=== PATIENT | female | born 1985 | race African-American/Black ===

== ENCOUNTER → 2022-02-03 09:45 | Outpatient (REF) | payer OTHER, SELFPAY ==
--- NOTE | 2022-02-03 09:50 | ECG_ITS ---
Hook-up date: 2022-02-03 09:01:00 Duration: 24:45:00 Test Indications: PALPITATIONS Medications: 704757 QRS complexes 1 Ventricular ectopics which represent <1 % of total QRS comp. * Supraventricular ectopics which represent % of total QRS comp. * Paced QRS complexs which represent % of total QRS comp. VENTRICULAR ECTOPY 1 Isolated 0 Bigeminal Cycles 0 Couplets 0 Runs 0 Beats in Runs * Beats LONGEST at * BPM at :: -- * Beats FASTEST at * BPM at :: -- SUPRAVENTRICULAR ECTOPY * Isolated * Couplets * Runs * Beats in Runs * Beats LONGEST at * BPM at :: -- * Beats FASTEST at * BPM at :: -- HEART RATES 50 MIN at 12:12:00 2022-02-03 77 AVG 138 MAX at 14:17:05 2022-02-03 LONGEST RR 1.2640 secs at 12:11:56 2022-02-03 S-T LEVELS Channel 1 - 128 mm at 09:01:00 2022-02-03 - 128 mm at 09:01:00 2022-02-03 Channel 2 - 128 mm at 09:01:00 2022-02-03 - 128 mm at 09:01:00 2022-02-03 Channel 3 - 128 mm at 02:82:01 -- - 128 mm at 02:82:01 Basic rhythm Normal sinus rhythm No long pause or profound bradycardia No dangerous dysrhythm periods No diary submitted Referred By: Damaris Ramos Overread By: NELLY DOWLING MD
== END ==
LOC: HO.CARD 09:45
PROVIDERS: Visit Provider Family Medicine
DX: R00.2 Palpitations (principal)
CPT/HCPCS: 93225; 93226

== ENCOUNTER 2022-07-29 15:59 | Outpatient (REF) | payer OTHER, SELFPAY ==
--- NOTE | ~2022-07-29 | MR_ITS ---
MR BRAIN WITHOUT AND WITH CONTRAST CLINICAL INFORMATION: Hemiparesis. COMPARISON: None available. TECHNIQUE: Multiplanar, multisequence MRI of the brain was obtained before and after the intravenous administration of 10 mL of Gadavist. FINDINGS: There is no pathologic intracranial enhancement. No parenchymal signal abnormality. There is no hydrocephalus, extra-axial surface collection, or herniation. The major flow voids at the skull base are preserved. There is no acute infarct on diffusion-weighted imaging. There is no intracranial hemorrhage on the gradient recalled echo acquisition. The midline structures are normal. The cerebellar tonsils are normally positioned. The cerebellum and brainstem are normal. The craniocervical junction is normal. Osseous marrow signal intensity is homogenous. The visualized soft tissues are unremarkable. Moderate mucosal thickening within the right sphenoid sinus and throughout the ethmoid air cells bilaterally. Mild mucosal thickening within the maxillary sinuses bilaterally. MR/MR head/brain wo/w con IMPRESSION: Unremarkable MRI of the brain.
== END 2022-07-29 16:00 | disposition home or self-care (01) ==
LOC: HO.MRI 15:59
PROVIDERS: Visit Provider Psychiatry & Neurology Neurology
DX: G81.90 Hemiplegia, unspecified affecting unspecified side (principal)
CPT/HCPCS: 70553; A9585

== ENCOUNTER 2022-11-03 08:49 | Outpatient (REF) | payer OTHER, SELFPAY ==
--- NOTE | ~2022-11-03 | MM_ITS ---
EXAMINATION: MM DIAGNOSTIC DIGITAL MAMMOGRAPHY, BILATERAL US DIAGNOSTIC ULTRASOUND BREAST, LEFT CLINICAL INFORMATION: 37-year-old with recent left lateral breast pain. No palpable mass or discharge. Prior history reduction mammoplasty. No family history breast cancer. The lifetime risk of breast cancer based on the Tyrer-Cuzick Model is 7%. COMPARISON: Mammography: 06/27/2017 ([facility] TECHNIQUE: Digital breast tomosynthesis is performed in both the craniocaudal and mediolateral oblique views along with computer-aided detection (CAD). Synthesized 2D images are generated from the tomosynthesis. Ultrasound left breast is targeted to the outer quadrants and axilla. Grayscale imaging and color Doppler are performed without and with harmonics. Patient is able to point to area of concern at time of imaging. FINDINGS: There are scattered areas of fibroglandular density (ACR BI-RADS breast composition Category b). There is interval minor scarring and scattered benign round, rim, and dermal calcifications consistent with the reduction mammoplasty. There is no significant mass or architectural abnormality or abnormal calcifications. No skin thickening or coarsening of the stromal markings. Ultrasound demonstrates no cystic or solid mass or architectural abnormality. No skin thickening or edema tracking in soft tissue planes. No hyperemia. The left axilla shows 2 nodes with normal jarret architecture. No lymphadenopathy. Results are discussed with the patient at time of visit. MM/MM tomosynthesis diagnostic BI IMPRESSION: -No mammographic evidence of malignancy or inflammatory changes. -Unremarkable targeted left breast ultrasound. ASSESSMENT: BI-RADS 2: Benign RECOMMENDATION: 1. Patient should be managed based on the clinical impression. 2. Otherwise, routine annual screening mammography beginning age 40, or earlier as clinical risk factors warrant. This patient's information was entered into a reminder system with a target due date for their next mammogram.
== END 2022-11-03 08:50 | disposition home or self-care (01) ==
LOC: HO.MAMMO 08:49
PROVIDERS: PCP Family Medicine; Visit Provider Family Medicine
DX: N64.4 Mastodynia (principal)
CPT/HCPCS: 76642; 77062; 77066

== ENCOUNTER → 2023-01-07 10:26 | Outpatient (BNVA) | payer OTHER, SELFPAY | PROVIDERS: PCP Family Medicine; Referring Provider Family Medicine; Visit Provider Physician Assistant Surgical ==

== ENCOUNTER → 2023-01-19 10:15 | Outpatient (BNVA) | payer OTHER, SELFPAY | PROVIDERS: PCP Family Medicine; Visit Provider Surgery | DX: E66.01 Morbid (severe) obesity due to excess calories (principal); K21.9 Gastro-esophageal reflux disease without esophagitis; F90.9 Attention-deficit hyperactivity disorder, unspecified type; G47.30 Sleep apnea, unspecified; J45.909 Unspecified asthma, uncomplicated; Z68.41 Body mass index [BMI] 40.0-44.9, adult | CPT/HCPCS: Q3014 ==

== ENCOUNTER 2023-01-22 09:17 | Outpatient (REF) | payer OTHER, SELFPAY ==
--- NOTE | ~2023-01-22 | XR_ITS ---
EXAMINATION: XR CHEST CLINICAL INFORMATION: Morbid obesity. COMPARISON: June 22, 2019. TECHNIQUE: 2 views of the chest were obtained. FINDINGS: No significant abnormality is noted involving the heart, lungs, mediastinum, bony thorax or soft tissues. Status post cholecystectomy. XR/XR chest 2V IMPRESSION: Unremarkable examination.
--- NOTE | 2023-01-22 09:34 | ECG_ITS ---
Test Reason : E66.01 Blood Pressure : / mmHG Vent. Rate : 064 BPM Atrial Rate : 064 BPM P-R Int : 138 ms QRS Dur : 080 ms QT Int : 408 ms P-R-T Axes : 003 023 024 degrees QTc Int : 420 ms Normal sinus rhythm Septal infarct , age undetermined Abnormal ECG When compared with ECG of 04-MAR-2011 12:48, No significant change was found Referred By: Jonathan Becerra Electronically Signed By:NELLY DOWLING MD
[2023-01-22 09:39] LABS: MANUAL DIFF FLAG NO
[2023-01-22 10:09] LABS: Basophils Absolute Auto 0.1 X10*3/uL (0.0-0.2); Basophils Percent Auto 0.8 % (0-2); Eosinophils Absolute Auto 0.1 X10*3/uL (0.0-0.4); Eosinophils Percent Auto 0.9 % (0-4); Hematocrit 42.5 % (37.0-47.0); Hemoglobin 14.7 g/dl (12.0-16.0); Imm Gran Abs Auto 0.04 X10*3/uL (0.00-0.03); Imm Gran Pct Auto 0.5 % (0.0-0.4); Lymphocytes Absolute Auto 2.1 X10*3/uL (1.2-4.9); Lymphocytes Percent Auto 26.8 % (20-40); Mean Corpuscular HGB Conc 34.6 g/dl (31.0-35.0); Mean Corpuscular Hemoglobin 31.5 pg (27.0-33.0); Mean Platelet Volume 9.7 fL (9.4-12.3); Monocytes Absolute Auto 0.7 X10*3/uL (0.1-1.2); Monocytes Percent Auto 8.7 % (2-11); Neutrophils Absolute Auto 4.9 x10*3/uL (2.0-8.3); Neutrophils Percent Auto 62.3 % (45-73); Platelet Count 386 X10*3/uL (160-400); Red Blood Count 4.67 X10*6/uL (4.20-5.50); White Blood Count 7.9 X10*3/uL (4.8-10.8)
[2023-01-22 10:48] LABS: Alanine Aminotransferase 27 U/L (0-31); Albumin Level 4.6 g/dL (3.5-5.0); Alkaline Phosphatase 81 U/L (39-117); Anion Gap 14 (12-20); Aspartate Amino Transferase 17 U/L (5-31); Bilirubin Total 0.8 mg/dL (0.0-1.0); Blood Urea Nitrogen 11 mg/dL (9-16); C Reactive Protein 2.05 mg/dL (< or = 0.50); Calcium 9.5 mg/dL (8.4-10.2); Carbon Dioxide 27 mmol/L (22-29); Chloride 103 mmol/L (96-108); Cholesterol 186 mg/dL; Estimated Glomerular Filt Rate > 60; Glucose Random 105 mg/dL (60-115); HDL Cholesterol 31 mg/dL; Iron 116 mcg/dL (30-160); LDL Cholesterol Calculated 123 mg/dl; Percent Iron Saturation 36 % (15-50); Potassium 3.9 mmol/L (3.3-5.1); Sodium 140 mmol/L (135-145); Total Iron Binding Capacity 323 mcg/dL (228-428); Total Protein 8.1 g/dL (6.5-8.0); Triglycerides 162 mg/dL; Unsaturated Iron Binding 207 ug/dL
[2023-01-22 11:21] LABS: Folate > 20.0 ng/mL (> or = 4.0); Vitamin B12 520 pg/mL (200-900)
[2023-01-22 11:33] LABS: Ferritin 156 ng/mL (10-122); Insulin 20 uU/mL (2-29); TSH reflex Free T4 0.51 uIU/mL (0.32-4.0); Vitamin D 25-OH Total 25.5 ng/mL (>30)
[2023-01-22 11:35] LABS: Estimated Average Glucose 123 mg/dL; Hemoglobin A1c % 5.9 %
[2023-01-26 15:34] LABS: PTHI 52 pg/mL (16-77)
[2023-01-27 15:38] LABS: Zinc 88 mcg/dL (60-130)
[2023-01-28 16:02] LABS: Vitamin A 41 mcg/dL (38-98)
[2023-01-30 13:54] LABS: Vitamin B1 9 nmol/L (8-30)
== END 2023-01-22 09:18 | disposition home or self-care (01) ==
LOC: HO.LAB 09:17
PROVIDERS: Visit Provider Surgery
DX: E66.01 Morbid (severe) obesity due to excess calories (principal); F90.9 Attention-deficit hyperactivity disorder, unspecified type; G47.30 Sleep apnea, unspecified; J45.909 Unspecified asthma, uncomplicated; K21.9 Gastro-esophageal reflux disease without esophagitis
CPT/HCPCS: 36415; 71046; 80053; 80061; 82306; 82607; 82728; 82746; 83036; 83525; 83540; 83970; 84425; 84443; 84590; 84630; 85025; 86140; 93005

== ENCOUNTER 2023-02-04 10:32 | Outpatient (REF) | payer OTHER, SELFPAY ==
--- NOTE | ~2023-02-04 | US_ITS ---
EXAMINATION: US COMPLETE ABDOMEN WITH LIVER ELASTOGRAPHY CLINICAL INFORMATION: Morbid obesity. COMPARISON: None available. TECHNIQUE: Real-time imaging of the abdominal viscera. Noninvasive ultrasound liver fibrosis assessment is performed using Ayleen ElastPQ point quantification shear wave elastography (2D-SWE) with a C5-2 MHz transducer. Multiple elastography samples are obtained. FINDINGS: PANCREAS: Limited. The visualized pancreatic head and body are normal in appearance. The remainder of the pancreas is obscured from visualization by the overlying bowel gas. ABDOMINAL AORTA: The proximal, middle, and distal aortic segments are normal in caliber. INFERIOR VENA CAVA: Visualized portions are normal. LIVER: The liver demonstrates normal size, contour and increased echogenicity. No focal lesion or intrahepatic biliary duct dilatation. The right lobe measures 16.7 cm in length. The left lobe measures 10.8 cm in length. Portal flow is towards the liver (hepatopetal). Shear wave liver elastography median stiffness is 1.24 m/s (reference: normal median stiffness is 1.3 m/s or less). IQR/median stiffness to assess sampling precision is 0.07 (reference: good quality data set is IQR/median stiffness of 0.15 or less). GALLBLADDER: Surgically absent. COMMON BILE DUCT: Normal in caliber measuring 0.4 cm in diameter. RIGHT KIDNEY: Normal. No hydronephrosis. No renal calculi or focal parenchymal lesions. The kidney measures 11.8 cm in maximum dimension. LEFT KIDNEY: Normal. No hydronephrosis. No renal calculi or focal parenchymal lesions. The kidney measures 12.2 cm in maximum dimension. SPLEEN: Normal. The spleen measures 8.5 cm in maximum dimension. FREE FLUID: None. US/US abdomen comp w elastography IMPRESSION: 1. There is generalized increase in hepatic echotexture, consistent with fatty infiltration or hepatocellular disease. Please correlate clinically. No focal hepatic mass or intrahepatic biliary dilatation is seen. 2. Liver elastography: Measurements are consistent with a high probability of normal liver stiffness. 3. The gallbladder is surgically absent. 4. Technically limited ultrasound examination of the pancreatic tail. REFERENCE: Society of Radiologists in Ultrasound Liver Stiffness Thresholds (2020): LIVER STIFFNESS THRESHOLDS: *Liver Stiffness equal or less than 1.3 m/s: High probability of being normal. *Liver Stiffness less than 1.7 m/s: In the absence of other known clinical signs, rules out compensated advanced chronic liver disease. *Liver Stiffness 1.7-2.1 m/s: Suggestive of compensated advanced chronic liver disease but need further test for confirmation. *Liver Stiffness over 2.1 m/s: Rules in compensated advanced chronic liver disease. *Liver Stiffness over 2.4 m/s: Suggestive of clinically significant portal hypertension. QUALITY OF DATA SET: *IQR/Median value equal or less than 0.15 implies a quality data set. *IQR/Median value over 0.15 implies a poor quality data set. SIGNIFICANT CHANGE FROM PRIOR EXAM: Significant change if liver stiffness measurement is 10% or greater from prior exam. OTHER CONSIDERATIONS: The stage of liver fibrosis may be overestimated in the setting of acute hepatitis, liver inflammation, elevated liver function tests, hepatic vascular congestion, obstructive cholestasis, non-fasting state, and infiltrative diseases such as amyloidosis and lymphoma. In some patients with NAFLD, the liver stiffness thresholds for compensated advanced chronic liver disease may be lower. In causes other than viral hepatitis and NAFLD, liver stiffness thresholds are not well established.
== END 2023-02-04 10:33 | disposition home or self-care (01) ==
LOC: HO.US 10:32
PROVIDERS: PCP Family Medicine; Visit Provider Surgery
DX: E66.01 Morbid (severe) obesity due to excess calories (principal); K21.9 Gastro-esophageal reflux disease without esophagitis
CPT/HCPCS: 76705; 76981

== ENCOUNTER 2023-02-05 09:24 | Outpatient (REF) | payer OTHER, SELFPAY ==
--- NOTE | ~2023-02-05 | FL_ITS ---
EXAMINATION: XR FLUOROSCOPY UPPER GI WITH AIR CLINICAL INFORMATION: Morbid/severe obesity due to excess calories COMPARISON: None available. TECHNIQUE: Routine upper GI air-contrast study was performed in upright and lying position. FINDINGS: Following oral administration of thick barium and effervescent granules there is normal propagation bolus from the oral cavity through the pharynx, esophagus into stomach without any evidence of obstruction, narrowing or stricture. The course, caliber and peristalsis of the stomach, duodenal bulb and the sweep is normal. FLUOROSCOPY TIME: 2.3 minutes DOSE AREA PRODUCT: 41.247 uGy-m2 (microgray-meter squared) FL/FL upper GI w air IMPRESSION: Unremarkable upper GI air-contrast examination.
== END 2023-02-05 09:25 | disposition home or self-care (01) ==
LOC: HO.XRAY 09:24
PROVIDERS: PCP Family Medicine; Visit Provider Surgery
DX: E66.01 Morbid (severe) obesity due to excess calories (principal); G47.30 Sleep apnea, unspecified; F90.9 Attention-deficit hyperactivity disorder, unspecified type; J45.909 Unspecified asthma, uncomplicated; K21.9 Gastro-esophageal reflux disease without esophagitis
CPT/HCPCS: 74246

== ENCOUNTER 2023-02-09 09:49 | Outpatient (REF) | payer OTHER, SELFPAY | END 2023-02-09 09:50 | disposition home or self-care (01) | LOC: HO.LNP 09:49 | PROVIDERS: PCP Family Medicine; Visit Provider Physician Assistant Surgical | DX: E66.01 Morbid (severe) obesity due to excess calories (principal); K21.9 Gastro-esophageal reflux disease without esophagitis; J45.909 Unspecified asthma, uncomplicated | CPT/HCPCS: 83013; 99211 ==

== ENCOUNTER → 2023-02-17 09:46 | Outpatient (REF) | payer OTHER, SELFPAY ==
--- NOTE | 2023-02-17 09:48 | CA_ITS ---
Acquisition Time: 2023-02-17 10:17:30 Total Exercise Time: 00:08:23 Test Indications: Abnormal ECG Medications: ALBUTEROL ADDERALL HYDROXYZINE LORATADINE SINGULAIR Protocol: TAMIE Max HR: 164 BPM 89% of Pred: 184 BPM Max BP: 184/064 mmHG Max Work Load: 10.1 METS Exercise stress teszxt exercise 8 min 23 sec of Tamie protocol (manual mode due to button pressed) acheving 89% MPHR with mild SOB, without discomfort, without arrhythmias, with normotensive response to exercise, without EKG changes. Test reviewed with Dr. Buchanan. Referred By: Jonathan Becerra Overread By: Kayla Gatica
== END ==
LOC: HO.CARD 09:46
PROVIDERS: PCP Family Medicine; Visit Provider Surgery
DX: R94.31 Abnormal electrocardiogram [ECG] [EKG] (principal)
CPT/HCPCS: 93017

== ENCOUNTER → 2023-02-17 09:48 | Outpatient (BNV) | payer OTHER, SELFPAY | PROVIDERS: PCP Family Medicine; Visit Provider Nurse Practitioner | DX: R06.02 Shortness of breath (principal); R94.31 Abnormal electrocardiogram [ECG] [EKG] | CPT/HCPCS: 93016; 93018 ==

== ENCOUNTER 2023-02-25 11:57 | Outpatient (AMB) | payer OTHER, SELFPAY ==
--- NOTE | 2023-02-25 11:18 | MHC.OFFVISWM ---
Intake VS Expanded 02/25/23 11:30 Height 4 ft 11 in Weight 201 lb 6.4 oz BMI 40.7 Intake Visit Reasons: VIDEO F/U SWL Allergies amoxicillin [Amoxicillin] Allergy (Mild, Verified 01/19/23 10:30) ITCHING diphenhydramine [From Benadryl] Allergy (Mild, Verified 01/19/23 10:30) ITCHING folic acid [From Vitamin] Allergy (Mild, Verified 01/19/23 10:30) RASH iron [From Vitamin] Allergy (Mild, Verified 01/19/23 10:30) RASH acetaminophen [From Percocet] Allergy (Unknown, Verified 01/19/23 10:30) ITCHING penicillin V Allergy (Unknown, Verified 01/19/23 10:30) Hives Penicillins Allergy (Unknown, Verified 01/19/23 10:30) ITCHING Amoxicillin Allergy (Unknown, Uncoded 01/19/23 10:30) hives From Percocet Allergy (Unknown, Uncoded 01/19/23 10:30) ITCHING Penicillin Allergy (Unknown, Uncoded 01/19/23 10:30) hives HPI HPI Comments History of Present Illness Details 37 yo female returns for pre-op planning in [facility]. Initial weight on 01/19/23 was 212.4 pounds with a BMI of 42.9 Weight today 201.4 pounds with a BMI of 40.7 weight loss 11 pounds or 5.1 % TBWL She feels as though the program is difficult and she is not following the meal plan exactly. She also states she is not sure she wants surgery. She additionally states she wanted to be referred to [facility] and does not understand why she was referred here. She does not like the nutritional plan provided her and has changed it on her own without communicating with Dr Ruiz. She is doing 1 shake in the morning, Orgain makes her own protein bar (oatmeal/protein powder (1 scoop orgain), honey, almond butter) skips lunch dinner around 530 pm, chicken, 1/2 sweet potato, carrots, corn (not measuring by forkful measuring by eye recommended meal plan: 2 plant-based organic Pure Protein shakes (HALF scoop EACH in 8oz low fat unsweetened almond milk each) at 7am-9am and 10am-12pm, 2 protein bars (Zone Perfect protein bars) at 1pm-3pm and 4pm-6pm, dinner at 7pm (8 forks of protein and 8 forks of salad/vegetables) and one more protein bar after dinner at 9pm-11pm. exercise plan: gym daily, treadmill 40 min, 220 calories, stairmaster, 5,min, weight training. [facility] Medical History (Updated 02/03/23 @ 12:07 by Dianne Calderon) ADHD Asthma Bipolar 1 disorder Depression DJD (degenerative joint disease) GERD (gastroesophageal reflux disease) Headaches due to old head injury Insomnia Morbid obesity Sleep apnea treated with continuous positive airway pressure (CPAP) Surgical History (Updated 01/07/23 @ 10:42 by TALAT Lugo) Hx of breast reduction, elective Hx of section Hx of cholecystectomy Family History (Updated 01/07/23 @ 10:44 by TALAT Lugo) Mother Hypertension Diabetes Heart attack Father Hypertension Brother No problems noted. Sister No problems noted. Son ADHD Daughter No problems noted. Social History (Updated 01/07/23 @ 10:41 by TALAT Lugo) Alcohol intake: never Patient Tobacco Use Status: Never used Tobacco Substance Use Type: Marijuana Assessment & Plan Assessment & Plan (1) Morbid obesity: Code(s): E66.01 - Morbid (severe) obesity due to excess calories Plan: Pt states she wants to go to the [facility] and does not want to continue at [facility]. She feels as though the meal plan is too strict for her and she stated that she initially was expecting to be referred to [facility] from her PCP and she was not sure why she was sent here. She will f/u at [facility] and future appts will be cancelled at [facility]. Telehealth Telehealth Location of provider rendering services: practice address Location of patient: address on file Patient Identification confirmed using: Name, : Yes Telehealth method: video Patient verbally consented to treatment: Yes Patient verbally consented to billing insurance company: Yes Patient informed of any privacy concerns related to visit: Yes Minutes spent on Phone/Video with Pt.: 15 Coding Level of Care Code Tele Est Pt Level 3 (55522) Diagnoses Morbid obesity E66.01 Time Spent (min) 20
[2023-02-25 11:30] VITALS: BMI 40.7
== END 2023-02-25 12:00 | disposition home or self-care (01) ==
LOC: HO.HBS 11:57
PROVIDERS: PCP Family Medicine; Visit Provider Physician Assistant Surgical
DX: E66.01 Morbid (severe) obesity due to excess calories (principal); Z68.41 Body mass index [BMI] 40.0-44.9, adult
CPT/HCPCS: 99213

== ENCOUNTER → 2023-02-25 11:57 | Outpatient (BNVA) | payer OTHER, SELFPAY | PROVIDERS: PCP Family Medicine; Visit Provider Physician Assistant Surgical | DX: E66.01 Morbid (severe) obesity due to excess calories (principal); Z68.41 Body mass index [BMI] 40.0-44.9, adult | CPT/HCPCS: Q3014 ==

== ENCOUNTER 2023-02-27 10:40 | Outpatient (REF) | payer OTHER, SELFPAY ==
--- NOTE | ~2023-02-27 | US_ITS ---
EXAMINATION: US PELVIS CLINICAL INFORMATION: Dyspareunia, unknown last menstrual period. COMPARISON: 08/25/2013. TECHNIQUE: Ultrasound of the pelvis is performed using both transabdominal and transvaginal transducers along with Doppler. Transvaginal imaging is performed due to inadequate visualization transabdominally. FINDINGS: The uterus is anteverted and measures 8.5 x 3.3 x 4.7 cm. No discrete fibroid identified. Nabothian cysts are present. Small amount of fluid in the cervix. Endometrium is difficult to visualize due to IUD. IUD present within the endometrial cavity. There is no significant free fluid. Left ovary measures 1.7 x 1.7 x 1.3 cm, volume 2.0 mL and is unremarkable. Right ovary measures 3.6 x 2.1 x 1.9 cm, volume 7.5 mL. Right ovarian 2.0 x 1.9 x 1.6 cm simple cyst is likely physiologic. There is no indication for followup imaging at this time. US/US pelvic and transvaginal IMPRESSION: No discrete fibroids. Endometrium is difficult to visualize due to IUD. IUD is present within the endometrial cavity. Right ovarian 2.5 x 1.9 x 1.8 cm simple cyst is likely physiologic. Unremarkable left ovary. Nabothian cysts present. Small amount of fluid in the cervix.
== END 2023-02-27 10:41 | disposition home or self-care (01) ==
LOC: HO.US 10:40
PROVIDERS: PCP Family Medicine; Visit Provider Family Medicine
DX: N94.10 Unspecified dyspareunia (principal)
CPT/HCPCS: 76830; 76856

== ENCOUNTER 2023-05-14 12:14 | Outpatient (REF) | payer OTHER, SELFPAY | END 2023-05-14 12:15 | disposition home or self-care (01) | LOC: HO.LNP 12:14 | PROVIDERS: PCP Family Medicine; Visit Provider Obstetrics & Gynecology | DX: R87.610 Atypical squamous cells of undetermined significance on cytologic smear of cervix (ASC-US) (principal); R87.810 Cervical high risk human papillomavirus (HPV) DNA test positive; Z32.02 Encounter for pregnancy test, result negative | CPT/HCPCS: 57454; 81025; 88305 ==

== ENCOUNTER 2023-05-14 12:14 | Outpatient (AMB) | payer OTHER, SELFPAY ==
--- NOTE | 2023-05-14 12:21 | MHC.OFFVIS ---
Intake Vital Signs 05/14/23 12:23 Height 4 ft 11 in Weight 192 lb BMI 38.8 BP 100/70 Intake Visit Reasons: colpo consult/PCP Referral/DO NO RS Correspondence School Teacher Required: No Information Interpreted: non-clinical & clinical Consulting It Architect: Consulting It Architect Present (Aidyn) Allergies amoxicillin [Amoxicillin] Allergy (Mild, Verified 05/14/23 12:29) ITCHING diphenhydramine [From Benadryl] Allergy (Mild, Verified 05/14/23 12:29) ITCHING folic acid [From Vitamin] Allergy (Mild, Verified 05/14/23 12:29) RASH iron [From Vitamin] Allergy (Mild, Verified 05/14/23 12:29) RASH acetaminophen [From Percocet] Allergy (Unknown, Verified 05/14/23 12:29) ITCHING penicillin V Allergy (Unknown, Verified 05/14/23 12:29) Hives Penicillins Allergy (Unknown, Verified 05/14/23 12:29) ITCHING Amoxicillin Allergy (Unknown, Uncoded 05/14/23 12:29) hives From Percocet Allergy (Unknown, Uncoded 05/14/23 12:29) ITCHING Penicillin Allergy (Unknown, Uncoded 05/14/23 12:29) hives Is last menstrual period known: No Post menopausal: No HPI HPI Comments History of Present Illness Details Presenting referred from [facility] for ascus/HPV positive. 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 Sister No problems noted. Son ADHD Daughter No problems noted. Social History Alcohol intake: never Patient Tobacco Use Status: Never used Tobacco Substance Use Type: Marijuana Female Reproductive History Menstrual Age of Menarche: 14 Duration of menses: 6-7 days control method: progestin IUCD Total pregnancies: 2 Full term: 2 Number of Living Children: 2 Date of last pap smear: 02/02/23 (ASCUS +HPV) History of abnormal pap smear: Yes Review of Systems Const All systems reviewed & are unremarkable except as noted in HPI and below Physical Exam Vital Signs: Last Vital Signs BP 100/70 05/14/23 12:23 BMI result Body Mass Index 38.8 General: Yes no CVA tenderness External Female Exam: normal external appearance and normal appearance of the urethra Speculum Exam - Vagina: normal appearance of the vagina, normal palpation, no lesions and no masses Speculum Exam - Cervix: normal appearance of the cervix, normal palpation, no lesions, no masses and nontender Bimanual exam- vagina & uterus: normal bimanual exam, normal palpation, uterine size normal, normal palpation, uterine shape normal, No Cervical tenderness present and non-tender Bimanual Exam- Adnexa, other: normal adnexae Back/Spine/Pelvis Back: no CVA tenderness Office Procedures Colposcopy Before the procedure was started discussed with the patient the procedure, alternatives & all the risks associated with the procedure (bleeding, infection, injury to vagina, bladder, vessels, possible need for transfusion with all its risks) then patient signed the consent UPT done in the office & negative Pap smear = ascus/HPV pause Speculum inserted, acetic acid used Colposcopy done Transformation zone seen, acetowhite lesions identified at 6+11+12 o?clock, cervical biopsies taken from 6+11+12 o?clock, ECC done afterwards. Vaginoscopy of the upper vagina showed no evidence of any aceto-white lesions Monsel solution used for hemostasis. The patient tolerated well . At the end the patient was instructed to call if temp>100.4, abdominal pain, n/v, bleeding; The patient was given the following instructions: nothing per vagina, no intercourse or bath tub use. All questions answered the patient verbalized understanding. Instructed the patient to make an appointment in 2 weeks for follow-up This note was generated with a voice recognition program. Some errors may have been overlooked during the review of this note. Sometimes these errors may affect the content or meaning of a given sentence. 08018-Nslvicmhz of cervix including upper vagina with biopsy and ECC Procedure code (CPT) selection complete Results AMB Test Urine AMB Test Urine Negative Last Edit by TALAT Montalvo on 05/14/23 12:34 Assessment & Plan Assessment & Plan (1) ASCUS with positive high risk HPV cervical: Code(s): R87.610 - Atypical squamous cells of undetermined significance on cytologic smear of cervix (ASC-US); R87.810 - Cervical high risk human papillomavirus (HPV) DNA test positive Plan: Discussed with the patient the result of her abnormal pap/HPV positive, its significance, risk of progression, persistence, and regression if untreated. the false positive/negative rate being a screening test, the need for diagnostic test -colposcopy, biopsy, endocervical curettage. The patient verbalized understanding and agreed with the plan, all questions answered. Colpo/biopsy/ECC done, see procedure note Orders: Orders AMB HCG Urine Test Today Z32.02 - Encounter for test, result negative AMB Colposcopy Today R87.610 - Atypical squamous cells of undetermined significance on cytologic smear of cervix (ASC-US), R87.810 - Cervical high risk human papillomavirus (HPV) DNA test positive Coding Level of Care Code New Pt Level 3 (89265) Procedure Only Diagnoses ASCUS with positive high risk HPV cervical R87.610; R87.810 CPT Codes Colposcopy - CPT: 35040-Ehlhruzos of cervix including upper vagina with biopsy and ECC ([id number])
[2023-05-14 12:23] VITALS: BP 100/70; BMI 38.8
== END 2023-05-14 12:48 | disposition home or self-care (01) ==
PROVIDERS: PCP Family Medicine; Visit Provider Obstetrics & Gynecology
DX: R87.610 Atypical squamous cells of undetermined significance on cytologic smear of cervix (ASC-US) (principal); R87.810 Cervical high risk human papillomavirus (HPV) DNA test positive; Z32.02 Encounter for pregnancy test, result negative
CPT/HCPCS: 57454; 99203

== ENCOUNTER 2023-05-20 18:49 | Outpatient (REF) | payer OTHER, SELFPAY ==
[2023-05-21 05:39] LABS: CT PCR NOT DETECTED (Not Detect.); NG PCR NOT DETECTED (Not Detect.)
[2023-05-21 09:54] LABS: BV Int Neg Control Negative (Negative); BV Int Pos Control Positive (Positive)
== END 2023-05-20 18:50 | disposition home or self-care (01) ==
LOC: HO.HHCLNP 18:49
PROVIDERS: Visit Provider Internal Medicine
DX: N89.8 Other specified noninflammatory disorders of vagina (principal)
CPT/HCPCS: 0353U; 87480; 87510; 87660

== ENCOUNTER 2023-05-21 11:03 | Outpatient (REF) | payer OTHER, SELFPAY ==
[2023-05-21 13:12] LABS: MANUAL DIFF FLAG NO
[2023-05-21 13:45] LABS: Basophils Absolute Auto 0.1 X10*3/uL (0.0-0.2); Basophils Percent Auto 0.7 % (0-2); Eosinophils Absolute Auto 0.1 X10*3/uL (0.0-0.4); Hematocrit 46.5 % (37.0-47.0); Hemoglobin 15.2 g/dl (12.0-16.0); Imm Gran Abs Auto 0.05 X10*3/uL (0.00-0.03); Imm Gran Pct Auto 0.6 % (0.0-0.4); Lymphocytes Absolute Auto 1.8 X10*3/uL (1.2-4.9); Lymphocytes Percent Auto 19.9 % (20-40); Mean Corpuscular HGB Conc 32.7 g/dl (31.0-35.0); Mean Corpuscular Hemoglobin 29.8 pg (27.0-33.0); Mean Corpuscular Volume 91.2 fL (80.0-98.0); Mean Platelet Volume 10.1 fL (9.4-12.3); Monocytes Absolute Auto 0.6 X10*3/uL (0.1-1.2); Monocytes Percent Auto 6.3 % (2-11); Neutrophils Absolute Auto 6.3 x10*3/uL (2.0-8.3); Neutrophils Percent Auto 71.5 % (45-73); Platelet Count 414 X10*3/uL (160-400); Red Cell Distribution Width 13.5 % (11.0-16.0); White Blood Count 8.8 X10*3/uL (4.8-10.8)
[2023-05-21 14:10] LABS: Estimated Average Glucose 111 mg/dL; Hemoglobin A1c % 5.5 % (<6.0)
[2023-05-21 14:18] LABS: Cholesterol 191 mg/dL (<200); HDL Cholesterol 40 mg/dL (>40); LDL Cholesterol Calculated 130 mg/dL (<100); Triglycerides 106 mg/dL (<150)
[2023-05-21 14:26] LABS: Alanine Aminotransferase 20 U/L (0-31); Albumin Level 4.6 g/dL (3.5-5.0); Alkaline Phosphatase 76 U/L (39-117); Anion Gap 14 (12-20); Aspartate Amino Transferase 13 U/L (5-31); Bilirubin Total 0.4 mg/dL (0.0-1.0); Blood Urea Nitrogen 10 mg/dL (9-16); Calcium 9.7 mg/dL (8.4-10.2); Carbon Dioxide 23 mmol/L (22-29); Chloride 105 mmol/L (96-108); Estimated Glomerular Filt Rate > 60; Glucose Random 122 mg/dL (60-115); Sodium 138 mmol/L (135-145); TSH reflex Free T4 0.42 uIU/mL (0.32-4.0)
[2023-05-21 14:42] LABS: Folate 12.1 ng/mL (> or = 4.0); Vitamin B12 770 pg/mL (200-900)
[2023-05-21 19:09] LABS: Reflex LDLD? No
[2023-05-22 03:54] LABS: Syphilis Screen Nonreactive (Nonreactive)
[2023-05-22 04:00] LABS: HBS Num1 185.58 mIU/mL (0-7.99); HBc Num1 0.11 S/CO (0.00-0.79); HBsAGNum1 0.32 S/CO (0.00-0.99); HIV AB/AG Nonreactive (Nonreactive); HIV Num 1 0.08 S/CO (0.00-0.99); Hepatitis A Antibody IgM 0.27 Index (0-0.79); Hepatitis B Core Antibody Nonreactive (Nonreactive); Hepatitis B Surface Antigen Negative (Negative); ~HepC Num1 0.08 S/CO (0.00-0.79); ~Hepatitis A Antibody IgM Nonreactive (Nonreactive); ~Hepatitis B Surface Antibody REACTIVE (Nonreactive); ~Hepatitis C Antibody Nonreactive (Nonreactive)
[2023-05-26 01:39] LABS: VITAMIN D (1,25 OH) D3 67 pg/mL; Vit D (1,25-Dihydroxy) Total 67 pg/mL (18-72); Vitamin D (1,25 OH) D2 <8 pg/mL
== END 2023-05-21 11:04 | disposition home or self-care (01) ==
LOC: HO.HHCL 11:03
PROVIDERS: PCP Family Medicine; Visit Provider Internal Medicine
DX: Z72.51 High risk heterosexual behavior (principal); R63.4 Abnormal weight loss; E66.01 Morbid (severe) obesity due to excess calories; Z68.38 Body mass index [BMI] 38.0-38.9, adult; R73.03 Prediabetes; Z13.21 Encounter for screening for nutritional disorder
CPT/HCPCS: 36415; 80053; 80061; 82607; 82652; 82746; 83036; 84443; 85025; 86704; 86706; 86709; 86780; 86803; 87340; 87389

== ENCOUNTER 2023-06-16 13:00 | Outpatient (AMB) | payer OTHER, SELFPAY ==
--- NOTE | 2023-06-16 13:00 | MHC.OFFVIS ---
Intake Vital Signs 06/16/23 13:03 Height 4 ft 11 in Weight 191 lb 12.835 oz BMI 38.7 BP 120/78 Intake Visit Reasons: Follow up Colpo Phlebotomy Coordinator Required: No Information Interpreted: non-clinical & clinical Accompanied by: Self / Same As Patient Allergies amoxicillin [Amoxicillin] Allergy (Mild, Verified 06/16/23 13:04) ITCHING diphenhydramine [From Benadryl] Allergy (Mild, Verified 06/16/23 13:04) ITCHING folic acid [From Vitamin] Allergy (Mild, Verified 06/16/23 13:04) RASH iron [From Vitamin] Allergy (Mild, Verified 06/16/23 13:04) RASH acetaminophen [From Percocet] Allergy (Unknown, Verified 06/16/23 13:04) ITCHING penicillin V Allergy (Unknown, Verified 06/16/23 13:04) Hives Penicillins Allergy (Unknown, Verified 06/16/23 13:04) ITCHING Amoxicillin Allergy (Unknown, Uncoded 06/16/23 13:04) hives From Percocet Allergy (Unknown, Uncoded 06/16/23 13:04) ITCHING Penicillin Allergy (Unknown, Uncoded 06/16/23 13:04) hives Is last menstrual period known: No (mirena) HPI HPI Comments History of Present Illness Details Presenting post colpo for follow-up. The patient is doing well with no complaints. The pathology showed the following: A. Cervix, 6 o'clock, biopsy: Inflamed squamous mucosa with reactive changes; no endocervical epithelium identified. B. Cervix, 11 o'clock, biopsy: Squamous mucosa within normal limits; no endocervical epithelium identified. C. Cervix, 12 o'clock, biopsy: - Squamous mucosa within normal limits. - Strips of endocervical epithelium within normal limits. D. Endocervix, curettage: Scant superficial strips of endocervical and squamous epithelium within normal limits; mucoinflammatory material. COMMENT: By report, the patient has a history of an ASCUS Pap with positive HPV ([facility]) [facility] Medical History Cervical high risk HPV (human papillomavirus) test positive Asthma Headaches due to old head injury Insomnia Depression Bipolar 1 disorder GERD (gastroesophageal reflux disease) DJD (degenerative joint disease) ADHD Sleep apnea treated with continuous positive airway pressure (CPAP) Morbid obesity Surgical History Hx of breast reduction, elective Hx of section Hx of cholecystectomy Family History Mother Hypertension Diabetes Heart attack Father Hypertension Brother No problems noted. Sister No problems noted. Son ADHD Daughter No problems noted. Social History Alcohol intake: never Patient Tobacco Use Status: Never used Tobacco Substance Use Type: Marijuana Female Reproductive History Menstrual Age of Menarche: 14 Review of Systems Const All systems reviewed & are unremarkable except as noted in HPI and below Reports as per HPI and Reports no additional complaints GI Reports no additional complaints Reports no additional complaints Physical Exam Vital Signs: Last Vital Signs BP 120/78 06/16/23 13:03 BMI result Body Mass Index 38.7 Assessment & Plan Assessment & Plan (1) ASCUS with positive high risk HPV cervical: Code(s): R87.610 - Atypical squamous cells of undetermined significance on cytologic smear of cervix (ASC-US); R87.810 - Cervical high risk human papillomavirus (HPV) DNA test positive Plan: Discussed with the patient the pathology results of the colposcopy biopsies & endocervical curettage ( negative). Discussed with the patient the sensitivity specificity, positive and negative predictive value in detecting cervical cancer in addition discussed the regression, persistence and progression rates. Recommended co-testing in 12 months, if cytology and or HPV are abnormal will proceed was colposcopy biopsy and endocervical curettage. Instructions given to the patient to schedule a co test appointment in 1 year. All questions answered the patient verbalized understanding. Coding Level of Care Code Est Pt Level 3 (40489) Diagnoses ASCUS with positive high risk HPV cervical R87.610; R87.810
[2023-06-16 13:03] VITALS: BP 120/78; BMI 38.7
== END 2023-06-16 13:16 | disposition home or self-care (01) ==
PROVIDERS: PCP Family Medicine; Visit Provider Obstetrics & Gynecology
DX: R87.610 Atypical squamous cells of undetermined significance on cytologic smear of cervix (ASC-US) (principal); R87.810 Cervical high risk human papillomavirus (HPV) DNA test positive
CPT/HCPCS: 99213

== ENCOUNTER → 2023-06-16 13:00 | Outpatient (BNVA) | payer OTHER, SELFPAY | PROVIDERS: PCP Family Medicine; Visit Provider Obstetrics & Gynecology | DX: R87.610 Atypical squamous cells of undetermined significance on cytologic smear of cervix (ASC-US) (principal); R87.810 Cervical high risk human papillomavirus (HPV) DNA test positive | CPT/HCPCS: 99212 ==

== ENCOUNTER 2023-07-24 13:58 | Outpatient (REF) | payer OTHER, SELFPAY ==
[2023-07-25 10:22] LABS: CT PCR NOT DETECTED (Not Detect.); NG PCR NOT DETECTED (Not Detect.)
[2023-07-26 11:45] LABS: BV Int Neg Control Negative (Negative); BV Int Pos Control Positive (Positive)
== END 2023-07-24 13:59 | disposition home or self-care (01) ==
LOC: HO.HHCLNP 13:58
PROVIDERS: Visit Provider Internal Medicine
DX: R39.9 Unspecified symptoms and signs involving the genitourinary system (principal); N89.8 Other specified noninflammatory disorders of vagina
CPT/HCPCS: 0353U; 87086; 87480; 87510; 87660

== ENCOUNTER 2023-10-02 11:24 | Outpatient (REF) | payer OTHER, SELFPAY ==
[2023-10-02 13:22] LABS: CDiff Gene PCR NEGATIVE (Negative)
== END 2023-10-02 11:25 | disposition home or self-care (01) ==
LOC: HO.HHCLNP 11:24
PROVIDERS: Visit Provider Emergency Medicine
DX: R19.7 Diarrhea, unspecified (principal)
CPT/HCPCS: 87177; 87209; 87338; 87493

== ENCOUNTER 2023-11-13 10:36 | Outpatient (REF) | payer OTHER, SELFPAY ==
--- NOTE | ~2023-11-13 | MR_ITS ---
EXAMINATION: MR KNEE WITHOUT CONTRAST, LEFT CLINICAL INFORMATION: Left knee pain and swelling. Medial meniscal tear. COMPARISON: Most recent left knee radiographs dated 06/22/2019. TECHNIQUE: MRI of the knee without contrast was performed using routine sequences on a high-field scanner. FINDINGS: MENISCI: Medial Meniscus: Diffuse attenuation of the meniscal body and posterior horn/root which likely indicates prior meniscectomy. Meniscal flap superior to the anterior horn/body junction measuring up to 0.6 cm in greatest dimension, consistent with a recurrent meniscal tear. Lateral Meniscus: Focal tibial articular surface fraying/tearing of the posterior horn. LIGAMENTS: Cruciate: Significant attenuation with near complete absence of the anterior cruciate ligament consistent with a chronic, near-complete tear. Intact posterior cruciate ligament. Collateral: Intact EXTENSOR MECHANISM: Intact ARTICULAR CARTILAGE/BONE: Patellofemoral Compartment: Lateral patellar facet articular cartilage thinning with delamination measuring up to 1.0 cm in ML dimension. Mild underlying subchondral cystic change. Tiny marginal osteophytes. Medial Compartment: Diffuse articular cartilage thinning and signal heterogeneity with tiny marginal osteophytes. Lateral Compartment: Posterior non-weightbearing articular cartilage signal heterogeneity and surface irregularity. Weightbearing lateral femoral condyle articular cartilage thinning. Tiny marginal osteophytes. JOINT FLUID AND BURSAE: Arnkt-qb-oovebspl joint effusion and small Hernandez's cyst with mild synovitis. MR/MR knee LT wo con IMPRESSION: 1. Diffuse attenuation of the medial meniscal body and posterior horn/root, consistent with prior meniscectomy. Meniscal flap superior to the anterior horn/body junction measuring 0.6 cm, consistent with a recurrent meniscal tear. 2. Focal tibial articular surface fraying/tearing of the lateral meniscus posterior horn. 3. 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 4. Mild tricompartmental osteoarthritis. Lfklc-pn-[id number] joint effusion and small Hernandez's cyst with mild synovitis.
== END 2023-11-13 10:37 | disposition home or self-care (01) ==
LOC: HO.MRI 10:36
PROVIDERS: PCP Family Medicine; Visit Provider Family Medicine
DX: R73.03 Prediabetes (principal)
CPT/HCPCS: 73721

== ENCOUNTER 2023-12-04 09:38 | Outpatient (REF) | payer OTHER, SELFPAY ==
--- NOTE | ~2023-12-04 | XR_ITS ---
EXAMINATION: XR AP UPRIGHT BOTH KNEES WITH 2 ADDITIONAL VIEWS OF THE LEFT KNEE CLINICAL INFORMATION: Pain in the left knee. COMPARISON: X-rays of the right and left knee June 2019. TECHNIQUE: AP upright views of both knees and lateral and patellofemoral view of the left knee. FINDINGS: Left knee: Medial compartment: Joint space narrowing with marginal osteophytes indicative of xdxh-tq-ukuzspmb osteoarthritis. Lateral compartment: Small marginal osteophytes without joint space narrowing indicative of mild osteoarthritis. Patellofemoral compartment: Marginal osteophytes without joint space narrowing indicative of mild osteoarthritis. No effusion. Right knee limited: Medial lateral compartments normal. Patella femoral compartment not assessed on the AP projection. Possible bipartite patella along the lateral aspect of the patella. Remaining bone and soft tissues unremarkable. XR/XR knee LT 3V IMPRESSION: Left knee: Osteoarthritis with degenerative changes most prominent in the medial compartment being mild to moderate. Right knee limited: No acute abnormality. Possible bipartite patella.
== END 2023-12-04 09:39 | disposition home or self-care (01) ==
LOC: HO.HOSX 09:38
PROVIDERS: Visit Provider Physician Assistant
DX: M17.12 Unilateral primary osteoarthritis, left knee (principal)
CPT/HCPCS: 20610; 73562; 99202; J1010

== ENCOUNTER 2023-12-04 10:15 | Outpatient (AMB) | payer OTHER, SELFPAY ==
--- NOTE | 2023-12-04 10:36 | MHC.OFFVIS ---
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 Patient reports a meniscus tear years ago and she continues to have pain. She has constant pain and swelling. States that it feels like an elastic band around her knee. Finds relief with icing and a natural remedy of alcohol and avocado seed. Allergies amoxicillin [Amoxicillin] Allergy (Mild, Verified 12/04/23 10:37) ITCHING diphenhydramine [From Benadryl] Allergy (Mild, Verified 12/04/23 10:37) ITCHING folic acid [From Vitamin] Allergy (Mild, Verified 12/04/23 10:37) RASH iron [From Vitamin] Allergy (Mild, Verified 12/04/23 10:37) RASH acetaminophen [From Percocet] Allergy (Unknown, Verified 12/04/23 10:37) ITCHING penicillin V Allergy (Unknown, Verified 12/04/23 10:37) Hives Penicillins Allergy (Unknown, Verified 12/04/23 10:37) ITCHING Amoxicillin Allergy (Unknown, Uncoded 12/04/23 10:37) hives From Percocet Allergy (Unknown, Uncoded 12/04/23 10:37) ITCHING Penicillin Allergy (Unknown, Uncoded 12/04/23 10:37) hives HPI HPI 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 She has a history of meniscus tear years ago however she did not have any surgery. She currently states she has pain and swelling in her knee which occasionally aggravates with stair use. She is unsure if her pain is caused from a machine at the gym. She has been working on knee exercises at home with benefits and her pain worsens if she does not exercise. She finds relief with natural remedy alcohol and alcohol. [facility] Medical History Cervical high risk HPV (human papillomavirus) test positive Asthma Headaches due to old head injury Insomnia Depression Bipolar 1 disorder GERD (gastroesophageal reflux disease) DJD (degenerative joint disease) ADHD Sleep apnea treated with continuous positive airway pressure (CPAP) Morbid obesity Surgical History Hx of breast reduction, elective Hx of section Hx of cholecystectomy Family History Mother Hypertension Diabetes Heart attack Father Hypertension Brother No problems noted. Sister No problems noted. Son ADHD Daughter No problems noted. 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 Female Reproductive History Menstrual Age of Menarche: 14 Review of Systems Const All systems reviewed & are unremarkable except as noted in HPI and below Physical Exam Const General: cooperative, healthy appearing, comfortable, no acute distress, well developed and alert Orientation/consciousness: patient oriented x3 HEENT Head: Yes normal to inspection, Yes normocephalic and Yes atraumatic Eyes General: appearance normal, both eyes and all related structures Resp Effort & Inspection: normal respiratory effort and able to speak in complete sentences Cardio Rate: regular rate Peripheral pulses: Peripheral pulses 2+ throughout GI Palpation (GI): Soft to palpation Skin Lesions: no lesions Rashes: no rashes Neuro General: patient oriented x3 Extrem Other: Left knee: Skin intact, no erythema or joint effusion. Lateral retropatellar tenderness present. Full ROM with crepitus. Negative Al?s. No ligamentous laxity. NVI. Office Procedures Joint Injection/Drain Joint Injection/Drain Primary Site: left knee Prep: site was prepped using aseptic technique, ethochloride spray was applied and injection warnings given Injected: 80 mg of, DepoMedrol, with 8 mL of, 1% plain lidocaine and in the joint Approach Used: anterolateral Procedure: The patient tolerated the procedure well and there was some relief with the local anesthesia Coding 42935 - Glenohumeral/Tronchanteric Bursa/Intraarticular Procedure code (CPT) selection complete Results Reviewed Results Reviewed: MRI left knee 11/13/23 IMPRESSION: 1. Diffuse attenuation of the medial meniscal body and posterior horn/root, consistent with prior meniscectomy. Meniscal flap superior to the anterior horn/body junction measuring 0.6 cm, consistent with a recurrent meniscal tear. 2. Focal tibial articular surface fraying/tearing of the lateral meniscus posterior horn. 3. 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 4. Mild tricompartmental osteoarthritis. Hceyb-iz-hwhtdtav joint effusion and small Hernandez's cyst with mild synovitis. Xrays were obtained in the office today and personally reviewed by me of the left knee show mild pF oa Assessment & Plan Assessment & Plan (1) Patellofemoral arthritis of left knee: Code(s): M17.12 - Unilateral primary osteoarthritis, left knee Category: Medical Plan We discussed options today, which include steroid injection. The patient did consent to move forward with the injection of the left knee, which was tolerated well.? She was also fit for a reaction knee brace and sent for PT of the left knee. I recommended rest, ice and elevation and OTC antiinflammatories prn for discomfort. If symptoms persist over the next 6-8 weeks, they will contact our office, otherwise, prn Orders: Orders XR knee LT 3V Today M25.562 - Pain in left knee PT Evaluation and Treatment Today M17.12 - Unilateral primary osteoarthritis, left knee Patient Instructions: Scribed for Eric Saucedo PA-C, by Alonzo Chaney medical technologist prn, on 12/04/2023 at 10:15 AM EST. I, Eric Saucedo PA-C, have personally reviewed and agree with the information entered by the scribe. Coding Level of Care Code New Pt Level 3 (09505) Diagnoses Patellofemoral arthritis of left knee M17.12 CPT Codes Coding - Joint 7: 74299 - Glenohumeral/Tronchanteric Bursa/Intraarticular ([id number])
== END 2023-12-04 11:28 | disposition home or self-care (01) ==
PROVIDERS: PCP Family Medicine; Visit Provider Physician Assistant
DX: M17.12 Unilateral primary osteoarthritis, left knee (principal)
CPT/HCPCS: 20610; 99203

== ENCOUNTER 2023-12-14 10:22 | Outpatient (REF) | payer OTHER, SELFPAY ==
--- NOTE | ~2023-12-14 | XR_ITS ---
EXAMINATION: XR CERVICAL SPINE CLINICAL INFORMATION: Left arm pain and neck pain. Patient states for 8 months. COMPARISON: None available. TECHNIQUE: 5 views of the cervical spine. FINDINGS: Mild spondylosis with loss of disc space height at C5-C6 and C6-C7. Straightening of the normal cervical lordosis. XR/XR cervical spine 3V IMPRESSION: Mild degenerative disc disease at C5-C6 and C6-C7.
--- NOTE | ~2023-12-14 | XR_ITS ---
EXAMINATION: XR SHOULDER, LEFT CLINICAL INFORMATION: Left arm pain. Left shoulder pain COMPARISON: None available. TECHNIQUE: AP external rotation, Grashey, scapular Y, and axillary views of the left shoulder. FINDINGS: There is a small linear focus of calcific density adjacent to the greater tuberosity. Glenohumeral joint otherwise normal. Acromioclavicular joint normal. Surrounding bone and soft tissues unremarkable.. XR/XR shoulder LT min 2V IMPRESSION: Small focus of calcific density adjacent to the greater tuberosity. This could reflect calcific tendinitis/tendinosis.
== END 2023-12-14 10:23 | disposition home or self-care (01) ==
LOC: HO.HHCX 10:22
PROVIDERS: Visit Provider Family Medicine
DX: M79.602 Pain in left arm (principal); M25.512 Pain in left shoulder; G89.29 Other chronic pain; M54.2 Cervicalgia
CPT/HCPCS: 72040; 73030

== ENCOUNTER 2024-02-25 10:12 | Outpatient (REF) | payer OTHER, SELFPAY ==
[2024-02-25 11:20] LABS: MANUAL DIFF FLAG NO
[2024-02-25 11:28] LABS: Basophils Absolute Auto 0.1 X10*3/uL (0.0-0.2); Basophils Percent Auto 0.6 % (0-2); Eosinophils Absolute Auto 0.1 X10*3/uL (0.0-0.4); Eosinophils Percent Auto 0.8 % (0-4); Hematocrit 40.2 % (37.0-47.0); Hemoglobin 14.5 g/dl (12.0-16.0); Imm Gran Abs Auto 0.07 X10*3/uL (0.00-0.03); Imm Gran Pct Auto 0.9 % (0.0-0.4); Lymphocytes Absolute Auto 1.8 X10*3/uL (1.2-4.9); Lymphocytes Percent Auto 21.9 % (20-40); Mean Corpuscular HGB Conc 36.1 g/dl (31.0-35.0); Mean Corpuscular Hemoglobin 33.8 pg (27.0-33.0); Mean Corpuscular Volume 93.7 fL (80.0-98.0); Mean Platelet Volume 9.8 fL (9.4-12.3); Monocytes Absolute Auto 0.7 X10*3/uL (0.1-1.2); Monocytes Percent Auto 8.3 % (2-11); Neutrophils Absolute Auto 5.4 x10*3/uL (2.0-8.3); Neutrophils Percent Auto 67.5 % (45-73); Platelet Count 382 X10*3/uL (160-400); Red Blood Count 4.29 X10*6/uL (4.20-5.50); Red Cell Distribution Width 12.6 % (11.0-16.0)
[2024-02-25 11:37] LABS: Estimated Average Glucose 114 mg/dL; Hemoglobin A1c % 5.6 % (<6.0)
[2024-02-25 11:59] LABS: Alanine Aminotransferase 26 U/L (0-31); Albumin Level 4.4 g/dL (3.5-5.0); Alkaline Phosphatase 70 U/L (39-117); Anion Gap 13 (12-20); Aspartate Amino Transferase 16 U/L (5-31); Bilirubin Total 0.5 mg/dL (0.0-1.0); Blood Urea Nitrogen 11 mg/dL (9-16); Calcium 9.2 mg/dL (8.4-10.2); Carbon Dioxide 24 mmol/L (22-29); Chloride 105 mmol/L (96-108); Cholesterol 161 mg/dL (<200); Estimated Glomerular Filt Rate > 60; Glucose Random 102 mg/dL (60-115); HDL Cholesterol 32 mg/dL (>40); LDL Cholesterol Calculated 105 mg/dL (<100); Potassium 3.9 mmol/L (3.3-5.1); Sodium 138 mmol/L (135-145); Total Protein 7.5 g/dL (6.5-8.0); Triglycerides 122 mg/dL (<150)
[2024-02-25 12:08] LABS: Reflex LDLD? No
[2024-02-25 12:17] LABS: HBS Num1 166.28 mIU/mL (0-7.99); HBc Num1 0.11 S/CO (0.00-0.79); HBsAGNum1 0.25 S/CO (0.00-0.99); HIV AB/AG Nonreactive (Nonreactive); HIV Num 1 0.05 S/CO (0.00-0.99); Hepatitis B Core Antibody Nonreactive (Nonreactive); Hepatitis B Surface Antigen Negative (Negative); ~HepC Num1 0.11 S/CO (0.00-0.79); ~Hepatitis B Surface Antibody REACTIVE (Nonreactive); ~Hepatitis C Antibody Nonreactive (Nonreactive)
[2024-02-25 12:20] LABS: Hepatitis A Antibody IgG Nonreactive (Nonreactive); ~Hepatitis A Antibody IgG 0.38 S/CO (0.00-0.99)
[2024-02-25 12:21] LABS: Syphilis Screen Nonreactive (Nonreactive)
[2024-02-25 12:26] LABS: Folate 7.2 ng/mL (> or = 4.0); Vitamin B12 640 pg/mL (200-900)
[2024-02-25 15:42] LABS: CT PCR NOT DETECTED (Not Detect.); NG PCR NOT DETECTED (Not Detect.)
== END 2024-02-25 10:13 | disposition home or self-care (01) ==
LOC: HO.HHCL 10:12
PROVIDERS: Visit Provider Family Medicine
DX: Z11.3 Encounter for screening for infections with a predominantly sexual mode of transmission (principal); R53.81 Other malaise; R53.83 Other fatigue; E66.01 Morbid (severe) obesity due to excess calories; Z68.38 Body mass index [BMI] 38.0-38.9, adult; Z13.1 Encounter for screening for diabetes mellitus
CPT/HCPCS: 36415; 80053; 80061; 82607; 82746; 83036; 85025; 86704; 86706; 86708; 86780; 86803; 87340; 87389; 87491; 87591

== ENCOUNTER 2024-07-20 13:12 | Outpatient (AMB) | payer OTHER, SELFPAY ==
--- NOTE | 2024-07-20 13:24 | MHC.OFFVIS ---
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 (Leon) Accompanied by: Self / Same As Patient Allergies amoxicillin [Amoxicillin] Allergy (Mild, Verified 07/20/24 13:25) ITCHING diphenhydramine [From Benadryl] Allergy (Mild, Verified 07/20/24 13:25) ITCHING folic acid [From Vitamin] Allergy (Mild, Verified 07/20/24 13:25) RASH iron [From Vitamin] Allergy (Mild, Verified 07/20/24 13:25) RASH acetaminophen [From Percocet] Allergy (Unknown, Verified 07/20/24 13:25) ITCHING penicillin V Allergy (Unknown, Verified 07/20/24 13:25) Hives Penicillins Allergy (Unknown, Verified 07/20/24 13:25) ITCHING Amoxicillin Allergy (Unknown, Uncoded 12/04/23 10:37) hives From Percocet Allergy (Unknown, Uncoded 12/04/23 10:37) ITCHING Penicillin Allergy (Unknown, Uncoded 12/04/23 10:37) hives HPI Comments Details: Presenting for annual exam. No complaints. Last Pap/HPV was ascus HPV positive year ago, colpo biopsy ECC done 06/01 was negative [facility] Medical History (Updated 07/20/24 @ 13:36 by Giacomo Ugarte MD) Cervical high risk HPV (human papillomavirus) test positive Asthma Headaches due to old head injury Insomnia Depression Bipolar 1 disorder GERD (gastroesophageal reflux disease) DJD (degenerative joint disease) ADHD Sleep apnea treated with continuous positive airway pressure (CPAP) Morbid obesity Surgical History Hx of breast reduction, elective Hx of section Hx of cholecystectomy Family History Mother Hypertension Diabetes Heart attack Father Hypertension Brother No problems noted. Sister No problems noted. Son ADHD Daughter No problems noted. 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 Female Reproductive History Menstrual Age of Menarche: 14 control method: progestin IUCD (Mirena) Total pregnancies: 2 Full term: 2 Date of last pap smear: 02/02/23 (ASCUS +HPV) History of abnormal pap smear: Yes Review of Systems Const All systems reviewed & are unremarkable except as noted in HPI and below Card Reports as per HPI Resp Reports as per HPI GI Reports as per HPI and Reports no additional complaints Reports as per HPI Physical Exam Vital Signs: Last Vital Signs BP 110/68 07/20/24 13:30 BMI result Body Mass Index 38.6 Const General: cooperative, healthy appearing and comfortable Chest Chest palpation & inspection: normal inspection of the chest and normal palpation of entire chest wall Breast/axilla inspection: normal inspection of the breasts and normal inspection of the axillae Breast/axilla palpation: normal palpation of the breasts, normal palpation of the axillae and no axillary lymphadenopathy Resp Effort & Inspection: normal respiratory effort Auscultation: clear to auscultation bilaterally Percussion: percussion normal Cardio Palpation: normal PMI Rate: regular rate Rhythm: regular rhythm Heart sounds: no murmurs and no rubs Peripheral pulses: Peripheral pulses 2+ throughout GI Inspection: Yes normal to inspection Palpation (GI): Soft to palpation, nontender, no guarding, not rigid and No hepatosplenomegaly present Percussion: Yes normal to percussion Auscultation: normal bowel sounds Rectal Exam - Female: deferred General: Yes bladder normal to palpation External Female Exam: No lesion Speculum Exam - Vagina: normal appearance of the vagina, normal palpation, normal vaginal discharge and not erythematous Speculum Exam - Cervix: normal appearance of the cervix and normal palpation Bimanual exam- vagina & uterus: normal bimanual exam, normal palpation, uterine size normal, bladder normal to palpation, consistency normal and normal palpation Bimanual Exam- Adnexa, other: normal adnexae, no masses and no tenderness Assessment & Plan Assessment & Plan (1) Well woman exam: Code(s): Z01.419 - Encounter for gynecological examination (general) (routine) without abnormal findings Category: Medical Plan: Cotesting done. Counseled the patient about the recommended dietary allowance of 1000 mg of Calcium & 600 IU of vitamin D. The patient was instructed to perform monthly self-breast exams and to schedule an annual exam in a year; All questions answered and the patient verbalized understanding. Instructed the patient to schedule annual exam in a year Coding Level of Care Code Est Pt Prev Care 18-39y(27376) Diagnoses Well woman exam Z01.419
[2024-07-20 13:30] VITALS: BP 110/68; BMI 38.6
--- OUTSIDE RECORDS SUMMARY | 2024-07-21 02:22 | XMS_ITS | Continuity of Care Document ---
Author Organization [facility] Address [address] [place] [id number]- Care Team Providers Care Side Splitter Name Role Phone Richard BERTRAND, Damaris Primary Care Physician [phone] Encounter [facility] [place] Date(s): 07/15/24 - 07/15/[address] [address] Discharge Disposition: A-D/C Home Attending Physician: Sami Beasley MD Admitting Physician: Sami Beasley MD Referring Physician: Sami Beasley MD Encounter Type: Disch Daystay Allergies, Adverse Reactions, Alerts Substance Criticality Severity Reaction Reaction Severity Status amoxicillin rash itching Activ e penicillin C/O: itching Rash Active Benadryl hallucination Active Percocet 7.5/325 severe hives Active Medications Adderall 10 mg oral tablet 1 tablet = 10 mg, By Mouth, Daily in AM, 0 Refills, Maintenance, 05/28/21 2:26:00 PM EDT, Tablet, Partial fill upon patient request if the prescription is for a schedule II opioid drug. Start Date: 05/28/21 Status: Ordered Repeat number: 1 albuterol CFC free 90 mcg/inh inhalation aerosol 1, puffs, Inhalation, 4 times a day, PRN, # 18 Gm, Refills 0, Maintenance, 05/28/21 2:31:00 PM EDT,Aerosol Start Date: 05/28/21 Status: Ordered Quantity: 18.0 Unit: g Repeat number: 1 Benefiber oral powder for reconstitution 5 mL, By Mouth, Daily, PRN as needed for constipation, # 245 Gm, 0 Refills, Maintenance, 11/27/23 9:29:00 AM EDT, REC Powder, [id number], Partial fill upon patient request if the prescription is for a schedule II opioid drug., 5 mL By Mouth Daily,PRN:as needed for constipation, 150,cm, 11/27/23 8:58:00 EDT, Height, 94.5, kg, 06/23/22 9:14:00 EST, Dry Weight Start Date: 11/27/23 Status: Ordered Quantity: 245.0 Unit: g Repeat number: 1 Indication: Diarrhea, unspecified Claritin 10 mg oral tablet 10 mg, 1, tablet, By Mouth, Daily, # 30 tablet, Refills 0, Maintenance, 08/25/17 4:26:38 PM EST Start Date: 08/25/17 Status: Ordered Quantity: 30.0 Unit: tablet Repeat number: 1 Golytely - oral powder for reconstitution See Instructions, Per instructions from GI., # 4,000 mL, 0 Refills, Maintenance, 11/27/23 9:31:00 AMEDT, [facility] #[id number], Partial fill upon patient request if the prescription is for a schedule II opioid drug., Per instructions from GI., 150, cm, 11/27/23 8:58:00 EDT, Height, 94.5, kg, 06/23/22 9:14:00 EST, Dry Weight Start Date: 11/27/23 Status: Ordered Quantity: 4000.0 Unit: mL Repeat number: 1 Indication: Change in bowel habit OXcarbazepine 150 mg oral tablet 150 mg, 1, tablet, By Mouth, 2 times a day, # 60 tablet, Refills 0, Maintenance, 05/28/21 2:27:00 PM EDT, Partial fill upon patient request if the prescription is for a schedule II opioid drug. Start Date: 05/28/21 Status: Ordered Quantity: 60.0 Unit: tablet Repeat number: 1 pantoprazole 40 mg oral delayed release tablet 1 tablet, By Mouth, 2 times a day, # 180 tablet, 0 Refills, Maintenance, 11/27/23 9:43:00 AM EDT, 150, cm, 11/27/23 8:58:00 EDT, Height, 94.5, kg, 06/23/22 9:14:00 EST, Dry Weight Start Date: 11/27/23 Stop Date: 01/22/24 Status: Ordered Quantity: 180.0 Unit: tablet Repeat number: 1 simethicone 125 mg oral capsule 1 capsule = 125 mg, By Mouth, 4 times a day, PRN bloating, # 30 capsule, 1 Refills, Maintenance, 11/27/23 9:33:00 AM EDT, Capsule, [id number], Partial fill upon patient request if theprescription is for a schedule II opioid drug., 150, cm, 11/27/23 8:58:00 EDT, Height, 94.5, kg, 06/23/22 9:14:00 EST, Dry Weight Start Date: 11/27/23 Status: Ordered Quantity: 30.0 Unit: capsule Repeat number: 2 Indication: Unspecified abdominal pain Singulair 10 mg oral tablet 10 mg, 1, tablet, By Mouth, Daily in PM, # 30 tablet, Refills 0, Maintenance, 05/28/21 2:26:00 PM EDT, Partial fill upon patient request if the prescription is for a schedule II opioid drug. Start Date: 05/28/21 Status: Ordered Quantity: 30.0 Unit: tablet Repeat number: 1 Zepbound 5 mg/0.5 mL subcutaneous solution 0 Refills, Maintenance, 07/15/24 12:16:00 PM EST, Partial fill upon patient request if the prescription is for a schedule II opioid drug. Start Date: 07/15/24 Status: Ordered Repeat number: 1 Zolpidem = 10 mg, By Mouth, Daily at bedtime, PRN as needed for sleep, 0 Refills, Maintenance, 05/28/21 2:30:00 PM EDT, Partial fill upon patient request if the prescription is for a schedule II opioid drug. Start Date: 05/28/21 Status: Ordered Repeat number: 1 Problem List Condition Confirmation Course Effective Dates Status Health St atus Informant Obese class II Confirmed Active Vital Signs Most recent to oldest [Reference Range]: 1 2 3 Height 150 cm (07/15/24 12:33 PM) Oxygen Saturation [94-100 %] 97 % (07/15/24 2:00 PM) 97 % (07/15/24 1:45 PM) 95 % (07/15/24 1:30 PM) Pulse Rate [55-90 bpm] 69 bpm (07/15/24 12:33 PM) Blood Pressure [90-138/55-84 mm Hg] 128/93mm Hg (07/15/24 2:00 PM) 133/95mm Hg (07/15/24 1:45 PM) 123/93mm Hg (07/15/24 1:30 PM) Respiratory Rate [16-30 br/min] 16 br/min (07/15/24 2:00 PM) 17 br/min (07/15/24 1:45 PM) 19 br/min (07/15/24 1:30 PM) Temperature [96.8-100.4 DegF] 98.5 DegF (07/15/24 1:30 PM) 97.4 DegF (07/15/24 12:33 PM) Mode of Delivery (Oxygen) Room air (07/15/24 1:30 PM) Room air (07/15/24 12:33 PM) Blood pressure sites Arm, left (07/15/24 2:00 PM) Arm, left (07/15/24 1:30 PM) Arm, left (07/15/24 12:33 PM) Temperature Route Temporal (07/15/24 1:30 PM) Temporal (07/15/24 12:33 PM) Dry Weight 86.5 kg (07/15/24 12:33 PM) Dry Weight Obtained Via Patient/family s tated (07/15/24 12:33 PM) Social History Social History Type Response Smoking Status Never (less than 100 in lifetime) entered on: 12/07/18 Sex Sex Representation Female (finding) Note * Georgina Ricci RN: PERFORM Event Display: Discharge/Transfer Note Hospital Authored Date: [id number] Nursing Discharge Note Entered On: 07/15/2024 14:07 EST Performed On: 07/15/2024 14:07 EST by Georgina Ricci RN Nursing Discharge Note 2 Discharge Time : 07/15/2024 14:29 EST Viktoriya Gabriel RN - 07/15/2024 14:30 EST Discharge Level of Care at Discharge : Home/Care Home/Foster Care Patient Left Unit Via : Wheelchair Patient Accompanied Off Unit with : Responsible adult DC Instructions Provided & Signed by Pt : Yes Patient Understands D/C Instructions : Yes Verbalized Understanding of D/C Plan By : Family, Patient Patient Instructions Discharge Signed : Yes Did Pt have Specialty Bed or Wound Vac : No Georgina Ricci RN - 07/15/2024 14:07 EST * Georgina Ricci RN: PERFORM Event Display: Patient Education/Instruction Authored Date: Surgery Adult Discharge Instructions [address] [address] Name: MARIELY TRIANA : 1985?? Visit: 07/15/2024 10:56?? Current Date: 07/15/2024 13:49 ?? Account: [id number]?? Surgery Discharge Instructions We would like to thank you for allowing us to assist you with your healthcare needs. The following includes patient education materials and information regarding your injury/illness. Our entire staffstrives to provide an excellent experience for our patients and their families. PLEASE ENSURE YOU FOLLOW-UP PER THE INSTRUCTIONS BELOW! ?? YOUR OPINION IS IMPORTANT TO US! Please complete the survey you may receive by mail or email. Your feedback will be used to make improvements to the healthcare experiences of our patients and their families. Surveys are administered by [employer] ?? If further treatment with your primary care physician or another doctor is recommended, it is important for you to keep the appointment. Call your primary care physician or return to the Emergency Department immediately if your condition worsens, fails to improve, or new symptoms develop. If you need to find a doctor, you can call [facility] for a referral at [phone] or toll free at [phone] or log in to [email or web address].. ?? [facility], in keeping with [facility] guidance, no longer requires face masks for staff, patientsor visitors in most situations. Similiar to time spent indoors at other locations, there is the chance that you were exposed to repiratory viruses during your time with us (such as flu or COVID-19). If you develop symptoms concerning for a viral respiratory infection, please seek testing (and treatment if indicated) from your medical provider or home test kit. ?? You can view and manage your care through the patient portal or by using a health care lucina of your choosing. [employer] is a website that allows you to securely view your medical information including your hospital discharge summary, office visit summaries, medications and follow-up visits. You can also request appointments, renew medications, and request access to your medical information using a health care lucina of your choosing, or just ask a question. You are entitled to know the individuals who participated in your treatment. This information is available within your medical record and will be provided upon your request. You can enroll at [email or web address] or register d uring your next office visit. You have been discharged from [facility], Patient Care Unit: ENDO??. If you have any questions regarding these instructions after you leave, please call us and we will be happy to assist you. [facility] Your Care Team Attending Physician Sami Beasley MD?? Discharging Providers Sami Beasley MD Reason for Admission EPIGASTRIC PAIN HEARTBURN DIARRHEA CHANGE IN GARRICK Primary Care Provider Damaris Ramos MD? Advance Directive Health Care Proxy on File No Patient refuses to discuss What to do next Instructions From Your Doctor ?? Orders?? Daystay Protocol, ??07/15/24 13:42:00 EST?? You Need to Schedule the Following Appointments Follow Up with??Damaris Ramos MD When:??In 0 days Where: [address] [place] [id number] Business (1) Discharge Medications MARIELY TRIANA :1985 Visit Date:07/15/2024 Medications: Please continue your medications until treatment is completed or stopped by your provider. You may resume your daily prescription medications. Discuss any questions related to medications with your provider. What How Much When Why Instructions Next Dose Unchanged Albuterol (albuterol CFC free 90 mcg/ inh inhalation aerosol) 1 puff(s) Inhalation 4 times a day as needed for as needed for wheezing Unchanged Amphetamine-Dextroamphetamine (Adderall 10 mg oral tablet) 1 tab(s) Oral Daily in the morning Unchanged Loratadine (Claritin 10 mg oral tablet) 1 tab(s) Oral Daily Unchanged Montelukast (Singulair 10 mg oral tablet) 1 tab(s) Oral Daily in PM Unchanged Oxcarbazepine (OXcarbazepine 150 mg oral tablet) 1 tab(s) Oral Twice a day Unchanged Pantoprazole (pantoprazole 40 mg oral delayed release tablet) 1 tab(s) Oral Twice a day Duration: 8 week(s) Unchanged PEG Electrolyte Solution (Golytely - oral powder for reconstitution) See instructions Change in bowel habit Per instructions from GI. ?? Unchanged Simethicone (simethicone 125 mg oral capsule) 1 capsule Oral 4 times a day as needed for bloating Abdominal pain Unchanged tirzepatide (Zepbound 5 mg/ 0.5 mL subcutaneous solution) Unchanged wheat dextrin (Benefiber oral powder for reconstitution) 5 Milliliter Oral Daily as needed for as needed for constipation Diarrhea Unchanged Zolpidem 10 Milligram Oral Daily at Bedtime as needed for as needed for sleep Allergies (NKA means No Known Allergies) Benadryl??(hallucination) Percocet 7.5/325??(severe hives) amoxicillin??(rash itching) penicillin??(C/O: itching, Rash) Education Materials Below is the list of Educational Leaflet Providered with your Discharge Instructions. Web[employer] Ignite Patient Education - Hemorrhoids Discharge Instructions?? [employer] Ignite Patient Education - EGD (Upper Endoscopy): Post-op?? [employer] Ignite Patient Education - Surgery Medical Daystay Surgical Overnight Discharge Instructions?? Valuables and Belongings I fully understand and agree that [facility] accepts no responsibility for all my personal property including clothing, toilet articles, radios, jewelry, dentures, hearing aids, rings, money, or any other property that is in my possession or is brought to me after admission. I understand certain valuables may be placed in a hospital safe for a short period of time. I understand that the hospital is not liable for loss or damage due to accident, fire, or other natural occurrence while said property is in the safe. I accept full responsibility for any personal property that I keep with me, and will not hold the hospital responsible in case of loss or disappearance. I acknowledge that i have been encouraged to send valuables and belongings home. ?? Date for Pt to Sign Valuables/Belongings: 07/15/24 12:33:00 ?? Valuables & Belongings ?? Clothes Electronic devices Jewelry Monetary Items Personal devices Miscellaneous Medications (Valuables) Valuables at Bedside Jacket, Pants, Shirt, Shoes, Undergarments ? Valuables Sent Home ? Valuables Sent to Security ? Valuables Sent to Locker ? Other Discharge Information ? Pulmonary Rehab Status?? Pulmonary Rehab Discharge Status?? Respiratory Rate: 19 br/min ? Common Emergency Awareness Tips IS IT A STROKE? Act FAST and Check for these signs: FACE Does the face look uneven? ARM Does one arm drift down? SPEECH Does their speech sound strange? TIME Call at any sign of stroke ?? Heart Attack Signs Chest discomfort: Most heart attacks involve discomfort in the center of the chest and lasts more than a few minutes, or goes away and comes back. It can feel like uncomfortable pressure, squeezing, fullness or pain. Discomfort in upper body: Symptoms can include pain or discomfort in one or both arms, back, neck, jaw or stomach. Shortness of breath: With or without discomfort. Other signs: Breaking out in a cold sweat, nausea, or lightheaded. Remember, MINUTES DO MATTER. If you experience any of these heart attack warning signs, call to get immediate medical attention! ?? Smoking can increase your chances of developing chronic health problems and can cause harmful effects to other family members in your house. If you smoke, you are strongly encouraged to quit. Please call [employer] [facility] at [phone] or [phone] ([phone]) or log in to [email or web address] for referrals to smoking cessation programs. ?? The National Suicide Prevention Hotline is available 02/03 if you or someone you know needs to find a reason to keep living. By calling 9-505-270-Carrier IQ (5750) you'll be connected to a skilled, trained counselor at a crisis center in your area. SURGERY DISCHARGE INSTRUCTIONS SIGNATURE PAGE MARIELY TRIANA Location:[facility] Registration Date and Time:07/15/2024 10:56 EST Primary Care Physician: Richard BERTRAND , Damaris, Attending Physician: Sami Beasley MD, I MARIELY TRIANA, have received the above patient education materials/instructions and have verbalized understanding. If ambulance or transport services are being used I further acknowledge being given a choice of service. ?? If you need to contact me, please call me at this number: . 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 672 ??Hemorrhoids Discharge Instructions ??You must carefully read the Consumer Information Use and Disclaimer below in order to understand and correctly use this information?? About this topic Hemorrhoids are swollen veins in the rectum. Your rectum is where stool leaves your body. You may be able to see or feel your hemorrhoids outside of your body, but some hemorrhoids are inside of yourrectum and cannot be seen. Hemorrhoids can cause itching, pain, and bleeding. Being constipated or having hard stools can make your hemorrhoids worse.?? What care is needed at home? Ask your doctor what you need to do when you go home. Make sure??you ask questions if you do not understand what the doctor says. This??way you will know what you need to do. ??? Soak your bottomin a few inches of warm water for 10 to 15 minutes??at a time. You can do this 2 to 3 times each day. Do not add soap,??bubble bath, or anything to the water. ??? Use oeld-vpj-hqvryvn medicines to treat your hemorrhoids. These??include ointments and creams to help with pain and swelling. You can??also use a product like witch carey to help dry out the skin in the area. ??? To help with constipation: ??? Use stool softeners when needed. ??? Eat high-fiber foods. These include whole grains, fruits, and??vegetables. ??? Drink plenty of water and other fluids each day. This helps to??keep your stools soft. ??? Set a regular schedule to try and have a bowel movement. Do??not ignore the urge to go to the bathroom. Don???t hold it in. ??? Give yourself plenty of time to have a bowel movement, but do not linger on the toilet either, by sitting and reading for a long time. ??? Do mild exercise each day like taking a walk. ??? Avoid heavy lifting or straining while the hemorrhoid is healing. ?? What follow-up care is needed? If your problem does not get better, other care may be needed. Your doctor may ask you to make visits to the office to check on your progress. Be sure to keep these visits.?? What drugs may be needed? The doctor may order drugs to: ??? Help with pain and swelling ??? Ease itching ??? Soften stools ?? Will physical activity be limited? Working out can help with digestion. It might help keep you from having hard stools. Ask your doctor about the best kind of exercise for you. ?? What problems could happen? You may have very bad bleeding. ??? Sometimes, treatments do not work. Some hemorrhoids are very??large. You might need surgery for either of these. ?? When do I need to call the doctor? You have a lot of bleeding from your rectum. ??? Your bowel movement looks like tar. ??? You are not able to pass stool because of pain from your??hemorrhoids. ??? Your pain gets worse and is nothelped by hsxc-qfa-kgpllrz??medicines, warm water, or your home care. ??? You have a fever of 100.4??F (38??C) or higher. ?? Teach Back: Helping You Understand The Teach Back Method helps you understand the information we are giving you. After you talk with the staff, tell them in your own words what you learned. This helps to make sure the staff has described each thing clearly. It also helps to explain things that may have been confusing. Before going home, make sure you can do these: ??? I can tell you about my condition. ??? I can tell you what may help ease my pain. ??? I can tell you what I will do if I have blood in my rectum. Where can I learn more?[place] [employer]https://familydoctor.or g/condition/hemorrhoids/National Digestive Disease Information Clearinghousehttps://www.niddk.nih.go v/health-information/digestive-diseases/hemorrhoids/definition-factsLast Reviewed Dpqa4728-21-95Wdpwlhgk Information Use and Disclaimer:This generalized information is a limited summary of diagnosis,treatment, and/or medication information. It is not meant to be comprehensive and should be used asa tool to help the user understand and/or assess potential diagnostic and treatment options. It does NOT include all information about conditions, treatments, medications, side effects, or risks thatmay apply to a specific patient. It is not intended to be medical advice or a substitute for the medical advice, diagnosis, or treatment of a health care provider based on the health care provider's examination and assessment of a patient???s specific and unique circumstances. Patients must speak with a health care provider for complete information about their health, medical questions, and treatment options, including any risks or benefits regarding use of medications. This information does not endorse any treatments or medications as safe, effective, or approved for treating a specific patient. [employer] and its affiliates disclaim any warranty or liability relating to this information or the use thereof. The use of this information is governed by the Terms of Use, available at??htt ps://www.[employer]/en/know/vyzxnreo-xkfaznsqstifn-jmxltOdlo Updated 10/02/21? * Georgina Ricci RN: PERFORM Event Display: Patient Education Leaflets Authored Date: [id number] EGD (Upper Endoscopy): Post-op ?? [id number] Upper GI Endoscopy: What to Expect at Home Your Recovery You had an upper GI endoscopy. Your doctor used a thin, lighted tube that bends to look at the inside of your esophagus, your stomach, and the first part of the small intestine, called the duodenum. After you have an endoscopy, you will stay at the hospital or clinic for 1 to 2 hours. This will allow the medicine to wear off. You will be able to go home after your doctor or nurse checks to make sure that you're not having any problems. You may have to stay overnight if you had treatment during the test. You may have a sore throat fora day or two after the test. This care sheet gives you a general idea about what to expect after the test. How can you care for yourself at home? Activity ??? Rest as much as you need to after you go home. ??? You should be able to go back to your usual activities the day after the test. Diet ??? Follow your doctor's directions for eating after the test. ??? Drink plenty of fluids (unless your doctor has told you not to). Medications ??? If you have a sore throat the day after the test, use an wiph-xtk-cdbpscj spray to numb your throat. Follow-up care is a argueta part of your treatment and safety. Be sure to make and go to all appointments, and call your doctor if you are having problems. It's also a good idea to know your test resultsand keep a list of the medicines you take. When should you call for help? Missing Image - Cannot convert non embedded image Call 911 anytime you think you may need emergency care. For example, call if: ? You passed out (lost consciousness). ? You have trouble breathing. ? You pass maroon or bloody stools. Call your doctor now or seek immediate medical care if: ? You have pain that does not get better after your take pain medicine. ? You have new or worse belly pain. ? You have blood in your stools. ? You are sick to your stomach and cannot keep fluids down. ? You have a fever. ? You cannot pass stools or gas. Watch closely for changes in your health, and be sure to contact your doctor if: ? Your throat still hurts after a day or two. ? You do not get better as expected. Current as of: May 28, 2023 Content Version: 14.0 Care instructions adapted under license by your healthcare professional. If you have questions about a medical condition or this instruction, always ask your healthcare professional. [employer] disclaims any warranty or liability for your use of this information. ? [id number] [employer]. ?? * Georgina Ricci RN: PERFORM Event Display: Patient Education Leaflets Authored Date: [id number] Surgery Medical Daystay Surgical Overnight Discharge Instructions ?? 295 Medical Daystay/Surgical Overnight Discharge Instructions ? Since your coordination and judgment may be altered by medication and/or anesthesia, a responsible adult must drive you home from the hospital. ? If you have received medication for pain or sedation while under our care, you should not drive, operate machinery, drink alcohol, or sign any legal documents for 24 hours.?? You should have someone with you at home tonight. ? Remain at home the day of discharge.?? You may be up and about unless otherwise instructed by your physician. ? You may resume your daily prescription medication schedule.?? Any depressant medication should be avoided for 24 hours unless otherwise instructed by your surgeon or anesthesiologist. ? Call your physician for a follow-up appointment.? If you experience unusual or severe pain not relied by your pain medication, excessive bleedingor drainage, persistent nausea and vomiting, excessive swelling or redness, foul odor from incisionsite or fever over 100.6F, you need to call your physician. ? A follow-up phone call by a nurse will be made the day after your procedure.?? If you have stayed with us over night, you will not be receiving a follow-up phone call. ? Nausea and vomiting are a common side effect of prescription pain medication.?? We recommend that pills are not taken on an empty stomach.?? While taking any prescription pain medication you should not drive or drink alcohol. ? Patient Care team information Care Team Personnel Name: Damaris Ramos MD Position: [facility] Outreach Member Role: PCP Address: [address] [place] [id number] Telecom: Care Team Related Persons Name: DEANDRA MCCULLOUGH Name: CED LINK Name: NO EMERGECY CONTACT, PERPT Insurance Providers Guarantor name[facility] Plan Information #: 1 Payer: [facility]/ONE CARE Member Number: [id number] Policy Number: NA Group Number: Pending sale to [facility] Plan Information #: 2 [facility] Member Number: [id number] Policy Number: NA Group Number: [id number]
--- OUTSIDE RECORDS SUMMARY | 2024-07-21 02:22 | XMS_ITS | Data Portability ---
Author Organization [facility] [employer] Address [address] [place] [address] Care Team Providers Care Treasury Management Sales Consultant Name Role Phone [facility] Referring Provider [facility] Referring Provider Assessment Encounter Date Assessment Date Assessment LastModified by Organization Details LastModified Time 06/05/2023 06/05/2023 Ms. Taylor Martinez is a 38yoF w/ a PmHx of asthma who is seen today for a cough and wheezing. Ms. Martinez reports that she has had three days of a cough productive of green sputum and has had to use her albuterol inhaler more frequently. She states that she's using the inhaler every 2-3 hours for wheezing and today called for an [facility] evaluation. She denies fevers, nausea/vomiting , or any other concerns. VSS. Sleeve Bottom Feller on site reports no distress, clear breath sounds. POC covid/flu negative. Recommended nebulizer, but truck out of oxygen and unabe to give neb. Even with clear lung sounds, wheezing with a viral syndrome in a patient with asthma is concerning for mild exacerbation and she is given a dose of prednisone and short course of prednisone called in to the pharmacy. Red flags reviewed by machine technician. Primary team, Ms. Martinez reports that her nebulizer machine is no longer functional. She would benefit from follow up to ensure she's improving and to re-order a nebulizer machine for her use. [email or web address] Not available 06/05/2023 15:59:47 07/22/2023 07/22/2023 I have reviewed and agree with the Assessment and Plan as documented by the Sleeve Bottom Feller. I provided real-time medical direction via phone for this encounter, and was available for additional phone based assistance as needed. 38-year-old female is seen for report of urinary pressure and increased frequency of the last five days. A history of recent urinary tract infection treated with Macrobid with improvement. No CVA tenderness but reported some back pain bilaterally. Urinalysis not suggestive of urinary tract infection. Though did have trace blood and has had a prior history of kidney stones so may have had the past stones she is no longer currently having symptoms. No anterior abdominal pain. No fevers or chills. Very low suspicion for urinary tract infection/pyelo nephritis and/or infected stone. Reviewed plan for home management with IV fluids and NSAIDs with close monitoring of symptoms and red flags for ED presentation versus call back should she develop new concerning symptoms. Patient in agreement with this plan and voices understanding. [email or web address] Not available 08/03/2023 12:32:27 Plan of Treatment Reminders Order Date Submit Date Provider Last Modified By Organization Details Last Modified Time Details Appointments None recorded. Lab unlisted lab - covid-19 (novel coronavirus ) PCR 2022 023 [email or web address] [facility], [address] [place], [address], 10:22:44 Referral None recorded. Procedures None recorded. Surgeries None recorded. Imaging None recorded. Medication Orders prednisone 20 mg tablet 2022 023 [id number], [address] [place], [place], [id number], 15:55:35 Patient TargetsNo targets recorded. Patient InstructionsNo instructions recorded. Reason for Referral None Reported. Medical Equipment None Reported. Allergies Allergen ID Allergen Name Allergen Category Reaction Reaction Severity Criticality Documentation Date Start Date Code Code System Note Provider Name and Address Organization Details Recorded Time 7121 Medicinal product containin g penicilli n and acting as antibacte rial agent (product) medicatio n Not available Not available Not available 06/07/2024 12743 05 SNOMED Not Available [facility] 03:35:07 7122 diphenhyd ramine medicatio n Not available Not available Not available 06/07/2024 3498 RxNorm Not Available [facility] - production 4 03:35:07 Medications Name Sig Start Date Stop Date Status Note LastModified by Organization Details LastModified Time trazodone 50 mg tablet TAKE 1 TABLET BY MOUTH AT BEDTIME active Not Available Not Available No t Available ibuprofen 800 mg tablet active Not Available Not Available No t Available prednisone 20 mg tablet TAKE 2 TABLETS BY MOUTH EVERY DAY FOR 4 DAYS active Not Available Not Available No t Available topiramate 25 mg tablet TAKE 1 TABLET BY MOUTH EVERY DAY active Not Available Not Available No t Available metronidazole 500 mg tablet active Not Available Not Availabl e Not Available hydroxyzine HCl 50 mg tablet TAKE 1 TABLET BY MOUTH THREE TIMES DAILY active Not Available Not Available No t Available melatonin 3 mg tablet TAKE 1-2 TABLETS BY MOUTH 3 HOURS BEFORE YOUR DESIRED BEDTIME NEEDED active Not Available Not Available No t Available dextroamphetam ine-amphetamin e ER 20 mg 24hr capsule,extend release TAKE 1 CAPSULE BY MOUTH EVERY MORNING active Not Available Not Available No t Available omeprazole 20 mg capsule,delaye d release TAKE 1 CAPSULE BY MOUTH EVERY DAY BEFORE A MEAL active Not Available Not Available No t Available oxcarbazepine 600 mg tablet TAKE 1 TABLET BY MOUTH TWICE DAILY active Not Available Not Available No t Available montelukast 10 mg tablet active Not Available Not Available No t Available zolpidem 10 mg tablet TAKE 1 TABLET BY MOUTH AT BEDTIME NEEDED active Not Available Not Available No t Available cholecalcifero l (vitamin D3) 125 mcg (5,000 unit) capsule TAKE ONE CAPSULE BY MOUTH DAILY active Not Available Not Available No t Available loratadine 10 mg tablet TAKE 1 TABLET BY MOUTH IN THE MORNING. active Not Available Not Available No t Available Ventolin HFA 90 mcg/actuation aerosol inhaler INHALE 2 PUFFS BY MOUTH EVERY 6 HOURS NEEDED FOR WHEEZING active Not Available Not Available No t Available dextroamphetam ine-amphetamin e ER 15 mg 24hr capsule,extend release TAKE 1 CAPSULE BY MOUTH EVERY MORNING active Not Available Not Available No t Available melatonin 5 mg tablet active Not Available Not Available Not Available [facility] COVID-19 Ag Self Test kit TEST DIRECTED TODAY active Not Available Not Available No t Available Vitals Date Recorded Oxygen saturation Oxygen saturation in Arterial blood by Pulse oximetry Respiratory rate Heart rate Body weight Systolic blood pressure Diastolic blood pressure Provider Name and Address Organization Details Last Updated DateTime 3 98 % 98 % 16 /min 72 /min 10889.8 g 136 mm[Hg] 98 mm[Hg] Not Available [facility] 15:40:36 Date Recorded Respiratory rate Body temperature Oxygen saturation Oxygen saturation in Arterial blood by Pulse oximetry Heart rate Systolic blood pressure Diastolic blood pressure Provider Name and Address Organization Details Last Updated DateTime 3 16 /min 98 [degF] 98 % 98 % 80 /min 120 mm[Hg] 60 mm[Hg] Not Available [facility] 3 12:49:42 Social History None recorded. Functional Status None recorded. Mental Status None recorded. Family History Nothing Reported. Medical History No medical history recorded. Gynecological HistoryNo gynecological history recorded. Obstetrics History GPAL:G 0 P 0 0 0 0 Past Encounters Encounter ID Performer Location Encounter Start Date Encounter Closed Date Diagnosis/Indication Diagnosis SNOMED-CT Code Diagnosis ICD10 Code [id number] Esperanza Toa MD [facility] [address] [place] [address] [id number] 06/05/2023 15:40:33 06/08/2023 12:42:59 Upper respiratory infection 32353899 J06.9 [id number] Michael Hirsch MD [facility] [address] [place] [address] [id number] 07/22/2023 12:36:33 08/04/2023 10:29:40 Urinary symptoms 985365282 R39.9 Health Concerns Section Related Observation LastModified by Organization Detai ls LastModified Time None Recorded Concern Status LastModified by Organization Details LastModified Time None Recorded Advance Directives Directive None Recorded Payers Encounter Date Sequence Insurance Name Policy Number Policy Marks Covered Member ID Amrks Member ID Guarantor Name 06/05/2023 1 [facility] ALLI[facility] - DOS ON OR AFTER 2022 - DUAL ELIGIBLE - ASSISTED OPTIONS AND ONE CARE (MEDICARE REPLACEMENT/AD VANTAGE - HMO) Taylor Martinez [id number] Taylor Martinez 07/22/2023 1 [facility] [employer] - DOS ON OR AFTER 2022 - DUAL ELIGIBLE - ASSISTED OPTIONS AND ONE CARE (MEDICARE REPLACEMENT/AD VANTAGE - HMO) Taylor Martinez [id number] Taylor Martinez Notes Date Note Type Note Provider Name and Address Organization Details Recorded Time 06/05/2023 text/html HPI: Call to Taylor Martinez, reports having wheezing x 2-3 days. Per pt having to use albuterol inhaler Q2H. Mild chest pressure productive cough with green sputum, Left ear pain. No BO, CP or ST. Pt states had negative home kit for COVID-19 yesterday. Pt unable to come into [facility] today. Agrees to [facility] referral for exam. Pt advised to call back on Thursday if sx not better after eval with [facility] and their POC. Pt agrees. ..................... ..................... ..................... ..................... ..................... ..................... ............... CRC Nursing Assessment: Comments: CRC RN did not require any additional information to process this visit. ..................... ..................... ..................... ..................... ..................... ..................... ............... Sleeve [employer] Feller Note From Brian Zepeda: Pt CO persistent, productive cough for 2-3 days . Pt stated that she received the flu vaccine last week then started to feel bad. Pt has been taking OTC medications with positive relief. Pt is able to maintain PO intake. Pt has been using her albuterol inhaler Q2hrs with good results. Pt states that she has been coughing up greenish phlegm. Pt denies NVD, SOB, chest Po, fevers. Lungs CTA bi-lat. Neg Flu and COVID. COVID PC obtained for [facility] lab. Neg TTP to sinuses. Pt given 40mg PO prednisone: Discussed with Pt about red flags of when to go to ED or call 911. Educated Pt on supportive care. Sleeve [employer] Feller Allergies: Penicillin, Diphenhydramine ..................... ..................... ..................... ..................... ..................... ..................... ............... Disposition: Fulfilled Esperanza Tao MD [address] [place] [address],[address], [place], [address], [facility] 06/05/2023 16:08:00 07/22/2023 text/html HPI: Patient with history of Bipolar disease kidney stone and GERD. Recently treated with Macrobid x 5 days end of June. Now with frequency and bladder pressure. No fever ..................... ..................... ..................... ..................... ..................... ..................... ............... CRC Nursing Assessment: Comments: Reviewed - UTI s/s - Jase SOTO ..................... ..................... ..................... ..................... ..................... ..................... ............... Sleeve [employer] Feller Note From Shana Peter: Community Slee[employer] Feller Leona Peter CCA1 dispatched to a [facility] for a 38 yof C/O UTI S/S. Upon arrival, the pt was ambulatory, AL X4, in no apparent distress. She stated that for the past 5 days, she had a pressure and reported increased urinary frequency. She stated that she was recently treated w/ macrobid and that her S/S resolved; hx of kidney stones as well. She denied fever, dizziness, OB, cough, sore throat, CP, SOB, abd pain, bladder spasms, urinary urgency, or pain on urination. No CVA tenderness, but pt reported back pain in the area of her kidneys for the past 3-4 days. Urine dip acquired-results in [facility]. [facility] consulted; #20 IV placed in her right AC, and she was given 1000 mL NS and 15 mg IV ketorolac. Pt was instructed to drink plenty of fluids and monitor her S/S. She was told that if she was unable to urinate, if she had fevers, or if she had acute pain, to call 911. Red flags discussed at length. ..................... ..................... ..................... ..................... ..................... ..................... ............... Disposition: Fulfilled Michael Hirsch MD [address] [facility],[address], [place], [address], [employer] 08/03/2023 12:32:49 OBGyn Episode No OBEpisode recorded.
== END 2024-07-20 13:45 | disposition home or self-care (01) ==
PROVIDERS: PCP Family Medicine; Visit Provider Obstetrics & Gynecology
DX: Z01.419 Encounter for gynecological examination (general) (routine) without abnormal findings (principal)
CPT/HCPCS: 99395

== ENCOUNTER 2024-07-20 13:12 | Outpatient (REF) | payer OTHER, SELFPAY ==
[2024-07-21 10:39] LABS: HPV 16,18/45 See PAP report
== END 2024-07-20 13:13 | disposition home or self-care (01) ==
LOC: HO.LNP 13:12
PROVIDERS: PCP Family Medicine; Visit Provider Obstetrics & Gynecology
DX: Z01.419 Encounter for gynecological examination (general) (routine) without abnormal findings (principal); R87.610 Atypical squamous cells of undetermined significance on cytologic smear of cervix (ASC-US); R87.810 Cervical high risk human papillomavirus (HPV) DNA test positive
CPT/HCPCS: 87624; 88175

== ENCOUNTER 2024-08-15 13:45 | Outpatient (REF) | payer OTHER, SELFPAY | END 2024-08-15 13:46 | disposition home or self-care (01) | LOC: HO.LNP 13:45 | PROVIDERS: PCP Family Medicine; Visit Provider Obstetrics & Gynecology | DX: R87.612 Low grade squamous intraepithelial lesion on cytologic smear of cervix (LGSIL) (principal); R87.810 Cervical high risk human papillomavirus (HPV) DNA test positive; R87.610 Atypical squamous cells of undetermined significance on cytologic smear of cervix (ASC-US) | CPT/HCPCS: 57454; 81025; 88305; 99212 ==

== ENCOUNTER 2024-08-15 13:45 | Outpatient (AMB) | payer OTHER, SELFPAY ==
--- NOTE | 2024-08-15 13:52 | A.OFFVIS_ITS ---
Intake Visit Reasons: Colposcopy Machine Whitener: Machine Whitener Present (Damaris) Accompanied by: Self / Same As Patient Allergies amoxicillin [Amoxicillin] Allergy (Mild, Verified 08/15/24 13:52) ITCHING diphenhydramine [From Benadryl] Allergy (Mild, Verified 08/15/24 13:52) ITCHING folic acid [From Vitamin] Allergy (Mild, Verified 08/15/24 13:52) RASH iron [From Vitamin] Allergy (Mild, Verified 08/15/24 13:52) RASH acetaminophen [From Percocet] Allergy (Unknown, Verified 08/15/24 13:52) ITCHING penicillin V Allergy (Unknown, Verified 08/15/24 13:52) Hives Penicillins Allergy (Unknown, Verified 08/15/24 13:52) ITCHING Amoxicillin Allergy (Unknown, Uncoded 12/04/23 10:37) hives From Percocet Allergy (Unknown, Uncoded 12/04/23 10:37) ITCHING Penicillin Allergy (Unknown, Uncoded 12/04/23 10:37) hives HPI Comments Details: Presenting for abnormal Pap smear showing LGSIL/HPV positive, HPV 16/18 negative [facility] Medical History Cervical high risk HPV (human papillomavirus) test positive Asthma Headaches due to old head injury Insomnia Depression Bipolar 1 disorder GERD (gastroesophageal reflux disease) DJD (degenerative joint disease) ADHD Sleep apnea treated with continuous positive airway pressure (CPAP) Morbid obesity Surgical History Hx of breast reduction, elective Hx of section Hx of cholecystectomy Family History Mother Hypertension Diabetes Heart attack Father Hypertension Brother No problems noted. Sister No problems noted. Son ADHD Daughter No problems noted. 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 We thoroughly discussed the procedure itself, including its details, alternatives, and all associated risks. This included but not limited to the following complications such as bleeding, infection, and injury to the vagina, bladder, and vessels, as well as the potential need for transfusion with all its associated risks. Subsequently, the patient sign the consent. Pap smear result: LSIL. Urine test in office = Negative Procedure: During the procedure, the following steps were performed: A speculum was inserted, and acetic acid was applied. Colposcopy was conducted, allowing visualization of the transformation zone. Acetowhite lesions were identified at the 6+9+12 o'clock position. Cervical biopsies were obtained from the 6+9+12 o'clock position, followed by an endocervical curettage (ECC). Vaginoscopy of the upper vagina revealed no evidence of aceto-white lesions. Hemostasis was achieved using Monsel solution, and the patient tolerated the procedure well. Post-Procedure Instructions: The patient was advised to promptly contact the office or the after hours answering service or go to the emergency room if experiencing a temperature exceeding 100.4?F, abdominal pain, nausea/vomiting, or bleeding. Additionally, the patient was instructed to abstain from vaginal intercourse and bathtub use. The patient confirmed understanding of these instructions. Discharge Instructions: The patient was instructed to schedule a follow-up appointment in 2 weeks for further evaluation and management. Please note that this note was generated using a voice recognition program, and errors may have occurred during power builder developer. [id number] of cervix including upper vagina with biopsy and ECC Procedure code (CPT) selection complete Assessment & Plan Assessment & Plan (1) LGSIL on Pap smear of cervix: Comment: HPV high-risk positive, HPV 16/18 negative Code(s): R87.612 - Low grade squamous intraepithelial lesion on cytologic smear of cervix (LGSIL) Category: Medical Plan: Discussed with the patient the result of her abnormal pap, its significance, risk of progression, persistence, and regression. the false positive/negative rate of a Pap smear as a screening test in detecting cervical cancer and the indication for a diagnostic test -colposcopy, biopsy, endocervical curettage. The patient verbalized understanding and agreed with the plan, all questions answered. Colposcopy/biopsy/ECC done, see procedure note Orders: Orders AMB Colposcopy Today R87.612 - Low grade squamous intraepithelial lesion on cytologic smear of cervix (LGSIL) Coding Level of Care Code Est Pt Level 3 (46946) Procedure Only Diagnoses LGSIL on Pap smear of cervix R87.612 CPT Codes Colposcopy - CPT: 31761-Bwipdfgay of cervix including upper vagina with biopsy and ECC ([id number])
--- OUTSIDE RECORDS SUMMARY | 2024-08-15 16:11 | XMS_ITS | Data Portability ---
Author Organization [employer] [employer] [facility] [employer] Address [address] [place] [address] Care Team Providers Care Preschool Assistant Principal Name Role Phone [facility] Referring Provider [facility] Referring Provider Assessment Encounter Date [...] nausea/vomiting , or any other concerns. VSS. Circular Knife Cutter Machine on site reports no distress, clear breath [...] to the pharmacy. Red flags reviewed by respite worker. Primary team, Ms. Martinez reports that her nebulizer machine is no longer functional. She would benefit from follow up to ensure she's improving and to re-order a nebulizer machine for her use. [email or web address] Not available 06/05/2023 15:59:47 07/22/2023 07/22/2023 I have reviewed and agree with the Assessment and Plan as documented by the Circular Knife Cutter Machine. I provided real-time medical direction via phone [...] 2022 023 [email or web address] [facility], [address] [place], [address], 10:22:44 Referral None recorded. Procedures None recorded. Surgeries None recorded. Imaging None recorded. Medication Orders prednisone 20 mg tablet 2022 023 [id number], [address], [place], [id number], 15:55:35 Patient TargetsNo targets recorded. Patient InstructionsNo [...] Not available Not available Not available 06/07/2024 [id number] SNOMED Not Available [facility] - production [...] % 98 % 16 /min 72 /min 05919.8 g 136 mm[Hg] 98 mm[Hg] Not Available [...] Diagnosis/Indication Diagnosis SNOMED-CT Code Diagnosis ICD10 Code Diagnosis Note [id number] Esperanza Tao MD [facility] - [facility] [address] [place] [address] [phone] 06/05/2023 15:40:33 06/08/2023 12:42:59 Upper respiratory infection [id number] J06.9 [id number] Michael Hirsch MD Main - [facility] [address] [place] [address] [phone] 0 07/22/2023 12:36:33 08/04/2023 10:29:40 Urinary symptoms [id number] R39.9 Health Concerns Section Related Observation LastModified by Organization Detai ls LastModified Time None Recorded Concern Status LastModified by Organization Details LastModified Time None Recorded Advance Directives Directive None Recorded Payers Encounter Date Sequence Insurance Name Policy Number Policy Marks Covered Member ID Marks Member ID Guarantor Name 06/05/2023 1 [facility] - DOS ON OR AFTER 2022 - DUAL ELIGIBLE - PENITENTIARY OPTIONS AND ONE CARE (MEDICARE REPLACEMENT/AD VANTAGE - HMO) Taylor Martinez [id number] Taylor Martinez 07/22/2023 1 [facility] - DOS ON OR AFTER 2022 - DUAL ELIGIBLE - PENITENTIARY OPTIONS AND ONE CARE (MEDICARE REPLACEMENT/AD VANTAGE - HMO) Taylor Martinez [id number] Taylor Martinez Notes Date Note Type Note [...] COVID-19 yesterday. Pt unable to come into [facility] today. Agrees to [facility] referral for exam. Pt advised to call back on Thursday if sx not better after eval with [facility] and their POC. Pt agrees. ..................... ..................... ..................... ..................... ..................... ..................... ............... CRC Nursing Assessment: Comments: CRC RN did not require any additional information to process this visit. ..................... ..................... ..................... ..................... ..................... ..................... ............... Circular Knife Cutter Machine Note From Brian Zepeda: Pt CO persistent, [...] Flu and COVID. COVID PC obtained for [facility]. Neg TTP to sinuses. Pt given 40mg PO prednisone: Discussed with Pt about red flags of when to go to ED or call 911. Educated Pt on supportive care. Circular Knife Cutter Machine Allergies: Penicillin, Diphenhydramine ..................... ..................... ..................... ..................... ..................... ..................... ............... Disposition: Fulfilled Esperanza Tao MD [address] [place] [address],[address], [place], [address], [employer] 06/05/2023 16:08:00 07/22/2023 text/html HPI: Patient with history of Bipolar disease kidney stone and GERD. Recently treated with Macrobid x 5 days end of June. Now with frequency and bladder pressure. No fever ..................... ..................... ..................... ..................... ..................... ..................... ............... CRC Nursing Assessment: Comments: Reviewed - UTI s/s - Jase SOTO ..................... ..................... ..................... ..................... ..................... ..................... ............... Circular Knife Cutter Machine Note From Shana Peter: Community Circular Knife Cutter Machine Leona Peter CCA1 dispatched to a [facility] for a 38 yof C/O UTI S/S. Upon arrival, the pt was ambulatory, AL X4, in no apparent distress. She stated that for the past 5 days, she had a pressure and reported increased urinary frequency. She stated that she was recently treated w/ macrobid and that her S/S resolved; hx of kidney stones as well. She denied fever, dizziness, BO, cough, sore throat, CP, SOB, abd pain, bladder spasms, urinary urgency, or pain on urination. No CVA tenderness, but pt reported back pain in the area of her kidneys for the past 3-4 days. Urine dip acquired-results in [facility] consulted; #20 IV placed in her right [...] ............... Disposition: Fulfilled Michael Hirsch MD [address] [facility],[address], [place], [address], [employer] 08/03/2023 12:32:49 OBGyn Episode No OBEpisode recorded.
== END 2024-08-15 14:21 | disposition home or self-care (01) ==
PROVIDERS: PCP Family Medicine; Visit Provider Obstetrics & Gynecology
DX: R87.612 Low grade squamous intraepithelial lesion on cytologic smear of cervix (LGSIL) (principal); Z32.02 Encounter for pregnancy test, result negative
CPT/HCPCS: 57454; 99213

== ENCOUNTER 2024-09-28 09:47 | Outpatient (REF) | payer OTHER, SELFPAY ==
--- OUTSIDE RECORDS SUMMARY | 2024-09-28 10:12 | XMS_ITS | Encounter Summary ---
Author Organization [facility] Address [address] [place] [address] [address] [place] [address] Care Team Providers Care Oracle Scm Consultant Name Role Phone Damaris Ramos MD Primary Care Provider Reason for Referral * Consultation (Routine) - Closed Specialty Diagnoses / Procedures Referred By Jennifer walsh Referred To Contact Orthopaedic Surgery Diagnoses Chronic left shoulder pain Neck pain Damaris Ramos MD [address] [place] [address] Phone: tel: fax: [facility] [address] [place] [address] Drive [address] [place], [place] Phone: tel: fax: Referral ID Status Reason Start Date Expiration Date V isits Requested Visits Authorized [id number] Closed Specialty Services Required 12/24/2023 12/23/2024 1 1 Encounter Details Date Type Department Care Team (Late st Contact Info) Description 12/24/2023 Orders Only [facility] [address] [place], [place] [phone] Damaris Ramos MD [address] [place], [place] [phone] Chronic left shoulder pain (Primary Dx); Neck pain Social History Tobacco Use Types Packs/Day Years Used Date Smoking Tobacco: Former Cigarettes Passive Smoke Exposure: Past Smokeless Tobacco: Never Depression Answer Date Recorded Patient Health Questionnaire-9 Score 0 05/21/2023 Housing Stability Answer Date Recorded What is your housing situation today? I have yessenia weaver 09/15/[address] you li ve. Do you have problems with any of the following? None of the above 09/15/2023 Food Insecurity Answer Date Recorded Within the past 12 months, y ou worried that your food would run out before you got money to buy more: Never True 09/15/2023 Within the past 12 months,th e food you bought just didn't last and you didn't have enough money to get more: Never True 01/2024 Transportation Answer Date Recorded In the past 12 months, has l ack of transportation kept you from medical appts, meetings, work or from getting things needed for daily living? No 09/15/2023 Utilities Answer Date Recorded In the past 12 months, has t he electric, gas, oil or water company threatened to shut off services in your home? No 09/15/2023 Depression Answer Date Recorded Patient Health Questionnaire-2 Score 0 05/21/2023 Comments Unknown Sex and Gender Information Value Date Recorded Sex Assigned at Female 06/09/2022 10:18 AM EDT Legal Sex Female 10:18 AM EDT Gender Identity Female 06/09/2022 10:18 AM EDT Sexual Orientation Straight 06/09/2022 10 :18 AM EDT documented as of this encounter Plan of Treatment Scheduled Referrals Name Type Priority Associated Diagnoses Order Schedule Referral to Orthopaedic Surgery Outpatient Referral Routine Chronic left shoulder pain Neck pain Expected: 12/24/2023 (Approximate), Expires: 12/23/2024 documented as of this encounter Visit Diagnoses Diagnosis Chronic left shoulder pain- Primary Pain in joint, shoulder region Neck pain Cervicalgia documented in this encounter Additional Health Concerns Assessment Noted Time PHQ-9 Depression Total Score: 0 05/21/20 23 10:05 AM EDT documented as of this encounter Care Teams Oracle Scm Consultant Relationship Specialty Start Date End Date Damaris Ramos MD [address] [place] [address] PCP - General Family Medicine 08/10/18 documented as of this encounter
--- OUTSIDE RECORDS SUMMARY | 2024-09-28 10:12 | XMS_ITS | Encounter Summary ---
Author Organization [employer] [facility] Address [address] [facility] 7t [place] [address] Care Team Providers Care Medical Laboratory Technical Officer Name Role Phone Damaris Ramos MD Primary Care Provider [phone] Reason for Referral * Consultation (Urgent) - Closed Specialty Diagnoses / Procedures Referred By Jennifer walsh Referred To Contact Gastroenterology Diagnoses Diarrhea, unspecified type Abdominal pain, unspecified abdominal location Damaris Ramos MD [address] [place] [address] Phone: tel: fax: [facility] [address] [place], [place] Phone: tel: fax: Referral ID Status Reason Start Date Expiration Date V isits Requested Visits Authorized [id number] Closed Specialty Services Required 09/30/2023 09/29/2024 1 1 Scheduling Instructions Patient would like to see any provider in [place], not [facility]. Encounter Details Date Type Department Care Team (Late st Contact Info) Description 09/30/2023 Orders Only [facility] [address] [place] [address] Damaris Ramos MD [address] [place] [address] Diarrhea, unspecified type (Primary Dx); Abdominal pain, unspecified abdominal location Social History Tobacco Use Types Packs/Day Years [...] Priority Associated Diagnoses Order Schedule Referral to Gastroenterology Outpatient Referral Urgent Diarrhea, unspecified type Abdominal pain, unspecified abdominal location Expected: 09/30/2023 (Approximate), Expires: 09/30/2024 documented as of this encounter Visit Diagnoses Diagnosis Diarrhea, unspecified type- Primary Abdominal pain, unspecified abdominal location documented in this encounter Additional Health Concerns Assessment Noted Time PHQ-9 Depression Total Score: 0 05/21/20 23 10:05 AM EDT documented as of this encounter Care Teams Medical Laboratory Technical Officer Relationship Specialty Start Date End Date Damaris Ramos MD [address] [place] [address] PCP - General Family Medicine 08/10/18 documented as of this encounter
--- OUTSIDE RECORDS SUMMARY | 2024-09-28 10:12 | XMS_ITS | Encounter Summary ---
Author Organization [employer] [facility] Address [address] [place] [address] Care Team Providers Care Chief Architect Name Role Phone Jose Gordon MD Primary Care Provider [phone] Michael Mackay Unavailable Unavailable Encounter Details Date Type Department Care Team Description 06/08/2017 Transfer Records Medical Records [address] [place] [id number] Abstract, Provider Social History Tobacco Use Types Packs/Day Years Used Date Smoking Tobacco: Former Smokeless Tobacco: Never Alcohol Use Standard Drinks/Week Comments No 0 (1 standard drink = 0.6 oz pur e alcohol) Sex Assigned at Date Recorded Not on file documented as of this encounter Plan of Treatment Not on file documented as of this encounter Visit Diagnoses Not on filedocumented in this encounter Care Teams Chief Architect Relationship Specialty Start Date End Date Jose Gordon MD [address] [place] [address] PCP - General Internal Medicine 07/10/15 Michael Mackay [address] [place] [address] Internal Medicine 07/10/15 documented as of this encounter
--- OUTSIDE RECORDS SUMMARY | 2024-09-28 10:12 | XMS_ITS | Encounter Summary ---
Author Organization [employer] [facility] Address [address] [place] [address] [address] [place] [address] Care Team Providers Care Bi Analyst Name Role Phone Damaris Ramos MD Primary Care Provider [phone] Encounter Details Date Type Department Care Team (Latest Contact Info) Description 09/28/2024 9:00 AM EST Office Visit [facility] [address] [place], [place] [phone] Damaris Ramos MD [address] [place], [place] [phone] Elevated BP without diagnosis of hypertension (Primary Dx); Prediabetes; Mild intermittent asthma without complication; Abdominal swelling; Screening for lipid disorders; Subacute sinusitis, unspecified location; Vitamin D deficiency; Family history of diabetes mellitus type II; Temporal pain; Chronic nonintractable headache, unspecified headache type; Chronic bilateral back pain, unspecified back location; Neck pain Social History Tobacco Use Types Packs/Day Years Used Date Smoking Tobacco: Former Cigarettes Passive Smoke Exposure: Past Smokeless Tobacco: Never Alcohol Answer Date Recorded Frequency of Alcohol Consumption Not on file 05/25/2024 Average Number of Drinks Not on file 024 Frequency of Binge Drinking Not on file 05/10 Score 0 05/25/2024 Depression Answer Date Recorded Patient Health Questionnaire-9 Score 18 05/25/2024 Patient Health Questionnaire-9 Score 18 05/25/2024 Last PHQ-9: Questionnaire Data Not on file 1 Housing Stability Answer Date Recorded What is [...] the past 12 months, has t he [employer], [employer], oil or water [employer] threatened to shut off services in your home? No 09/15/2023 Depression Answer Date Recorded Patient Health Questionnaire-2 Score 5 05/25/2024 Comments No Sex and Gender Information Value Date Recorded Sex Assigned at Female 06/09/2022 10:18 AM EDT Legal Sex Female 10:18 AM EDT Gender Identity Female 06/09/2022 10:18 AM EDT Sexual Orientation Straight 06/09/2022 10 :18 AM EDT documented as of this encounter Last Filed Vital Signs Vital Sign Reading Time Taken Comments Blood Pressure 117/77 09/28/2024 9:11 AM EST Pulse 71 09/28/2024 9:11 AM EST Temperature 35.7 ??C (96.2 ??F) 09/28/2024 9:11 AM ES T Respiratory Rate 15 09/28/2024 9:11 AM EST Oxygen Saturation - - Inhaled Oxygen Concentration - - Weight 90.3 kg (199 lb) 09/28/2024 9:11 AM EST Height - - Body Mass Index 40.19 05/04/2024 10:56 AM EDT documented in this encounter Miscellaneous Notes * Assessment & Plan Note - Katy Hyde MA - 09/28/2024 8:35 AM ESTAssociated Problem(s): Prediabetes -05/29/21 A1C 6.0% -04/29/22 A1C 5.7% -01/22/23 A1C 5.9% -05/21/23 A1C 5.5% -family Hx DM -continue working on lifestyle modifications -q6-12mo screening due to risk factors -pt was taking liraglutide for weight loss, but self-discontinued due to intolerance -pt has a great interest in health and naturopathic medicine; encouraged to continue her curiosity and self-care. * Assessment & Plan Note - Katy Hyde MA - 09/28/2024 8:35 AM ESTAssociated Problem(s): Elevated BP without diagnosis of hypertension -Goal BP < 140/90 per JNC-8 and < 130/80 per ACC/AHA guideline (Treatment threshold >=140/90) -BP elevated today, second measurement was normal -Continue working on lifestyle modifications -Recommended self-monitoring BP. -Will prescribe CPAP -Follow up in 3 mo, sooner if any problem arises * Assessment & Plan Note - Katy Hyde MA - 09/28/2024 8:35 AM ESTAssociated Problem(s): Asthma - previously on fluticasone ICS, but has not been adherent - change fluticasone to another ICS in near future - continue montelukast for both asthma and allergy - continue albuterol HFA and neb prn; pt prefers neb when pt is at home because it seems to be moreeffective documented in this encounter Plan of Treatment Scheduled Orders Name Type Priority Associated Diagnoses Orde r Schedule CBC auto differential Lab Routine Abdominal swelling Expected: 09/28/2024 (Approximate), Expires: 09/28/2025 Comprehensive Metabolic Panel Lab Routine Abdominal swelling Expected: 09/28/2024 (Approximate), Expires: 09/28/2025 Sed Rate by Modified W[place]gren Lab Routine Temporal pain Expected: 09/28/2024 (Approximate), Expires: 09/28/2025 C-reactive Protein Lab Routine Temporal pain Expected: 09/28/2024 (Approximate), Expires: 09/28/2025 Lipid Panel with Reflex to Direct LDL Lab Routine Elevated BP without diagnosis of hypertension Expected: 09/28/2024 (Approximate), Expires: 09/28/2025 TSH with Reflex to Free T4 Lab Routine Prediabetes Expected: 09/28/2024 (Approximate), Expires: 09/28/2025 Vitamin D, 25-Hydroxy, Total, Immunoassay Lab Routine Family history of diabetes mellitus type II Expected: 09/28/2024 (Approximate), Expires: 09/28/2025 Hemoglobin A1c Lab Routine Prediabetes Expected: 09/28/2024 (Approximate), Expires: 09/28/2025 documented as of this encounter Visit Diagnoses Diagnosis Elevated BP without diagnosis of hypertension- Primary Prediabetes Other abnormal glucose Mild intermittent asthma without complication Abdominal swelling Screening for lipid disorders Subacute sinusitis, unspecified location Vitamin D deficiency Family history of diabetes mellitus type II Temporal pain Chronic nonintractable headache, unspecified headache type Chronic bilateral back pain, unspecified back location Neck pain Cervicalgia documented in this encounter Additional Health Concerns Assessment Noted Time PHQ-9 Depression Total Score: 18 024 12:02 PM EDT documented as of this encounter Care Teams Bi Analyst Relationship Specialty Start Date End Date Damaris Ramos MD [address] [place] [address] PCP - General Family Medicine 08/10/18 documented as of this encounter
--- OUTSIDE RECORDS SUMMARY | 2024-09-28 10:12 | XMS_ITS | Encounter Summary ---
Author Organization [employer] [facility] Address [address] [place] [address] [address] [place] [address] Care Team Providers Care Cuffing Machine Operator Name Role Phone Damaris Ramos MD Primary Care Provider [phone] Encounter Details Date Type Department Care Team ([facility] st Contact Info) Description 02/05/2023 Telephone [facility] [address] [place], [place] [phone] Zoie Doty RN Social History Tobacco Use Types Packs/Day Years Used Date Smoking Tobacco: Former Cigarettes Passive Smoke Exposure: Past Smokeless Tobacco: Never PHQ-2 Answer Date Recorded Patient Health Questionnaire-2 Score 4 07/31/2022 Depression Answer Date Recorded Patient Health Questionnaire-9 Score 10 07/31/2022 Comments Unknown Sex and Gender Information Value Date Recorded Sex Assigned at Female 06/09/2022 10:18 AM EDT Legal Sex Female 10:18 AM EDT Gender Identity Female 06/09/2022 10:18 AM EDT Sexual Orientation Straight 06/09/2022 10 :18 AM EDT COVID-19 Exposure Response Date Recorded In the last 10 days, have yo u been in contact with someone who was confirmed or suspected to have Coronavirus/COVID-19? No / Unsure 02/02/2023 9:56 AM EDT documented as of this encounter Plan of Treatment Not on file documented as of this encounter Visit Diagnoses Not on filedocumented in this encounter Additional Health Concerns Assessment Noted Time PHQ-9 Depression Total Score: 10 022 10:28 AM EST documented as of this encounter Care Teams Cuffing Machine Operator Relationship Specialty Start Date End Date Damaris Ramos MD [address] [place], [place] [phone] PCP - General Family Medicine 08/10/18 documented as of this encounter
--- OUTSIDE RECORDS SUMMARY | 2024-09-28 10:12 | XMS_ITS | Clinical Summary ---
Author Organization [facility] Address [address] [place] [address] Care Team Providers Care Plate Gauger Name Role Phone Jose Gordon MD Primary Care Provider [phone] Michael Mackay Unavailable Unavailable Allergies Active Allergy Reactions Severity Noted Date Comments Penicillins 07/31/2015 Medications Medication Sig Dispensed Refills Start Date End Date Status cetirizine (ZYRTEC) 10 MG tablet Take 10 mg by mouth daily. 0 Active divalproex (DEPAKOTE) 250 MG 24 hr tablet Take 250 mg by mouth daily. 0 Active Immunizations Name Administration Dates Next Due Hepatitis B-2 dose(11-15yrs) 08/17/2002 Family History Medical History Relation Name Comments Diabetes Mother hypertension; C VD Relation Name Status Comments Mother Social History Tobacco Use Types Packs/Day Years Used Date Smoking Tobacco: Former Smokeless Tobacco: Never Alcohol Use Standard Drinks/Week Comments No 0 (1 standard drink = 0.6 oz pur e alcohol) Sex Assigned at Date Recorded Not on file Last Filed Vital Signs Vital Sign Reading Time Taken Comments Blood Pressure 100/70 07/31/2015 11:03 AM EST Pulse 76 07/31/2015 11:03 AM EST Temperature - - Respiratory Rate - - Oxygen Saturation - - Inhaled Oxygen Concentration - - Weight 86.4 kg (190 lb 6.4 oz) 07/31/2015 11:03 AM EST Height 149.9 cm (4' 11 ) 07/31/2015 11:03 AM EST Body Mass Index 38.46 07/31/2015 11:03 AM EST Plan of Treatment Health Maintenance Due Date Last Done Comments Covid-19 Vaccine (#1) 1986 DEPRESSION SCREEN 1998 TOBACCO CHECK/ADVISE 2004 BASELINE HEALTH EXAM 18-39 2005 08/17/2002, DTAP/TDAP/TD (1 - Tdap) 2005 CHOLESTEROL SCREENING 2006 CERVICAL CANCER SCREENING 12/11/2018 12/12/2015 INFLUENZA (#1) 2024 BMI CHECK/ADVISE 08/10/2024 PNEUMOCOCCAL VACCINE FOR HIG H RISK PATIENTS (#1) 2051 Care Teams Plate Gauger Relationship Specialty Start Date End Date Jose Gordon MD [address] [place] [address] PCP - General Internal Medicine 07/10/15 Michael Mackay [address] [place] [address] Internal Medicine 07/10/15
--- OUTSIDE RECORDS SUMMARY | 2024-09-28 10:12 | XMS_ITS | Encounter Summary ---
Author Organization [facility] Address [address] [place] [address] [address] [place] [address] Care Team Providers Care Veterinary Poultry Inspector Name Role Phone Damaris Ramos MD Primary Care Provider [phone] Encounter Details Date Type Department Care Team (Latest Contact Info) Description 09/28/2024 Travel Social History Tobacco Use Types Packs/Day Years [...] documented as of this encounter Care Teams Veterinary Poultry Inspector Relationship Specialty Start Date End Date Damaris Ramos MD [address] [place] [address] PCP - General Family Medicine 08/10/18 documented as of this encounter
--- OUTSIDE RECORDS SUMMARY | 2024-09-28 10:12 | XMS_ITS | Continuity of Care Document ---
Author Organization [employer] [facility], [place] - [employer] Address [address] [place] [phone] Care Team Providers Care Consolidation Accountant Name Role Phone [facility] Referring Provider HIM [facility] OTHER Assessment No assessment recorded. Plan of Treatment Reminders Order Date Submit Date Provider Last Modified By Organization Details Last Modified Time Details Appointments None record ed. Lab None record ed. Referral None record ed. Procedures None record ed. Surgeries None record ed. Imaging None record ed. Medication Orders None record ed. Patient TargetsNo targets recorded. Patient InstructionsNo instructions recorded. Reason for Referral None Reported. Medical Equipment None Reported. Allergies Allergen ID Allergen Name Allergen Category Reaction Reaction Severity Criticality Documentation Date Start Date Code Code System Note Provider Name and Address Organization Details Recorded Time 04189 amoxicill in medicatio n Not available Not available Not available 08/20/2024 723 RxNorm Not Available [facility] - production 5 08:12:56 7121 Product containin g penicilli n (product) medicatio n Not available Not available Not available 06/07/2024 16500 8001 SNOMED Not Available [facility] - production 4 03:35:07 7122 diphenhyd ramine medicatio n Not available Not available Not available 06/07/2024 3498 RxNorm Not Available [facility] - production 4 03:35:07 Medications Name Sig Start Date Stop Date Status Note LastModified by Organization Details LastModified Time multivitamin tablet TAKE 1 TABLET BY MOUTH EVERY MORNING WITH FOOD active Not Available Not Available No t Available prednisone 10 mg tablet TAKE 2 TABLETS BY MOUTH DAILY WITH FOOD FOR 5 DAYS active Not Available Not Available N ot Available doxycycline hyclate 100 mg capsule TAKE 1 CAPSULE BY MOUTH TWICE DAILY FOR 10 DAYS active Not Available Not Available No t Available albuterol sulfate 2.5 mg/3 mL (0.083 %) solution for nebulization INHALE 3 ML VIA NEBULIZER EVERY 4 TO 6 HOURS NEEDED FOR DIFFICULTY BREATHING UP TO FOUR TIMES DAILY NEEDED active Not Available Not Available No t Available loperamide 2 mg capsule active Not Available Not Available N ot Available trazodone 50 mg tablet TAKE 1 TABLET BY MOUTH AT BEDTIME active Not Available Not Available No t Available azithromycin 250 mg tablet TAKE 2 TABLETS BY MOUTH FOR 1 DAY THEN TAKE 1 TABLET BY MOUTH DAILY FOR 1 DAY active Not Available Not Available No t Available ibuprofen 800 mg tablet active Not Available Not Available Not Available prednisone 20 mg tablet TAKE 2 TABLETS BY MOUTH EVERY DAY FOR 4 DAYS active Not Available Not Available No t Available topiramate 25 mg tablet TAKE 1 TABLET BY MOUTH EVERY DAY active Not Available Not Available No t Available Gas-X Extra Strength 125 mg capsule TAKE ONE CAPSULE BY MOUTH FOUR TIMES DAILY NEEDED FOR BLOATING active Not Available Not Available No t Available metronidazol e 500 mg tablet active Not Available Not Available Not Available hydroxyzine HCl 50 mg tablet TAKE 1 TABLET BY MOUTH THREE TIMES DAILY active Not Available Not Available Not Available melatonin 3 mg tablet TAKE 1-2 TABLETS BY MOUTH 3 HOURS BEFORE YOUR DESIRED BEDTIME NEEDED active Not Available Not Available No t Available peg-electrol yte solution 420 gram oral solution MIX AND DRINK DIRECTED active Not Available Not Available No t Available acetaminophe n 500 mg tablet TAKE 2 TABLETS BY MOUTH EVERY 6 HOURS NEEDED FOR MODERATE PAIN OR FEVER FOR UP TO 25 DOSES active Not Available Not Available No t Available meloxicam 7.5 mg tablet active Not Available Not Available Not Available famotidine 20 mg tablet active Not Available Not Available Not Available dextroamphet amine-amphet amine ER 20 mg 24hr capsule,exte nd release TAKE 1 CAPSULE BY MOUTH EVERY MORNING active Not Available Not Available No t Available pantoprazole 40 mg tablet,delay ed release TAKE 1 TABLET BY MOUTH TWICE DAILY FOR 8 WEEKS active Not Available Not Available No t Available calcitriol 0.5 mcg capsule active Not Available Not Available Not Available omeprazole 20 mg capsule,steffany yed release TAKE 1 CAPSULE BY MOUTH EVERY DAY BEFORE A MEAL active Not Available Not Available No t Available oxcarbazepin e 600 mg tablet TAKE 1 TABLET BY MOUTH TWICE DAILY active Not Available Not Available No t Available montelukast 10 mg tablet active Not Available Not Available Not Available hydroxyzine HCl 25 mg tablet TAKE 1 TABLET BY MOUTH TWICE DAILY NEEDED active Not Available Not Available No t Available mometasone 0.1 % topical ointment APPLY A THIN LAYER AFTER BEFORE BEDTIME active Not Available Not Available No t Available zolpidem 10 mg tablet TAKE 1 TABLET BY MOUTH AT BEDTIME NEEDED active Not Available Not Available No t Available albuterol sulfate HFA 90 mcg/actuatio n aerosol inhaler INHALE 2 PUFFS BY MOUTH EVERY 6 HOURS IF NEEDED FOR WHEEZING active Not Available Not Available No t Available cholecalcife rol (vitamin D3) 125 mcg (5,000 unit) capsule TAKE ONE CAPSULE BY MOUTH DAILY active Not Available Not Available Not Available loratadine 10 mg tablet TAKE 1 TABLET BY MOUTH EVERY MORNING active Not Available Not Available No t Available dextroamphet amine-amphet amine ER 15 mg 24hr capsule,exte nd release TAKE 1 CAPSULE BY MOUTH EVERY MORNING active Not Available Not Available No t Available cyclobenzapr ine 5 mg tablet TAKE 1 TO 2 TABLETS BY MOUTH EVERY NIGHT NEEDED FOR MUSCLE SPASM active Not Available Not Available No t Available tizanidine 4 mg capsule active Not Available Not Available N ot Available melatonin 5 mg tablet TAKE ONE TABLET BY MOUTH EVERY NIGHT AT BEDTIME active Not Available Not Available No t Available blood pressure test kit-large cuff USE TO CHECK BLOOD PRESSURE EVERY DAY DIRECTED active Not Available Not Available Not Available Flonase Sensimist 27.5 mcg/actuatio n nasal spray,suspen adeel SHAKE LIQUID AND USE 1 SPRAY IN EACH NOSTRIL EVERY DAY active Not Available Not Available No t Available BinaxNOW COVID-19 Ag Self Test kit TEST DIRECTED TODAY active Not Available Not Available No t Available Zepbound 5 mg/0.5 mL subcutaneous pen injector ADMINISTER 5 MG UNDER THE SKIN 1 TIME EVERY WEEK active Not Available Not Available No t Available Zepbound 2.5 mg/0.5 mL subcutaneous pen injector INJECT 2.5MG UNDER THE SKIN 1 TIME PER WEEK active Not Available Not Available No t Available Vitals Date Recorded Respiratory rate Body temperature Oxygen saturation Oxygen saturation in Arterial blood by Pulse oximetry Heart rate Systolic blood pressure Diastolic blood pressure Provider Name and Address Organization Details Last Updated DateTime 5 16 /min 97.5 [degF] 97 % 97 % 89 /min 135 mm[Hg] 87 mm[Hg] Not Available [facility] - production 5 13:02:29 Social History None recorded. Functional Status None recorded. Mental Status None recorded. Family History Nothing Reported. Medical History No medical history recorded. Gynecological HistoryNo gynecological history recorded. Obstetrics History GPAL:G 0 P 0 0 0 0 Past Encounters Encounter ID Performer Location Encounter Start Date Encounter Closed Date Diagnosis/Indication Diagnosis SNOMED-CT Code Diagnosis ICD10 Code Diagnosis Note [id number] KELLY PÉREZ MD [facility] [address] [place] [phone] 08/20/2024 10:39:20 08/20/2024 17:55:46 Acute bacterial sinusitis 92533704 J01.90 [id number] Katherine Zamudio MD [facility] [address] [place] [phone] 09/04/2024 13:02:25 09/04/2024 15:24:37 Cough [id number] R05.9 As noted, we were called to see this patient regarding concerns of sinus congestion . Evaluation in the field was performed by my marketing underwriter colleague, as noted above, I provided real-time direction and supervisio n for this visit. The evaluation revealed 39 yo woman with 1 month of sinus congestion , cough and frontal headache. She received antibiotic s earlier this month without relief.She has started using oxymetolaz one a few days ago. She was unable to coal picker other prescribed medication s as they were not covered by insurance. Impression :Viral vs environmen charito rhinosinus itis Plan:Revie wed plan for OTC treatments including sinus rinses, steroid nasal spray and oral antihistam miri. Would limit oxymetolaz one use to 3-4 days due to concern for rebound disease. Dispositio n: We discussed the diagnostic uncertaint y of home visits and the risk associated with this. In this case, the patient and I felt this to be an acceptable and reasonable amount of risk given the benefit of avoiding an ED visit. We discussed the need to seek care urgently/e mergently in the setting of any new or worsening serious symptoms, particular ly changes to consciousn ess, chest pain, dyspnea. Health Concerns Section Related Observation LastModified by Organization Detai ls LastModified Time None Recorded Concern Status LastModified by Organization Details LastModified Time None Recorded Payers Encounter Date Sequence Insurance Name Policy Number Policy Marks Covered Member ID Marks Member ID Guarantor Name 09/04/2024 1 [facility] - DOS ON OR AFTER 2022 - DUAL ELIGIBLE - GROUP HOME OPTIONS AND ONE CARE (MEDICARE REPLACEMENT/AD VANTAGE - HMO) Taylor Martinez [id number] Taylor Martinez Notes Date Note Type Note Provider Name and Address Organization Details Recorded Time 09/04/2024 text/html HPI: Ear hurts stuffy nose headache been going on for weeks?? ................... ................... ................... ................... ................... ................... ................... ........ [facility] Nurse Triage Notes (Jose Miramontes - RN): Patient Reports: History of asthma, increased use of inhaler; Sputum increase ; CoughDenies: Increased work of breathing/labored ? with or without fever Unable to speak in full sentences without distress Discoloration of skin -cyanosis Needs to sleep sitting up, can? t catch breath Shortness of breath in setting of confusion Cough, fever greater than 2 days COPD Shortness of breath with exertion Pain with inspiration Chief Complaints: Common cold symptomsPMH: COPD/AsthmaPMH Reviewed at 09/04/2024 - 10:17Allergies Reviewed at 09/04/2024 - 10:17Comments: Drying Machine Tender verified the Pt.'s name//address and phone number. Education provided on the response time and the Pt. was advised to monitor reported s/s and seek emergency treatment if needed.09/04/24 -@ 1007 - Outreach call to the pt to obtain additional information - Voice mail left for call back - JUAN RAMON Pt reports feeling unwell with a cough/cold and congestion - Ear pain - Headache - Denies sore throat and fever - Denies SOB - Follow up visit requested - [facility] and s/s are not improving - See note - The evaluation revealed A 39 Y/O FEMALE With a past medical history of COPD who presents with pressure in the face and pain to her upper gums for the last two weeks. The patient has had green nasal discharge. She's having difficulty putting in her partial dentures because of the pain in the gum and upper teeth area. She denies any fevers or chills. No chest pain no shortness of breath. No nausea or vomiting. The patient does have a history of sinusitis in the past period patient is requesting treatment for sinusitis. ................... ................... ................... ................... ................... ................... ................... ........ Dude Ranch Manager Note From Derek Bucio: This 39-year-old female with a history of asthma requested a visit today to address ongoing URI symptoms. Patient reports one month of sinus congestion and sinus headaches. Patient was seen by [facility] two weeks ago and was treated with doxycycline for sinusitis. Patient is using X clear nasal spray yesterday with moderate relief. Patient denies any chest pain, shortness of breath, cough, fevers, nausea, vomiting, diarrhea. Patient presents awake and alert, in no acute distress and speaking full sentences. Her vital signs are reasonably stable and she is afebrile. Nonfocal neurological exam. Normal gait. Normal oropharynx exam. Lungs are clear throughout auscultation. Abdomen is soft, nontender, nondistended. No lower extremity edema. I provided education and recommend a daily OTC antihistamine as well as daily fluticasone. I also recommend she uses a Anabelle pot/saline rinses. I recommend she follows up with her primary care physician and provided education red flags that would indicate emergency department. The patient was given the opportunity to ask questions and is agreeable to this plan. ................... ................... ................... ................... ................... ................... ................... ........ [facility] [place] Consulted: Katherine Zamudio ................... ................... ................... ................... ................... ................... ................... ........ Disposition: Fulfilled Katherine Zamudio MD [address] [place] [address],[address], [place], [phone], [employer]ocket[employer]SE MIGUEL REBOLLAR 09/04/2024 14:56:30 OBGyn Episode No OBEpisode recorded.
--- OUTSIDE RECORDS SUMMARY | 2024-09-28 10:12 | XMS_ITS | Encounter Summary ---
Author Organization [employer] [facility] Address [address] [place] [address] [address] [place] [address] Care Team Providers Care Fire Alarm Operator Name Role Phone Damaris Ramos MD Primary Care Provider [phone] Reason for Visit * Reason Onset Date Comments chart prep 09/23/2024 Encounter Details Date Type Department Care Team ([facility] Contact Info) Description 09/23/2024 Telephone [facility] [address] [place], [place] [phone] Rubia Cruz MA chart prep Social History Tobacco Use Types Packs/Day Years [...] AM EDT documented as of this encounter Miscellaneous Notes * Telephone Encounter - Rubia Cruz MA - 09/23/2024 4:01 PM EST ..chart Prep Labs: not applicable Images: not applicable Vaccines due: Covid Due and Flu Due Referrals: Completed Screenings: Not Applicable Overdue care gaps: SDOH and Oral Health documented in this encounter Plan of Treatment Not on file documented as of this encounter Visit Diagnoses Not on filedocumented in this encounter Additional Health Concerns Assessment Noted Time PHQ-9 Depression Total Score: 18 024 12:02 PM EDT documented as of this encounter Care Teams Fire Alarm Operator Relationship Specialty Start Date End Date Damaris Ramos MD [address] [place] [address] PCP - General Family Medicine 08/10/18 documented as of this encounter
--- OUTSIDE RECORDS SUMMARY | 2024-09-28 10:12 | XMS_ITS | Data Portability ---
Author Organization [facility], [place] in - M[facility] Corta Address [address] [place] [address] Care Team Providers Care Old Testament Professor Name Role Phone [facility] Referring Provider HIM CCA OTHER Assessment Encounter Date Assessment Date Assessment LastModified [...] nausea/vomiting , or any other concerns. VSS. C.O.D. Audit Clerk on site reports no distress, clear breath [...] to the pharmacy. Red flags reviewed by fnp. Primary team, Ms. Martinez reports that her nebulizer machine is no longer functional. She would benefit from follow up to ensure she's improving and to re-order a nebulizer machine for her use. [email or web address] Not available 06/05/2023 15:59:47 07/22/2023 07/22/2023 I have reviewed and agree with the Assessment and Plan as documented by the C.O.D. Audit Clerk. I provided real-time medical direction via phone [...] voices understanding. [email or web address] Not available 08/03/2023 12:32:27 08/20/2024 08/20/2024 As noted, we were called to see this patient regarding CONCERNS FOR SINUSITIS. Evaluation in the field was performed by my fnp colleague, as noted above, I provided real-time direction and supervision for this visit. The evaluation revealed A 39 Y/O FEMALE [...] period patient is requesting treatment for sinusitis. On the evaluation and physical exam done by the fnp. The patient does have tenderness to the maxillary sinus area. The patient is not exhibiting any respiratory distress. Lung sounds are clear. Patient has normal mentation. Otherwise she has no complaints of abdominal pain. Impression: acute bacterial sinusitis Pt has symptoms for 2 weeks meets criteria for abx treatment Plan: 1) doxycycline 100 mg po in the home 2) flonase daily 3) neg covid and flu tests Disposition: stay at home We discussed the diagnostic uncertainty of home visits and the risk associated with this. In this case, the patient and I felt this to be an acceptable and reasonable amount of risk given the benefit of avoiding an ED visit. We discussed the need to seek care urgently/emerge ntly in the setting of any new or worsening serious symptoms, particularly fever, headache confusion. [email or web address] Not available 08/20/2024 10:53:08 Plan of Treatment Reminders Order Date Submit Date Provider Last Modified By Organization Details Last Modified Time Details Appointments None recorded. Lab rapid SARS CoV 2 Ag, QL IA, respiratory specimen 2024 025 [email or web address] 7 [facility], [address] [place] [address], [id number], 5 10:45:52 rapid flu (A+B) 2024 025 [email or web address] 7 [facility], [address] [place] [address], [phone], 5 10:45:58 unlisted lab - covid-19 (novel coronavirus ) PCR 2022 023 [email or web address] [facility], [address] [place] [address], [id number], 3 10:22:44 Referral None recorded. Procedures None recorded. Surgeries None recorded. Imaging None recorded. Medication Orders doxycycline hyclate 100 mg capsule 2024 025 [id number], [address], [place], [phone], 5 10:42:37 Flonase Sensimist 27.5 mcg/actuati on nasal spray,suspe nsion 2024 025 [facility] #[id number], [address], [place], [phone], 5 10:44:02 doxycycline hyclate 100 mg tablet [address] [facility] #[id number], [address], [place], [id number], 5 10:44:24 prednisone 20 mg tablet 2022 023 [id number], [address], [place], [phone], 3 15:55:35 Patient TargetsNo targets recorded. Patient InstructionsNo instructions recorded. Reason for Referral None Reported. Results Created Date Observation Date Name Description Value Unit Range Abnormal Flag Note LastModifiedBy Organization Detail LastModifiedTime Result Notes None recorded. Medical Equipment None Reported. Allergies Allergen ID Allergen Name Allergen Category Reaction Reaction Severity Criticality Documentation Date Start Date Code Code System Note Provider Name and Address Organization Details Recorded Time 29768 amoxicill in medicatio n Not available Not available Not available 08/20/2024 723 RxNorm Not Available [facility] - production 5 08:12:56 7121 Product containin g penicilli n (product) medicatio n Not available Not available Not available 06/07/2024 59361 8001 SNOMED Not Available [facility] - production [...] % 98 % 16 /min 72 /min 55921.8 g 136 mm[Hg] 98 mm[Hg] Not Available [facility] 3 15:40:36 Date Recorded Respiratory rate Body temperature Oxygen saturation Oxygen saturation in Arterial blood by Pulse oximetry Heart rate Systolic blood pressure Diastolic blood pressure Provider Name and Address Organization Details Last Updated DateTime 3 16 /min 98 [degF] 98 % 98 % 80 /min 120 mm[Hg] 60 mm[Hg] Not Available [facility] [employer] 3 12:49:42 Date Recorded Heart rate Body weight Body temperature Respiratory rate Body height Oxygen saturation Oxygen saturation in Arterial blood by Pulse oximetry Systolic blood pressure Diastolic blood pressure Provider Name and Address Organization Details Last Updated DateTime 5 61 /min 83046.4 g 98.2 [degF] 16 /min 149.86 cm 100 % 100 % 140 mm[Hg] 82 mm[Hg] Not Available [facility] - production 10:39:23 Date Recorded Respiratory rate Body temperature Oxygen saturation Oxygen saturation in Arterial blood by Pulse oximetry Heart rate Systolic blood pressure Diastolic blood pressure Provider Name and Address Organization Details Last Updated DateTime 16 /min 97.5 [degF] 97 % 97 % 89 /min 135 mm[Hg] 87 mm[Hg] Not Available [facility] - production 13:02:29 Social History None recorded. Functional Status None recorded. Mental Status None recorded. Family History Nothing Reported. Medical History No medical history recorded. Gynecological HistoryNo gynecological history recorded. Obstetrics History GPAL:G 0 P 0 0 0 0 Past Encounters Encounter ID Performer Location Encounter Start Date Encounter Closed Date Diagnosis/Indication Diagnosis SNOMED-CT Code Diagnosis ICD10 Code Diagnosis Note [id number] Esperanza Tao MD [facility] [address] [place] [phone] 06/05/2023 15:40:33 06/08/2023 12:42:59 Upper respiratory infection [id number] J06.9 [id number] Michael Hirsch MD [facility] [address] [place] [id number] 07/22/2023 12:36:33 08/04/2023 10:29:40 Urinary symptoms [id number] R39.9 [id number] KELLY URIBE MD [facility] [address] [place] [id number] 08/20/2024 10:39:20 08/20/2024 17:55:46 Acute bacterial sinusitis [id number] J01.90 [id number] Katherine Zamudio MD [facility] [address] [place] [id number] 09/04/2024 13:02:25 09/04/2024 15:24:37 Cough [id number] R05.9 As noted, we were called to see this patient regarding concerns of sinus congestion . Evaluation in the field was performed by my fnp colleague, as noted above, I provided real-time direction and supervisio n for this visit. The evaluation revealed 39 yo woman with 1 month of sinus congestion , cough and frontal headache. She received antibiotic s earlier this month without relief.She has started using oxymetolaz one a few days ago. 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 s as they were [...] Marks Member ID Guarantor Name 06/05/2023 1 [facility] - DOS ON OR AFTER 2022 - DUAL ELIGIBLE - NURSING HOME OPTIONS AND ONE CARE (MEDICARE REPLACEMENT/AD VANTAGE - HMO) Taylor Martinez [id number] Taylor Daoozhallie 07/22/2023 1 [facility] - DOS ON OR AFTER 2022 - DUAL ELIGIBLE - NURSING HOME OPTIONS AND ONE CARE (MEDICARE REPLACEMENT/AD VANTAGE - HMO) Taylor Martinez [id number] Taylor Daoozhallie 08/20/2024 1 [facility] - DOS ON OR AFTER 2022 - DUAL ELIGIBLE - NURSING HOME OPTIONS AND ONE CARE (MEDICARE REPLACEMENT/AD VANTAGE - HMO) Taylor Martinez [id number] Taylor Lopeztrozhallie 09/04/2024 1 [facility] - DOS ON OR AFTER 2022 - DUAL ELIGIBLE - NURSING HOME OPTIONS AND ONE CARE (MEDICARE REPLACEMENT/AD VANTAGE - HMO) Taylor Martinez [id number] Taylor Martinez Notes Date Note Type Note [...] COVID-19 yesterday. Pt unable to come into [facility] today. Agrees to [facility] referral for exam. Pt advised to call back on Thursday if sx not better after eval with [facility] and their POC. Pt agrees. ..................... ..................... ..................... ..................... ..................... ..................... ............... CRC Nursing Assessment: Comments: CRC RN did not require any additional information to process this visit. ..................... ..................... ..................... ..................... ..................... ..................... ............... C.O.D. Audit Clerk Note From Brian Zepeda: Pt CO persistent, [...] Flu and COVID. COVID PC obtained for [facility]. Neg TTP to sinuses. Pt given 40mg PO prednisone: Discussed with Pt about red flags of when to go to ED or call 911. Educated Pt on supportive care. C.O.D. Audit Clerk Allergies: Penicillin, Diphenhydramine ..................... ..................... ..................... ..................... ..................... ..................... ............... Disposition: Fulfilled Esperanza Tao MD [address] [place] [address],[address], [place], [phone], [facility] 06/05/2023 16:08:00 07/22/2023 text/html HPI: Patient with history of Bipolar disease kidney stone and GERD. Recently treated with Macrobid x 5 days end of June. Now with frequency and bladder pressure. No fever ..................... ..................... ..................... ..................... ..................... ..................... ............... CRC Nursing Assessment: Comments: Reviewed - UTI s/s - Jase SOTO ..................... ..................... ..................... ..................... ..................... ..................... ............... C.O.D. Audit Clerk Note From Shana Peter: [facility] C.O.D. Audit Clerk Leona Peter CCA1 dispatched to a [facility] for a 38 yof C/O UTI [...] 3-4 days. Urine dip acquired-results in [facility]. [facility] consulted; #20 IV placed in her right [...] ............... Disposition: Fulfilled Michael Hirsch MD [address] [facility],[address], [place], [address], [facility] 08/03/2023 12:32:49 08/20/2024 text/html CRC Nurse Triage Notes (April Abdalla - RN): Reason For Request: Nose is congested, and has pain near her nose area. has a cold. Chief Complaints: Common cold symptoms PMH: COPD/Asthma PMH Reviewed at 08/20/2024: Allergies Reviewed at 08/20/2024:12 Comments: Patient reports pain underneath nose. Green nasal drainage. Symptoms ongoing for 1--2 weeks getting worse. Denies cough, sore throat, body aches, or fevers. Not taking any OTC medications. Education provided on the response time and the member was advised to monitor reported s/s and seek emergency treatment if needed. C.O.D. Audit Clerk Organization Information for Ivonne Cotton Debbie MARY ELLEN Business Legal Name: [employer]? ? Address: [address] [place] [address], Atmospheric Scientist: Aakash Taylor MD [place] No.: [id number] C.O.D. Audit Clerk POC Test Results from Ivonne Cotton Rapid influenza antigen (10:34:20) Flu: - Rapid COVID antigen (10:34:21) COVID: - ..................... ..................... ..................... ..................... ..................... ..................... ............... C.O.D. Audit Clerk Note From Ivonne Cotton: LARISSA makes pt contact when she opens the door to the building. She is dressed to go out and she says she was just leaving to go get some soup. She has a general well-appearance and is not in acute distress. She is walking and talking normally, however, her voice has a nasal quality indicative of congestion. Pt leads [facility] inside her clean and well-kept apartment and she sits on the sofa. Pt endorses cold symptoms for the past month. She has had no fevers/chills, n/v/d, sore throat, cp, sob, or abd pain. No bladder or bowel issues are reported. Pt does endorse facial pain and pressure as well as mouth pressure, which has prevented her from wearing her partials due to the discomfort. She consents to evaluation and treatment today. [facility] obtains pt consent and uploads. Vital signs are gathered and pt is assessed. Pt has face pain w/ tapping over maxillary area under her nose. No other pain is elicited w/ palpation. Lung sounds are clear and remaining physical assessment is unremarkable. Pt requests COVID/flu swab and both tests are negative. [facility] contacts [facility] and discuses the above. [facility] orders [facility] to administer 100mg doxycycline PO and calls prescription in to pt's pharmacy for TID course. Pt thanks [facility] for coming. [facility] is clear. Report completed by GINA Cotton [id number]. [facility] Lab Orders: rapid SARS CoV 2 Ag, QL IA, respiratory specimen: Performed rapid flu (A+B): Performed [facility] Medication Orders: doxycycline hyclate 100 mg tablet: Administered ..................... ..................... ..................... ..................... ..................... ..................... ............... [facility] Consulted: Kelly Uribe ..................... ..................... ..................... ..................... ..................... ..................... ............... Disposition: Fulfilled KELLY URIBE MD [address] [facility],[address], [place], [address], [facility] 08/20/2024 11:26:53 09/04/2024 text/html HPI: Ear hurts stuffy nose headache been going on for weeks?? ..................... ..................... ..................... ..................... ..................... ..................... ............... CRC Nurse Triage Notes (Jsoe Miramontes - RN): Patient Reports: History of [...] - 10:17Allergies Reviewed at 09/04/2024 - 10:17Comments: Floor Tech verified the Pt.'s name//address and phone number. Education provided on the response time and the Pt. was advised to monitor reported s/s and seek emergency treatment if needed.09/04/24 -@ 1000 - Outreach call to the pt to obtain additional information - Voice mail left for call back - JUAN RAMON Pt reports feeling unwell with a cough/cold and congestion - Ear pain - Headache - Denies sore throat and fever - Denies SOB - Follow up visit requested - Pt reports she was seen by Jorgito on 08/20/24 and s/s are not improving [...] period patient is requesting treatment for sinusitis. ..................... ..................... ..................... ..................... ..................... ..................... ............... C.O.D. Audit Clerk Note From Derek Bucio: This 39-year-old female with a history of asthma requested a visit today to address ongoing URI symptoms. Patient reports one month of sinus congestion and sinus headaches. Patient was seen by Jorgito two weeks ago and was treated with [...] questions and is agreeable to this plan. ..................... ..................... ..................... ..................... ..................... ..................... ............... [facility] Consulted: Katherine Zamudio ..................... ..................... ..................... ..................... ..................... ..................... ............... Disposition: Brady Zamudio MD [address] [place] [address],[address], [place], [address], [facility] 09/04/2024 14:56:30 OBGyn Episode No OBEpisode recorded.
--- OUTSIDE RECORDS SUMMARY | 2024-09-28 10:12 | XMS_ITS | Encounter Summary ---
Author Organization [facility] Address [address] [place] [address] [address] [place] [address] Care Team Providers Care Cheese Wrapper Name Role Phone Damaris Ramos MD Primary Care Provider [phone] Reason for Visit * Reason Comments Med Refill Encounter Details Date Type Department Care Team ([facility] st Contact Info) Description 06/16/2024 Refill [facility] [address], [place] [phone] Damaris Ramos MD [address] [place], [place] [phone] Class 3 severe obesity due to excess calories with serious comorbidity and body mass index (BMI) of 40.0 to 44.9 in adult (CMS/HCC) Social History Tobacco Use Types Packs/Day Years [...] as of this encounter Visit Diagnoses Diagnosis Class 3 severe obesity due to excess calories with serious comorbidity and body mass index (BMI) of 40.0 to 44.9 in adult (CMS/HCC) documented in this encounter Additional Health Concerns Assessment Noted Time PHQ-9 Depression Total Score: 18 024 12:02 PM EDT documented as of this encounter Care Teams Cheese Wrapper Relationship Specialty Start Date End Date Damaris Ramos MD [address] [place] [id number] PCP - General Family Medicine 08/10/18 documented as of this encounter
--- OUTSIDE RECORDS SUMMARY | 2024-09-28 10:12 | XMS_ITS | Clinical Summary ---
Author Organization [employer] [facility] Address [address] [place] [address] [address] [place] [address] Care Team Providers Care Corporate Meeting Planner Name Role Phone Damaris Ramos MD Primary Care Provider [phone] Allergies Active Allergy Reactions Criticality Noted Date Comments Amoxicillin Itching,Rash Medium 07/21/2022 Diphenhydramine Hallucinations 11/21/2016 Other reaction(s): Itching Oxycodone Itching 07/31/2022 Penicillins Hives Other reaction(s): unspecified Medications * This document contains information received from the source organization and may not represent a complete record from that organization. glucose blood (OneTouch Ultra) test strip Insert 1 by into machine route 2 times every day Active lactase (Lactaid) 3000 units tablet Take 1 tablet by mouth 1 (one) time each day. Active lamoTRIgine (LaMICtal) 100 MG tablet Take 1 tablet by mouth 1 (one) time each day. Active escitalopram (Lexapro) 10 MG tablet Take 1 tablet by mouth 1 (one) time each day. Active Lancets (onetouch ultrasoft) lancets 1 each by Other route. Inject 1 by into machine route 2 times every day Active OXcarbazepine (Trileptal) 600 MG tablet Take 600 mg by mouth in the morning and at bedtime. Active amphetamine-dextr oamphetamine XR (Adderall XR) 15 MG 24 hr capsule Take 15 mg by mouth in the morning. Active Blood Glucose Monitoring Suppl (ONE TOUCH ULTRA 2) w/Device kit USE DIRECTED Active montelukast (Singulair) 10 MG tablet Take 1 tablet (10 mg) by mouth in the evening. 90 tablet 3 023 Active hydrOXYzine HCl (Atarax) 50 MG tablet Take 50 mg by mouth 3 times daily. 023 Active traZODone (Desyrel) 50 MG tablet Take 50 mg by mouth at bedtime. 023 Active Melatonin 3 MG capsule Take 1 or 2 capsules 3 hours before your desired bedtime as needed 90 capsule 3 023 Active calcitriol (Rocaltrol) 0.5 MCG capsule Take 1 capsule (0.5 mcg) by mouth in the morning. 90 capsule 3 024 Active albuterol (2.5 MG/3ML) 0.083% nebulizer solution inhale 3 milliliter (2.5MG) by nebulization route every 4-6 hours as needed for difficulty breathing, up to 4 times/day as needed 75 mL 1 Active mometasone (Elocon) 0.1 % ointment Apply thin layer after before bedtime 45 g Active acetaminophen (Tylenol) 500 MG tablet Take 2 tablets (1,000 mg) by mouth every 6 (six) hours if needed for moderate pain or fever for up to 25 doses. 40 tablet Active pantoprazole (ProtoNix) 40 MG EC tablet Take 40 mg by mouth 2 times daily. Active Gas-X Extra Strength 125 MG capsule Take 125 mg by mouth if needed in the morning, at noon, in the evening, and at bedtime for flatulence. Active famotidine (Pepcid) 20 MG tablet Take 1 tablet (20 mg) by mouth at bedtime. 90 tablet 3 024 2024 Active Blood Pressure Monitor misc Check BP daily 1 each Active albuterol (Ventolin HFA) 108 (90 Base) MCG/ACT inhaler Inhale 2 puffs every 6 (six) hours if needed for wheezing. 18 g 1 024 2024 Active pantoprazole (Protonix) 40 MG EC tabletIndications :Gastroesophageal reflux disease, unspecified whether esophagitis present Take 1 tablet (40 mg) by mouth 2 times daily. Do not crush, chew, or split. 180 tablet 1 024 2024 Active tiZANidine (Zanaflex) 4 MG capsule Take 1 capsule (4 mg) by mouth 3 times daily. 90 capsule 11 024 2024 Active meloxicam (Mobic) 7.5 MG tablet Take 1 tablet (7.5 mg) by mouth 2 times daily. 60 tablet 11 024 2024 Active azithromycin (Zithromax) 250 MG tablet Take 2 tablets by mouth on Day 1, and 1 tablet daily from Day 2 to Day 5 6 tablet Active Zepbound 5 MG/0.5ML solution auto-injectorIndi cations:Class 3 severe obesity due to excess calories with serious comorbidity and body mass index (BMI) of 40.0 to 44.9 in adult ([facility]) ADMINISTER 5 MG UNDER THE SKIN 1 TIME EVERY WEEK 2 mL 1 Active ibuprofen 800 MG tabletIndications :Chronic nonintractable headache, unspecified headache type,Chronic bilateral back pain, unspecified back location,Neck pain take 1 tablet by oral route every 8 hours as needed for pain / fever. DO NOT TAKE EVERYDAY FOR > 2 WKS 50 tablet 1 Active Multiple Vitamin (Multi-Vitamin) tablet Take 1 tablet by mouth Once per day. With food 90 tablet 3 025 Active fluticasone (Flonase Allergy Relief) 50 MCG/ACT nasal spray Administer 2 sprays into each nostril Once per day. In each nostril 16 g 025 Active loratadine (Claritin) 10 MG tablet Take 1 tablet (10 mg) by mouth Once per day. 90 tablet 3 025 Active fluticasone (Flonase Allergy Relief) 50 MCG/ACT nasal spray Administer 2 sprays into affected nostril(s) 1 (one) time each day. In each nostril 2024 Discontinued(R eorder (will not trigger notification to Pharmacy)) ibuprofen 800 MG tabletIndications :Chronic nonintractable headache, unspecified headache type,Chronic bilateral back pain, unspecified back location,Neck pain take 1 tablet by oral route every 8 hours as needed for pain / fever. DO NOT TAKE EVERYDAY FOR > 2 WKS 50 tablet 1 022 2024 Discontinued(R eorder (will not trigger notification to Pharmacy)) loratadine (Claritin) 10 MG tablet Take 1 tablet (10 mg) by mouth in the morning. 90 tablet 3 024 2024 Discontinued(R eorder (will not trigger notification to Pharmacy)) Multiple Vitamin (Multi-Vitamin) tablet Take 1 tablet by mouth in the morning. With food 90 tablet 3 024 2024 Discontinued(R eorder (will not trigger notification to Pharmacy)) Active Problems Problem Noted Date Diagnosed Date Elevated BP without diagnosis of hypertension Assessment & Plan (09/28/2024 8:35 AM EST): -Goal BP < 140/90 per JNC-8 and < 130/80 per ACC/AHA guideline (Treatment threshold >=140/90) -BP elevated today, second measurement was normal -Continue working on lifestyle modifications -Recommended self-monitoring BP. -Will prescribe CPAP -Follow up in 3 mo, sooner if any problem arises Assessment & Plan (05/25/2024 12:40 PM EDT): -Goal BP < 140/90 per JNC-8 and < 130/80 per ACC/AHA guideline (Treatment threshold >=140/90) -BP elevated today, second measurement was normal -Continue working on lifestyle modifications -Recommended self-monitoring BP. -Will prescribe CPAP -Follow up in 3 mo, sooner if any problem arises Assessment & Plan (02/26/2024 5:50 AM EDT): -Goal BP < 140/90 per JNC-8 and < 130/80 per ACC/AHA guideline (Treatment threshold >=140/90) - BP elevated today -Continue working on lifestyle modifications -Recommended self-monitoring BP. -Follow up in 3 mo, sooner if any problem arises IBS (irritable bowel syndrome) 12/14/2023 Assessment & Plan (12/14/2023 12:00 PM EDT): - Evaluated by GI on 11/27/23. - Recommended low FODMAP diet. Prescribed simethicone prn. - ? Functional dyspepsia. Discussed about herb supplements. Left shoulder pain 12/14/2023 Assessment & Plan (02/25/2024 11:16 AM EDT): - XR on 12/14/23 showed calcific tendinitis - recommended to follow-up with orthopedist - Continue APAP prn. Assessment & Plan (12/14/2023 12:03 PM EDT): - Evaluate with x-ray. - Continue APAP prn. Neck pain 12/14/2023 Assessment & Plan (02/25/2024 11:14 AM EDT): - Evaluate with x-ray. - Continue acetaminophen prn. - Pt has already completed physical therapy. - Patient was referred to orthopedist. She will reschedule appointment for possible injection. Assessment & Plan (12/14/2023 11:57 AM EDT): - Evaluate with x-ray. - Continue acetaminophen prn. - Pt has already completed physical therapy. - Will consider referring her to orthopedist. History of cholecystectomy 09/30/2023 ASCUS with positive high risk HPV cervical 05/21 Assessment & Plan (09/20/2023 6:20 PM EST): - PAP on 02/02/23 ASCUS with positive HPV - Colposcopy on 05/14/23 Normal - Repeat PAP in 1 year Assessment & Plan (05/21/2023 5:01 AM EDT): - PAP on 02/02/23 ASCUS with positive HPV - Colposcopy on 05/14/23 Normal - Repeat PAP in 1 year Cervical high risk HPV (human papillomavirus) te st positive 02/03/2023 Assessment & Plan (02/03/2023 12:06 PM EDT): - 01/16/22 NILM with positive high-risk HPV -PAP done today Precordial pain 10/29/2022 Assessment & Plan (10/29/2022 11:11 AM EDT): Upcoming appointment with [facility] on 11/07/22 Chronic bilateral back pain 10/29/2022 Gastroesophageal reflux disease 10/29/2022 Assessment & Plan (03/17/2024 10:17 AM EDT): - Continue pantoprazole 40 mg bid - Follow up with GI Assessment & Plan (02/25/2024 11:20 AM EDT): - Continue pantoprazole 40 mg bid - Follow up with GI Assessment & Plan (12/14/2023 12:01 PM EDT): - Continue pantoprazole 40 mg bid - Add famotidine 20 mg at bedtime. - Follow up with GI Assessment & Plan (09/20/2023 6:15 PM EST): - restart Omeprazole 20 mg bid -Consider EGD evaluation if patient does not improve with Omeprazole 20 mg BID Assessment & Plan (10/29/2022 11:28 AM EDT): Will increase Omeprazole to 20 mg daily BID -Consider EGD evaluation if patient does not improve with Omeprazole 20 mg BID MARGARITA (obstructive sleep apnea) 07/31/2022 Assessment & Plan (05/25/2024 12:38 PM EDT): - Sleep Study on 06/21/22 MARGARITA and Periodic Limb Movement disorder - She has been trying without CPAP since she has lost weight; she states she disliked CPAP due to its discomfort - Encouraged to continue working on lifestyle modification and repeat sleep study if needed - Patient no longer has CPAP - Patient is currently symptomatic again, will prescribe CPAP, she will need new sleep study Assessment & Plan (02/25/2024 11:14 AM EDT): - Sleep Study on 06/21/22 MARGARITA and Periodic Limb Movement disorder - She has been trying without CPAP since she has lost weight; she states she disliked CPAP due to its discomfort - Encouraged to continue working on lifestyle modification and repeat sleep study if needed - Patient no longer has CPAP - We agreed to try weight loss first, if her symptoms do not improve, will repeat sleep study Assessment & Plan (09/20/2023 6:13 PM EST): - Sleep Study on 06/21/22 MARGARITA and Periodic Limb Movement disorder - She has been trying without CPAP since she has lost weight; she states she disliked CPAP due to its discomfort - Encouraged to continue working on lifestyle modification and repeat sleep study if needed Assessment & Plan (05/24/2023 10:39 AM EDT): ?? Sleep Study on 06/21/22 MARGARITA and Periodic Limb Movement disorder ?? Keep follow-up appt as scheduled ?? She has been trying without CPAP since she has lost weight; she states she disliked CPAP due to its discomfort ?? Encouraged to continue working on lifestyle modification and repeat sleep study if needed Assessment & Plan (02/03/2023 11:58 AM EDT): ?? Sleep Study on 06/21/22 MARGARITA and Periodic Limb Movement disorder ?? Keep follow-up appt as scheduled and start CPAP as prescribed ?? Adherent to CPAP Machine, has dry mouth and throat occasionally ?? Consider repeating sleep study once she has bariatric surgery to assess the need for CPAP Assessment & Plan (10/29/2022 11:26 AM EDT): ?? Sleep Study on 06/21/22 MARGARITA and Periodic Limb Movement disorder ?? Keep follow-up appt as scheduled and start CPAP as prescribed ?? Adherent to CPAP Machine, has dry mouth and throat occasionally Assessment & Plan (07/31/2022 3:01 PM EST): ?? Sleep Study on 06/21/22 MARGARITA and Periodic Limb Movement disorder ?? Keep follow-up appt as scheduled and start CPAP as prescribed Kidney stone 07/31/2022 Assessment & Plan (09/20/2023 6:15 PM EST): Recurrent S/p removal of kidney stone via ureteral stent in 2020 Most recent US in January 2023 showed no stone at this time Continue adequate hydration Assessment & Plan (05/24/2023 10:43 AM EDT): Recurrent S/p removal of kidney stone via ureteral stent in 2020 Most recent US in January 2023 showed no stone at this time Continue adequate hydration Assessment & Plan (10/29/2022 11:25 AM EDT): Recurrent S/p removal of kidney stone via ureteral stent in 2020 Check US since pt has back pain Assessment & Plan (07/31/2022 3:09 PM EST): Recurrent S/p removal of kidney stone via ureteral stent in 2020 Check US since pt has back pain Prediabetes 07/31/2022 Assessment & Plan (09/28/2024 8:35 AM EST): -05/29/21 A1C 6.0% -04/29/22 A1C 5.7% -01/22/23 A1C 5.9% -05/21/23 A1C 5.5% -family Hx DM -continue working on lifestyle modifications -q6-12mo screening due to risk factors -pt was taking liraglutide for weight loss, but self-discontinued due to intolerance -pt has a great interest in health and naturopathic medicine; encouraged to continue her curiosity and self-care. Assessment & Plan (12/14/2023 12:04 PM EDT): -05/29/21 A1C 6.0% -04/29/22 A1C 5.7% -01/22/23 A1C 5.9% -05/21/23 A1C 5.5% -family Hx DM -continue working on lifestyle modifications -q6-12mo screening due to risk factors -pt was taking liraglutide for weight loss, but self-discontinued due to intolerance -pt has a great interest in health and naturopathic medicine; encouraged to continue her curiosity and self-care. Assessment & Plan (09/20/2023 6:18 PM EST): -05/29/21 A1C 6.0% -04/29/22 A1C 5.7% -01/22/23 A1C 5.9% -05/21/23 A1C 5.5% -family Hx DM -continue working on lifestyle modifications -q6-12mo screening due to risk factors -pt was taking liraglutide for weight loss, but self-discontinued due to intolerance -pt has a great interest in health and naturopathic medicine; encouraged to continue her curiosity and self-care. Assessment & Plan (05/24/2023 10:44 AM EDT): -05/29/21 A1C 6.0% -04/29/22 A1C 5.7% -01/22/23 A1C 5.9% -family Hx DM -continue working on lifestyle modifications -q6-12mo screening due to risk factors -pt was taking liraglutide for weight loss, but self-discontinued due to intolerance -pt has a great interest in health and naturopathic medicine; encouraged to continue her curiosity and self-care. Assessment & Plan (02/03/2023 12:02 PM EDT): -05/29/21 A1C 6.0% -04/29/22 A1C 5.7% -01/22/23 A1C 5.9% -family Hx DM -continue working on lifestyle modifications -q6-12mo screening due to risk factors -pt was taking liraglutide for weight loss, but self-discontinued due to intolerance Assessment & Plan (10/29/2022 11:25 AM EDT): -05/29/21 A1C 6.0% -04/29/22 A1C 5.7% -family Hx DM -continue working on lifestyle modifications -q6-12mo screening due to risk factors -pt was taking liraglutide for weight loss, but self-discontinued due to intolerance Assessment & Plan (07/31/2022 3:12 PM EST): -05/29/21 A1C 6.0% -04/29/22 A1C 5.7% -family Hx DM -continue working on lifestyle modifications -q6-12mo screening due to risk factors -pt was taking liraglutide for weight loss, but self-discontinued due to intolerance Bipolar disorder 07/31/2022 Assessment & Plan (05/25/2024 12:41 PM EDT): -Pt is followed by [facility] provider, psychiatrist, and therapist -Current medications: Escitalopram; lamotrigine; oxcarbazepine; hydroxyzine; trazodone - questionable adherence -Previous medications: Valproic acid, zolpidem -Continue current medication and current treatment plan per [facility] provider -She was able to contact her safety today Assessment & Plan (09/20/2023 6:21 PM EST): -Pt is followed by [facility] provider, psychiatrist, and therapist -Current medications: Escitalopram; lamotrigine; oxcarbazepine; hydroxyzine; trazodone - questionable adherence -Previous medications: Valproic acid, zolpidem -Continue current medication and current treatment plan per [facility] provider -She was able to contact her safety today Assessment & Plan (02/03/2023 12:04 PM EDT): -Pt is followed by [facility] provider, psychiatrist, and therapist at [place] -Current medications: Escitalopram; lamotrigine; oxcarbazepine; hydroxyzine; trazodone -Previous medications: Valproic acid, zolpidem -Continue current medication and current treatment plan per [facility] provider -She was able to contact her safety today Assessment & Plan (10/29/2022 11:25 AM EDT): -Pt is followed by [facility] provider, psychiatrist, and therapist at [place] -Current medications: Escitalopram; lamotrigine; oxcarbazepine; hydroxyzine; and zolpidem -Previous medications: Valproic acid -Continue current medication and current treatment plan per [facility] provider -She was able to contact her safety today Assessment & Plan (07/31/2022 3:24 PM EST): -Pt is followed by [facility] provider, psychiatrist, and therapist at [place] -Current medications: Escitalopram; lamotrigine; oxcarbazepine; hydroxyzine; and zolpidem -Previous medications: Valproic acid -Continue current medication and current treatment plan per [facility] provider -She was able to contact her safety today Chronic nonintractable headache 07/31/2022 Assessment & Plan (05/25/2024 12:39 PM EDT): - MRI on 07/29/22 normal - Previously diagnosed with MARGARITA and prescribed CPAP; patient lost weight and was sleeping better without CPAP - Improve sleep hygiene - s/p PT for neck pain - stress reduction - she gained weight, will reorder CPAP Assessment & Plan (09/20/2023 6:12 PM EST): - MRI on 07/29/22 normal - Previously diagnosed with MARGARITA and prescribed CPAP; patient lost weight and was sleeping better without CPAP - Improve sleep hygiene - s/p PT for neck pain - stress reduction Assessment & Plan (05/24/2023 10:40 AM EDT): ?? MRI on 07/29/22 normal ?? Improve sleep hygiene ?? PT for neck pain ?? Recommended acupuncture ?? [employer] MARGARITA, currently working on weight loss Assessment & Plan (10/29/2022 11:26 AM EDT): ?? MRI on 07/29/22, result pending ?? Improve sleep hygiene ?? PT for neck pain ?? Recommended acupuncture ?? [employer] MARGARITA Assessment & Plan (07/31/2022 3:08 PM EST): ?? MRI on 07/29/22, result pending ?? Improve sleep hygiene ?? PT for neck pain ?? Recommended acupuncture ?? [employer] MARGARITA Chronic pain of left knee 07/31/2022 Assessment & Plan (02/25/2024 11:16 AM EDT): -MRI showed L medial meniscus tear in 2017 -Patient was seen by [facility] provider on 07/09/20, MRI was ordered, pt states it showed advanced OA and meniscus injury -Seen by [facility] provider on 01/09/22. Recommended against surgery. Rx meloxicam. Pt was unable to get the medication because it is not formulary. -Judicious use of APAP and CBD -Work on weight reduction -Pt completed PT. -Most recent MRI 11/18/23 - Seen by [facility] orthopedist on 10/05/23 received steroid injection. Follow up as scheduled. Assessment & Plan (12/14/2023 12:03 PM EDT): -MRI showed L medial meniscus tear in 2017 -Patient was seen by [facility] provider on 07/09/20, MRI was ordered, pt states it showed advanced OA and meniscus injury -Seen by [facility] provider on 01/09/22. Recommended against surgery. Rx meloxicam. Pt was unable to get the medication because it is not formulary. -Judicious use of APAP and CBD -Work on weight reduction -Pt completed PT. -Most recent MRI 11/18/23 - Seen by [facility] orthopedist on 10/05/23 received steroid injection. Follow up as scheduled. Assessment & Plan (09/20/2023 6:22 PM EST): -MRI showed L medial meniscus tear in 2017 -Patient was seen by [facility] provider on 07/09/20, MRI was ordered, pt states it showed advanced OA and meniscus injury -Seen by [facility] provider on 01/09/22. Recommended against surgery. Rx meloxicam. Pt was unable to get the medication because it is not formulary. -Judicious use of APAP and CBD -Work on weight reduction -Refer to PT -Evaluate with MRI Assessment & Plan (07/31/2022 3:14 PM EST): -MRI showed L medial meniscus tear in 2017 -Patient was seen by [facility] provider on 07/09/20, MRI was ordered, pt states it showed advanced OA and meniscus injury -Seen by [facility] provider on 01/09/22. Recommended against surgery. Rx meloxicam. Pt was unable to get the medication because it is not formulary. -Judicious use of APAP and CBD -Work on weight reduction History of torn meniscus of left knee 07/31/2022 Family history of coronary artery disease in mot her 07/31/2022 ADHD 07/31/2022 Assessment & Plan (05/25/2024 12:42 PM EDT): [facility] provider: -Current medications: Adderall XR 15 mg daily -Previous medications: Adderall XR different dose, Vyvanse but was discontinued -Continue [facility] Assessment & Plan (09/20/2023 6:20 PM EST): [facility] provider: -Current medications: Adderall XR 15 mg daily -Previous medications: Adderall XR different dose, Vyvanse but was discontinued -Continue [facility] Assessment & Plan (02/03/2023 12:03 PM EDT): [facility] provider: [place] -Current medications: Adderall XR 15 mg daily -Previous medications: Adderall XR different dose, Vyvanse but was discontinued -Continue [facility] --Pt was considering about switching Adderall to Strattera. Assessment & Plan (07/31/2022 3:25 PM EST): [facility] provider: [place] -Current medications: Adderall XR 15 mg daily -Previous medications: Adderall XR different dose, Vyvanse but was discontinued -Continue [facility] --Pt was considering about switching Adderall to Strattera. Recurrent major depressive episodes, moderate Assessment & Plan (05/10/2024 9:19 AM EDT): During [facility] Consult Jexcenia presenting with depressed mood, Tearful, hopelessness, irritable mood, loss of interests/pleasure , sense of isolation/loneliness , isolating, change in appetite or weight overeating, changes in sleep difficulty falling asleep, psychomotor retardation, worthlessness, inappropriate/excessive guilt , difficulty concentrating, indecisiveness; for a period of 18+ mo, for most or all symptoms in the context of illness or family illness and stress. Patient carries a diagnosis for Bipolar Disorder and ADHD, currently on medication to treat symptoms. She endorsed depressive symptoms associated with stress, chronic mental health condition and her weight. Pt reports she's gaining weight and is concerned about how is that going to affect her medical conditions. We discussed about using coping strategies when feeling the urge to eat unhealthy food choices. Pt was able to recognize triggers around eating due to feeling stressed out. clinician engaged patient with active/reflective listening. Reviewed and assessed for risk, current stressors and protective factors using open-ended questions. Patient is currently engaged with OP services and psychiatry services. She is taking medication to treat sxs. clinician will provide additional assistance if needed during next medical appointment. Patient provided with [facility] contact information and [facility] help line. History of sexually transmitted disease 07/21/20 Family history of diabetes mellitus type II 01/09 Vitamin D deficiency 01/24/2016 Assessment & Plan (05/24/2023 10:43 AM EDT): - continue vitamin D 3000 units daily as prescribed Assessment & Plan (02/03/2023 12:02 PM EDT): - continue vitamin D 3000 units daily as prescribed History of psychiatric disorder 12/21/2014 Allergic rhinitis 12/17/2012 Assessment & Plan (10/29/2022 11:01 AM EDT): Pt requested refill on her Cetirizine. -will Rx Cetirizine to pharmacy Asthma 12/17/2012 Assessment & Plan (09/28/2024 8:35 AM EST): - previously on fluticasone ICS, but has not been adherent - change fluticasone to another ICS in near future - continue montelukast for both asthma and allergy - continue albuterol HFA and neb prn; pt prefers neb when pt is at home because it seems to be more effective Assessment & Plan (03/17/2024 10:18 AM EDT): - LCTA bilaterally on exam - continue montelukast for both asthma and allergy - continue albuterol HFA and neb prn; pt prefers neb when pt is at home because it seems to be more effective - DME request for Neb machine: 03/17/24 Assessment & Plan (02/25/2024 11:15 AM EDT): - previously on fluticasone ICS, but has not been adherent - change fluticasone to another ICS in near future - continue montelukast for both asthma and allergy - continue albuterol HFA and neb prn; pt prefers neb when pt is at home because it seems to be more effective Assessment & Plan (12/14/2023 11:58 AM EDT): - previously on fluticasone ICS, but has not been adherent - change fluticasone to another ICS in near future - continue montelukast for both asthma and allergy - continue albuterol HFA and neb prn; pt prefers neb when pt is at home because it seems to be more effective Assessment & Plan (09/20/2023 6:14 PM EST): - previously on fluticasone ICS, but has not been adherent - change fluticasone to another ICS in near future - continue montelukast for both asthma and allergy - continue albuterol HFA and neb prn; pt prefers neb when pt is at home because it seems to be more effective Assessment & Plan (05/24/2023 10:40 AM EDT): - continue Flovent as maintenance - continue montelukast for both asthma and allergy - continue albuterol HFA and neb prn; pt prefers neb when pt is at home because it seems to be more effective Assessment & Plan (02/03/2023 11:59 AM EDT): - continue Flovent as maintenance - continue montelukast for both asthma and allergy - continue albuterol HFA and neb prn; pt prefers neb when pt is at home because it seems to be more effective Mood disorder 12/17/2012 Obesity 12/17/2012 Assessment & Plan (05/25/2024 12:42 PM EDT): - previously enrolled in [facility] - initially planned for laparoscopic sleeve gastrectomy, but patient elected non-surgical weight loss without [facility] - She has tried GLP-1 RA briefly but developed GI side effects. Will try again with different GLP1-RA - 05/21/23 total cholesterol 191; triglyceride 106; HDL 40; LDL 130 - 05/21/23 A1C 5.5% - continue working on lifestyle modifications - appreciate her curiosity and knowledge in naturopathic medicine and intention to improve her health Assessment & Plan (02/25/2024 11:18 AM EDT): - previously enrolled in [facility] - initially planned for laparoscopic sleeve gastrectomy, but patient elected non-surgical weight loss without [facility] - She has tried GLP-1 RA briefly but developed GI side effects. Will try again with different GLP1-RA - 05/21/23 total cholesterol 191; triglyceride 106; HDL 40; LDL 130 - 05/21/23 A1C 5.5% - continue working on lifestyle modifications - appreciate her curiosity and knowledge in naturopathic medicine and intention to improve her health Assessment & Plan (12/19/2023 6:17 PM EDT): - previously enrolled in [facility] - initially planned for laparoscopic sleeve gastrectomy, but patient elected non-surgical weight loss without [facility] - She has tried GLP-1 RA briefly but developed GI side effects at the lowest dose. - 05/21/23 total cholesterol 191; triglyceride 106; HDL 40; LDL 130 - 05/21/23 A1C 5.5% - continue working on lifestyle modifications - appreciate her curiosity and knowledge in naturopathic medicine and intention to improve her health Assessment & Plan (09/20/2023 6:19 PM EST): - previously enrolled in [facility] - initially planned for laparoscopic sleeve gastrectomy, but patient elected non-surgical weight loss without [facility] - 05/21/23 total cholesterol 191; triglyceride 106; HDL 40; LDL 130 - 05/21/23 A1C 5.5% - continue working on lifestyle modifications - appreciate her curiosity and knowledge in naturopathic medicine and intention to improve her health Assessment & Plan (05/24/2023 10:46 AM EDT): - enrolled in [facility] - plan for laparoscopic sleeve gastrectomy - continue working on lifestyle modifications - appreciate her curiosity and knowledge in naturopathic medicine and intention to improve her health Assessment & Plan (02/03/2023 12:01 PM EDT): - enrolled in [facility] - plan for laparoscopic sleeve gastrectomy - continue working on lifestyle modifications - recommended to focus on exercising and practicing healthier eating, rather than weight / weight loss Assessment & Plan (10/29/2022 11:30 AM EDT): Will refer to Bariatric Surgery with Dr. Dominique History of tobacco use 12/17/2012 Resolved Problems Problem Noted Date Diagnosed Date Resolved Date UTI symptoms 07/24/2023 09/20/2023 Assessment & Plan (07/24/2023 10:23 AM EST): UA and culture macrobid empirically Vaginal discharge 05/20/2023 09/20/2023 Assessment & Plan (07/24/2023 10:23 AM EST): I will treat empirically for yeast infection Patient will be contacted with results Assessment & Plan (05/24/2023 10:41 AM EDT): - seen in the walk-in clinic on 05/20/23, Rx metronidazole for bacterial vaginosis - check STI Assessment & Plan (05/20/2023 12:28 PM EDT): Result of recent cervical bx d/w patient, no evidence of preCa condition, no infectious results seen, unclear if they'er still pending. Will treat for BV given hx recent unprotected intercourse, procedure. Flagyl x 7d, avoid use of alcohol. FU STI test results. FU with [employer] sp cervical bx. Unprotected sexual intercourse 05/20/2023 09/20/2023 Assessment & Plan (05/24/2023 10:47 AM EDT): - discussed about doxycycline PEP, but pt states she does not need it at this time. She is currently taking metronidazole - STI has been ordered and result is pending Assessment & Plan (05/20/2023 2:00 PM EDT): Not consented (stealthing?). She had consented ONLY to PROTECTED intercourse. Patient voiced her concerns, discussed about previous experiences and coping mechanisms, sense of self-worth and provided ongoing support. She didn't want to talk to a counselor today but agreed to have someone fu with her in few days. She will also address it to PCP at tomorrow's appt. Patient will fu with her counselor at [facility] STI testing done/ordered. Patient didn't want to file for a protective order with the police at this time, but I told her she can if she feels threatened by his presence at all, she can also reach out to her counselor or our STI testing site rpn. Breast pain, left 10/29/2022 09/20/2023 Assessment & Plan (10/29/2022 11:26 AM EDT): Will order mammogram for evaluation Acute severe exacerbation of moderate persistent asthma 07/21/2022 07/31/2022 Encounters Date Type Department Care Team Description 09/28/2024 9:00 AM EST Office Visit [address] [address] Damaris Ramos MD Elevated BP without diagnosis of hypertension (Primary Dx); Prediabetes; Mild intermittent asthma without complication; Abdominal swelling; Screening for lipid disorders; Subacute sinusitis, unspecified location; Vitamin D deficiency; Family history of diabetes mellitus type II; Temporal pain; Chronic nonintractable headache, unspecified headache type; Chronic bilateral back pain, unspecified back location; Neck pain 09/28/2024 Travel 09/23/[address] [address] Rubia Cruz [place] chart prep 08/15/2024 Orders Only GENERIC EXTERNAL DATA DEPARTMENT Provider, Generic External Data 08/08/2024 Refill [facility] [address] [place] [address] Damaris Ramos MD Class 3 severe obesity due to excess calories with serious comorbidity and body mass index (BMI) of 40.0 to 44.9 in adult ([facility]) 07/20/2024 Orders Only GENERIC EXTERNAL DATA DEPARTMENT Provider, Generic External Data from Last 3 Months Immunizations Name Administration Dates Next Due Hep B, adult 07/02/2020, 8,07/27/2017,08/17 Influenza injectable quadriv alent IIV4 with preservative 07/27/2017 Influenza injectable quadriv alent preservative free 05/21/2023,07/02/2020,07/14/2018 Influenza, IIV3, injectable 06/26/2014, 8 Influenza, Split (incl. angela fied surface antigen) 04/29/2013 Pfizer Covid-19 Vaccine 12+ 02/27/2021 Pneumococcal Conjugate PCV 20 02/02/2023 Pneumococcal Polysaccharide PPSV23 03/01/2014 Rubella 05/03/2007 Tdap 12/05/2021,09/03/2011 Family History Medical History Relation Name Comments Suicide Attempts Brother Coronary artery disease Mother Diabetes type II Mother Relation Name Status Comments Brother Mother Social History Tobacco Use Types Packs/Day Years Used Date Smoking Tobacco: Former Cigarettes Passive Smoke Exposure: Past Smokeless Tobacco: Never Tobacco Cessation:Counseling Given: Not Answered Alcohol Answer Date Recorded Frequency of Alcohol [...] the past 12 months, has t he [employer], gas, oil or water company threatened to shut off services in your home? No 09/15/2023 Depression Answer Date Recorded Patient Health Questionnaire-2 Score 5 05/25/2024 Comments No Sex and Gender Information Value Date Recorded Sex Assigned at Female 06/09/2022 10:18 AM EDT Legal Sex Female 10:18 AM EDT Gender Identity Female 06/09/2022 10:18 AM EDT Sexual Orientation Straight 06/09/2022 10 :18 AM EDT Last Filed Vital Signs Vital Sign Reading Time Taken Comments Blood Pressure 117/77 09/28/2024 9:11 AM EST Pulse 71 09/28/2024 9:11 AM EST Temperature 35.7 ??C (96.2 ??F) 09/28/2024 9:11 AM ES T Respiratory Rate 15 09/28/2024 9:11 AM EST Oxygen Saturation 94% 05/25/2024 11:59 AM EDT Inhaled Oxygen Concentration - - Weight 90.3 kg (199 lb) 09/28/2024 9:11 AM EST Height 149.9 cm (4' 11 ) 05/04/2024 10:56 AM EDT Body Mass Index 40.19 05/04/2024 10:56 AM EDT Plan of Treatment Health Maintenance Due Date Last Done Comments Family Planning (PISQ) 2001 COVID-19 Vaccine ( season) 2024 02/27/2021 Influenza Vaccine (#1) 2024 , 07/02/2020, 07/14/2018, Additional history exists SDOH Screening 09/15/2024 09/15/2023 Depression Monitoring (PHQ-9) 11/23/2024 05/25/2024, 05/25/2024 Diabetes: Hemoglobin A1C 02/24/2025 024, 05/21/2023, 01/22/2023, Additional history exists Alcohol/Substance Use Screening 05/25/2025 05/25/2024 Depression Screening 05/25/2025 05/25/2024, 05/25/20 24 Tobacco Screening 05/25/2025 05/25/2024 Cervical Cancer Screening 08/15/2025 HPV/Cotest 08/15/2025 02/02/2023, 01/08, 11/22/2020, Additional history exists Pap Smear 08/15/2025 07/20/2024, 01/09, 01/21/2022, Additional history exists Lipid Panel 02/24/2029 02/25/2024, 05/10, 01/22/2023, Additional history exists DTaP/Tdap/Td Vaccines (3 - Td or Tdap) 12/06/2031 12/05/2021, 09/03/2011 Zoster Vaccines (1 of 2) 2036 RSV Patients and Patients Aged 60 years or older (1 - 1-dose 75+ series) 2061 Hepatitis B Vaccines Completed 07/02/2020, 07/14/2018, 07/27/2017, Additional history exists Pneumococcal Vaccine: Pediatrics (0 to 5 Years) and At-Risk Patients (6 to 49) Years) Completed 02/02/2023, 03/01/2014 HIV Screening Completed 02/25/2024, 05/10, 02/02/2023, Additional history exists Hepatitis C Screening Completed 02/25/2024 , 05/21/2023, 02/02/2023, Additional history exists Colposcopy Discontinued 08/15/2024, 05/14/2023 HIB Vaccines Aged Out No longer eligi ble based on patient's age to complete this topic HPV Vaccines Aged Out No longer eligi ble based on patient's age to complete this topic Hepatitis A Vaccines Aged Out No long er eligible based on patient's age to complete this topic IPV Vaccines Aged Out No longer eligi ble based on patient's age to complete this topic Meningococcal Vaccine Aged Out No connie anabel eligible based on patient's age to complete this topic RSV under 20 months Aged Out No longe r eligible based on patient's age to complete this topic Rotavirus Vaccines Aged Out No longer eligible based on patient's age to complete this topic Procedures Procedure Name Priority Date/Time Associated Diagnosis Comments HEMATOXYLIN AND EOSIN STAIN Routine 08/15/2024 2:17 PM EST COLPOSCOPY Routine 08/15/2024 12:00 AM EST PAP SMEAR Routine 07/20/2024 1:47 PM EST HEPATITIS C AB W/REFL TO HCV RNA, QN, PCR Routine 02/25/2024 10:16 AM EDT Routine screening for STI (sexually transmitted infection) HIV 1/2 ANTIGEN/ANTIBODY, FOURTH GENERATION W/RFL Routine 02/25/2024 10:16 AM EDT Routine screening for STI (sexually transmitted infection) HEMOGLOBIN A1C Routine 02/25/2024 10:16 AM EDT Class 2 severe obesity due to excess calories with serious comorbidity and body mass index (BMI) of 38.0 to 38.9 in adult (CMS/HCC) LIPID PANEL WITH REFLEX TO DIRECT LDL Routine 02/25/2024 10:16 AM EDT Class 2 severe obesity due to excess calories with serious comorbidity and body mass index (BMI) of 38.0 to 38.9 in adult (CMS/HCC) THINPREP IMAGING PAP AND HPV DNA REFLEX HPV 16,18 Routine 02/02/2023 10:58 AM EDT Encounter for well woman exam with routine gynecological exam from Last 3 Months or Most Recently Relevant to Health Maintenance Results * Hematoxylin and Eosin Stain (08/15/2024 2:17 PM EST) 08/15/2024 2:17 PM EST 08/16/2024 8:27 AM EST [facility] - 08/18/2024 11:09 AM EST ----- ------- Name: Taylor Martinez ? Age/Sex: 39/F ? : 1985 Unit#: [id number] ?? Attend Dr: Giacomo Ugarte MD ?Re08/15/24 ?Status: DEP REF ? Location: HO.LNP ?Disch: ? ----- ------- SPEC : [id number] ? RECD: 08/16/24 ? STATUS: ??SOUT ? REQ NUM: [id number] ? RENEE: 08/15/24-721 ? SUBM DR: Giacomo Ugarte MD ? ENTERED: ??08/16/24 ?SP TYPE: Surgical ? OTHR DR: Damaris Ramos MD ? ORDERED: ??HE Stain/11, Gross Micro L4/4 ? Diagnosis ?? A. ??Cervix, 6 o'clock, biopsy: ??Squamous mucosa within normal limits; no endocervical ?? epithelium present. ? B. ??Cervix, 9 o'clock, biopsy: ??Squamous mucosa within normal limits; no endocervical ?? epithelium present. ? C. ??Cervix, 12 o'clock, biopsy: ?- Low-grade squamous intraepithelial lesion (EMETERIO 1). ?- Background inflamed cervical transformation zone mucosa. ? D. ??Endocervix, curettage: ?- Low-grade squamous intraepithelial lesion (EMETERIO 1). ?- Background inflamed cervical transformation zone and endocervical mucosa with ?? squamous metaplasia and microglandular hyperplasia. ?Clinical History LGSIL ?Microscopic Description A-D. ??Microscopic sections reviewed. ? Material Received ?? A. Cervical biopsy 6 ?? B. Cervical biopsy 9 ?? C. Cervical biopsy 12 ?? D. ECC ? Gross Description Received in four parts. Part A: ??Received in formalin labeled ?cx bx 6? is a 0.25 cm alvarenga irregular fragment of mucosa, submitted in toto in a cassette labeled A. Part B: ??Received in formalin labeled ?cx bx 9 ?along with scant clear mucus is a 0.25 cm alvarenga irregular fragment of mucosa, submitted in toto in a cassette labeled B. Part C: ??Received in formalin labeled ?cx bx 12? is a 0.4 cm rubbery, alvarenga-white wedge-shaped fragment of mucosa, submitted in toto in a cassette labeled C. ? CONTINUED ON NEXT PAGE ----- ------- Name: Juan,Memoxcenia ? Age/Sex: 39/F ? : 1985 Unit#: [id number] ?? Attend Dr: Giacomo Ugarte MD ?Re08/15/24 ?Status: DEP REF ? Location: HO.LNP ?Disch: ? ----- ------- SPEC : [id number] ? RECD: 08/16/24 ? STATUS: ??SOUT ? REQ NUM: [id number] ? RENEE: 08/15/24-461 ? SUBM DR: Giacomo Ugarte MD ? ENTERED: ??08/16/24 ?SP TYPE: Surgical ? OTHR DR: Damaris Ramos MD ? ORDERED: ??HE Stain/11, Gross Micro L4/4 ? Gross Description ?(Continued) Part D: ??Received in formalin labeled ?ECC? is a 0.9 x 0.8 x 0.3 cm aggregate of alvarenga mucus, submitted in toto in a cassette labeled D. CEDS Copies To: ?? Damaris Ramos MD ?? [facility] ?? [address] ?? [place] [address] ?? [phone] ?? Giacomo Ugarte MD ?? [facility] ?? [address] ?? [place] [address] ?? [phone] ----- ------- Signed (signature on file) Adonay Cr MD 08/18/241108 ? ----- ------- ? END OF REPORT ? us Generic External Data Provider LAB BLOOD ORDERAB LES Final Result [facility] [address] [place] [address] [phone] * Colposcopy (08/15/2024 12:00 AM EST) us Historical Provider IN CLINIC/BEDSIDE ORDERAB LES Edited Result - Final * Pap Smear (07/20/2024 1:47 PM EST) 07/20/2024 1:47 PM EST 07/21/2024 9:00 AM EST Narrative [facility] - 07/27/2024 11:19 AM EST ----- ------- Name: Taylor Martinez ? Age/Sex: 39/F ? : 1985 Unit#: [id number] ?? Attend Dr: Giacomo Ugarte MD ?Re07/20/24 ?Status: DEP REF ? Location: HO.LNP ?Disch: ? ----- ------- SPEC : [id number] ?RECD: 07/21/24-899 ? STATUS: ??SOUT ? REQ NUM: [id number] ? RENEE: 07/20/24-1346 ? SUBM DR: Giacomo Ugarte MD ? ENTERED: ??07/21/24-947 ?SP TYPE: Pap Smr ?OTHR DR: Damaris Ramos MD ? ORDERED: ??Pap Smear, PAP path review ? Interpretation ?? ABNORMAL PAP TEST. ?? Satisfactory for evaluation, with mildly dysplastic squamous cells / HPV cytopathic ?? change (EMETERIO 1; low grade squamous intraepithelial lesion). ?? No endocervical cells seen. ? HPV High Risk: ??Positive ? HPV Genotyping 16: ??Negative ?? HPV Genotyping 18: ??Negative ?Clinical Information LMP: Anders Previous PAP test: 02/02/2023, ASCUS, HPV + Other history: Atypical squamous cells of undetermined significance on cytologic smear of cervix (ASC-US), cervical high risk human papillomavirus (HPV) DNA test positive ? Material Received ?? ThinPrep-Cervical Copies To: ?? Damaris Ramos MD ?? [facility] ?? [address] ?? [place] [address] ?? [phone] ?? Giacomo Ugarte MD ?? [facility] ?? [address] ?? [place] [address] ?? [phone] ----- ------- Signed (signature on file) Adonay Cr MD 07/27/24 1119 ? ----- ------- ? END OF REPORT ? us Generic External Data Provider LAB CYTOLOGY ORDE JORDANSAUL Final Result [facility] [address] [place] [phone] * (ABNORMAL) Lipid Panel with Reflex to Direct LDL (02/25/2024 10:16 AM EDT) Triglycerides 122 <150 mg/dL [facility] Comment:Desirable Triglyceri de: less than 150 mg/dLBorderline High Triglyceride 150-199 mg/dLHigh Triglyceride: 200-499 mg/dLVery High Triglyceride: greater than or equal to 5OO mg/dL Cholesterol 161 <200 mg/dL [facility] Comment:Desirable Cholestero l: less than 200 mg/dLBorderline High Cholesterol: 200-239 mg/dLHigh Cholesterol: greater than 239 mg/dL LDL Cholesterol Calculated 105(H) <100 mg/dL [facility] Comment:Desirable LDL: less than 100 mg/dLNear Optimal/Above Optimal LDL: 110- 129 mg/dLBorderline High LDL: 130-159 mg/dLHigh LDL: 160-189 mg/dLVery High LDL: greater than or equal to 190 mg/dL HDL Cholesterol 32(L) >40 mg/dL [facility] Comment:Desirable HDL: great er than 40 mg/dL Note: This HDL assay may give artificially low results in patients with liver disease. Blood 02/25/2024 10:1 6 AM EDT 02/25/2024 11:13 AM EDT Damaris Ramos MD LAB BLOOD ORDERABLES Final Resul t Performing Organization Address City/[facility]/ZIP Co de Phone Number [facility] [address] [place] [phone] * Hepatitis C Antibody with Reflex to HCV, RNA, Quantitative, Real-Time PCR (02/25/2024 10:16 AM EDT) Hepatitis C Antibody Nonreactive Nonreactive [facility] Comment:Antibodies to HCV no t detected; does not exclude early acuteHCV infection. Blood Venous blood specimen / Unknown 02/25/2024 10:16 AM EDT 02/25/2024 11:13 AM EDT Damaris Ramos MD LAB BLOOD ORDERABLES Final Resul t Performing Organization Address City/[facility]/ZIP Co de Phone Number [facility] [address] [place] [phone] * HIV-1/2 Antigen and Antibodies, Fourth Generation, with Reflexes (02/25/2024 10:16 AM EDT) HIV AB/AG Nonreactive Nonreactive [facility] Comment:HIV-1 p24 Ag and/or HIV-1/HIV-2 Ab not detected.A test result that is nonreactive does not exclude thepossibility of exposure to or infection with HIV-1 and/orHIV-2. Nonreactive results in this assay for individualswith prior exposure to HIV-1 and/or HIV-2 may be due toantigen and antibody levels that are below the limit ofdetection of this assay.The [employer] Mapping HIV Ag/Ab Combo assay result andsupplemental assay results should be interpreted inconjunction with the patient's clinical presentation,history and other laboratory results. If the results areinconsistent with clinical evidence, additional testing issuggested to confirm the result. Blood Venous blood specimen / Unknown 02/25/2024 10:16 AM EDT 02/25/2024 11:13 AM EDT Damaris Ramos MD LAB BLOOD ORDERABLES Final Resul t Performing Organization Address [facility] de Phone Number [facility] [address] [place] [phone] * Hemoglobin A1c (02/25/2024 10:16 AM EDT) Hemoglobin A1c 5.6 <6.0 % [facility] Comment:Hemoglobin A1C Refer ence Range Adults: 4.8 - 6.0 % Non diabetic: < 6.0 % Goal: < 7.0 %Additional Action Suggested: > 8.0 %Note: Hemoglobin A1c results are invalid for patients with abnormal amounts of HbF. Blood transfusions may impact the HbA1c concentration in the patient sample. Estimated Average Glucose 114 mg/dL [facility] Comment:eAG = Estimated ave rage glucose which is %A1C expressed asaverage glucose, using the formula of the W3H-NzfszcyUalmdfx Glucose study (ADAG), Diabetes Care, Vol.31,#8,Mar. 2007 Blood Venous blood specimen / Unknown 02/25/2024 10:16 AM EDT 02/25/2024 11:15 AM EDT Damaris Ramos MD LAB BLOOD ORDERABLES Final Resul t Performing Organization Address [facility] de Phone Number [facility] [address] [place] [phone] * (ABNORMAL) ThinPrep Imaging Pap and HPV DNA reflex HPV 16,18 (02/02/2023 10:58 AM EDT) Clinical Information: None given [facility] LMP: NONE GIVEN [facility] Prev. PAP: NONE GIVEN [facility] Prev. BX: NONE GIVEN [facility] SOURCE: None given [facility] Statement Of Adequacy: [facility] [place] [facility] Comment: Satisfactory for evaluation. Endocervical/transformation zone component present. General Categorization: Cytology Results: Epithelial Cell Abnormality(A) [facility] Interpretation/ Result: Atypical Squamous Cells of Undetermined Significance (ASC-US)(A) [facility] [place] [facility] COMMENT: This Pap test has been evaluated with computer assisted technology. [facility]: [facility] Comment: KN, CT(ASCP) CT screening location: [address] ??[phone] PATHOLOGIST: [facility] Comment: Bernarda Sales D.O. Board Certified in Anatomic, Clinical and Cytopathology (electronic signature) Consulting Pathologist [facility] [address] [place], [place] [id number] (Always Message) [facility] [place] [facility] Comment: EXPLANATORY NOTE: The Pap is a screening test for cervical cancer. It is not a diagnostic test and is subject to false negative and false positive results. It is most reliable when a satisfactory sample, regularly obtained, is submitted with relevant clinical findings and history, and when the Pap result is evaluated along with historic and current clinical information. HPV DNA, High Risk, Cervical Detected(A) NOT DETECTED [facility] Comment: Detected One or more High Risk HPV types (16,18,31,33, 35,39,45,51,52,56,58,59,66,68) was detected. Methodology: Real Time PCR ? Pap Vial 02/02/2023 10:5 8 AM EDT 02/03/2023 9:02 AM EDT us Damaris Ramos MD LAB CYTOLOGY ORDERABLES Final Re sult [facility] [address] [facility], [place] [address] [facility] [address] [place] [phone] [facility]/[place] [address] [facility] [place] [phone] from Last 3 Months or Most Recently Relevant to Health Maintenance Insurance [facility] Care Teams Corporate Meeting Planner Relationship Specialty Start Date End Date Damaris Ramos MD [address] [place] [phone] PCP - General Family Medicine 08/10/18
--- OUTSIDE RECORDS SUMMARY | 2024-09-28 10:12 | XMS_ITS | Clinical Summary ---
Author Organization [facility] ity Address [id number] [place] [id number] Care Team Providers Care Cushion Former Name Role Phone Jose Gordon MD Primary Care Provider [phone] Surgical History Surgery Date Site/Laterality Comments CHOLECYSTECTOMY 2003 PROCEDURE: HISTORICAL CHOLECYSTECTOMY SECTION 2003 PROCEDURE: HISTORICAL DELIVERY Medical History Medical History Date Comments Anxiety and depression DX:Anxiet y and depression Seasonal allergies DX:Seasonal a llergies Family History Medical History Relation Name Comments Diabetes Mother hypertension; C VD Relation Name Status Comments Mother Social History Tobacco Use Types Packs/Day Years Used Date Smoking Tobacco: Former Smokeless Tobacco: Never Alcohol Use Standard Drinks/Week Comments No 0 (1 standard drink = 0.6 oz pur e alcohol) Comments Unknown Sex and Gender Information Value Date Recorded Sex Assigned at Not on file Legal Sex Female 8:16 PM EST Gender Identity Not on file Sexual Orientation Not on file Obstetrics History Plan of Treatment Health Maintenance Due Date Last Done Comments Hepatitis B Vaccines (2 of 3 - 3-dose series) 09/14/2002 08/17/2002 DTaP,Tdap,and Td Vaccines (1 - Tdap) 2005 Cervical Cancer Screening: P ap Smear 2007 HIV Screening 07/12/2022 Hepatitis C Screening 07/12/2022 Social Influencers of Health Screening 07/12/2022 COVID-19 Vaccine (1 - 2023-2 5 season) 2024 Influenza Vaccine (#1) 2024 Depression Screening 05/21/2024 05/21/2023 HIB Vaccines Aged Out No longer eligi [...] on patient's age to complete this topic MMR Vaccines Aged Out No longer eligi ble based on patient's age to complete this topic Meningococcal ACWY Vaccine Aged Out N o longer eligible based on patient's age to complete this topic Meningococcal B Vacine Aged Out No lo nger eligible based on patient's age to complete this topic Pneumococcal Vaccine: Pediat rics (0 to 5 Years) and At-Risk Patients (6 to 64 Years) Aged Out No longer eligi ble based on patient's age to complete this topic RSV Immunization Patients Un mounika 20 months Aged Out No longer eligible b ased on patient's age to complete this topic Varicella Vaccines Aged Out No longer eligible based on patient's age to complete this topic Care Teams Cushion Former Relationship Specialty Start Date End Date Jose Gordon MD PCP - General Internal Medicine 07/10/15
--- OUTSIDE RECORDS SUMMARY | 2024-09-28 10:12 | XMS_ITS | Encounter Summary ---
Author Organization [email or web address] Address [address] [place] [address] [address] [place] [address] Care Team Providers Care Software Maintenance Engineer Name Role Phone Damaris Ramos MD Primary Care Provider [phone] Reason for Visit * Reason Comments Med Refill Encounter Details Date Type Department Care Team ([facility] st Contact Info) Description 06/09/2024 Refill [facility] MEDICINE [address] [place], [place] [phone] Damaris Ramos MD [address] [place], [place] [phone] Class 3 severe obesity due to excess [...] documented as of this encounter Care Teams Software Maintenance Engineer Relationship Specialty Start Date End Date Damaris Ramos MD [address] [place] [id number] PCP - General Family Medicine 08/10/18 documented as of this encounter
--- OUTSIDE RECORDS SUMMARY | 2024-09-28 10:13 | XMS_ITS | Encounter Summary ---
Author Organization [facility] Address [address] [place] [address] [address] [place] [address] Care Team Providers Care Milk Processing Worker Name Role Phone Damaris Ramos MD Primary Care Provider [phone] Reason for Visit * Reason Onset Date Comments Triage 12/03/2022 Encounter Details Date Type Department Care Team ([facility] st Contact Info) Description 12/03/2022 Telephone [facility] MEDICINE [address] [place], [place] [phone] Damaris Ramos MD [address] [employer], [place] [phone] Triage Social History Tobacco Use Types Packs/Day Years [...] Patient Health Questionnaire-2 Score 5 05/25/2024 Comments Unknown Sex and Gender Information Value [...] encounter Miscellaneous Notes * Telephone Encounter - Lidya Jhaveri - 12/03/2022 2:37 PM EDT Symptom: Headache Outcome: Schedule an urgent appointment (within 4 hours) or talk to a nurse or provider soon Reason: Getting worse, congestion The caller accepted this outcome Please contact at [phone] documented in this encounter Plan of Treatment Not on file documented as of this encounter Visit Diagnoses Not on filedocumented in this encounter Additional Health Concerns Assessment Noted Time PHQ-9 Depression Total Score: 10 022 10:28 AM EST documented as of this encounter Care Teams Milk Processing Worker Relationship Specialty Start Date End Date Damaris Ramos MD [address] [place] [address] PCP - General Family Medicine 08/10/18 documented as of this encounter
--- OUTSIDE RECORDS SUMMARY | 2024-09-28 10:13 | XMS_ITS | Encounter Summary ---
Author Organization [employer] [facility] Address [address] [place] [address] 7[address] [place] [address] Care Team Providers Care Marketing Clerk Name Role Phone Damaris Ramos MD Primary Care Provider [phone] Reason for Referral * Consultation (Routine) - Closed Specialty Diagnoses / Procedures Referred By Jennifer walsh Referred To Contact Orthopaedic Surgery Diagnoses Chronic pain of left knee Acute medial meniscus tear of left knee, initial encounter Damaris Ramos MD [address] [place] [phone] Phone: tel: fax: [facility] [address] [place] [address] Drive [address] [place], [place] Phone: tel: fax: Referral ID Status Reason Start Date Expiration Date V isits Requested Visits Authorized [id number] Closed Specialty Services Required 11/19/2023 11/18/2024 1 1 Scheduling Instructions MRI is done and is in Epic under imaging. Encounter Details Date Type Department Care Team (Late st Contact Info) Description 11/19/2023 Orders Only [facility] [address] [place], [place] [phone] Damaris Ramos MD [address] [place] [address] Chronic pain of left knee (Primary Dx); Acute medial meniscus tear of left knee, initial encounter; History of torn meniscus of left knee; Left arm pain; Chronic left shoulder pain; Malaise; Fatigue, unspecified type; Routine screening for STI (sexually transmitted infection) Social History Tobacco Use Types Packs/Day Years [...] of this encounter Plan of Treatment Scheduled Orders Name Type Priority Associated Diagnoses Orde r Schedule XR Cervical Spine 2-3 Views Imaging Routine Left arm pain Chronic left shoulder pain Expected: 11/19/2023, Expires: 11/18/2024 Scheduled Referrals Name Type Priority Associated Diagnoses Order Schedule Referral to Orthopaedic Surgery Outpatient Referral Routine Chronic pain of left knee Acute medial meniscus tear of left knee, initial encounter Expected: 11/19/2023 (Approximate), Expires: 11/18/2024 documented as of this encounter Procedures Procedure Name Priority Date/Time Associated Diagnosis Comments CHLAMYDIA/N. GONORRHOEAE RNA, TMA, UROGENITAL Routine 02/25/2024 10:20 AM EDT Routine screening for STI (sexually transmitted infection) SYPHILIS SCREEN Routine 02/25/2024 10:16 AM EDT Routine screening for STI (sexually transmitted infection) VITAMIN B12/FOLATE, SERUM PANEL Routine 02/25/2024 10:16 AM EDT Malaise Fatigue, unspecified type CBC WITH AUTO DIFFERENTIAL Routine 02/25/2024 10:16 AM EDT Malaise Fatigue, unspecified type HEPATITIS C AB W/REFL TO HCV RNA, QN, PCR Routine 02/25/2024 10:16 AM EDT Routine screening for STI (sexually transmitted infection) HEPATITIS A ANTIBODY, TOTAL Routine 02/25/2024 10:16 AM EDT Routine screening for STI (sexually transmitted infection) HEPATITIS B SURFACE ANTIGEN, EIA Routine 02/25/2024 10:16 AM EDT Routine screening for STI (sexually transmitted infection) HEPATITIS B CORE AB TOTAL Routine 02/25/2024 10:16 AM EDT Routine screening for STI (sexually transmitted infection) HIV 1/2 ANTIGEN/ANTIBODY, FOURTH GENERATION W/RFL Routine 02/25/2024 10:16 AM EDT Routine screening for STI (sexually transmitted infection) HEPATITIS B SURFACE ANTIBODY, QUALITATIVE Routine 02/25/2024 10:16 AM EDT Routine screening for STI (sexually transmitted infection) COMPREHENSIVE METABOLIC PANEL Routine 02/25/2024 10:16 AM EDT Malaise Fatigue, unspecified type XR CERVICAL SPINE 3V Routine 12/14/2023 11:00 AM EDT XR SHOULDER 2+ VIEWS LEFT Routine 12/14/2023 11:00 AM EDT Left arm pain documented in this encounter Results * Chlamydia/N. Gonorrhoeae RNA, TMA, Urogenitial (02/25/2024 10:20 AM EDT) CT PCR NOT DETECTED Not Detect. [facility] Comment:A not detected test result does not exclude the possibilityof infection because test results can be affected byimproper specimen collection, concurrent antibiotic therapy,or the number of organisms in the specimen which may bebelow the sensitivity of the test. As with many diagnostictests, results from the Xpert CT/NG assay should beinterpreted in conjunction with other laboratory andclinical data available to the clinician.Xpert CT/NG performance has not been evaluated in patientsless than 14 years of age. The assay should not be used forthe evaluationof suspected sexual abuse or for other medico-legalindications. Additional testing is recommended in anycircumstance when false positive or false negative resultscould lead to adverse medical, social or psychologicalconsequences. NG PCR NOT DETECTED Not Detect. [facility] Comment:A not detected test result does not exclude the possibilityof infection because test results can be affected byimproper specimen collection, concurrent antibiotic therapy,or the number of organisms in the specimen which may bebelow the sensitivity of the test. As with many diagnostictests, results from the Xpert CT/NG assay should beinterpreted in conjunction with other laboratory andclinical data available to the clinician.Xpert CT/NG performance has not been evaluated in patientsless than 14 years of age. The assay should not be used forthe evaluationof suspected sexual abuse or for other medico-legalindications. Additional testing is recommended in anycircumstance when false positive or false negative resultscould lead to adverse medical, social or psychologicalconsequences. Urine, Random 02/25/2024 10: 20 AM EDT 02/25/2024 1:02 PM EDT Narrative [facility] - 02/25/2024 3:42 PM EDT Urine us Damaris Ramos MD LAB MICROBIOLOGY - GENERAL ORDER YAMILET Final Result [facility] [address] [place] [phone] * Vitamin B12/Folate, Serum Panel (02/25/2024 10:16 AM EDT) Vitamin B12 640 200 - 900 pg/mL [facility] Comment:NORMAL 200-900 PG/ML INDETERMINATE 160-199 PG/ML DEFICIENT < 160 PG/ML Folate 7.2 > or = 4.0 ng/mL [facility] Comment:Reference Values:> o r = 4.0 ng/mL< 4.0 ng/mL suggests folate deficiency Methotrexate, aminopterin and folinic acid(leucovorin) are chemotherapeutic agents whose molecularstructures are similar to folate; therefore, the Architectfolate assay cannot be used for patients using these drugs. 02/25/2024 10:1 6 AM EDT 02/25/2024 11:15 AM EDT Damaris Ramos MD LAB BLOOD ORDERABLES Final Resul t Performing Organization Address [facility] Number [facility] [address] [place] [phone] * Hepatitis A Antibody, Total (02/25/2024 10:16 AM EDT) Pathologist [facility] Hepatitis A Antibody IgG Nonreactive Nonreactive [facility] Blood Venous blood specimen / Unknown 02/25/2024 10:16 AM EDT 02/25/2024 11:15 AM EDT Damaris Ramos MD LAB BLOOD ORDERABLES Final Resul t Performing Organization Address [facility] de Phone Number [facility] [address] [place] [phone] * Hepatitis B surface antigen, EIA (02/25/2024 10:16 AM EDT) Pathologist [facility] Hepatitis B Surface Ag Negative Negative [facility] Blood Venous blood specimen / Unknown 02/25/2024 10:16 AM EDT 02/25/2024 11:13 AM EDT Damaris Ramos MD LAB BLOOD ORDERABLES Final Resul t Performing Organization Address [facility] Co de Phone Number [facility] [address] [place] [phone] [phone] * HIV-1/2 Antigen and Antibodies, Fourth Generation, with Reflexes (02/25/2024 10:16 AM EDT) HIV AB/AG Nonreactive Nonreactive [facility] Comment:HIV-1 p24 Ag and/or HIV-1/HIV-2 Ab not detected.A test result that is nonreactive does not exclude thepossibility of exposure to or infection with HIV-1 and/orHIV-2. Nonreactive results in this assay for individualswith prior exposure to HIV-1 and/or HIV-2 may be due toantigen and antibody levels that are below the limit ofdetection of this assay.[facility] HIV Ag/Ab Combo assay result andsupplemental assay results should be interpreted inconjunction with the patient's clinical presentation,history and other laboratory results. If the results areinconsistent with clinical evidence, additional testing issuggested to confirm the result. Blood Venous blood specimen / Unknown 02/25/2024 10:16 AM EDT 02/25/2024 11:13 AM EDT us Damaris Ramos MD LAB BLOOD ORDERABLES Final Resul t Performing Organization Address [facility] Co de Phone Number [facility] [address] [place] [phone] * Hepatitis B Core Antibody, Total (02/25/2024 10:16 AM EDT) Hepatitis B Core Antibody Nonreactive Nonreactive [facility] Blood Venous blood specimen / Unknown 02/25/2024 10:16 AM EDT 02/25/2024 11:13 AM EDT Damaris Ramos MD LAB BLOOD ORDERABLES Final Resul t Performing Organization Address [facility] Co de Phone Number [facility] [address] [place] [phone] * Hepatitis B Surface Antibody, Qualitative (02/25/2024 10:16 AM EDT) ~Hepatitis B Surface Antibody REACTIVE Nonreactive [facility] Comment:REACTIVE: > 11.99 mI U/mL Blood Venous blood specimen / Unknown 02/25/2024 10:16 AM EDT 02/25/2024 11:13 AM EDT us Damaris Ramos MD LAB BLOOD ORDERABLES Final Resul t Performing Organization Address [facility]/ZIP Co de Phone Number [facility] [address] [place] [phone] * Hepatitis C Antibody with Reflex to HCV, RNA, Quantitative, Real-Time PCR (02/25/2024 10:16 AM EDT) Hepatitis C Antibody Nonreactive Nonreactive [facility] Comment:Antibodies to HCV no t detected; does not exclude early acuteHCV infection. Blood Venous blood specimen / Unknown 02/25/2024 10:16 AM EDT 02/25/2024 11:13 AM EDT us Damaris Ramos MD LAB BLOOD ORDERABLES Final Resul t Performing Organization Address [facility] Co de Phone Number [facility] [address] [place] [phone] * Syphilis Screen (02/25/2024 10:16 AM EDT) Syphilis Screen Nonreactive Nonreactive [facility] Blood 02/25/2024 10:1 6 AM EDT 02/25/2024 11:15 AM EDT Damaris Ramos MD LAB BLOOD ORDERABLES Final Resul t Performing Organization Address City/[facility]/ZIP Co de Phone Number [facility] [address] [place] [phone] * Comprehensive Metabolic Panel (02/25/2024 10:16 AM EDT) Pathologist [facility] Sodium 138 135 - 145 mmol/L [facility] Potassium 3.9 3.3 - 5.1 mmol/L [facility] Chloride 105 96 - 108 mmol/L [facility] Carbon Dioxide 24 22 - 29 mmol/L [facility] Anion Gap 13 12 - 20 [facility] Urea Nitrogen (BUN) 11 9 - 16 mg/dL [facility] Creatinine, Serum 0.75 0.5 - 1.4 mg/dL [facility] Estimated Glomerular Filt Rate >60 [facility] Comment:NOTE: For -Am erican individuals, multiply the result by 1.210.Chronic Kidney Disease: Estimated GFR < 60 mL/min/1.51q6Dydmak Kidney Disease: Estimated GFR < 15 mL/min/1.73m2 Glucose 102 60 - 115 mg/dL [facility] Calcium 9.2 8.4 - 10.2 mg/dL [facility] Bilirubin, Total 0.5 0.0 - 1.0 mg/dL [facility] Aspartate Amino Transferase 16 5 - 31 U/L [facility] Alanine Aminotransferase 26 0 - 31 U/L [facility] Total Protein 7.5 6.5 - 8.0 g/dL [facility] Albumin Level 4.4 3.5 - 5.0 g/dL [facility] Alkaline Phosphatase 70 39 - 117 U/L [facility] Blood Venous blood specimen / Unknown 02/25/2024 10:16 AM EDT 02/25/2024 11:13 AM EDT us Damaris Ramos MD LAB BLOOD ORDERABLES Final Resul t [facility] [address] [place] [phone] * (ABNORMAL) CBC auto differential (02/25/2024 10:16 AM EDT) Pathologist [facility] White Blood Count 8.0 4.8 - 10.8 X10*3/uL [facility] Red Blood Count 4.29 4.20 - 5.50 X10*6/uL [facility] Hemoglobin 14.5 12.0 - 16.0 g/dl [facility] Hematocrit 40.2 37.0 - 47.0 % [facility] Mean Corpuscular Volume 93.7 80.0 - 98.0 fL [facility] Mean Corpuscular Hemoglobin 33.8(H) 27.0 - 33.0 pg [facility] Mean Corpuscular HGB Conc 36.1(H) 31.0 - 35.0 g/dl [facility] Red Cell Distribution Width 12.6 11.0 - 16.0 % [facility] Platelet Count 382 160 - 400 X10*3/uL [facility] Mean Platelet Volume 9.8 9.4 - 12.3 fL [facility] Neutrophils Percent Auto 67.5 45 - 73 % [facility] Imm Gran Pct Auto 0.9(H) 0.0 - 0.4 % [facility] Lymphocytes Percent Auto 21.9 20 - 40 % [facility] Monocytes Percent Auto 8.3 2 - 11 % [facility] Eosinophils Percent Auto 0.8 0 - 4 % [facility] Basophils Percent Auto 0.6 0 - 2 % [facility] NRBC Pct Auto 0.0 0.0 - 0.2 /100WBC [facility] Neutrophils Absolute Auto 5.4 2.0 - 8.3 x10*3/uL [facility] Imm Gran Abs Auto 0.07(H) 0.00 - 0.03 X10*3/uL [facility] Lymphocytes Absolute Auto 1.8 1.2 - 4.9 X10*3/uL [facility] Monocytes Absolute Auto 0.7 0.1 - 1.2 X10*3/uL [facility] Eosinophils Absolute Auto 0.1 0.0 - 0.4 X10*3/uL [facility] Basophils Absolute Auto 0.1 0.0 - 0.2 X10*3/uL [facility] NRBC Abs Auto 0.000 0.0 - 0.012 X10*3/uL [facility] Blood Venous blood specimen / Unknown 02/25/2024 10:16 AM EDT 02/25/2024 11:15 AM EDT us Damaris Ramos MD LAB BLOOD ORDERABLES Final Resul t [facility] [address] [place] [phone] * XR CERVICAL SPINE 3V (12/14/2023 11:00 AM EDT) Anatomical Region Laterality Modality Abdomen Radiographic Danielle ging 12/14/2023 11:0 0 AM EDT Narrative 12/21/2023 10:43 AM EDT ?[facility] ?[address] ?[place] [address] ?XRay Report ? Signed ? Patient: Inostroza,Jexcenia ?MR#: [id number] ?? [id number] ? : 1985 ?Acct:[id number] ? Age/Sex: 38 / F ?ADM Date: 12/14/23 ? Loc: HO.HHCX ? Attending Dr: Damaris Ramos MD ? Ordering Physician: Damaris Ramos MD ?? Date of Service: 12/14/23 ?? Procedure(s): XR cervical spine 3V ?? Accession Number(s): [id number] ? cc: Damaris Ramos MD ? EXAMINATION: ?? XR CERVICAL SPINE ? CLINICAL INFORMATION: ?? Left arm pain and neck pain. Patient states for 8 months. ? COMPARISON: ?? None available. ? TECHNIQUE: ?? 5 views of the cervical spine. ? FINDINGS: ?? Mild spondylosis with loss of disc space height at C5-C6 and C6-C7. ?? Straightening of the normal cervical lordosis. ? XR/XR cervical spine 3V ?? IMPRESSION: ?? Mild degenerative disc disease at C5-C6 and C6-C7. ? Dictated By: ?Sarahi Stauffer MD ? Signed By: ?<Electronically signed by Sarahi Stauffer MD in OV> ? 12/21/23 1039 ? DD/ 1100 ? TD/TT: ? Sheet Metal Shop Foreman: ? Procedure Note Bridgette, Image - 12/21/2023 [facility] [address] [place] [address] XRay Report Signed Patient: Taylor MartinezMR#: [id number] : 1985Acct:[id number] Age/Sex: 38 / FADM Date: 12/14/23 Loc: HO.HHCX Attending Dr: Damaris Ramos MD Ordering Physician: Damaris Ramos MD Date of Service: 12/14/23 Procedure(s): XR cervical spine 3V Accession Number(s): [id number] cc: Damaris Ramos MD EXAMINATION: XR CERVICAL SPINE CLINICAL INFORMATION: Left arm pain and neck pain. Patient states for 8 months. COMPARISON: None available. TECHNIQUE: 5 views of the cervical spine. FINDINGS: Mild spondylosis with loss of disc space height at C5-C6 and C6-C7. Straightening of the normal cervical lordosis. XR/XR cervical spine 3V IMPRESSION: Mild degenerative disc disease at C5-C6 and C6-C7. Dictated By: Sarahi Stauffer MD Signed By: <Electronically signed by Sarahi Stauffer MD in OV> 12/21/23 1039 DD/ 1100 TD/TT: [employer] Metal [employer] Foreman: Damaris Ramos MD IMG XR PROCEDURES Final Result * XR Shoulder 2+ Views Left (12/14/2023 11:00 AM EDT) Anatomical Region Laterality Modality Upper Extremities, Shoulder Left Radi ographic Imaging 12/14/2023 11:0 0 AM EDT Narrative 12/19/2023 9:18 AM EDT ?[facility] ?[address] ?[place] [address] ?XRay Report ? Signed ? Patient: Inostroza,Jexcenia ?MR#: [id number] ?? [id number] ? : 1985 ?Acct:[id number] ? Age/Sex: 38 / F ?ADM Date: 05/06/24 ? Loc: HO.HHCX ? Attending Dr: Damaris Ramos MD ? Ordering Physician: Damaris Ramos MD ?? Date of Service: 12/14/23 ?? Procedure(s): XR shoulder LT min 2V ?? Accession Number(s): [id number] ? cc: Damaris Ramos MD ? EXAMINATION: ?? XR SHOULDER, LEFT ? CLINICAL INFORMATION: ?? Left arm pain. Left shoulder pain ? COMPARISON: ?? None available. ? TECHNIQUE: ?? AP external rotation, Grashey, scapular Y, and axillary views of the ?? left shoulder. ? FINDINGS: ?? There is a small linear focus of calcific density adjacent to the ?? greater tuberosity. ? Glenohumeral joint otherwise normal. ?? Acromioclavicular joint normal. ? Surrounding bone and soft tissues unremarkable.. ? XR/XR shoulder LT min 2V ?? IMPRESSION: ?? Small focus of calcific density adjacent to the greater tuberosity. ?? This could reflect calcific tendinitis/tendinosis. ? Dictated By: ?Harman oHwe MD ? Signed By: ?<Electronically signed by Harman Howe MD in OV> ?12/19/23 0913 ? DD/ 1100 ? TD/TT: ? Sheet Metal [employer] Foreman: WG ? Procedure Note Bridgette, Image - 12/19/[address] [address] XRay Report Signed Patient: Taylor MartinezMR#: [id number] : 1985Acct:[id number] Age/Sex: 38 / FADM Date: 12/14/23 Loc: HO.HHCX Attending Dr: Damaris Ramos MD Ordering Physician: Damaris Ramos MD Date of Service: 12/14/23 Procedure(s): XR shoulder LT min 2V Accession Number(s): [id number] cc: Damaris Ramos MD EXAMINATION: XR SHOULDER, LEFT CLINICAL INFORMATION: Left arm pain. Left shoulder pain COMPARISON: None available. TECHNIQUE: AP external rotation, Grashey, scapular Y, and axillary views of the left shoulder. FINDINGS: There is a small linear focus of calcific density adjacent to the greater tuberosity. Glenohumeral joint otherwise normal. Acromioclavicular joint normal. Surrounding bone and soft tissues unremarkable.. XR/XR shoulder LT min 2V IMPRESSION: Small focus of calcific density adjacent to the greater tuberosity. This could reflect calcific tendinitis/tendinosis. Dictated By: Harman Howe MD Signed By: <Electronically signed by Harman Howe MD inOV> 12/19/23 0913 DD/ 1100 TD/TT: Sheet Metal Shop Foreman: WG Damaris Ramos MD IMG XR PROCEDURES Edited Result - Final documented in this encounter Visit Diagnoses Diagnosis Chronic pain of left knee- Primary Acute medial meniscus tear of left knee, initial encounter History of torn meniscus of left knee Left arm pain Pain in soft tissues of limb Chronic left shoulder pain Pain in joint, shoulder region Malaise Other malaise and fatigue Fatigue, unspecified type Routine screening for STI (sexually transmitted infection) Screening examination for venereal disease documented in this encounter Additional Health Concerns Assessment Noted Time PHQ-9 Depression Total Score: 0 05/21/20 23 10:05 AM EDT documented as of this encounter Care Teams Marketing Clerk Relationship Specialty Start Date End Date Damaris Ramos MD [address] [place] [phone] PCP - General Family Medicine 08/10/18 documented as of this encounter
[2024-09-28 11:13] LABS: MANUAL DIFF FLAG NO
[2024-09-28 11:44] LABS: Estimated Average Glucose 105 mg/dL; Hemoglobin A1C 134.4381 umol/L; Hemoglobin A1c % 5.3 % (<6.0); Total Hemoglobin (HGBA1C) 3871.5868 umol/L
[2024-09-28 11:58] LABS: Alanine Aminotransferase 40 U/L (0-31); Albumin Level 4.3 g/dL (3.5-5.0); Alkaline Phosphatase 88 U/L (39-117); Anion Gap 10 (12-20); Aspartate Amino Transferase 23 U/L (5-31); Basophils Absolute Auto 0.1 X10*3/uL (0.0-0.2); Basophils Percent Auto 0.5 % (0-2); Bilirubin Total 0.3 mg/dL (0.0-1.0); Blood Urea Nitrogen 11 mg/dL (9-16); C Reactive Protein 0.99 mg/dL (< or = 0.50); Calcium 9.1 mg/dL (8.4-10.2); Carbon Dioxide 25 mmol/L (22-29); Chloride 107 mmol/L (96-108); Cholesterol 172 mg/dL (<200); Eosinophils Absolute Auto 0.2 X10*3/uL (0.0-0.4); Eosinophils Percent Auto 1.9 % (0-4); Estimated Glomerular Filt Rate > 60; Glucose Random 90 mg/dL (60-115); HDL Cholesterol 38 mg/dL (>40); Hematocrit 44.6 % (37.0-47.0); Hemoglobin 15.1 g/dl (12.0-16.0); Imm Gran Abs Auto 0.05 X10*3/uL (0.00-0.03); Imm Gran Pct Auto 0.5 % (0.0-0.4); LDL Cholesterol Calculated 109 mg/dL (<100); Lymphocytes Absolute Auto 2.8 X10*3/uL (1.2-4.9); Lymphocytes Percent Auto 29.5 % (20-40); Mean Corpuscular HGB Conc 33.9 g/dl (31.0-35.0); Mean Corpuscular Hemoglobin 30.4 pg (27.0-33.0); Mean Corpuscular Volume 89.9 fL (80.0-98.0); Mean Platelet Volume 9.9 fL (9.4-12.3); Monocytes Absolute Auto 0.8 X10*3/uL (0.1-1.2); Monocytes Percent Auto 8.6 % (2-11); Neutrophils Absolute Auto 5.6 x10*3/uL (2.0-8.3); Platelet Count 428 X10*3/uL (160-400); Potassium 4.2 mmol/L (3.3-5.1); Red Blood Count 4.96 X10*6/uL (4.20-5.50); Red Cell Distribution Width 12.5 % (11.0-16.0); Sodium 138 mmol/L (135-145); Total Protein 7.9 g/dL (6.5-8.0); Triglycerides 129 mg/dL (<150); White Blood Count 9.6 X10*3/uL (4.8-10.8)
[2024-09-28 12:08] LABS: TSH reflex Free T4 0.76 uIU/mL (0.32-4.0); Vitamin D 25-OH Total 33.6 ng/mL (>30)
[2024-09-28 12:09] LABS: Reflex LDLD? No
[2024-09-28 12:32] LABS: Erythrocyte Sedimentation Rate 10 MM/HR (0-20)
== END 2024-09-28 09:48 | disposition home or self-care (01) ==
LOC: HO.HHCL 09:47
PROVIDERS: Visit Provider Family Medicine
DX: R51.9 Headache, unspecified (principal); R19.00 Intra-abdominal and pelvic swelling, mass and lump, unspecified site; R73.03 Prediabetes; Z83.3 Family history of diabetes mellitus; R03.0 Elevated blood-pressure reading, without diagnosis of hypertension; Z13.6 Encounter for screening for cardiovascular disorders
CPT/HCPCS: 36415; 80053; 80061; 82306; 83036; 84443; 85025; 85652; 86140

== ENCOUNTER 2024-10-04 08:59 | Outpatient (AMB) | payer OTHER, SELFPAY ==
--- NOTE | 2024-10-04 09:00 | A.OFFVIS_ITS ---
Intake Visit Reasons: colpo results Allergies amoxicillin [Amoxicillin] Allergy (Mild, Verified 08/15/24 13:52) ITCHING diphenhydramine [From Benadryl] Allergy (Mild, Verified 08/15/24 13:52) ITCHING folic acid [From Vitamin] Allergy (Mild, Verified 08/15/24 13:52) RASH iron [From Vitamin] Allergy (Mild, Verified 08/15/24 13:52) RASH acetaminophen [From Percocet] Allergy (Unknown, Verified 08/15/24 13:52) ITCHING penicillin V Allergy (Unknown, Verified 08/15/24 13:52) Hives Penicillins Allergy (Unknown, Verified 08/15/24 13:52) ITCHING Amoxicillin Allergy (Unknown, Uncoded 12/04/23 10:37) hives From Percocet Allergy (Unknown, Uncoded 12/04/23 10:37) ITCHING Penicillin Allergy (Unknown, Uncoded 12/04/23 10:37) hives HPI Comments Details: The patient is scheduled tele health visit post colpo for follow-up. The patient is doing well with no complaints. The pathology showed the following: A. Cervix, 6 o'clock, biopsy: Squamous mucosa within normal limits; no endocervical epithelium present. B. Cervix, 9 o'clock, biopsy: Squamous mucosa within normal limits; no endocervical epithelium present. C. Cervix, 12 o'clock, biopsy: - Low-grade squamous intraepithelial lesion (EMETERIO 1). - Background inflamed cervical transformation zone mucosa. D. Endocervix, curettage: - Low-grade squamous intraepithelial lesion (EMETERIO 1). - Background inflamed cervical transformation zone and endocervical mucosa with squamous metaplasia and microglandular hyperplasia [facility] Medical History Cervical high risk HPV (human papillomavirus) test positive Asthma Headaches due to old head injury Insomnia Depression Bipolar 1 disorder GERD (gastroesophageal reflux disease) DJD (degenerative joint disease) ADHD Sleep apnea treated with continuous positive airway pressure (CPAP) Morbid obesity Surgical History Hx of breast reduction, elective Hx of section Hx of cholecystectomy Family History Mother Hypertension Diabetes Heart attack Father Hypertension Brother No problems noted. Sister No problems noted. Son ADHD Daughter No problems noted. 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 Female Reproductive History Menstrual Age of Menarche: 14 Review of Systems Const All systems reviewed & are unremarkable except as noted in HPI and below Reports as per HPI and Reports no additional complaints GI Reports no additional complaints Reports no additional complaints Telehealth Telehealth Telehealth Platform: Telephone Location of provider rendering services: practice address Location of patient: address on file Patient Identification confirmed using: Name, : Yes Telehealth method: video Patient verbally consented to treatment: Yes Patient verbally consented to billing insurance company: Yes Patient informed of any privacy concerns related to visit: Yes Minutes spent on Phone/Video with Pt.: 2 Assessment & Plan Assessment & Plan (1) Dysplasia of cervix, low grade (EMETERIO 1): Code(s): N87.0 - Mild cervical dysplasia Category: Medical Plan: Discussed with the patient the pathology results of the colposcopy biopsies & endocervical curettage ( mild dysplasia-EMETERIO 1). Discussed with the patient the sensitivity specificity, positive and negative predictive value in detecting cervical cancer in addition discussed the regression, persistence and progression rates. Recommended co-testing in 12 months, if cytology and or HPV are abnormal will proceed was colposcopy biopsy and endocervical curettage, if lesions gets worse or stays persistent for 2 years will proceed with loop electric excision procedure. Instructions given to the patient to schedule a co test appointment in 1 year. All questions answered the patient verbalized understanding. I spent a total of 20 minutes reviewing the chart, talking to the patient via video and documenting in the medical record. Coding Level of Care Code Tele Est Pt Level 3 (98165) Diagnoses Dysplasia of cervix, low grade (EMETERIO 1) N87.0
--- OUTSIDE RECORDS SUMMARY | 2024-10-04 09:43 | XMS_ITS | Encounter Summary ---
Author Organization [employer] [facility] Address [address] [place] [address] 7 [place] [address] Care Team Providers Care Robot Technician Name Role Phone Damaris Ramos MD Primary Care Provider [phone] Reason for Visit * Reason Comments Med Refill Encounter Details Date Type Department Care Team ([facility] st Contact Info) Description 09/28/2024 Refill [facility] MED[facility] [address] [place], [place] [phone] Damaris Ramos MD [address] [place], [place] [phone] Class 3 severe obesity due to excess [...] housing situation today? I have yessenia weaver 09/28/[address] you li ve. Do you have problems with any of the following? None of the above 09/28/2024 Food Insecurity Answer Date Recorded Within the past 12 months, y ou worried that your food would run out before you got money to buy more: Never True 09/28/2024 Within the past 12 months,th e food you bought just didn't last and you didn't have enough money to get more: Never True Transportation Answer Date Recorded In the past 12 months, has l ack of transportation kept you from medical appts, meetings, work or from getting things needed for daily living? No 09/28/2024 Utilities Answer Date Recorded In the past 12 months, has t he electric, gas, oil or water company threatened to shut off services in your home? No 09/28/2024 Depression Answer Date Recorded Patient Health Questionnaire-2 Score 5 05/25/2024 Internet Access Answer Date Recorded Internet Access Q1 Yes 09/28/2024 Internet Access Q2 Not on file 09/28/2024 Comments No Sex and Gender Information Value [...] documented as of this encounter Care Teams Robot Technician Relationship Specialty Start Date End Date Damaris Ramos MD [address] [place] [address] PCP - General Family Medicine 08/10/18 documented as of this encounter
--- OUTSIDE RECORDS SUMMARY | 2024-10-04 09:43 | XMS_ITS | Encounter Summary ---
Author Organization [employer] [facility] Address [address] [facility] [address] 7t [place] [address] Care Team Providers Care Trolley Collector Name Role Phone Damaris Ramos MD Primary Care Provider [phone] Reason for Referral * Consultation (Urgent) - Closed Specialty Diagnoses / Procedures Referred By Jennifer walsh Referred To Contact Gastroenterology Diagnoses Diarrhea, unspecified type Abdominal pain, unspecified abdominal location Damaris Ramos MD [address] [place] [address] Phone: tel: fax: [facility] [address] [place], [place] Phone: tel: fax: Referral ID Status Reason Start Date Expiration Date V isits Requested Visits Authorized [id number] Closed Specialty Services Required 09/30/2023 09/29/2024 1 1 Scheduling Instructions Patient would like to see any provider in [place], not [facility]. Encounter Details Date Type Department Care Team (Late st Contact Info) Description 09/30/2023 Orders Only [facility] MED[facility]INE [address] [place] [address] Damaris Ramos MD [address] [place] [address] Diarrhea, unspecified type (Primary Dx); [...] documented as of this encounter Care Teams Trolley Collector Relationship Specialty Start Date End Date Damaris Ramos MD [address] [place] [address] PCP - General Family Medicine 08/10/18 documented as of this encounter
--- OUTSIDE RECORDS SUMMARY | 2024-10-04 09:43 | XMS_ITS | Clinical Summary ---
Author Organization [facility] Address [address] [place] [phone] Care Team Providers Care Wind Energy Project Manager Name Role Phone Jose Gordon MD Primary Care Provider [phone] Surgical History Surgery Date Site/Laterality Comments CHOLECYSTECTOMY [...] age to complete this topic Care Teams Wind Energy Project Manager Relationship Specialty Start Date End Date Jose Gordon MD PCP - General Internal Medicine 07/10/15
--- OUTSIDE RECORDS SUMMARY | 2024-10-04 09:43 | XMS_ITS | Continuity of Care Document ---
Author Organization [employer] [facility] Address [address] [place] [phone] Care Team Providers Care 8Th Grade Teacher Name Role Phone [facility] Referring Provider HIM CCA OTHER Assessment No [...] Name and Address Organization Details Recorded Time 08808 amoxicill in medicatio n Not available Not available Not available 08/20/2024 723 RxNorm Not Available [facility] - production 5 08:12:56 7121 Product containin g penicilli n (product) medicatio n Not available Not available Not available 06/07/2024 70516 8001 SNOMED Not Available [facility] - production [...] SNOMED-CT Code Diagnosis ICD10 Code Diagnosis Note [id number] KELLY PÉREZ MD Main - [facility] [address] [place] [phone] 08/20/2024 10:39:20 08/20/2024 17:55:46 Acute bacterial sinusitis [id number] J01.90 [id number] Katherine Zamudio MD Main - [facility] [address] [place] [phone] 09/04/2024 13:02:25 09/04/2024 15:24:37 Cough [id number] R05.9 As noted, we were called to see this patient regarding concerns of sinus congestion . Evaluation in the field was performed by my apron trimmer colleague, as noted above, I provided real-time direction and supervisio n for this visit. The evaluation revealed 39 yo woman with 1 month of sinus congestion , cough and frontal headache. She received antibiotic s earlier this month without relief.She has started using oxymetolaz one a few days ago. She was unable to greens picker other prescribed medication s as they [...] Marks Member ID Guarantor Name 09/04/2024 1 [facility] - DOS ON OR AFTER 2022 - DUAL ELIGIBLE - NURSING HOME OPTIONS AND ONE [employer] (MEDICARE REPLACEMENT/AD VANTAGE - HMO) Taylor Martinez [id number] Taylor Martinez Notes Date Note Type Note [...] - 10:17Allergies Reviewed at 09/04/2024 - 10:17Comments: [employer] verified the Pt.'s name//address and phone number. [...] - [facility] and s/s are not improving [...] ................... ................... ................... ................... ................... ................... ........ Turbo Operator Note From Derek Bucio: This 39-year-old female [...] ................... ................... ................... ................... ................... ................... ........ [facility] Consulted: Katherine Zamudio ................... ................... ................... ................... ................... ................... ................... ........ Disposition: Fulfilled Katherine Zamudio MD [address] [place] [address],[address], [place], [address], SCHAD WevodJOSE MIGUEL REBOLLAR 09/04/2024 14:56:30 OBGyn Episode No OBEpisode recorded.
--- OUTSIDE RECORDS SUMMARY | 2024-10-04 09:44 | XMS_ITS | Encounter Summary ---
Author Organization [employer] [facility] Address [address] [place] [address] [address]t [place] [address] Care Team Providers Care Teacher Education Instructor Name Role Phone Damaris Ramos MD Primary Care Provider [phone] Encounter Details Date Type Department Care Team [...] documented as of this encounter Care Teams Teacher Education Instructor Relationship Specialty Start Date End Date Damaris Ramos MD [address] [place] [address] PCP - General Family Medicine 08/10/18 documented as of this encounter
--- OUTSIDE RECORDS SUMMARY | 2024-10-04 09:44 | XMS_ITS | Encounter Summary ---
Author Organization [employer] [facility] Address [address] [place] [address] [address] [place] [address] Care Team Providers Care Market Maker Name Role Phone Damaris Ramos MD Primary Care Provider [phone] Reason for Visit * Reason Onset Date Comments chart prep 09/23/2024 Encounter Details Date Type Department Care Team ([facility] st Contact Info) Description 09/23/2024 Telephone [facility] MED[facility]INE [address] [place], [place] [phone] Rubia Cruz MA chart prep Social History [...] documented as of this encounter Care Teams Market Maker Relationship Specialty Start Date End Date Damaris Ramos MD [address] [place] [address] PCP - General Family Medicine 08/10/18 documented as of this encounter
--- OUTSIDE RECORDS SUMMARY | 2024-10-04 09:44 | XMS_ITS | Encounter Summary ---
Author Organization [employer] [facility] Address [address] [place] [address] [address] [place] [address] Care Team Providers Care Color Tester Name Role Phone Damaris Ramos MD Primary Care Provider [phone] Reason for Referral * Consultation (Routine) - Closed Specialty Diagnoses / Procedures Referred By Jennifer walsh Referred To Contact Orthopaedic Surgery Diagnoses Chronic left shoulder pain Neck pain Damaris Ramos MD [address] [place] [address] Phone: tel: fax: [facility] [address] [place] [address] Drive [address] [place], [place] Phone: tel: fax: Referral ID Status Reason Start Date Expiration Date V isits Requested Visits Authorized [id number] Closed Specialty Services Required 12/24/2023 12/23/2024 1 1 Encounter Details Date Type Department Care Team (Late st Contact Info) Description 12/24/2023 Orders Only [facility] MEDICINE [address] [place], [place] [phone] Damaris Ramos MD [address] [place], [place] [phone] Chronic left shoulder pain (Primary Dx); Neck [...] documented as of this encounter Care Teams Color Tester Relationship Specialty Start Date End Date Damaris Ramos MD [address] [place] [address] PCP - General Family Medicine 08/10/18 documented as of this encounter
--- OUTSIDE RECORDS SUMMARY | 2024-10-04 09:44 | XMS_ITS | Encounter Summary ---
Author Organization [facility] Address [address] [place] [address] [address], [place] [address] Care Team Providers Care Software Engineer Sales Name Role Phone Damaris Ramos MD Primary Care Provider [phone] Reason for Referral * Consultation (Routine) - Closed Specialty Diagnoses / Procedures Referred By Jennifer walsh Referred To Contact Ophthalmology Diagnoses Lesion of left eyelid Damaris Ramos MD [address] [place] [address] Phone: tel: fax: [facility] [address] Phone: tel: fax: Referral ID Status Reason Start Date Expiration Date V isits Requested Visits Authorized [id number] Closed Specialty Services Required 10/02/2024 10/02/2025 1 1 * Consultation (Routine) - Authorized Specialty Diagnoses / Procedures Referred By Jennifer walsh Referred To Contact Allergy Diagnoses Seasonal allergic rhinitis, unspecified trigger Acute recurrent sinusitis, unspecified location Damaris Ramos MD [address] [place] [address] Phone: tel: fax: Hernando Medina MD [address] [place] [address] Drive [address] [place] [address] Phone: tel: fax: Referral ID Status Reason Start Date Expiration Date Visits Requested Visits Authorized [id number] Authorized Specialty Services Required 10/02/2024 10/02/2025 1 1 * Imaging (Routine) - Authorized Specialty Diagnoses / Procedures Referred By Contac t Referred To Contact Radiology Diagnoses Seasonal allergic rhinitis, unspecified trigger Acute recurrent sinusitis, unspecified location Procedures CT Sinus w/o Contrast Damaris Ramos MD [address] [place] [id number] Phone: tel: fax: [address] Phone: tel: fax: Referral ID Status Reason Start Date Expiration Date V isits Requested Visits Authorized [id number] Authorized 10/02/2024 10/02/2025 1 1 Encounter Details Date Type Department Care Team (Latest Contact Info) Description 09/28/2024 9:00 AM EST Office Visit [facility] [address] [place] [id number] Damaris Ramos MD [address] [place] [phone] Elevated BP without diagnosis of hypertension (Primary Dx); Prediabetes; Mild intermittent asthma without complication; Abdominal swelling; Screening for lipid disorders; Subacute sinusitis, unspecified location; Vitamin D deficiency; Family history of diabetes mellitus type II; Temporal pain; Chronic nonintractable headache, unspecified headache type; Chronic bilateral back pain, unspecified back location; Neck pain; Dietary counseling; Exercise counseling; Class 3 severe obesity due to excess calories with serious comorbidity and body mass index (BMI) of 40.0 to 44.9 in adult ([facility]); MARGARITA (obstructive sleep apnea); Nausea; Irritable bowel syndrome, unspecified type; Gastroesophageal reflux disease, unspecified whether esophagitis present; Mood disorder ([facility]/HCC); Recurrent major depressive episodes, moderate ([facility]); Bipolar affective disorder, currently depressed, moderate ([facility]); Seasonal allergic rhinitis, unspecified trigger; Acute recurrent sinusitis, unspecified location; Cervical dysplasia; Lesion of left eyelid Social History Tobacco Use Types Packs/Day Years [...] 10:56 AM EDT documented in this encounter Progress Notes * Damaris Ramos MD - 09/28/2024 9:00 AM EST Subjective Taylor Martinez is a 39 y.o. female who has asthma, history of kidney stone, and left knee meniscus tear, and patient presents for follow up of chronic conditions. Background: Our last encounter was 05/25/2024. Discussed about her headache, weight, and CPAP. Patient was anticipating to have EGD/colonoscopy in Jul 2024. Prescribed tirzepatide. Re-ordered CPAP. Interval history: 07/15/24 EGD/colonoscopy: Normal / internal and external hemorrhoids. 07/20/24 Cotest. Pathology result-> LSIL/high-risk HPV positive, 16/18 negative. 08/15/24 Colposcopy / Biopsy / ECC Pathology report-> EMETERIO 1. Seen by [facility] service and Dx sinusitis. Today: Pt reports she has been taking tirzepatide (Zepbound) for a few months and is starting to feel nauseous. Noting the dose prescribed to her is 5 mg once a week. She reports her stomach is cramping, she has been slightly constipated, and she has also been experiencing flatulence. Pt states her stomach feels hard & bloated often, but she believes stress could be contributing to her symptoms and wants to check her cortisol levels. She notes she doesn't have much heart burn since starting her acid reflux medication. Pt confirms she eats vegetables and fruits often. Pt would like to try nausea medication. Pt reports she had a sinus infection that almost lasted a month and afterwards she had an allergic reaction that has kept her nose congested and ears itching. She notes she has been using a nasal spray and allergy medication but her symptoms persist. Pt believes she is allergic to makeup and requested a referral to an sales enablement analyst. Pt reports she is confirmed allergic to penicillin and amoxicillin. Pt also notes she has been feeling dizzy but believes it???s due to her taking a lot of supplements. Pt stopped taking Adderall because she didn???t like its side effect, so she is taking ashwagandhainstead. She notes she is also taking B12, Vitamin D, and other multi vitamins. Pt also believes she feels dizzy because she feels dehydrated with a dry mouth. Pt is not using her sleep apnea machineand has her heat to 80 and over because she gets cold. Pt understands this could be causing her drymouth. She notes she has been drinking IV liquid twice a day, but will try to drink more water. Patient reports persistent headache. Usually on her left side, temporal area. Associated with dizziness and nausea. She feels pressure in her head. Occasional blurry vision. Pt declined Flu shot. Pt reports she has had the T IUD control for 16 years but wants to switch because she is concerned about having or getting cervical cancer. Pt confirms she is still taking the medication prescribed by her psychiatrist, but she can???t remember the name. Pt also reports she has a bump on her eye and would like to have it removed. She notes she has had it for a few months but is not sure of the exact onset. Pt understands she has to see her Senior Lead Java Developer in [facility] for this. Review of Systems Constitutional: Negative for activity change, appetite change and fever. Respiratory: Negative for shortness of breath. Cardiovascular: Negative for chest pain. Objective Vitals: 09/28/24 0911 BP: 117/77 Pulse: 71 Resp: 15 Temp: 96.2 ??F (35.7 ??C) TempSrc: Temporal Weight: 199 lb (90.3 kg) Physical Exam Constitutional: General: She is not in acute distress. Appearance: Normal appearance. She is not ill-appearing. HENT: Head: Normocephalic and atraumatic. Mouth/Throat: Mouth: Mucous membranes are moist. Eyes: Extraocular Movements: Extraocular movements intact. Pupils: Pupils are equal, round, and reactive to light. Cardiovascular: Rate and Rhythm: Normal rate and regular rhythm. Heart sounds: No murmur heard. Pulmonary: Effort: Pulmonary effort is normal. No respiratory distress. Breath sounds: Normal breath sounds. No wheezing or rhonchi. Skin: General: Skin is warm. Neurological: Mental Status: She is alert. Mental status is at baseline. Psychiatric: Mood and Affect: Mood normal. Results: Lab Results Component Value Date NA 138 09/28/2024 K 4.2 09/28/2024 CL 107 09/28/2024 CO2 25 09/28/2024 BUN 11 09/28/2024 CREATININE 0.70 09/28/2024 EGFR >60 09/28/2024 GLUCOSE 90 09/28/2024 TOTALBILIRUB 0.3 09/28/2024 AST 23 09/28/2024 ALT 40 (H) 09/28/2024 TOTPROTEIN 7.9 09/28/2024 ALB 4.3 09/28/2024 ALP 88 09/28/2024 Lab Results Component Value Date TRIG 129 09/28/2024 CHOL 172 09/28/2024 LDLCHOLCAL 109 (H) 09/28/2024 HDL 38 (L) 09/28/2024 Lab Results Component Value Date HGBA1C 5.3 09/28/2024 Lab Results Component Value Date WBC 9.6 09/28/2024 HGB 15.1 09/28/2024 HCT 44.6 09/28/2024 PLT 428 (H) 09/28/2024 MCV 89.9 09/28/2024 The ASCVD Risk score (Maribel DK, et al., 2019) failed to calculate for the following reasons: The 2019 ASCVD risk score is only valid for ages 40 to 79 Screening and Health Care Maintenance: PHQ-2/9 Score: Patient Health Questionnaire-9 Score: 18 (05/25/2024 12:02 PM) Patient Health Questionnaire-2 Score: 5 (05/25/2024 12:02 PM) Thoughts that you would be better off or hurting yourself in some way: Not at all (05/25/2024 12:02 PM) PENELOPE-7 Score: PENELOPE-7 Total Score: 16 (05/25/2024 12:03 PM) Health Maintenance Due Topic Date Due Family Planning (PISQ) Never done Influenza Vaccine (1) 04/10/2024 COVID-19 Vaccine (2 - season) 2024 Depression Monitoring (PHQ-9) 11/23/2024 Cervical Cancer Screening 08/15/2025 Assessment/Plan Problem List Items Addressed This Visit Allergic rhinitis - will evaluate with sinus CT - will refer to astronaut mission specialist for further evaluation Relevant Orders CT Sinus w/o Contrast Referral to Allergy Asthma - previously on fluticasone ICS, but has not been adherent - change fluticasone to another ICS in near future - continue montelukast for both asthma and allergy - continue albuterol HFA and neb prn; pt prefers neb when pt is at home because it seems to be moreeffective Mood disorder (CMS/HCC) -Pt is followed by [facility] provider, psychiatrist, and therapist - Current Dx: bipolar and ADHD -Current medications: in last 1 year, she has not picked up any medication except med for ADHD. Escitalopram, trazodone, and lamotrigine are still on outside facility record. -Previous medications: Valproic acid, zolpidem, Escitalopram; lamotrigine; oxcarbazepine; hydroxyzine; trazodone - Improve adherence to prescribed medications - Encourage to consult with behavioral health service provide regarding to supplements -She was able to contact her safety today Obesity - previously enrolled in [facility] W[facility] management clinic - initially planned for laparoscopic sleeve gastrectomy, but patient elected non-surgical weight loss without [facility] W[facility] management clinic - currently on GLP1RA. Will continue current dose. Recurrent major depressive episodes, moderate (CMS/HCC) Vitamin D deficiency - continue vitamin D 3000 units daily as prescribed Family history of diabetes mellitus type II Relevant Orders Vitamin D, 25-Hydroxy, Total, Immunoassay (Completed) MARGARITA (obstructive sleep apnea) - Sleep Study on 06/21/22 MARGARITA and Periodic Limb Movement disorder - She has been trying without CPAP since she has lost weight; she states she disliked CPAP due to its discomfort - Encouraged to continue working on lifestyle modification and repeat sleep study if needed - Patient no longer has CPAP - Patient is currently using GLP1-RA - Patient is having headache; consider another sleep study Prediabetes -05/29/21 A1C 6.0% -04/29/22 A1C 5.7% -01/22/23 A1C 5.9% -05/21/23 A1C 5.5% - 09/28/24 A1c 5.3% -family Hx DM -continue working on lifestyle modifications -q6-12mo screening due to risk factors -pt was taking liraglutide for weight loss, but self-discontinued due to intolerance -pt has a great interest in health and naturopathic medicine; encouraged to continue her curiosity and self-care. Relevant Orders TSH with Reflex to Free T4 (Completed) Hemoglobin A1c (Completed) Bipolar disorder ([facility]/HCC) -Pt is followed by [facility] provider, psychiatrist, and therapist -Current medications: Escitalopram; lamotrigine; oxcarbazepine; hydroxyzine; trazodone - questionable adherence -Previous medications: Valproic acid, zolpidem -Continue current medication and current treatment plan per [facility] provider -She was able to contact her safety today Chronic nonintractable headache - MRI on 07/29/22 normal - Previously diagnosed with MARGARITA and prescribed CPAP; patient lost weight and was sleeping better without CPAP - Improve sleep hygiene - s/p PT for neck pain - stress reduction - currently on GLP1RA for MARGARITA and weight loss - optimize treatment for allergic rhinitis. Will evaluate for sinusitis - consider neuro referral for evaluation for intracranial hypertension - judicious use of ibuprofen and acetaminophen prn Relevant Medications ibuprofen 800 MG tablet Chronic bilateral back pain - Prescribed ibuprofen 800 MG tablet 09/28/24 Relevant Medications ibuprofen 800 MG tablet Gastroesophageal reflux disease - Continue pantoprazole 40 mg bid - 07/15/24 EGD/colonoscopy: Normal / internal and external hemorrhoids. 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 Negative 16/18 - Colonoscopy / ECC / Bx on 08/15/24 EMETERIO-1 IBS (irritable bowel syndrome) - Following with [facility] - 07/15/24 EGD/colonoscopy: Normal / internal and external hemorrhoids. - Recommended low FODMAP diet. Prescribed simethicone prn. Neck pain - Evaluate with x-ray. - Continue acetaminophen prn. - Pt has already completed physical therapy. - Patient was referred to orthopedist. - Prescribed ibuprofen 800 MG tablet 09/28/24 Relevant Medications ibuprofen 800 MG tablet Elevated BP without diagnosis of hypertension - Primary -Goal BP < 140/90 per JNC-8 and < 130/80 per ACC/AHA guideline (Treatment threshold >=140/90) -BP elevated today, second measurement was normal -Continue working on lifestyle modifications -Recommended self-monitoring BP. -Will prescribe CPAP -Follow up in 3 mo, sooner if any problem arises Relevant Orders Lipid Panel with Reflex to Direct LDL (Completed) Other Visit Diagnoses Abdominal swelling Relevant Orders CBC auto differential (Completed) Comprehensive Metabolic Panel (Completed) Screening for lipid disorders Subacute sinusitis, unspecified location Temporal pain Relevant Orders Sed Rate by Modified Westergren (Completed) C-reactive Protein (Completed) Dietary counseling Exercise counseling Nausea Relevant Medications ondansetron ODT (Zofran-ODT) 4 MG disintegrating tablet Acute recurrent sinusitis, unspecified location Relevant Orders CT Sinus w/o Contrast Referral to Allergy Lesion of left eyelid Relevant Orders Referral to Ophthalmology Allergies Allergen Reactions Amoxicillin Itching and Rash Diphenhydramine Hallucinations Other reaction(s): Itching Oxycodone Itching Penicillins Hives Other reaction(s): unspecified Current Outpatient Medications Medication Instructions acetaminophen (TYLENOL) 1,000 mg, Oral, Every 6 hours PRN albuterol (2.5 MG/3ML) 0.083% nebulizer solution inhale 3 milliliter (2.5MG) by nebulization route every 4-6 hours as needed for difficulty breathing, up to 4 times/day as needed albuterol (Ventolin HFA) 108 (90 Base) MCG/ACT inhaler 2 puffs, Inhalation, Every 6 hours PRN amphetamine-dextroamphetamine XR (Adderall XR) 15 MG 24 hr capsule 15 mg, Oral, Every morning Blood Glucose Monitoring Suppl (ONE TOUCH ULTRA 2) w/Device kit USE DIRECTED Blood Pressure Monitor misc Check BP daily calcitriol (ROCALTROL) 0.5 mcg, Oral, Daily famotidine (PEPCID) 20 mg, Oral, Nightly fluticasone (Flonase Allergy Relief) 50 MCG/ACT nasal spray 2 sprays, Each Nostril, Daily, In each nostril Gas-X Extra Strength 125 mg, Oral, 4 times daily PRN glucose blood (Ranberryuch Ultra) test strip Insert 1 by into machine route 2 times every day hydrOXYzine HCl (ATARAX) 50 mg, Oral, 3 times daily ibuprofen 800 MG tablet take 1 tablet by oral route every 8 hours as needed for pain / fever. DO NOT TAKE EVERYDAY FOR > 2 WKS lactase (Lactaid) 3000 units tablet 1 tablet, Oral, Daily Lancets (Ecelles Carsontouch ultrasoft) lancets 1 each, Other, Inject 1 by into machine route 2 times every day loratadine (CLARITIN) 10 mg, Oral, Daily Melatonin 3 MG capsule Take 1 or 2 capsules 3 hours before your desired bedtime as needed meloxicam (MOBIC) 7.5 mg, Oral, 2 times daily mometasone (Elocon) 0.1 % ointment Apply thin layer after before bedtime montelukast (SINGULAIR) 10 mg, Oral, Every evening Multiple Vitamin (Multi-Vitamin) tablet 1 tablet, Oral, Daily, With food ondansetron ODT (ZOFRAN-ODT) 4 mg, Oral, Every 8 hours PRN OXcarbazepine (TRILEPTAL) 600 mg, Oral, 2 times daily pantoprazole (PROTONIX) 40 mg, Oral, 2 times daily, Do not crush, chew, or split. tiZANidine (ZANAFLEX) 4 mg, Oral, 3 times daily Zepbound 5 MG/0.5ML solution auto-injector ADMINISTER 5 MG UNDER THE SKIN 1 TIME EVERY WEEK Follow-up: 3 months for RV on Headache and Abdominal Discomfort or sooner if any problem arises. Scribe Attestation: IKaty, am serving as a scribe to document services personally performed by Damaris Ramos MD, based on the patient's response to questions by provider and provides statements to me. 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 Negative 16/18 - Colonoscopy / ECC / Bx on 08/15/24 EMETERIO-1 * Assessment & Plan Note - Damaris Ramos MD - 10/02/2024 4:15 PM ESTAssociated Problem(s): Allergic rhinitis - will evaluate with sinus CT - will refer to astronaut mission specialist for further evaluation * Assessment & Plan Note - Damaris Ramos MD - 10/02/2024 4:14 PM ESTAssociated Problem(s): Mood disorder (CMS/HCC) -Pt is followed by [facility] provider, psychiatrist, and therapist - Current Dx: bipolar and ADHD -Current medications: in last 1 year, she has not picked up any medication except med for ADHD. Escitalopram, trazodone, and lamotrigine are still on outside facility record. -Previous medications: Valproic acid, zolpidem, Escitalopram; lamotrigine; oxcarbazepine; hydroxyzine; trazodone - Improve adherence to prescribed medications - Encourage to consult with behavioral health service provide regarding to supplements -She was able to contact her safety today * Assessment & Plan Note - Damaris Ramos MD - 10/02/2024 4:13 PM ESTAssociated Problem(s): Bipolar disorder (CMS/HCC) -Pt is followed by [facility] provider, psychiatrist, and therapist -Current medications: Escitalopram; lamotrigine; oxcarbazepine; hydroxyzine; trazodone - questionable adherence -Previous medications: Valproic acid, zolpidem -Continue current medication and current treatment plan per [facility] provider -She was able to contact her safety today * Assessment & Plan Note - Damaris Ramos MD - 10/02/2024 4:12 PM ESTAssociated Problem(s): Obesity - previously enrolled in [facility] management clinic - initially planned for laparoscopic sleeve gastrectomy, but patient elected non-surgical weight loss without [facility] Wt management clinic - currently on GLP1RA. Will continue current dose. * Assessment & Plan Note - Damaris Ramos MD - 10/02/2024 4:11 PM ESTAssociated Problem(s): Vitamin D deficiency - continue vitamin D 3000 units daily as prescribed * Assessment & Plan Note - Damaris Ramos MD - 10/02/2024 4:11 PM ESTAssociated Problem(s): Gastroesophageal reflux disease - Continue pantoprazole 40 mg bid - 07/15/24 EGD/colonoscopy: Normal / internal and external hemorrhoids. * Assessment & Plan Note - Damaris Ramos MD - 10/02/2024 4:11 PM ESTAssociated Problem(s): IBS (irritable bowel syndrome) - Following with [facility] - 07/15/24 EGD/colonoscopy: Normal / internal and external hemorrhoids. - Recommended low FODMAP diet. Prescribed simethicone prn. * Assessment & Plan Note - Damaris Ramos MD - 10/02/2024 4:06 PM ESTAssociated Problem(s): MARGARITA (obstructive sleep apnea) - Sleep Study on 06/21/22 MARGARITA and Periodic Limb Movement disorder - She has been trying without CPAP since she has lost weight; she states she disliked CPAP due to its discomfort - Encouraged to continue working on lifestyle modification and repeat sleep study if needed - Patient no longer has CPAP - Patient is currently using GLP1-RA - Patient is having headache; consider another sleep study * Assessment & Plan Note - Katy Hyde MA - 09/28/2024 5:07 PM ESTAssociated Problem(s): Chronic nonintractable headache - MRI on 07/29/22 normal - Previously diagnosed with MARGARITA and prescribed CPAP; patient lost weight and was sleeping better without CPAP - Improve sleep hygiene - s/p PT for neck pain - stress reduction - currently on GLP1RA for MARGARITA and weight loss - optimize treatment for allergic rhinitis. Will evaluate for sinusitis - consider neuro referral for evaluation for intracranial hypertension - judicious use of ibuprofen and acetaminophen prn * Assessment & Plan Note - Katy Hyde MA - 09/28/2024 5:06 PM ESTAssociated Problem(s): Neck pain - Evaluate with x-ray. - Continue acetaminophen prn. - Pt has already completed physical therapy. - Patient was referred to orthopedist. - Prescribed ibuprofen 800 MG tablet 09/28/24 * Assessment & Plan Note - Katy Hyde MA - 09/28/2024 5:06 PM ESTAssociated Problem(s): Chronic bilateral back pain - Prescribed ibuprofen 800 MG tablet 09/28/24 * Assessment & Plan Note - Katy Hyde MA - 09/28/2024 8:35 AM ESTAssociated Problem(s): Prediabetes -05/29/21 A1C 6.0% -04/29/22 A1C 5.7% -01/22/23 A1C 5.9% -05/21/23 A1C 5.5% - 09/28/24 A1c 5.3% -family Hx DM -continue working on lifestyle [...] Type Priority Associated Diagnoses Orde r Schedule CT Sinus w/o Contrast Imaging Routine Seasonal allergic rhinitis, unspecified trigger Acute recurrent sinusitis, unspecified location Expected: 10/02/2024, Expires: 10/02/2025 Scheduled Referrals Name Type Priority Associated Diagnoses Order Schedule Referral to Allergy Outpatient Referral Routine Seasonal allergic rhinitis, unspecified trigger Acute recurrent sinusitis, unspecified location Expected: 10/02/2024 (Approximate), Expires: 10/02/2025 Referral to Ophthalmology Outpatient Referral Routine Lesion of left eyelid Expected: 10/02/2024 (Approximate), Expires: 10/02/2025 documented as of this encounter Procedures Procedure Name Priority Date/Time Associated Diagnosis Comments VITAMIN D,25-OH,TOTAL,IA Routine 09/28/2024 9:51 AM EST Family history of diabetes mellitus type II TSH W/REFLEX TO FT4 Routine 09/28/2024 9 :51 AM EST Prediabetes LIPID PANEL WITH REFLEX TO DIRECT LDL Routine 09/28/2024 9:51 AM EST Elevated BP without diagnosis of hypertension CBC WITH AUTO DIFFERENTIAL Routine 09/28/2024 9:51 AM EST Abdominal swelling SED RATE BY MODIFIED WESTERGREN Routine 09/28/2024 9:51 AM EST Temporal pain C-REACTIVE PROTEIN Routine 09/28/2024 9: 51 AM EST Temporal pain HEMOGLOBIN A1C Routine 09/28/2024 9:51 AM EST Prediabetes COMPREHENSIVE METABOLIC PANEL Routine 09/28/2024 9:51 AM EST Abdominal swelling documented in this encounter Results * Hemoglobin A1c (09/28/2024 9:51 AM EST) Hemoglobin A1c 5.3 <6.0 % [facility] Comment:Hemoglobin A1C Refer ence Range Adults: 4.8 - 6.0 % Non diabetic: < 6.0 % Goal: < 7.0 %Additional Action Suggested: > 8.0 %Note: Hemoglobin A1c results are invalid for patients with abnormal amounts of HbF. Blood transfusions may impact the HbA1c concentration in the patient sample. Estimated Average Glucose 105 mg/dL [facility] Comment:eAG = Estimated ave rage glucose which is %A1C expressed asaverage glucose, using the formula of the [id number] Glucose study (ADAG), Diabetes Care, Vol.31,#8,2007 Blood Venous blood specimen / Unknown 09/28/2024 9:51 AM EST 09/28/2024 11:10 AM EST Damaris Ramos MD LAB BLOOD ORDERABLES Final Resul t [facility] [address] [place] [phone] * Vitamin D, 25-Hydroxy, Total, Immunoassay (09/28/2024 9:51 AM EST) Vitamin D 25-OH Total 33.6 >30 ng/mL [facility] Comment:Health Based Referen ce Values*< 20 ng/mL [id number] ng/mL Insufficient> 30 ng/mL Sufficient*Jackie YUEN. N Engl J Med. 2007;357:266-280Care must be taken in interpreting Vitamin D results fromdifferent laboratories and methodologies. Published datademonstrated that results from patients undergoinghemodialysis may show a negative bias when tested withvarious automated 25-OH vitamin D assays when compared toLC-MS/MS.When testing samples from patients whose predominant form ofVitamin D is Vitamin D2, such as patients receiving VitaminD2 supplementation, results that are subtherapeutic shouldbe confirmed with another method such as LC-MS/MS. Blood Venous blood specimen / Unknown 09/28/2024 9:51 AM EST 09/28/2024 11:10 AM EST us Damaris Ramos MD LAB BLOOD ORDERABLES Final Resul t [facility] [address] [place] [address] [phone] * TSH with Reflex to Free T4 (09/28/2024 9:51 AM EST) TSH reflex Free T4 0.76 0.32 - 4.0 uIU/mL [facility] Blood 09/28/2024 9:51 AM EST 09/28/2024 11:10 AM EST us Damaris Ramos MD LAB BLOOD ORDERABLES Final Resul t Performing Organization Address [facility] Co de Phone Number [facility] [address] [place] [address] [phone] * (ABNORMAL) Lipid Panel with Reflex to Direct LDL (09/28/2024 9:51 AM EST) Triglycerides 129 <150 mg/dL [facility] Comment:Desirable Triglyceri de: less than 150 mg/dLBorderline High Triglyceride 150-199 mg/dLHigh Triglyceride: 200-499 mg/dLVery High Triglyceride: greater than or equal to 5OO mg/dL Cholesterol 172 <200 mg/dL [facility] Comment:Desirable Cholestero l: less than 200 mg/dLBorderline High Cholesterol: 200-239 mg/dLHigh Cholesterol: greater than 239 mg/dL LDL Cholesterol Calculated 109(H) <100 mg/dL [facility] Comment:Desirable LDL: less than 100 mg/dLNear Optimal/Above Optimal LDL: 110- 129 mg/dLBorderline High LDL: 130-159 mg/dLHigh LDL: 160-189 mg/dLVery High LDL: greater than or equal to 190 mg/dL HDL Cholesterol 38(L) >40 mg/dL [facility] Comment:Desirable HDL: great er than 40 mg/dL Note: This HDL assay may give artificially low results in patients with liver disease. Blood 09/28/2024 9:51 AM EST 09/28/2024 11:10 AM EST us Damaris Ramos MD LAB BLOOD ORDERABLES Final Resul t Performing Organization Address [facility] Co de Phone Number [facility] [address] [place] [address] [phone] * (ABNORMAL) C-reactive Protein (09/28/2024 9:51 AM EST) C Reactive Protein 0.99(H) < or = 0.50 mg/dL [facility] Blood Venous blood specimen / Unknown 09/28/2024 9:51 AM EST 09/28/2024 11:10 AM EST Damaris Ramos MD LAB BLOOD ORDERABLES Final Resul t Performing Organization Address [facility]/ZIP Co de Phone Number [facility] [address] [place] [phone] * Sed Rate by Modified Westergren (09/28/2024 9:51 AM EST) Erythrocyte Sedimentation Rate 10 0 - 20 MM/HR [facility] Comment:Patients with polycy themia and many hemoglobin abnormalitiesmay have depressed sed rates whereas patients with anemiamay have elevated sed rates. Blood Venous blood specimen / Unknown 09/28/2024 9:51 AM EST 09/28/2024 11:10 AM EST Damaris Ramos MD LAB BLOOD ORDERABLES Final Resul t Performing Organization Address City/[facility]/ZIP Co de Phone Number [facility] [address] [place] [phone] * (ABNORMAL) Comprehensive Metabolic Panel (09/28/2024 9:51 AM EST) Sodium 138 135 - 145 mmol/L [facility] Potassium 4.2 3.3 - 5.1 mmol/L [facility] Chloride 107 96 - 108 mmol/L [facility] Carbon Dioxide 25 22 - 29 mmol/L [facility] Anion Gap 10(L) 12 - 20 [facility] Urea Nitrogen (BUN) 11 9 - 16 mg/dL [facility] Creatinine, Serum 0.70 0.5 - 1.4 mg/dL [facility] Estimated Glomerular Filt Rate >60 [facility] Comment:Chronic Kidney Disea se: Estimated GFR < 60 mL/min/1.93t1Ofeffb Kidney Disease: Estimated GFR < 15 mL/min/1.73m2 Glucose 90 60 - 115 mg/dL [facility] Calcium 9.1 8.4 - 10.2 mg/dL [facility] Bilirubin, Total 0.3 0.0 - 1.0 mg/dL [facility] Aspartate Amino Transferase 23 5 - 31 U/L [facility] Alanine Aminotransferase 40(H) 0 - 31 U/L [facility] Total Protein 7.9 6.5 - 8.0 g/dL [facility] Albumin Level 4.3 3.5 - 5.0 g/dL [facility] Alkaline Phosphatase 88 39 - 117 U/L [facility] Blood Venous blood specimen / Unknown 09/28/2024 9:51 AM EST 09/28/2024 11:10 AM EST us Damaris Ramos MD LAB BLOOD ORDERABLES Final Resul t [facility] [address] [place] [address] [phone] * (ABNORMAL) CBC auto differential (09/28/2024 9:51 AM EST) White Blood Count 9.6 4.8 - 10.8 X10*3/uL [facility] Red Blood Count 4.96 4.20 - 5.50 X10*6/uL [facility] Hemoglobin 15.1 12.0 - 16.0 g/dl [facility] Hematocrit 44.6 37.0 - 47.0 % [facility] Mean Corpuscular Volume 89.9 80.0 - 98.0 fL [facility] Mean Corpuscular Hemoglobin 30.4 27.0 - 33.0 pg [facility] Mean Corpuscular HGB Conc 33.9 31.0 - 35.0 g/dl [facility] Red Cell Distribution Width 12.5 11.0 - 16.0 % [facility] Platelet Count 428(H) 160 - 400 X10*3/uL [facility] Mean Platelet Volume 9.9 9.4 - 12.3 fL [facility] Neutrophils Percent Auto 59.0 45 - 73 % [facility] Imm Gran Pct Auto 0.5(H) 0.0 - 0.4 % [facility] Lymphocytes Percent Auto 29.5 20 - 40 % [facility] Monocytes Percent Auto 8.6 2 - 11 % [facility] Eosinophils Percent Auto 1.9 0 - 4 % [facility] Basophils Percent Auto 0.5 0 - 2 % [facility] NRBC Pct Auto 0.0 0.0 - 0.2 /100WBC [facility] Neutrophils Absolute Auto 5.6 2.0 - 8.3 x10*3/uL [facility] Imm Gran Abs Auto 0.05(H) 0.00 - 0.03 X10*3/uL [facility] Lymphocytes Absolute Auto 2.8 1.2 - 4.9 X10*3/uL [facility] Monocytes Absolute Auto 0.8 0.1 - 1.2 X10*3/uL [facility] Eosinophils Absolute Auto 0.2 0.0 - 0.4 X10*3/uL [facility] Basophils Absolute Auto 0.1 0.0 - 0.2 X10*3/uL [facility] NRBC Abs Auto 0.000 0.0 - 0.012 X10*3/uL [facility] Blood Venous blood specimen / Unknown 09/28/2024 9:51 AM EST 09/28/2024 11:10 AM EST us Damaris Ramos MD LAB BLOOD ORDERABLES Final Resul t [facility] [address] [place], [place] [phone] documented in this encounter Visit Diagnoses Diagnosis Elevated BP without diagnosis of hypertension- Primary Prediabetes Other abnormal glucose Mild intermittent asthma without complication Abdominal swelling Screening for lipid disorders Subacute sinusitis, unspecified location Vitamin D deficiency Family history of diabetes mellitus type II Temporal pain Chronic nonintractable headache, unspecified headache type Chronic bilateral back pain, unspecified back location Neck pain Cervicalgia Dietary counseling Dietary surveillance and counseling Exercise counseling Class 3 severe obesity due to excess calories with serious comorbidity and body mass index (BMI) of 40.0 to 44.9 in adult ([facility]) MARGARITA (obstructive sleep apnea) Obstructive sleep apnea (adult) (pediatric) Nausea Nausea alone Irritable bowel syndrome, unspecified type Gastroesophageal reflux disease, unspecified whether esophagitis present Mood disorder ([facility]) Unspecified episodic mood disorder Recurrent major depressive episodes, moderate ([facility]) Major depressive disorder, recurrent episode, moderate Bipolar affective disorder, currently depressed, moderate ([facility]) Bipolar I disorder, most recent episode (or current) depressed, moderate Seasonal allergic rhinitis, unspecified trigger Acute recurrent sinusitis, unspecified location Cervical dysplasia Dysplasia of cervix, unspecified Lesion of left eyelid documented in this encounter Additional Health Concerns Assessment Noted Time PHQ-9 Depression Total Score: 18 024 12:02 PM EDT documented as of this encounter Care Teams Software Engineer Sales Relationship Specialty Start Date End Date Damaris Ramos MD [address] [place] [phone] PCP - General Family Medicine 08/10/18 documented as of this encounter
--- OUTSIDE RECORDS SUMMARY | 2024-10-04 09:44 | XMS_ITS | Encounter Summary ---
Author Organization [facility] Address [address] [place] [address] 7 [place] [address] Care Team Providers Care Golf Coach Name Role Phone Damaris Ramos MD Primary Care Provider [phone] Reason for Visit * Reason Comments Med Refill Encounter Details Date Type Department Care Team ([facility] st Contact Info) Description 06/16/[address] [facility] [address] [place], [place] [phone] Damaris Ramos MD [address] [place], [place] [phone] Class 3 severe obesity due to excess [...] documented as of this encounter Care Teams Golf Coach Relationship Specialty Start Date End Date Damaris Ramos MD [address] [place] [phone] PCP - General Family Medicine 08/10/18 documented as of this encounter
--- OUTSIDE RECORDS SUMMARY | 2024-10-04 09:44 | XMS_ITS | Encounter Summary ---
Author Organization [facility] Address [address] [place] [address] [address] [place] [address] Care Team Providers Care Fittings Tightener Name Role Phone Damaris Ramos MD Primary Care Provider [phone] Reason for Referral * Consultation (Routine) - Closed Specialty Diagnoses / Procedures Referred By Jennifer walsh Referred To Contact Orthopaedic Surgery Diagnoses Chronic pain of left knee Acute medial meniscus tear of left knee, initial encounter Damaris Ramos MD [address] [place] [phone] Phone: tel: fax: [facility] [address] [place] [address] Drive [address] [place], [place] Phone: tel: fax: Referral ID Status Reason Start Date Expiration Date V isits Requested Visits Authorized [id number] Closed Specialty Services Required 11/19/2023 11/18/2024 1 1 Scheduling Instructions MRI is done and is in Epic under imaging. Encounter Details Date Type Department Care Team (Late st Contact Info) Description 11/19/2023 Orders Only [facility] [address] [place], [place] [phone] Damaris Ramos MD [address] [place] [address] Chronic pain of left knee [...] EDT) CT PCR NOT DETECTED Not Detect. [facility] Comment:A not detected test result does [...] psychologicalconsequences. NG PCR NOT DETECTED Not Detect. [facility] Comment:A not detected test result does [...] AM EDT 02/25/2024 1:02 PM EDT Narrative [facility] - 02/25/2024 3:42 PM EDT Urine us Damaris Ramos MD LAB MICROBIOLOGY - GENERAL ORDER YAMILET Final Result [facility] [address] [place] [phone] * Vitamin B12/Folate, Serum Panel (02/25/2024 10:16 AM EDT) Vitamin B12 640 200 - 900 pg/mL [facility] Comment:NORMAL 200-900 PG/ML INDETERMINATE 160-199 PG/ML DEFICIENT < 160 PG/ML Folate 7.2 > or = 4.0 ng/mL [facility] Comment:Reference Values:> o r = 4.0 ng/mL< 4.0 ng/mL suggests folate deficiency Methotrexate, aminopterin and folinic acid(leucovorin) are chemotherapeutic agents whose molecularstructures are similar to folate; therefore, the Architectfolate assay cannot be used for patients using these drugs. 02/25/2024 10:1 6 AM EDT 02/25/2024 11:15 AM EDT Damaris Ramos MD LAB BLOOD ORDERABLES Final Resul t Performing Organization Address [facility] Number [facility] [address] [place] [address] [phone] * Hepatitis A Antibody, Total (02/25/2024 10:16 AM EDT) Pathologist [facility] Hepatitis A Antibody IgG Nonreactive Nonreactive [facility] Blood Venous blood specimen / Unknown 02/25/2024 10:16 AM EDT 02/25/2024 11:15 AM EDT Damaris Ramos MD LAB BLOOD ORDERABLES Final Resul t Performing Organization Address [facility] de Phone Number [facility] [address] [place] [phone] * Hepatitis B surface antigen, EIA (02/25/2024 10:16 AM EDT) Pathologist [facility] Hepatitis B Surface Ag Negative Negative [facility] Blood Venous blood specimen / Unknown 02/25/2024 10:16 AM EDT 02/25/2024 11:13 AM EDT Damaris Ramos MD LAB BLOOD ORDERABLES Final Resul t Performing Organization Address [facility] Co de Phone Number [facility] [address] [place] [phone] * HIV-1/2 Antigen and Antibodies, Fourth Generation, with Reflexes (02/25/2024 10:16 AM EDT) HIV AB/AG Nonreactive Nonreactive [facility] Comment:HIV-1 p24 Ag and/or HIV-1/HIV-2 Ab not detected.A test result that is nonreactive does not exclude thepossibility of exposure to or infection with HIV-1 and/orHIV-2. Nonreactive results in this assay for individualswith prior exposure to HIV-1 and/or HIV-2 may be due toantigen and antibody levels that are below the limit ofdetection of this assay.The Profilepasser HIV Ag/Ab Combo assay result andsupplemental assay results should be interpreted inconjunction with the patient's clinical presentation,history and other laboratory results. If the results areinconsistent with clinical evidence, additional testing issuggested to confirm the result. Blood Venous blood specimen / Unknown 02/25/2024 10:16 AM EDT 02/25/2024 11:13 AM EDT us Damaris Ramos MD LAB BLOOD ORDERABLES Final Resul t Performing Organization Address [facility] Co de Phone Number [facility] [address] [place] [address] [phone] * Hepatitis B Core Antibody, Total (02/25/2024 10:16 AM EDT) Hepatitis B Core Antibody Nonreactive Nonreactive [facility] Blood Venous blood specimen / Unknown 02/25/2024 10:16 AM EDT 02/25/2024 11:13 AM EDT Damaris Ramos MD LAB BLOOD ORDERABLES Final Resul t Performing Organization Address [facility] Co de Phone Number [facility] [address] [place] [phone] * Hepatitis B Surface Antibody, Qualitative (02/25/2024 10:16 AM EDT) ~Hepatitis B Surface Antibody REACTIVE Nonreactive [facility] Comment:REACTIVE: > 11.99 mI U/mL Blood Venous blood specimen / Unknown 02/25/2024 10:16 AM EDT 02/25/2024 11:13 AM EDT us Damaris Ramos MD LAB BLOOD ORDERABLES Final Resul t Performing Organization Address [facility]/ZIP Co de Phone Number [facility] [address] [place] [phone] * Hepatitis C Antibody with Reflex to HCV, RNA, Quantitative, Real-Time PCR (02/25/2024 10:16 AM EDT) Hepatitis C Antibody Nonreactive Nonreactive [facility] Comment:Antibodies to HCV no t detected; does not exclude early acuteHCV infection. Blood Venous blood specimen / Unknown 02/25/2024 10:16 AM EDT 02/25/2024 11:13 AM EDT us Damaris Ramos MD LAB BLOOD ORDERABLES Final Resul t Performing Organization Address [facility] Co de Phone Number [facility] [address] [place] [phone] * Syphilis Screen (02/25/2024 10:16 AM EDT) Syphilis Screen Nonreactive Nonreactive [facility] Blood 02/25/2024 10:1 6 AM EDT 02/25/2024 11:15 AM EDT Damaris Ramos MD LAB BLOOD ORDERABLES Final Resul t Performing Organization Address City/[facility]/ZIP Co de Phone Number [facility] [address] [place] [address] [phone] * Comprehensive Metabolic Panel (02/25/2024 10:16 AM EDT) Pathologist [facility] Sodium 138 135 - 145 mmol/L [facility] Potassium 3.9 3.3 - 5.1 mmol/L [facility] Chloride 105 96 - 108 mmol/L [facility] Carbon Dioxide 24 22 - 29 mmol/L [facility] Anion Gap 13 12 - 20 [facility] Urea Nitrogen (BUN) 11 9 - 16 mg/dL [facility] Creatinine, Serum 0.75 0.5 - 1.4 mg/dL [facility] Estimated Glomerular Filt Rate >60 [facility] Comment:NOTE: For -Am erican individuals, multiply the result by 1.210.Chronic Kidney Disease: Estimated GFR < 60 mL/min/1.08v2Rcjscn Kidney Disease: Estimated GFR < 15 mL/min/1.73m2 Glucose 102 60 - 115 mg/dL [facility] Calcium 9.2 8.4 - 10.2 mg/dL [facility] Bilirubin, Total 0.5 0.0 - 1.0 mg/dL [facility] Aspartate Amino Transferase 16 5 - 31 U/L [facility] Alanine Aminotransferase 26 0 - 31 U/L [facility] Total Protein 7.5 6.5 - 8.0 g/dL [facility] Albumin Level 4.4 3.5 - 5.0 g/dL [facility] Alkaline Phosphatase 70 39 - 117 U/L [facility] Blood Venous blood specimen / Unknown 02/25/2024 10:16 AM EDT 02/25/2024 11:13 AM EDT us Damaris Ramos MD LAB BLOOD ORDERABLES Final Resul t [facility] [address] [place] [phone] * (ABNORMAL) CBC auto differential (02/25/2024 10:16 AM EDT) Pathologist [facility] White Blood Count 8.0 4.8 - 10.8 X10*3/uL [facility] Red Blood Count 4.29 4.20 - 5.50 X10*6/uL [facility] Hemoglobin 14.5 12.0 - 16.0 g/dl [facility] Hematocrit 40.2 37.0 - 47.0 % [facility] Mean Corpuscular Volume 93.7 80.0 - 98.0 fL [facility] Mean Corpuscular Hemoglobin 33.8(H) 27.0 - 33.0 pg [facility] Mean Corpuscular HGB Conc 36.1(H) 31.0 - 35.0 g/dl [facility] Red Cell Distribution Width 12.6 11.0 - 16.0 % [facility] Platelet Count 382 160 - 400 X10*3/uL [facility] Mean Platelet Volume 9.8 9.4 - 12.3 fL [facility] Neutrophils Percent Auto 67.5 45 - 73 % [facility] Imm Gran Pct Auto 0.9(H) 0.0 - 0.4 % [facility] Lymphocytes Percent Auto 21.9 20 - 40 % [facility] Monocytes Percent Auto 8.3 2 - 11 % [facility] Eosinophils Percent Auto 0.8 0 - 4 % [facility] Basophils Percent Auto 0.6 0 - 2 % [facility] NRBC Pct Auto 0.0 0.0 - 0.2 /100WBC [facility] Neutrophils Absolute Auto 5.4 2.0 - 8.3 x10*3/uL [facility] Imm Gran Abs Auto 0.07(H) 0.00 - 0.03 X10*3/uL [facility] Lymphocytes Absolute Auto 1.8 1.2 - 4.9 X10*3/uL [facility] Monocytes Absolute Auto 0.7 0.1 - 1.2 X10*3/uL [facility] Eosinophils Absolute Auto 0.1 0.0 - 0.4 X10*3/uL [facility] Basophils Absolute Auto 0.1 0.0 - 0.2 X10*3/uL [facility] NRBC Abs Auto 0.000 0.0 - 0.012 X10*3/uL [facility] Blood Venous blood specimen / Unknown 02/25/2024 10:16 AM EDT 02/25/2024 11:15 AM EDT us Damaris Ramos MD LAB BLOOD ORDERABLES Final Resul t [facility] [address] [place] [phone] * XR CERVICAL SPINE 3V (12/14/2023 11:00 AM EDT) Anatomical Region Laterality Modality Abdomen Radiographic Danielle ging 12/14/2023 11:0 0 AM EDT Narrative 12/21/2023 10:43 AM EDT ?[facility] ?[address] ?[place] [address] ?XRay Report ? Signed ? Patient: Inostroza,Jexcenia ?MR#: [id number] ?? [id number] ? : 1985 ?Acct:[id number] ? Age/Sex: 38 / F ?ADM Date: 12/14/23 ? Loc: HO.HHCX ? Attending Dr: Damaris Ramos MD ? Ordering Physician: Damaris Ramos MD ?? Date of Service: 12/14/23 ?? Procedure(s): XR cervical spine 3V ?? Accession Number(s): [id number] ? cc: Damaris Ramos MD ? EXAMINATION: [...] 1039 ? DD/ 1100 ? TD/TT: ? Banding Machine Operator: ? Procedure Note Bridgette, Image - 12/21/2023 [facility] [address] [place] [address] XRay Report Signed Patient: Taylor MartinezMR#: [id number] : 1985Acct:[id number] Age/Sex: 38 / FADM Date: 12/14/23 Loc: HO.HHCX Attending Dr: Damaris Ramos MD Ordering Physician: Damaris Ramos MD Date of Service: 12/14/23 Procedure(s): XR cervical spine 3V Accession Number(s): [id number] cc: Damaris Ramos MD EXAMINATION: XR CERVICAL [...] in OV> 12/21/23 1039 DD/ 1100 TD/TT: Banding Machine Operator: Damaris Ramos MD IMG XR PROCEDURES Final Result * XR Shoulder 2+ Views Left (12/14/2023 11:00 AM EDT) Anatomical Region Laterality Modality Upper Extremities, Shoulder Left Radi ographic Imaging 12/14/2023 11:0 0 AM EDT Narrative 12/19/2023 9:18 AM EDT ?[facility] ?[address] ?[place] [address] ?XRay Report ? Signed ? Patient: Inostroza,Jexcenia ?MR#: [id number] ?? [id number] ? : 1985 ?Acct:[id number] ? Age/Sex: 38 / F ?ADM Date: 05/06/24 ? Loc: HO.HHCX ? Attending Dr: Damaris Ramos MD ? Ordering Physician: Damaris Ramos MD ?? Date of Service: 12/14/23 ?? Procedure(s): XR shoulder LT min 2V ?? Accession Number(s): [id number] ? cc: Damaris Ramos MD ? EXAMINATION: [...] reflect calcific tendinitis/tendinosis. ? Dictated By: ?Harman Howe MD ? Signed By: ?<Electronically signed by Harman Howe MD in OV> ?12/19/23 0913 ? DD/ 1100 ? TD/TT: ? Banding Machine Operator: WG ? Procedure Note Bridgette, Image - 12/19/[address] [address] XRay Report Signed Patient: Taylor MartinezMR#: [id number] : 1985Acct:[id number] Age/Sex: 38 / FADM Date: 12/14/23 Loc: HO.HHCX Attending Dr: Damaris Ramos MD Ordering Physician: Damaris Ramos MD Date of Service: 12/14/23 Procedure(s): XR shoulder LT min 2V Accession Number(s): [id number] cc: Damaris Ramos MD EXAMINATION: XR SHOULDER, [...] MD inOV> 12/19/23 0913 DD/ 1100 TD/TT: Banding Machine Operator: WG Damaris Ramos MD IMG XR PROCEDURES [...] documented as of this encounter Care Teams Fittings Tightener Relationship Specialty Start Date End Date Damaris Ramos MD [address] [place] [phone] PCP - General Family Medicine 08/10/18 documented as of this encounter
--- OUTSIDE RECORDS SUMMARY | 2024-10-04 09:44 | XMS_ITS | Clinical Summary ---
Author Organization [employer] [facility] Address [address] [place] [address] [address] [place] [address] Care Team Providers Care Archivist Military History Name Role Phone Damaris Ramos MD Primary Care Provider [phone] Allergies Active Allergy Reactions Criticality Noted Date [...] by mouth 1 (one) time each day. 018 Active Lancets (onetouch ultrasoft) lancets 1 each by Other route. Inject 1 by into machine route 2 times every day Active OXcarbazepine (Trileptal) 600 MG tablet Take 600 mg by mouth in the morning and at bedtime. 022 Active amphetamine-dextr oamphetamine XR (Adderall XR) 15 [...] by mouth 3 times daily. 023 Active Melatonin 3 MG capsule Take [...] 4 times/day as needed 75 mL 1 024 Active mometasone (Elocon) 0.1 % ointment Apply thin layer after before bedtime 45 g Active acetaminophen (Tylenol) 500 MG tablet Take 2 tablets (1,000 mg) by mouth every 6 (six) hours if needed for moderate pain or fever for up to 25 doses. 40 tablet 024 Active Gas-X Extra Strength 125 MG capsule Take 125 mg by mouth if needed in the morning, at noon, in the evening, and at bedtime for flatulence. 024 Active famotidine (Pepcid) 20 MG tablet Take 1 tablet (20 mg) by mouth at bedtime. 90 tablet 3 024 2024 Active Blood Pressure Monitor [facility] Check BP daily 1 each Active albuterol [...] daily. 60 tablet 11 024 2024 Active ibuprofen 800 MG tabletIndications :Chronic nonintractable headache, unspecified headache type,Chronic bilateral back pain, unspecified back location,Neck pain take 1 tablet by oral route every 8 hours as needed for pain / fever. DO NOT TAKE EVERYDAY FOR > 2 WKS 50 tablet 1 025 Active Multiple Vitamin (Multi-Vitamin) tablet Take 1 tablet by mouth Once per day. With food 90 tablet 3 Active fluticasone (Flonase Allergy Relief) 50 MCG/ACT nasal spray Administer 2 sprays into each nostril Once per day. In each nostril 16 g Active loratadine (Claritin) 10 MG tablet Take 1 tablet (10 mg) by mouth Once per day. 90 tablet Active Zepbound 5 MG/0.5ML solution auto-injectorIndi cations:Class 3 severe obesity due to excess calories with serious comorbidity and body mass index (BMI) of 40.0 to 44.9 in adult ([facility]) ADMINISTER 5 MG UNDER THE SKIN 1 TIME EVERY WEEK 2 mL 025 Active ondansetron ODT (Zofran-ODT) 4 MG disintegrating tabletIndications :Nausea Take 1 tablet (4 mg) by mouth every 8 (eight) hours if needed for nausea or vomiting. 30 tablet 1 Active fluticasone (Flonase Allergy Relief) 50 MCG/ACT nasal spray Administer 2 sprays into affected nostril(s) 1 (one) time each day. In each nostril 021 2024 Discontinued(R eorder (will not trigger notification to Pharmacy)) lamoTRIgine (LaMICtal) 100 MG tablet Take 1 tablet by mouth 1 (one) time each day. 2024 Discontinued(M ed list cleanup (will not trigger notification to Pharmacy)) escitalopram (Lexapro) 10 MG tablet Take 1 tablet by mouth 1 (one) time each day. 2024 Discontinued(M ed list cleanup (will not trigger notification to Pharmacy)) ibuprofen 800 MG tabletIndications :Chronic nonintractable headache, unspecified headache type,Chronic bilateral back pain, unspecified back location,Neck pain take 1 tablet by oral route every 8 hours as needed for pain / fever. DO NOT TAKE EVERYDAY FOR > 2 WKS 50 tablet 1 022 2024 Discontinued(R eorder (will not trigger notification to Pharmacy)) traZODone (Desyrel) 50 MG tablet Take 50 mg by mouth at bedtime. 023 2024 Discontinued(M ed list cleanup (will not trigger notification to Pharmacy)) loratadine (Claritin) 10 MG tablet Take 1 tablet (10 mg) by mouth in the morning. 90 tablet 3 024 2024 Discontinued(R eorder (will not trigger notification to Pharmacy)) Multiple Vitamin (Multi-Vitamin) tablet Take 1 tablet by mouth in the morning. With food 90 tablet 3 024 2024 Discontinued(R eorder (will not trigger notification to Pharmacy)) pantoprazole (ProtoNix) 40 MG EC tablet Take 40 mg by mouth 2 times daily. 024 2024 Discontinued(D uplicate order (will not trigger notification to Pharmacy)) azithromycin (Zithromax) 250 MG tablet Take 2 tablets by mouth on Day 1, and 1 tablet daily from Day 2 to Day 5 6 tablet 024 2024 Discontinued(T herapy completed) Zepbound 5 MG/0.5ML solution auto-injectorIndi cations:Class 3 severe obesity due to excess calories with serious comorbidity and body mass index (BMI) of 40.0 to 44.9 in adult ([facility]) ADMINISTER 5 MG UNDER THE SKIN 1 TIME EVERY WEEK 2 mL 1 024 2024 Discontinued Active Problems Problem Noted Date Diagnosed Date [...] (irritable bowel syndrome) 12/14/2023 Assessment & Plan (10/02/2024 4:11 PM EST): - Following with [facility] - 07/15/24 EGD/colonoscopy: Normal / internal and external hemorrhoids. - Recommended low FODMAP diet. Prescribed simethicone prn. Assessment & Plan (12/14/2023 12:00 PM EDT): [...] prn. Neck pain 12/14/2023 Assessment & Plan (10/02/2024 4:08 PM EST): - Evaluate with x-ray. - Continue acetaminophen prn. - Pt has already completed physical therapy. - Patient was referred to orthopedist. - Prescribed ibuprofen 800 MG tablet 09/28/24 Assessment & Plan (02/25/2024 11:14 AM EDT): [...] her to orthopedist. History of cholecystectomy 09/30/2023 Cervical dysplasia 05/21/2023 Assessment & Plan (10/02/2024 4:20 PM EST): - [facility]: [facility] - PAP on 02/02/23 ASCUS with positive HPV - Colposcopy on 05/14/23 Normal - Cotest on 07/20/24 LSIL / positive high-risk HPV. Negative 16/18 - Colonoscopy / ECC / Bx on 08/15/24 EMETERIO-1 Assessment & Plan (09/20/2023 6:20 PM EST): [...] (10/29/2022 11:11 AM EDT): Upcoming appointment with [facility] on 11/07/22 Chronic bilateral back pain 10/29/2022 Assessment & Plan (09/28/2024 5:06 PM EST): - Prescribed ibuprofen 800 MG tablet 09/28/24 Gastroesophageal reflux disease 10/29/2022 Assessment & Plan (10/02/2024 4:11 PM EST): - Continue pantoprazole 40 mg bid - 07/15/24 EGD/colonoscopy: Normal / internal and external hemorrhoids. Assessment & Plan (03/17/2024 10:17 AM EDT): [...] (obstructive sleep apnea) 07/31/2022 Assessment & Plan (10/02/2024 4:06 PM EST): - Sleep Study on 06/21/22 [...] is having headache; consider another sleep study Assessment & Plan (05/25/2024 12:38 PM EDT): [...] pain Prediabetes 07/31/2022 Assessment & Plan (09/28/2024 5:08 PM EST): -05/29/21 A1C 6.0% -04/29/22 A1C [...] intolerance Bipolar disorder 07/31/2022 Assessment & Plan (10/02/2024 4:13 PM EST): -Pt is followed by [facility] provider, psychiatrist, and therapist -Current medications: Escitalopram; lamotrigine; oxcarbazepine; hydroxyzine; trazodone - questionable adherence -Previous medications: Valproic acid, zolpidem -Continue current medication and current treatment plan per [facility] provider -She was able to contact her [facility] today Assessment & Plan (05/25/2024 12:41 PM EDT): -Pt is followed by [facility] provider, psychiatrist, and therapist -Current medications: Escitalopram; lamotrigine; oxcarbazepine; hydroxyzine; trazodone - questionable adherence -Previous medications: Valproic acid, zolpidem -Continue current medication and current treatment plan per [facility] provider -She was able to contact her safety today Assessment & Plan (09/20/2023 6:21 PM EST): -Pt is followed by [facility] provider, psychiatrist, and therapist -Current medications: Escitalopram; lamotrigine; oxcarbazepine; hydroxyzine; trazodone - questionable adherence -Previous medications: Valproic acid, zolpidem -Continue current medication and current treatment plan per [facility] provider -She was able to contact her safety today Assessment & Plan (02/03/2023 12:04 PM EDT): -Pt is followed by [facility] provider, psychiatrist, and therapist at [place] -Current medications: Escitalopram; lamotrigine; oxcarbazepine; hydroxyzine; trazodone -Previous medications: Valproic acid, zolpidem -Continue current medication and current treatment plan per [facility] provider -She was able to contact her [facility] today Assessment & Plan (10/29/2022 11:25 AM EDT): -Pt is followed by [facility] provider, psychiatrist, and therapist at [place] -Current medications: Escitalopram; lamotrigine; oxcarbazepine; hydroxyzine; and zolpidem -Previous medications: Valproic acid -Continue current medication and current treatment plan per [facility] provider -She was able to contact her [facility] Assessment & Plan (07/31/2022 3:24 PM EST): -Pt is followed by [facility] provider, psychiatrist, and therapist at [place] -Current medications: Escitalopram; lamotrigine; oxcarbazepine; hydroxyzine; and zolpidem -Previous medications: Valproic acid -Continue current medication and current treatment plan per [facility] provider -She was able to contact her [facility] Chronic nonintractable headache 07/31/2022 Assessment & Plan (10/02/2024 4:22 PM EST): - MRI on 07/29/22 normal [...] judicious use of ibuprofen and acetaminophen prn Assessment & Plan (05/25/2024 12:39 PM EDT): [...] -MRI showed L medial meniscus tear in 2016 -Patient was seen by [facility] provider on 07/09/20, MRI was ordered, pt states it showed advanced OA and meniscus injury -Seen by [facility] provider on 01/09/22. Recommended against surgery. Rx meloxicam. Pt was unable to get the medication because it is not formulary. -Judicious use of APAP and CBD -Work on weight reduction -Pt completed PT. -Most recent MRI 11/18/23 - Se[place] [facility] [place] on 10/05/23 received steroid injection. Follow [...] -Most recent MRI 11/18/23 - Seen by [facility] [place] on 10/05/23 received steroid injection. Follow [...] Assessment & Plan (05/25/2024 12:42 PM EDT): [facility] provider: -Current medications: Adderall XR 15 mg daily -Previous medications: Adderall XR different dose, Vyvanse but was discontinued -Continue [facility] Assessment & Plan (09/20/2023 6:20 PM EST): [facility] provider: -Current medications: Adderall XR 15 mg daily -Previous medications: Adderall XR different dose, Vyvanse but was discontinued -Continue [facility] Assessment & Plan (02/03/2023 12:03 PM EDT): [facility] provider: [place] -Current medications: Adderall XR 15 mg daily -Previous medications: Adderall XR different dose, Vyvanse but was discontinued -Continue [facility] --Pt was considering about switching Adderall to Strattera. Assessment & Plan (07/31/2022 3:25 PM EST): [facility] provider: [place] -Current medications: Adderall XR 15 mg daily -Previous medications: Adderall XR different dose, Vyvanse but was discontinued -Continue S --Pt was considering about switching Adderall to [...] during next medical appointment. Patient provided with [facility] contact information and [facility] help line. History of sexually transmitted disease 07/21/20 Family history of diabetes mellitus type II 01/09 Vitamin D deficiency 01/24/2016 Assessment & Plan (10/02/2024 4:11 PM EST): - continue vitamin D 3000 units daily as prescribed Assessment & Plan (05/24/2023 10:43 AM EDT): - continue vitamin D 3000 units daily as prescribed Assessment & Plan (02/03/2023 12:02 PM EDT): - continue vitamin D 3000 units daily as prescribed History of psychiatric disorder 12/21/2014 Allergic rhinitis 12/17/2012 Assessment & Plan (10/02/2024 4:15 PM EST): - will evaluate with sinus CT - will refer to disability specialist for further evaluation Assessment & Plan (10/29/2022 11:01 AM EDT): [...] to be more effective Mood disorder 12/17/2012 Assessment & Plan (10/02/2024 4:32 PM EST): -Pt is followed by [facility] provider, psychiatrist, and therapist - Current [...] able to contact her safety today Obesity 12/17/2012 Assessment & Plan (10/02/2024 4:12 PM EST): - previously enrolled in [facility] - initially planned for laparoscopic sleeve gastrectomy, but patient elected non-surgical weight loss without [facility] - currently on GLP1RA. Will continue current dose. Assessment & Plan (05/25/2024 12:42 PM EDT): - previously enrolled in [facility] - initially planned for laparoscopic sleeve gastrectomy, but patient elected non-surgical weight loss without [facility] - She has tried [...] 11:18 AM EDT): - previously enrolled in [facility] - initially planned for laparoscopic sleeve gastrectomy, but patient elected non-surgical weight loss without [facility] - She has tried [...] 6:17 PM EDT): - previously enrolled in [facility] - initially planned for laparoscopic sleeve gastrectomy, but patient elected non-surgical weight loss without [facility] - She has tried [...] 6:19 PM EST): - previously enrolled in [facility] - initially planned for laparoscopic sleeve gastrectomy, but patient elected non-surgical weight loss without [facility] - 05/21/23 total cholesterol 191; triglyceride 106; HDL 40; LDL 130 - 05/21/23 A1C 5.5% - continue working on lifestyle modifications - appreciate her curiosity and knowledge in naturopathic medicine and intention to improve her health Assessment & Plan (05/24/2023 10:46 AM EDT): - enrolled in [facility] - plan for laparoscopic sleeve gastrectomy - continue working on lifestyle modifications - appreciate her curiosity and knowledge in naturopathic medicine and intention to improve her health Assessment & Plan (02/03/2023 12:01 PM EDT): - enrolled in [facility] - plan for laparoscopic [...] alcohol. FU STI test results. FU with [employer] [facility] sp cervical bx. Unprotected sexual intercourse 05/20/2023 [...] Patient will fu with her counselor at [facility] STI testing done/ordered. Patient didn't want to file for a protective order with the police at this time, but I told her she can if she feels threatened by his presence at all, she can also reach out to her counselor or our STI testing site n. Breast pain, left 10/29/2022 09/20/2023 Assessment & Plan (10/29/2022 11:26 AM EDT): Will order mammogram for evaluation Acute severe exacerbation of moderate persistent asthma 07/21/2022 07/31/2022 Encounters Date Type Department Care Team Description 09/28/2024 9:00 AM EST Office Visit [facility] [address] [place] [address] Damaris Ramos MD Elevated BP without diagnosis [...] (BMI) of 40.0 to 44.9 in adult ([facility]); MARGARITA (obstructive sleep apnea); Nausea; Irritable bowel syndrome, unspecified type; Gastroesophageal reflux disease, unspecified whether esophagitis present; Mood disorder ([facility]); Recurrent major depressive episodes, moderate ([facility]); Bipolar affective disorder, currently depressed, moderate ([facility]); Seasonal allergic rhinitis, unspecified trigger; Acute recurrent sinusitis, unspecified location; Cervical dysplasia; Lesion of left eyelid 09/28/2024 Refill [facility] [address] [place] [address] Damaris Ramos MD Class 3 severe obesity due to excess calories with serious comorbidity and body mass index (BMI) of 40.0 to 44.9 in adult ([facility]) 09/28/2024 Travel 09/23/2024 Telephone [facility] [address], [place] [id number] Rubia Cruz MA chart prep 08/15/2024 Orders Only GENERIC EXTERNAL DATA DEPARTMENT Provider, Generic External Data 08/08/2024 Refill [facility] [address] [place] [address] Damaris Ramos MD Class 3 severe obesity due to excess calories with serious comorbidity and body mass index (BMI) of 40.0 to 44.9 in adult ([facility]) 07/20/2024 Orders Only GENERIC EXTERNAL DATA DEPARTMENT [...] 2024 , 07/02/2020, 07/14/2018, Additional history exists Depression Monitoring (PHQ-9) 11/23/2024 05/25/2024, 05/25/2024 Alcohol/Substance Use Screening 05/25/2025 05/25/2024 Depression Screening 05/25/2025 05/25/2024, 05/25/20 24 Cervical Cancer Screening 08/15/2025 HPV/Cotest 08/15/2025 02/02/2023, 01/08, 11/22/2020, Additional history exists Pap Smear 08/15/2025 07/20/2024, 01/09, 01/21/2022, Additional history exists Diabetes: Hemoglobin A1C 09/28/2025 025, 02/25/2024, 05/21/2023, Additional history exists SDOH Screening 09/28/2025 09/28/2024 Tobacco Screening 10/02/2025 10/02/2024 Lipid Panel 09/28/2029 09/28/2024, 02/07, 05/21/2023, Additional history exists DTaP/Tdap/Td Vaccines (3 - [...] Procedure Name Priority Date/Time Associated Diagnosis Comments HEMOGLOBIN A1C Routine 09/28/2024 9:51 AM EST Prediabetes VITAMIN D,25-OH,TOTAL,IA Routine 09/28/2024 9:51 AM EST Family history of diabetes mellitus type II TSH W/REFLEX TO FT4 Routine 09/28/2024 9 :51 AM EST Prediabetes LIPID PANEL WITH REFLEX TO DIRECT LDL Routine 09/28/2024 9:51 AM EST Elevated BP without diagnosis of hypertension C-REACTIVE PROTEIN Routine 09/28/2024 9: 51 AM EST Temporal pain SED RATE BY MODIFIED WESTERGREN Routine 09/28/2024 9:51 AM EST Temporal pain COMPREHENSIVE METABOLIC PANEL Routine 09/28/2024 9:51 AM EST Abdominal swelling CBC WITH AUTO DIFFERENTIAL Routine 09/28/2024 9:51 AM EST Abdominal swelling HEMATOXYLIN AND EOSIN STAIN Routine 08/15/2024 2:17 PM EST COLPOSCOPY Routine 08/15/2024 12:00 AM EST PAP SMEAR Routine 07/20/2024 1:47 PM EST HEPATITIS C AB W/REFL TO HCV RNA, QN, PCR Routine 02/25/2024 10:16 AM EDT Routine screening for STI (sexually transmitted infection) HIV 1/2 ANTIGEN/ANTIBODY, FOURTH GENERATION W/RFL Routine 02/25/2024 10:16 AM EDT Routine screening for STI (sexually transmitted infection) THINPREP IMAGING PAP AND HPV DNA REFLEX HPV 16,18 Routine 02/02/2023 10:58 AM EDT Encounter for well woman exam with routine gynecological exam from Last 3 Months or Most Recently Relevant to Health Maintenance Results * Vitamin D, 25-Hydroxy, Total, Immunoassay (09/28/2024 9:51 AM EST) Vitamin D 25-OH Total 33.6 >30 ng/mL [facility] Comment:Health Based Referen ce Values*< 20 ng/mL [id number] ng/mL Insufficient> 30 ng/mL Sufficient*Jackie YUEN. N [...] ORDERABLES Final Resul t Performing Organization Address [facility] Co de Phone Number [facility] [address] [place] [phone] * TSH with Reflex to Free T4 (09/28/2024 9:51 AM EST) TSH reflex Free T4 0.76 0.32 - 4.0 uIU/mL [facility] Blood 09/28/2024 9:51 AM EST 09/28/2024 11:10 AM EST us Damaris Ramos MD LAB BLOOD ORDERABLES Final Resul t Performing Organization Address [facility] Phone Number [facility] [address] [place] [phone] * (ABNORMAL) Lipid Panel with Reflex to Direct LDL (09/28/2024 9:51 AM EST) Triglycerides 129 <150 mg/dL [facility] Comment:Desirable Triglyceri de: less than 150 mg/dLBorderline High Triglyceride 150-199 mg/dLHigh Triglyceride: 200-499 mg/dLVery High Triglyceride: greater than or equal to 5OO mg/dL Cholesterol 172 <200 mg/dL [facility] Comment:Desirable Cholestero l: less than 200 mg/dLBorderline High Cholesterol: 200-239 mg/dLHigh Cholesterol: greater than 239 mg/dL LDL Cholesterol Calculated 109(H) <100 mg/dL [facility] Comment:Desirable LDL: less than 100 mg/dLNear Optimal/Above Optimal LDL: 110- 129 mg/dLBorderline High LDL: 130-159 mg/dLHigh LDL: 160-189 mg/dLVery High LDL: greater than or equal to 190 mg/dL HDL Cholesterol 38(L) >40 mg/dL [facility] Comment:Desirable HDL: great er than 40 mg/dL Note: This HDL assay may give artificially low results in patients with liver disease. Blood 09/28/2024 9:51 AM EST 09/28/2024 11:10 AM EST us Damaris Ramos MD LAB BLOOD ORDERABLES Final Resul t [facility] [address], [place] [phone] * (ABNORMAL) CBC auto differential (09/28/2024 9:51 AM EST) White Blood Count 9.6 4.8 - 10.8 X10*3/uL [facility] Red Blood Count 4.96 4.20 - 5.50 X10*6/uL [facility] Hemoglobin 15.1 12.0 - 16.0 g/dl [facility] Hematocrit 44.6 37.0 - 47.0 % [facility] Mean Corpuscular Volume 89.9 80.0 - 98.0 fL [facility] Mean Corpuscular Hemoglobin 30.4 27.0 - 33.0 pg [facility] Mean Corpuscular HGB Conc 33.9 31.0 - 35.0 g/dl [facility] Red Cell Distribution Width 12.5 11.0 - 16.0 % [facility] Platelet Count 428(H) 160 - 400 X10*3/uL [facility] Mean Platelet Volume 9.9 9.4 - 12.3 fL [facility] Neutrophils Percent Auto 59.0 45 - 73 % [facility] Imm Gran Pct Auto 0.5(H) 0.0 - 0.4 % [facility] Lymphocytes Percent Auto 29.5 20 - 40 % [facility] Monocytes Percent Auto 8.6 2 - 11 % [facility] Eosinophils Percent Auto 1.9 0 - 4 % [facility] Basophils Percent Auto 0.5 0 - 2 % [facility] NRBC Pct Auto 0.0 0.0 - 0.2 /100WBC [facility] Neutrophils Absolute Auto 5.6 2.0 - 8.3 x10*3/uL [facility] Imm Gran Abs Auto 0.05(H) 0.00 - 0.03 X10*3/uL [facility] Lymphocytes Absolute Auto 2.8 1.2 - 4.9 X10*3/uL [facility] Monocytes Absolute Auto 0.8 0.1 - 1.2 X10*3/uL [facility] Eosinophils Absolute Auto 0.2 0.0 - 0.4 X10*3/uL [facility] Basophils Absolute Auto 0.1 0.0 - 0.2 X10*3/uL [facility] NRBC Abs Auto 0.000 0.0 - 0.012 X10*3/uL [facility] Blood Venous blood specimen / Unknown 09/28/2024 9:51 AM EST 09/28/2024 11:10 AM EST Damaris Ramos MD LAB BLOOD ORDERABLES Final Resul t Performing Organization Address City/[facility] Co de Phone Number [facility] [address] [place] [phone] * Sed Rate by Modified Juanren (09/28/2024 9:51 AM EST) Erythrocyte Sedimentation Rate 10 0 - 20 MM/HR [facility] Comment:Patients with polycy themia and many hemoglobin abnormalitiesmay have depressed sed rates whereas patients with anemiamay have elevated sed rates. Blood Venous blood specimen / Unknown 09/28/2024 9:51 AM EST 09/28/2024 11:10 AM EST us Damaris Ramos MD LAB BLOOD ORDERABLES Final Resul t [facility] [address] [place] [phone] * (ABNORMAL) C-reactive Protein (09/28/2024 9:51 AM EST) C Reactive Protein 0.99(H) < or = 0.50 mg/dL [facility] Blood Venous blood specimen / Unknown 09/28/2024 9:51 AM EST 09/28/2024 11:10 AM EST Damaris Ramos MD LAB BLOOD ORDERABLES Final Resul t Performing Organization Address City/[facility]/ZIP Co de Phone Number [facility] [address] [place] [phone] * Hemoglobin A1c (09/28/2024 9:51 AM EST) Pathologist [facility] Hemoglobin A1c 5.3 <6.0 % [facility] Comment:Hemoglobin A1C Refer ence Range Adults: 4.8 - 6.0 % Non diabetic: < 6.0 % Goal: < 7.0 %Additional Action Suggested: > 8.0 %Note: Hemoglobin A1c results are invalid for patients with abnormal amounts of HbF. Blood transfusions may impact the HbA1c concentration in the patient sample. Estimated Average Glucose 105 mg/dL [facility] Comment:eAG = Estimated ave rage glucose which is %A1C expressed asaverage glucose, using the formula of the E4O-HgpscidCkdgopz Glucose study (ADAG), Diabetes Care, Vol.31,#8,Mar. 2007 Blood Venous blood specimen / Unknown 09/28/2024 9:51 AM EST 09/28/2024 11:10 AM EST Damaris Ramos MD LAB BLOOD ORDERABLES Final Resul t Performing Organization Address City/[facility]/ZIP Co de Phone Number [facility] [address] [place] [phone] * (ABNORMAL) Comprehensive Metabolic Panel (09/28/2024 9:51 AM EST) Pathologist [facility] Sodium 138 135 - 145 mmol/L [facility] Potassium 4.2 3.3 - 5.1 mmol/L [facility] Chloride 107 96 - 108 mmol/L [facility] Carbon Dioxide 25 22 - 29 mmol/L [facility] Anion Gap 10(L) 12 - 20 [facility] Urea Nitrogen (BUN) 11 9 - 16 mg/dL [facility] Creatinine, Serum 0.70 0.5 - 1.4 mg/dL [facility] Estimated Glomerular Filt Rate >60 [facility] Comment:Chronic Kidney Disea se: Estimated GFR < 60 mL/min/1.85g5[place]usun Kidney Disease: Estimated GFR < 15 mL/min/1.73m2 Glucose 90 60 - 115 mg/dL [facility] Calcium 9.1 8.4 - 10.2 mg/dL [facility] Bilirubin, Total 0.3 0.0 - 1.0 mg/dL [facility] Aspartate Amino Transferase 23 5 - 31 U/L [facility] Alanine Aminotransferase 40(H) 0 - 31 U/L [facility] Total Protein 7.9 6.5 - 8.0 g/dL [facility] Albumin Level 4.3 3.5 - 5.0 g/dL [facility] Alkaline Phosphatase 88 39 - 117 U/L [facility] Blood Venous blood specimen / Unknown 09/28/2024 9:51 AM EST 09/28/2024 11:10 AM EST us Damaris Ramos MD LAB BLOOD ORDERABLES Final Resul t [facility] [address], [place] [phone] * Hematoxylin and Eosin Stain (08/15/2024 2:17 PM EST) 08/15/2024 2:17 PM EST 08/16/2024 8:27 AM EST Narrative [facility] - 08/18/2024 11:09 AM EST ----- ------- Name: Inostroza,Jexcenia ? Age/Sex: 39/F ? : 1985 Unit#: [id number] ?? Attend Dr: Giacomo Ugarte MD ?Re08/15/24 ?Status: DEP REF ? Location: HO.LNP ?Disch: ? ----- ------- SPEC : [id number] ? RECD: 08/16/24 ? STATUS: ??SOUT ? REQ NUM: [id number] ? RENEE: 08/15/24-824 ? SUBM DR: Giacomo Ugarte MD ? [...] CONTINUED ON NEXT PAGE ----- ------- Name: Inostroza,Jexcenia ? Age/Sex: 39/F ? : 1985 Unit#: [id number] ?? Attend Dr: Giacomo Ugarte MD ?Re08/15/24 ?Status: DEP REF ? Location: HO.LNP ?Disch: ? ----- ------- SPEC : [id number] ? RECD: 08/16/24 ? STATUS: ??SOUT ? REQ NUM: [id number] ? RENEE: 08/15/24-209 ? SUBM DR: Giacomo Ugarte MD ? [...] Copies To: ?? Damaris Ramos MD ?? [facility] ?? [address] ?? [place] [address] ?? [phone] ?? Giacomo Ugarte MD ?? [facility] [place] [place] [facility] ?? [address] ?? [place] [address] ?? [phone] ----- ------- Signed (signature on file) Adonay Cr MD 08/18/24 9689 ? ----- ------- ? END OF REPORT ? us Generic External Data Provider LAB BLOOD ORDERAB LES Final Result [facility] [address] [place] [phone] * Colposcopy (08/15/2024 12:00 AM EST) Historical Provider MD IN CLINIC/BEDSIDE ORDERAB LES Edited Result - Final * Pap Smear (07/20/2024 1:47 PM EST) 07/20/2024 1:47 PM EST 07/21/2024 9:00 AM EST Narrative [facility] - 07/27/2024 11:19 AM EST ----- ------- Name: Inostroza,Jexcenia ? Age/Sex: 39/F ? : 1985 Unit#: [id number] ?? Attend Dr: Giacomo Ugarte MD ?Re07/20/24 ?Status: DEP REF ? Location: HO.LNP ?Disch: ? ----- ------- SPEC : [id number] ?RECD: 07/21/24 ? STATUS: ??SOUT ? REQ NUM: [id number] ? RENEE: 07/20/24 ? SUBM DR: Giacomo Ugarte MD ? ENTERED: ??07/21/24 ?SP TYPE: Pap Smr ?OTHR DR: Damaris [...] HPV Genotyping 18: ??Negative ?Clinical Information LMP: Mirena Previous PAP test: 02/02/2023, ASCUS, HPV + Other history: Atypical squamous cells of undetermined significance on cytologic smear of cervix (ASC-US), cervical high risk human papillomavirus (HPV) DNA test positive ? Material Received ?? ThinPrep-Cervical Copies To: ?? Damaris Ramos MD ?? [facility] ?? [address] ?? [place] [address] ?? [phone] ?? Giacomo Ugarte MD ?? [facility] [place] [place] [facility] ?? [address] ?? [place] [address] ?? [phone] ----- ------- Signed (signature on file) Adonay Cr MD 07/27/24 1119 ? ----- ------- ? END OF REPORT ? us Generic External Data Provider LAB CYTOLOGY MILLER ORTEGALES Final Result [facility] [address] [place] [address] [phone] * Hepatitis C Antibody with Reflex to HCV, RNA, Quantitative, Real-Time PCR (02/25/2024 10:16 AM EDT) Hepatitis C Antibody Nonreactive Nonreactive [facility] Comment:Antibodies to HCV no t detected; does not exclude early acuteHCV infection. Blood Venous blood specimen / Unknown 02/25/2024 10:16 AM EDT 02/25/2024 11:13 AM EDT Damaris Ramos MD LAB BLOOD ORDERABLES Final Resul t Performing Organization Address [facility]/ZIP Co de Phone Number [facility] [address] [place] [phone] * HIV-1/2 Antigen and Antibodies, Fourth Generation, with Reflexes (02/25/2024 10:16 AM EDT) HIV AB/AG Nonreactive Nonreactive [facility] Comment:HIV-1 p24 Ag and/or HIV-1/HIV-2 Ab not detected.A test result that is nonreactive does not exclude thepossibility of exposure to or infection with HIV-1 and/orHIV-2. Nonreactive results in this assay for individualswith prior exposure to HIV-1 and/or HIV-2 may be due toantigen and antibody levels that are below the limit ofdetection of this assay.[facility] HIV Ag/Ab Combo assay result andsupplemental assay results should be interpreted inconjunction with the patient's clinical presentation,history and other laboratory results. If the results areinconsistent with clinical evidence, additional testing issuggested to confirm the result. Blood Venous blood specimen / Unknown 02/25/2024 10:16 AM EDT 02/25/2024 11:13 AM EDT Damaris Ramos MD LAB BLOOD ORDERABLES Final Resul t Performing Organization Address [facility]/ZIP Co de Phone Number [facility] [address] [place] [phone] * (ABNORMAL) ThinPrep Imaging Pap and HPV DNA reflex HPV 16,18 (02/02/2023 10:58 AM EDT) Clinical Information: None given [facility] LMP: NONE GIVEN [facility] Prev. PAP: NONE GIVEN [facility] Prev. BX: NONE GIVEN [facility] SOURCE: None given [facility] Statement Of Adequacy: [facility] Comment: Satisfactory for evaluation. Endocervical/transformation zone component present. General Categorization: Cytology Results: Epithelial Cell Abnormality(A) [facility] Interpretation/ Result: Atypical Squamous Cells of Undetermined Significance (ASC-US)(A) [facility] [employer] [facility] [facility] COMMENT: This Pap test has been evaluated with computer assisted technology. [email or web address] Cytotechnologis t: [employer] Comment: KN, CT(ASCP) CT screening location: [address] ??[phone] PATHOLOGIST: [facility] Comment: Bernarda Sales D.O. Board Certified in Anatomic, Clinical and Cytopathology (electronic signature) Consulting Pathologist [facility] [address] [place] [address] (Always Message) [employer] [facility] Comment: EXPLANATORY NOTE: The Pap is a [...] DNA, High Risk, Cervical Detected(A) NOT DETECTED Dewayne Zayas/Lewis MENDES Comment: Detected One or more High Risk HPV types (16,18,31,33, 35,39,45,51,52,56,58,59,66,68) was detected. Methodology: Real Time PCR ? Pap Vial 02/02/2023 10:5 8 AM EDT 02/03/2023 9:02 AM EDT us Damaris Ramos MD LAB CYTOLOGY ORDERABLES Final Re sult [address], [place] [address] [facility] [address] [place] [address] Dewayne Zayas/[place] [address] [facility] CINTH[place] [phone] from Last 3 Months or Most Recently Relevant to Health Maintenance Insurance [facility] Care Teams Archivist Military History Relationship Specialty Start Date End Date Damaris Ramos MD [address] [place] [phone] PCP - General Family Medicine 08/10/18
--- OUTSIDE RECORDS SUMMARY | 2024-10-04 09:44 | XMS_ITS | Encounter Summary ---
Author Organization [employer] [facility] Address [address] [place] [address] [address] [place] [address] Care Team Providers Care Dry Cell And Battery Assembler Name Role Phone Damaris Ramos MD Primary Care Provider [phone] Reason for Visit * Reason Comments Med Refill Encounter Details Date Type Department Care Team ([facility] st Contact Info) Description 06/09/2024 Refill [facility] [address] [place], [place] [phone] Damaris Ramos MD [address] [place], [place] [phone] Class 3 severe obesity due to excess [...] documented as of this encounter Care Teams Dry Cell And Battery Assembler Relationship Specialty Start Date End Date Damaris Ramos MD [address] [place] [phone] PCP - General Family Medicine 08/10/18 documented as of this encounter
--- OUTSIDE RECORDS SUMMARY | 2024-10-04 09:44 | XMS_ITS | Encounter Summary ---
Author Organization [employer] [facility] Address [address] [place] [address] [address]t [place] [address] Care Team Providers Care Software Maintenance Engineer Name Role Phone Damaris Ramos MD Primary Care Provider [phone] Encounter Details Date Type Department Care Team ([facility] st Contact Info) Description 02/05/2023 Telephone [facility] MEDICINE [address] [place], [place] [phone] Zoie Doty RN Social History Tobacco Use [...] Date End Date Damaris Ramos MD [address] [place], [place] [phone] PCP - General Family Medicine 08/10/18 documented as of this encounter
== END 2024-10-04 09:26 | disposition home or self-care (01) ==
LOC: HO.HWS 08:59
PROVIDERS: PCP Family Medicine; Visit Provider Obstetrics & Gynecology
DX: N87.0 Mild cervical dysplasia (principal)
CPT/HCPCS: 99213

== ENCOUNTER → 2024-10-04 08:59 | Outpatient (BNVA) | payer OTHER, SELFPAY | PROVIDERS: PCP Family Medicine; Visit Provider Obstetrics & Gynecology ==

== ENCOUNTER 2024-11-24 10:23 | Outpatient (REF) | payer OTHER, SELFPAY ==
--- NOTE | ~2024-11-24 | CT_ITS ---
CLINICAL HISTORY: sinusitis, recurrent. Hx allergic rhinitis. Non-smoker. CT sinuses without contrast Comparison: None Findings: There is nonacute nonaggressive appearing mucoperiosteal thickening in the maxillary antra and ethmoid air cells. The ostiomeatal units are narrowed bilaterally. No yasmine bullosa or Daryn cells. The nasal airways are patent. No nasal polyps or masses. The orbits are normal. No acute fractures. IMPRESSION: No acute findings. This document has been electronically signed by: Hernando Hudson MD on 11/25/2024 09:11:23
--- OUTSIDE RECORDS SUMMARY | 2024-11-24 12:26 | XMS_ITS | Encounter Summary ---
Author Organization [facility] Address [address]t [place] [address] Care Team Providers Care Battery Vent Plug Inserter Name Role Phone Damaris Ramos MD Primary Care Provider [phone] Reason for Referral * Consultation (Urgent) - Closed Specialty Diagnoses / Procedures Referred By Jennifer walsh Referred To Contact Gastroenterology Diagnoses Diarrhea, unspecified type Abdominal pain, unspecified abdominal location Damaris Ramos MD [address] [place] [address] Phone: tel: fax: [facility] [address] [place], [place] Phone: tel: fax: Referral ID Status Reason Start Date Expiration Date V isits Requested Visits Authorized [id number] Closed Specialty Services Required 09/30/2023 09/29/2024 1 1 Scheduling Instructions Patient would like to see any provider in [place], not [facility]. Encounter Details Date Type Department Care Team (Late st Contact Info) Description 09/30/2023 Orders Only [facility] MED[facility] [address] [place] [address] Damaris Ramos MD [address] [place] [address] Diarrhea, unspecified type (Primary Dx); [...] on file documented as of this encounter Procedures Procedure Name Priority Date/Time Associated Diagnosis Comments AMB REFERRAL TO GASTROENTEROLOGY Urgent 07/15/2024 Diarrhea, unspecified type Abdominal pain, unspecified abdominal location documented in this encounter Results * Referral to Gastroenterology (07/15/2024) Damaris Ramos MD OUTPATIENT REFERRAL ORDERABLES F inal Result documented in this encounter Visit Diagnoses Diagnosis Diarrhea, unspecified type- Primary Abdominal pain, unspecified abdominal location documented in this encounter Additional Health Concerns Assessment Noted Time PHQ-9 Depression Total Score: 0 05/21/20 23 10:05 AM EDT documented as of this encounter Care Teams Battery Vent Plug Inserter Relationship Specialty Start Date End Date Damaris Ramos MD [address] [place] [phone] PCP - General Family Medicine 1/1/19 documented as of this encounter
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
--- OUTSIDE RECORDS SUMMARY | 2024-11-24 12:26 | XMS_ITS | Encounter Summary ---
Author Organization [facility] Address [address] [place] [address] [address] [place] [address] Care Team Providers Care Dragger Name Role Phone Damaris Ramos MD Primary Care Provider Reason for Visit * Reason Onset Date Comments Durable Medical Equipment 10/24/2024 Encounter Details Date Type Department Care Team ([facility] st Contact Info) Description 10/24/2024 Telephone [facility] [address] [place], [place] [phone] Damaris Ramos MD [address] [place], [place] [phone] Durable Medical Equipment Social History Tobacco Use Types Packs/Day Years [...] encounter Miscellaneous Notes * Telephone Encounter - Bess Chadwick - 10/25/2024 11:47 AM EDT Request for CPAP received from [facility] fleet coordinator; forwarded to provider for review on separate encounter. * Telephone Encounter - Jimenez Kwon - 10/24/2024 3:30 PM EDT Tc from pt requesting to get a Cpap Machine. Pt states that she has already had one before and wants to get it back due to how she is feeling and she feel shira she is not getting enough Air at night. Contact pt at [phone] documented in this encounter Plan of Treatment Not on file documented as of this encounter Visit Diagnoses Not on filedocumented in this encounter Additional Health Concerns Assessment Noted Time PHQ-9 Depression Total Score: 18 024 12:02 PM EDT documented as of this encounter Care Teams Dragger Relationship Specialty Start Date End Date Damaris Ramos MD [address] [place] [phone] PCP - General Family Medicine 08/10/18 documented as of this encounter
--- OUTSIDE RECORDS SUMMARY | 2024-11-24 12:27 | XMS_ITS | Encounter Summary ---
Author Organization [employer] [facility] Address [address] [place] [address] 7t [place] [address] Care Team Providers Care Entertainment Usher Name Role Phone Damaris Ramos MD Primary Care Provider [phone] Encounter Details Date Type Department Care Team ([facility] st Contact Info) Description 02/05/2023 Telephone [facility] MEDICINE [address] [place], [place] [phone] Zoie Doty RN Social History Tobacco Use [...] documented as of this encounter Care Teams Entertainment Usher Relationship Specialty Start Date End Date Damaris Ramos MD [address] [place], [place] [phone] PCP - General Family Medicine 08/10/18 documented as of this encounter
--- OUTSIDE RECORDS SUMMARY | 2024-11-24 12:27 | XMS_ITS | Encounter Summary ---
Author Organization [employer] [facility] Address [address] [place] [address] 7t [place] [address] Care Team Providers Care Incident Response Lead Name Role Phone Damaris Ramos MD Primary Care Provider [phone] Reason for Referral * Consultation (Routine) - Closed Specialty Diagnoses / Procedures Referred By Jennifer walsh Referred To Contact Orthopaedic Surgery Diagnoses Chronic pain of left knee Acute medial meniscus tear of left knee, initial encounter Damaris Ramos MD [address] [place] [phone] Phone: tel: fax: [facility] [address] [place] [address] Drive [address] [place], [place] Phone: tel: fax: Referral ID Status Reason Start Date Expiration Date V isits Requested Visits Authorized [id number] Closed Specialty Services Required 11/19/2023 11/18/2024 1 1 Scheduling Instructions MRI is done and is in Epic under imaging. Encounter Details Date Type Department Care Team (Late st Contact Info) Description 11/19/2023 Orders Only [facility] MEDICINE [address] [place], [place] [phone] Damaris Ramos MD [address] [place] [address] Chronic pain of left knee [...] EDT) CT PCR NOT DETECTED Not Detect. [facility] Comment:A not detected test result [...] psychologicalconsequences. NG PCR NOT DETECTED Not Detect. [facility] Comment:A not detected test result [...] AM EDT 02/25/2024 1:02 PM EDT Narrative [facility] - 02/25/2024 3:42 PM EDT Urine us Damaris Ramos MD LAB MICROBIOLOGY - GENERAL ORDER YAMILET Final Result [facility] [address] [place] [phone] * Vitamin B12/Folate, Serum Panel (02/25/2024 10:16 AM EDT) Vitamin B12 640 200 - 900 pg/mL [facility] Comment:NORMAL 200-900 PG/ML INDETERMINATE 160-199 PG/ML DEFICIENT < 160 PG/ML Folate 7.2 > or = 4.0 ng/mL [facility] Comment:Reference Values:> o r = 4.0 ng/mL< 4.0 ng/mL suggests folate deficiency Methotrexate, aminopterin and folinic acid(leucovorin) are chemotherapeutic agents whose molecularstructures are similar to folate; therefore, the Architectfolate assay cannot be used for patients using these drugs. 02/25/2024 10:1 6 AM EDT 02/25/2024 11:15 AM EDT Damaris Ramos MD LAB BLOOD ORDERABLES Final Resul t Performing Organization Address [facility] Number [facility] [address] [place] [phone] * Hepatitis A Antibody, Total (02/25/2024 10:16 AM EDT) Pathologist [facility] Hepatitis A Antibody IgG Nonreactive Nonreactive [facility] Blood Venous blood specimen / Unknown 02/25/2024 10:16 AM EDT 02/25/2024 11:15 AM EDT Damaris Ramos MD LAB BLOOD ORDERABLES Final Resul t Performing Organization Address [facility] de Phone Number [facility] [address] [place] [phone] * Hepatitis B surface antigen, EIA (02/25/2024 10:16 AM EDT) Pathologist [facility] Hepatitis B Surface Ag Negative Negative [facility] Blood Venous blood specimen / Unknown 02/25/2024 10:16 AM EDT 02/25/2024 11:13 AM EDT Damaris Ramos MD LAB BLOOD ORDERABLES Final Resul t Performing Organization Address [facility] Co de Phone Number [facility] [address] [place] [phone] * HIV-1/2 Antigen and Antibodies, Fourth Generation, with Reflexes (02/25/2024 10:16 AM EDT) HIV AB/AG Nonreactive Nonreactive [facility] Comment:HIV-1 p24 Ag and/or HIV-1/HIV-2 Ab not detected.A test result that is nonreactive does not exclude thepossibility of exposure to or infection with HIV-1 and/orHIV-2. Nonreactive results in this assay for individualswith prior exposure to HIV-1 and/or HIV-2 may be due toantigen and antibody levels that are below the limit ofdetection of this assay.The myfab5 HIV Ag/Ab Combo assay result andsupplemental assay results should be interpreted inconjunction with the patient's clinical presentation,history and other laboratory results. If the results areinconsistent with clinical evidence, additional testing issuggested to confirm the result. Blood Venous blood specimen / Unknown 02/25/2024 10:16 AM EDT 02/25/2024 11:13 AM EDT us Damaris Ramos MD LAB BLOOD ORDERABLES Final Resul t Performing Organization Address [facility] Co de Phone Number [facility] [address] [place] [phone] * Hepatitis B Core Antibody, Total (02/25/2024 10:16 AM EDT) Hepatitis B Core Antibody Nonreactive Nonreactive [facility] Blood Venous blood specimen / Unknown 02/25/2024 10:16 AM EDT 02/25/2024 11:13 AM EDT Damaris Ramos MD LAB BLOOD ORDERABLES Final Resul t Performing Organization Address [facility] Co de Phone Number [facility] [address] [place] [phone] * Hepatitis B Surface Antibody, Qualitative (02/25/2024 10:16 AM EDT) ~Hepatitis B Surface Antibody REACTIVE Nonreactive [facility] Comment:REACTIVE: > 11.99 mI U/mL Blood Venous blood specimen / Unknown 02/25/2024 10:16 AM EDT 02/25/2024 11:13 AM EDT us Damaris Ramos MD LAB BLOOD ORDERABLES Final Resul t Performing Organization Address [facility]/ZIP Co de Phone Number [facility] [address] [place] [phone] * Hepatitis C Antibody with Reflex to HCV, RNA, Quantitative, Real-Time PCR (02/25/2024 10:16 AM EDT) Hepatitis C Antibody Nonreactive Nonreactive [facility] Comment:Antibodies to HCV no t detected; does not exclude early acuteHCV infection. Blood Venous blood specimen / Unknown 02/25/2024 10:16 AM EDT 02/25/2024 11:13 AM EDT us Damaris Ramos MD LAB BLOOD ORDERABLES Final Resul t Performing Organization Address [facility] Co de Phone Number [facility] [address] [place] [phone] * Syphilis Screen (02/25/2024 10:16 AM EDT) Syphilis Screen Nonreactive Nonreactive [facility] Blood 02/25/2024 10:1 6 AM EDT 02/25/2024 11:15 AM EDT Damaris Ramos MD LAB BLOOD ORDERABLES Final Resul t Performing Organization Address City/[facility]/ZIP Co de Phone Number [facility] [address] [place] [phone] * Comprehensive Metabolic Panel (02/25/2024 10:16 AM EDT) Pathologist [facility] Sodium 138 135 - 145 mmol/L [facility] Potassium 3.9 3.3 - 5.1 mmol/L [facility] Chloride 105 96 - 108 mmol/L [facility] Carbon Dioxide 24 22 - 29 mmol/L [facility] Anion Gap 13 12 - 20 [facility] Urea Nitrogen (BUN) 11 9 - 16 mg/dL [facility] Creatinine, Serum 0.75 0.5 - 1.4 mg/dL [facility] Estimated Glomerular Filt Rate >60 [facility] Comment:NOTE: For -Am erican individuals, multiply the result by 1.210.Chronic Kidney Disease: Estimated GFR < 60 mL/min/1.19s6Majofe Kidney Disease: Estimated GFR < 15 mL/min/1.73m2 Glucose 102 60 - 115 mg/dL [facility] Calcium 9.2 8.4 - 10.2 mg/dL [facility] Bilirubin, Total 0.5 0.0 - 1.0 mg/dL [facility] Aspartate Amino Transferase 16 5 - 31 U/L [facility] Alanine Aminotransferase 26 0 - 31 U/L [facility] Total Protein 7.5 6.5 - 8.0 g/dL [facility] Albumin Level 4.4 3.5 - 5.0 g/dL [facility] Alkaline Phosphatase 70 39 - 117 U/L [facility] Blood Venous blood specimen / Unknown 02/25/2024 10:16 AM EDT 02/25/2024 11:13 AM EDT us Damaris Ramos MD LAB BLOOD ORDERABLES Final Resul t [facility] [address] [place] [phone] * (ABNORMAL) CBC auto differential (02/25/2024 10:16 AM EDT) Pathologist [facility] White Blood Count 8.0 4.8 - 10.8 X10*3/uL [facility] Red Blood Count 4.29 4.20 - 5.50 X10*6/uL [facility] Hemoglobin 14.5 12.0 - 16.0 g/dl [facility] Hematocrit 40.2 37.0 - 47.0 % [facility] Mean Corpuscular Volume 93.7 80.0 - 98.0 fL [facility] Mean Corpuscular Hemoglobin 33.8(H) 27.0 - 33.0 pg [facility] Mean Corpuscular HGB Conc 36.1(H) 31.0 - 35.0 g/dl [facility] Red Cell Distribution Width 12.6 11.0 - 16.0 % [facility] Platelet Count 382 160 - 400 X10*3/uL [facility] Mean Platelet Volume 9.8 9.4 - 12.3 fL [facility] Neutrophils Percent Auto 67.5 45 - 73 % [facility] Imm Gran Pct Auto 0.9(H) 0.0 - 0.4 % [facility] Lymphocytes Percent Auto 21.9 20 - 40 % [facility] Monocytes Percent Auto 8.3 2 - 11 % [facility] Eosinophils Percent Auto 0.8 0 - 4 % [facility] Basophils Percent Auto 0.6 0 - 2 % [facility] NRBC Pct Auto 0.0 0.0 - 0.2 /100WBC [facility] Neutrophils Absolute Auto 5.4 2.0 - 8.3 x10*3/uL [facility] Imm Gran Abs Auto 0.07(H) 0.00 - 0.03 X10*3/uL [facility] Lymphocytes Absolute Auto 1.8 1.2 - 4.9 X10*3/uL [facility] Monocytes Absolute Auto 0.7 0.1 - 1.2 X10*3/uL [facility] Eosinophils Absolute Auto 0.1 0.0 - 0.4 X10*3/uL [facility] Basophils Absolute Auto 0.1 0.0 - 0.2 X10*3/uL [facility] NRBC Abs Auto 0.000 0.0 - 0.012 X10*3/uL [facility] Blood Venous blood specimen / Unknown 02/25/2024 10:16 AM EDT 02/25/2024 11:15 AM EDT us Damaris Ramos MD LAB BLOOD ORDERABLES Final Resul t [facility] [address] [place] [phone] * XR CERVICAL SPINE 3V (12/14/2023 11:00 AM EDT) Anatomical Region Laterality Modality Abdomen Radiographic Danielle ging 12/14/2023 11:0 0 AM EDT Narrative 12/21/2023 10:43 AM EDT ?[facility] ?[address] ?[place] [address] ?XRay Report ? Signed ? Patient: Inostroza,Jexcenia ?MR#: [id number] ?? [id number] ? : 1985 ?Acct:[id number] ? Age/Sex: 38 / F ?ADM Date: 12/14/23 ? Loc: HO.HHCX ? Attending Dr: Damaris Ramos MD ? Ordering Physician: Damaris Ramos MD ?? Date of Service: 12/14/23 ?? Procedure(s): XR cervical spine 3V ?? Accession Number(s): [id number] ? cc: Damaris Ramos MD ? EXAMINATION: [...] 1039 ? DD/ 1100 ? TD/TT: ? Attending Psychiatrist: ? Procedure Note Bridgette, Image - 12/21/2023 [facility] [address] [place] [address] XRay Report Signed Patient: Taylor MartinezMR#: [id number] : 1985Acct:[id number] Age/Sex: 38 / FADM Date: 12/14/23 Loc: HO.HHCX Attending Dr: Damaris Ramos MD Ordering Physician: Damaris Ramos MD Date of Service: 12/14/23 Procedure(s): XR cervical spine 3V Accession Number(s): [id number] cc: Damaris Ramos MD EXAMINATION: XR CERVICAL [...] in OV> 12/21/23 1039 DD/ 1100 TD/TT: Attending Psychiatrist: Damaris Ramos MD IMG XR PROCEDURES Final Result * XR Shoulder 2+ Views Left (12/14/2023 11:00 AM EDT) Anatomical Region Laterality Modality Upper Extremities, Shoulder Left Radi ographic Imaging 12/14/2023 11:0 0 AM EDT Narrative 12/19/2023 9:18 AM EDT ?[facility] ?[address] ?[place] [address] ?XRay Report ? Signed ? Patient: Inostroza,Jexcenia ?MR#: [id number] ?? [id number] ? : 1985 ?Acct:[id number] ? Age/Sex: 38 / F ?ADM Date: 05/06/24 ? Loc: HO.HHCX ? Attending Dr: Damaris Ramos MD ? Ordering Physician: Damaris Ramos MD ?? Date of Service: 12/14/23 ?? Procedure(s): XR shoulder LT min 2V ?? Accession Number(s): [id number] ? cc: Damaris Ramos MD ? EXAMINATION: [...] 0913 ? DD/ 1100 ? TD/TT: ? Attending Psychiatrist: WG ? Procedure Note Bridgette, Image - 12/19/[address] [address] XRay Report Signed Patient: Taylor MartinezMR#: [id number] : 1985Acct:[id number] Age/Sex: 38 / FADM Date: 12/14/23 Loc: HO.HHCX Attending Dr: Damaris Ramos MD Ordering Physician: Damaris Ramos MD Date of Service: 12/14/23 Procedure(s): XR shoulder LT min 2V Accession Number(s): [id number] cc: Damaris Ramos MD EXAMINATION: XR SHOULDER, [...] MD inOV> 12/19/23 0913 DD/ 1100 TD/TT: Attending Psychiatrist: WG Damaris Ramos MD IMG XR PROCEDURES [...] documented as of this encounter Care Teams Incident Response Lead Relationship Specialty Start Date End Date Damaris Ramos MD [address] [place] [phone] PCP - General Family Medicine 08/10/18 documented as of this encounter
--- OUTSIDE RECORDS SUMMARY | 2024-11-24 12:27 | XMS_ITS | Encounter Summary ---
Author Organization [employer] [facility] Address [address] [place] [address] 7t [place] [address] Care Team Providers Care Hotel Operations Manager Name Role Phone Damaris Ramos MD Primary Care Provider [phone] Reason for Referral * Consultation (Routine) - Closed Specialty Diagnoses / Procedures Referred By Jennifer walsh Referred To Contact Orthopaedic Surgery Diagnoses Chronic left shoulder pain Neck pain Damaris aRmos MD [address] [place] [address] Phone: tel: fax: [facility] [address] [place] [address] Drive [address] [place], [place] Phone: tel: fax: Referral ID Status Reason Start Date Expiration Date V isits Requested Visits Authorized [id number] Closed Specialty Services Required 12/24/2023 12/23/2024 1 1 Encounter Details Date Type Department Care Team (Late st Contact Info) Description 12/24/2023 Orders Only [facility] MEDICINE [address] [place], [place] [phone] Damaris Ramos MD [address] [place], [place] [phone] Chronic left shoulder pain (Primary Dx); Neck [...] documented as of this encounter Care Teams Hotel Operations Manager Relationship Specialty Start Date End Date Damaris Ramos MD [address] [place] [address] PCP - General Family Medicine 08/10/18 documented as of this encounter
--- OUTSIDE RECORDS SUMMARY | 2024-11-24 12:27 | XMS_ITS | Data Portability ---
Author Organization [employer] in - [employer] ([employer] Address [address] [place] [address] Care Team Providers Care Horticulture/Floriculture Teacher Name Role Phone [facility] Referring Provider HIM CCA OTHER Assessment Encounter [...] nausea/vomiting , or any other concerns. VSS. Rack Washer on site reports no distress, clear breath [...] to the pharmacy. Red flags reviewed by mathematics technician. Primary team, Ms. Martinez reports that her nebulizer machine is no longer functional. She would benefit from follow up to ensure she's improving and to re-order a nebulizer machine for her use. [email or web address] Not available 06/05/2023 15:59:47 07/22/2023 07/22/2023 I have reviewed and agree with the Assessment and Plan as documented by the Rack Washer. I provided real-time medical direction via phone [...] in the field was performed by my mathematics technician colleague, as noted above, I provided real-time [...] evaluation and physical exam done by the mathematics technician. The patient does have tenderness to the [...] worsening serious symptoms, particularly fever, headache confusion. [email or web address] Not available 08/20/2024 10:53:08 Plan of Treatment Reminders Order Date Submit Date Provider Last Modified By Organization Details Last Modified Time Details Appointments None recorded. Lab rapid SARS CoV 2 Ag, QL IA, respiratory specimen 2024 025 [email or web address] 7 [facility], [address] [place] [address], [phone] 5 10:45:52 rapid flu (A+B) 2024 025 [email or web address] 7 [facility], [address] [place] [address], [phone] 5 10:45:58 unlisted lab - covid-19 (novel coronavirus ) PCR 2022 023 [email or web address] [facility] (Centralized Electronic Ordering - All Locations), Patient Can Go To The Location Of Their Choice, [id number] 10:22:44 Referral None recorded. Procedures None recorded. Surgeries None recorded. Imaging None recorded. Medication Orders doxycycline hyclate 100 mg capsule 2024 025 [id number], [address], [place], [id number], 5 10:42:37 Flonase Sensimist 27.5 mcg/actuati on nasal spray,suspe nsion 2024 025 [facility]77, [address] [place], [id number], 5 10:44:02 doxycycline hyclate 100 mg tablet 2024 025 [email or web address] 7 [id number], [address] [place], [place], [id number], 5 10:44:24 prednisone 20 mg tablet 2022 023 [facility] #[facility]179, [address] [place], [place], [id number], 3 15:55:35 Patient TargetsNo targets recorded. Patient [...] Name and Address Organization Details Recorded Time 13179 amoxicill in medicatio n Not available Not available Not available 08/20/2024 723 RxNorm Not Available [facility] - production 5 08:12:56 7121 Product containin g penicilli n (product) medicatio n Not available Not available Not available 06/07/2024 74051 8001 SNOMED Not Available [facility] - production 4 03:35:07 7122 diphenhyd ramine medicatio n Not available Not available Not available 06/07/2024 3498 RxNorm Not Available [facility] - production 4 03:35:07 Medications Name Sig [...] % 98 % 16 /min 72 /min 33232.8 g 136 mm[Hg] 98 mm[Hg] Not Available [facility] - production 3 15:40:36 Date Recorded Respiratory rate Body temperature Oxygen saturation Oxygen saturation in Arterial blood by Pulse oximetry Heart rate Systolic blood pressure Diastolic blood pressure Provider Name and Address Organization Details Last Updated DateTime 3 16 /min 98 [degF] 98 % 98 % 80 /min 120 mm[Hg] 60 mm[Hg] Not Available [facility] production 3 12:49:42 Date Recorded Heart rate Body weight Body temperature Respiratory rate Body height Oxygen saturation Oxygen saturation in Arterial blood by Pulse oximetry Systolic blood pressure Diastolic blood pressure Provider Name and Address Organization Details Last Updated DateTime 5 61 /min 25316.4 g 98.2 [degF] 16 /min 149.86 cm 100 % 100 % 140 mm[Hg] 82 mm[Hg] Not Available [facility] - production 10:39:23 Date Recorded Respiratory rate [...] SNOMED-CT Code Diagnosis ICD10 Code Diagnosis Note [id number] Esperanza Tao MD Main - [facility] [address] [place] [phone] 06/05/2023 15:40:33 06/08/2023 12:42:59 Upper respiratory infection 21137080 J06.9 [id number] Michael Hirsch MD Main - [facility] [address] [place] [phone] 07/22/2023 12:36:33 08/04/2023 10:29:40 Urinary symptoms [id number] R39.9 [id number] KELLY [facility]BE [facility] [address] [place] [phone] 08/20/2024 10:39:20 08/20/2024 17:55:46 Acute bacterial sinusitis [id number] J01.90 [id number] Katherine [facility] [address] [place] [phone] 09/04/2024 13:02:25 09/04/2024 15:24:37 Cough [id number] R05.9 As noted, we were called to see this patient regarding concerns of sinus congestion . Evaluation in the field was performed by my mathematics technician colleague, as noted above, I provided real-time direction and supervisio n for this visit. The evaluation revealed 39 yo woman with 1 month of sinus congestion , cough and frontal headache. She received antibiotic s earlier this month without relief.She has started using oxymetolaz one a few days ago. She was unable to shredder picker other prescribed medication s as they [...] Marks Member ID Guarantor Name 06/05/2023 1 [facility] ON OR AFTER 2022 - DUAL ELIGIBLE - CORRECTION OPTIONS AND ONE CARE (MEDICARE REPLACEMENT/AD VANTAGE - HMO) Taylor Martinez [id number] Taylor Daoozhallie 07/22/2023 1 [facility] - DOS ON OR AFTER 2022 - DUAL ELIGIBLE - CORRECTION OPTIONS AND ONE CARE (MEDICARE REPLACEMENT/AD VANTAGE - HMO) Taylor Daoozhallie [id number] Taylor Daoozhallie 08/20/2024 1 [facility] - DOS ON OR AFTER 2022 - DUAL ELIGIBLE - CORRECTION OPTIONS AND ONE CARE (MEDICARE REPLACEMENT/AD VANTAGE - HMO) Taylor Daoozhallie [id number] Taylor Daoozhallie 09/04/2024 1 [facility] - DOS ON OR AFTER 2022 - DUAL ELIGIBLE - CORRECTION OPTIONS AND ONE CARE (MEDICARE REPLACEMENT/AD VANTAGE - HMO) Taylor Martinez [id number] Taylor Martinez Notes Date Note Type Note [...] COVID-19 yesterday. Pt unable to come into [facility] today. Agrees to [facility] referral for exam. Pt advised to call back on Thursday if sx not better after eval with [facility] and their POC. Pt agrees. ..................... ..................... ..................... ..................... ..................... ..................... ............... CRC Nursing Assessment: Comments: CRC RN did not require any additional information to process this visit. ..................... ..................... ..................... ..................... ..................... ..................... ............... Rack Washer Note From Brian Zepeda: Pt CO persistent, [...] Flu and COVID. COVID PC obtained for [facility] lab. Neg TTP to sinuses. Pt given 40mg PO prednisone: Discussed with Pt about red flags of when to go to ED or call 911. Educated Pt on supportive care. Rack Washer Allergies: Penicillin, Diphenhydramine ..................... ..................... ..................... ..................... ..................... ..................... ............... Disposition: Fulfilled Esperanza Tao MD [address] [place] [address],[address], [place], [address], [facility] 06/05/2023 16:08:00 07/22/2023 text/html HPI: Patient with history of Bipolar disease kidney stone and GERD. Recently treated with Macrobid x 5 days end of June. Now with frequency and bladder pressure. No fever ..................... ..................... ..................... ..................... ..................... ..................... ............... CRC Nursing Assessment: Comments: Reviewed - UTI s/s - Jase SOTO ..................... ..................... ..................... ..................... ..................... ..................... ............... Rack Washer Note From Shana Peter: Community Rack Washer Leona Peter CCA1 dispatched to [facility] for a 38 yof C/O UTI [...] 3-4 days. Urine dip acquired-results in [facility]. [facility] consulted; #20 IV placed in her right [...] Disposition: Fulfilled Michael Hirsch MD [address] [facility],[address], [place], [address], [facility] 08/03/2023 12:32:49 08/20/2024 text/html CRC Nurse Triage [...] s/s and seek emergency treatment if needed. Rack Washer Organization Information for [employer] Legal Name: Not iT? ? Address: [address] [place] [address], Boating Safety Officer: Aakash Taylor MD CLIA No.: [id number] Rack Washer POC Test Results from [facility] Rapid influenza antigen (10:34:20) Flu: - Rapid COVID antigen (10:34:21) COVID: - ..................... ..................... ..................... ..................... ..................... ..................... ............... Rack Washer Note From Ivonne Cotton: LARISSA makes pt contact when she opens the door to the building. She is dressed to go out and she says she was just leaving to go get some soup. She has a general well-appearance and is not in acute distress. She is walking and talking normally, however, her voice has a nasal quality indicative of congestion. Pt leads [facility] inside her clean and well-kept [...] She consents to evaluation and treatment today. [facility] obtains pt consent and uploads. Vital signs are gathered and pt is assessed. Pt has face pain w/ tapping over maxillary area under her nose. No other pain is elicited w/ palpation. Lung sounds are clear and remaining physical assessment is unremarkable. Pt requests COVID/flu swab and both tests are negative. [facility] contacts [facility] and discuses the above. [facility] orders [facility] to administer 100mg doxycycline PO and calls prescription in to pt's pharmacy for TID course. Pt thanks [facility] for coming. [facility] is clear. Report completed by GINA Cotton [id number]. [facility] Lab Orders: rapid SARS CoV 2 Ag, QL IA, respiratory specimen: Performed rapid flu (A+B): Performed [facility] Medication Orders: doxycycline hyclate 100 mg tablet: Administered ..................... ..................... ..................... ..................... ..................... ..................... ............... [facility] Consulted: Kelly Uribe.................. ..................... ..................... ..................... ..................... ..................... ............... Disposition: Fulfilled KELLY URIBE MD [address] [facility],[address], [place], [address], [facility] 08/20/2024 11:26:53 09/04/2024 text/html HPI: Ear hurts stuffy nose headache been going on for weeks?? ..................... ..................... ..................... ..................... ..................... ..................... ............... CRC Nurse Triage Notes (Jose Miramontes - [...] - 10:17Allergies Reviewed at 09/04/2024 - 10:17Comments: [employer] verified the Pt.'s name//address and phone number. Education provided on the response time and the Pt. was advised to monitor reported s/s and seek emergency treatment if needed.09/04/24 -@ 1002 - Outreach call to the pt to obtain additional information - Voice mail left for call back - Pt reports feeling unwell with a cough/cold and congestion - Ear pain - Headache - Denies sore throat and fever - Denies SOB - Follow up visit requested - [facility] and s/s are not [...] ..................... ..................... ..................... ..................... ..................... ..................... ............... Rack Washer Note From Derek Bucio: This 39-year-old female with a history of asthma requested a visit today to address ongoing URI symptoms. Patient reports one month of sinus congestion and sinus headaches. [facility] and was treated with [...] ..................... ..................... ..................... ..................... ..................... ..................... ............... [facility] Consulted: Katherine Zamudio ..................... ..................... ..................... ..................... ..................... ..................... ............... Disposition: Fulfilled Katherine Zamudio MD [address] [place] [address],[address], [place], [phone], [facility] 09/04/2024 14:56:30 OBGyn Episode No OBEpisode recorded.
--- OUTSIDE RECORDS SUMMARY | 2024-11-24 12:27 | XMS_ITS | Encounter Summary ---
Author Organization [employer] [facility] Address [address] [place] [address] [address] [place] [address] Care Team Providers Care Beef Tagger Name Role Phone Damaris Ramos MD Primary Care Provider [phone] Reason for Visit * Reason Comments Med Refill Encounter Details Date Type Department Care Team ([facility] st Contact Info) Description 06/16/2024 Refill [facility] MEDICINE [address] [place], [place] [phone] Damaris Ramos MD [address] [place], [place] [phone] Class 3 severe obesity due to excess [...] (BMI) of 40.0 to 44.9 in adult documented in this encounter Additional Health Concerns Assessment Noted Time PHQ-9 Depression Total Score: 18 024 12:02 PM EDT documented as of this encounter Care Teams Beef Tagger Relationship Specialty Start Date End Date Damaris Ramos MD [address] [place] [address] PCP - General Family Medicine 08/10/18 documented as of this encounter
--- OUTSIDE RECORDS SUMMARY | 2024-11-24 12:27 | XMS_ITS | Encounter Summary ---
Author Organization [facility] Address [address] [place] [address] [address] [place] [address] Care Team Providers Care Rock Singer Name Role Phone Damaris Ramos MD Primary Care Provider [phone] Reason for Visit * Reason Comments Med Refill Encounter Details Date Type Department Care Team ([facility] st Contact Info) Description 06/09/2024 Refill [facility] MEDICINE [address] [place], [place] [phone] Damaris Ramos MD [address] [place], [place] [phone] Class 3 severe obesity due to excess [...] documented as of this encounter Care Teams Rock Singer Relationship Specialty Start Date End Date Damaris Ramos MD [address] [place] [address] PCP - General Family Medicine 08/10/18 documented as of this encounter
--- OUTSIDE RECORDS SUMMARY | 2024-11-24 12:27 | XMS_ITS | Clinical Summary ---
Author Organization [employer] [facility] Address [address] [place] [address] [address] [place] [address] Care Team Providers Care Senior Sales Representative Name Role Phone Damaris Ramos MD Primary Care Provider [phone] Allergies Active Allergy Reactions Criticality Noted Date Comments Amoxicillin Itching,Rash Medium 07/21/2022 Diphenhydramine Hallucinations 11/21/2016 Other reaction(s): Itching Oxycodone Itching 07/31/2022 Penicillins Hives Other reaction(s): unspecified Medications * This document contains information received from the source organization and may not represent a complete record from that organization. glucose blood (OneTouch Ultra) test strip Insert 1 by into machine route 2 times every day 12/28/19 22 Active lactase (Lactaid) 3000 units tablet Take 1 tablet by mouth 1 (one) time each day. 03/10/20 18 Active Lancets (onetouch ultrasoft) lancets 1 each by Other route. Inject 1 by into machine route 2 times every day Active OXcarbazepine (Trileptal) 600 MG tablet Take 600 mg by mouth in the morning and at bedtime. 05/06/20 22 Active amphetamine-dextro amphetamine XR (Adderall XR) 15 MG 24 hr capsule Take 15 mg by mouth in the morning. 06/09/20 22 Active Blood Glucose Monitoring Suppl (ONE TOUCH ULTRA 2) w/Device kit USE DIRECTED 12/28/19 22 Active montelukast (Singulair) 10 MG tablet Take 1 tablet (10 mg) by mouth in the evening. 90 tablet 3 10/30/19 23 Active hydrOXYzine HCl (Atarax) 50 MG tablet Take 50 mg by mouth 3 times daily. 01/08/20 23 Active Melatonin 3 MG capsule Take 1 or 2 capsules 3 hours before your desired bedtime as needed 90 capsule 3 05/21/20 23 Active calcitriol (Rocaltrol) 0.5 MCG capsule Take 1 capsule (0.5 mcg) by mouth in the morning. 90 capsule 3 09/15/19 24 Active albuterol (2.5 MG/3ML) 0.083% nebulizer solution inhale 3 milliliter (2.5MG) by nebulization route every 4-6 hours as needed for difficulty breathing, up to 4 times/day as needed 75 mL 1 09/20/19 24 Active mometasone (Elocon) 0.1 % ointment Apply thin layer after before bedtime 45 g 09/20/19 24 Active acetaminophen (Tylenol) 500 MG tablet Take 2 tablets (1,000 mg) by mouth every 6 (six) hours if needed for moderate pain or fever for up to 25 doses. 40 tablet 09/30/19 24 Active Gas-X Extra Strength 125 MG capsule Take 125 mg by mouth if needed in the morning, at noon, in the evening, and at bedtime for flatulence. 11/27/19 24 Active famotidine (Pepcid) 20 MG tablet Take 1 tablet (20 mg) by mouth at bedtime. 90 tablet 3 12/14/19 24 025 Active Blood Pressure Monitor [facility] Check BP daily 1 each 02/25/20 24 Active albuterol (Ventolin HFA) 108 (90 Base) MCG/ACT inhaler Inhale 2 puffs every 6 (six) hours if needed for wheezing. 18 g 1 02/25/20 24 025 Active pantoprazole (Protonix) 40 MG EC tabletIndications: Gastroesophageal reflux disease, unspecified whether esophagitis present Take 1 tablet (40 mg) by mouth 2 times daily. Do not crush, chew, or split. 180 tablet 1 03/15/20 24 025 Active tiZANidine (Zanaflex) 4 MG capsule Take 1 capsule (4 mg) by mouth 3 times daily. 90 capsule 11 05/04/20 24 025 Active meloxicam (Mobic) 7.5 MG tablet Take 1 tablet (7.5 mg) by mouth 2 times daily. 60 tablet 11 05/04/20 24 025 Active ibuprofen 800 MG tabletIndications: Chronic nonintractable headache, unspecified headache type,Chronic bilateral back pain, unspecified back location,Neck pain take 1 tablet by oral route every 8 hours as needed for pain / fever. DO NOT TAKE EVERYDAY FOR > 2 WKS 50 tablet 1 09/28/19 25 Active Multiple Vitamin (Multi-Vitamin) tablet Take 1 tablet by mouth Once per day. With food 90 tablet 3 09/28/19 25 Active fluticasone (Flonase Allergy Relief) 50 MCG/ACT nasal spray Administer 2 sprays into each nostril Once per day. In each nostril 16 g 3 09/28/19 25 Active loratadine (Claritin) 10 MG tablet Take 1 tablet (10 mg) by mouth Once per day. 90 tablet 3 09/28/19 25 Active ondansetron ODT (Zofran-ODT) 4 MG disintegrating tabletIndications: Nausea Take 1 tablet (4 mg) by mouth every 8 (eight) hours if needed for nausea or vomiting. 30 tablet 1 10/02/19 25 Active senna-docusate sodium (Senokot-S) 8.6-50 MG tablet Take 1 tablet by mouth Once per day. 30 tablet 10/15/19 25 026 Active Tirzepatide-Weight Management (Zepbound) 2.5 MG/0.5ML solution auto-injector Inject 0.5 mL (2.5 mg) under the skin 1 (one) time per week. 2 mL 1 10/15/19 25 Active Active Problems Problem Noted Date Diagnosed Date Cyclical vomiting with nausea 10/14/2024 Assessment & Plan (10/14/2024 12:49 PM EST): Most likely combination of GERD, THC and severe constipation from GLPs, now resolved. Advised regarding proper hydration, cut down on THC and will lower Zepbound dose. FU with PCP in 3 months. Elevated BP without diagnosis of hypertension Assessment [...] (10/02/2024 4:11 PM EST): - Following with [facility] - 07/15/24 EGD/colonoscopy: Normal / [...] & Plan (10/02/2024 4:20 PM EST): - [facility]: [facility] - PAP on 02/02/23 ASCUS with [...] (10/29/2022 11:11 AM EDT): Upcoming appointment with [employer] [facility] on 11/07/22 Chronic bilateral back pain 10/29/2022 [...] 4:13 PM EST): -Pt is followed by [facility] provider, psychiatrist, and therapist -Current medications: Escitalopram; lamotrigine; oxcarbazepine; hydroxyzine; trazodone - questionable adherence -Previous medications: Valproic acid, zolpidem -Continue current medication and current treatment plan per [facility] provider -She was able to contact her safety today Assessment & Plan (05/25/2024 12:41 PM EDT): -Pt is followed by [facility] provider, psychiatrist, and therapist -Current medications: Escitalopram; lamotrigine; oxcarbazepine; hydroxyzine; trazodone - questionable adherence -Previous medications: Valproic acid, zolpidem -Continue current medication and current treatment plan per [facility] provider -She was able to contact her safety today Assessment & Plan (09/20/2023 6:21 PM EST): -Pt is followed by [facility] provider, psychiatrist, and therapist -Current medications: Escitalopram; lamotrigine; oxcarbazepine; hydroxyzine; trazodone - questionable adherence -Previous medications: Valproic acid, zolpidem -Continue current medication and current treatment plan per [facility] provider -She was able to contact her [facility] today Assessment & Plan (02/03/2023 12:04 PM EDT): -Pt is followed by [facility] provider, psychiatrist, and therapist at [facility] -Current medications: Escitalopram; lamotrigine; oxcarbazepine; hydroxyzine; trazodone -Previous medications: Valproic acid, zolpidem -Continue current medication and current treatment plan per [facility] provider -She was able to contact her [facility] Assessment & Plan (10/29/2022 11:25 AM EDT): -Pt is followed by [facility] provider, psychiatrist, and therapist at [facility] -Current medications: Escitalopram; lamotrigine; oxcarbazepine; hydroxyzine; and zolpidem -Previous medications: Valproic acid -Continue current medication and current treatment plan per [facility] provider -She was able to contact her [facility] Assessment & Plan (07/31/2022 3:24 PM EST): -Pt is followed by [facility] provider, psychiatrist, and therapist at [facility] -Current medications: Escitalopram; lamotrigine; oxcarbazepine; hydroxyzine; and zolpidem -Previous medications: Valproic acid -Continue current medication and current treatment plan per [facility] provider -She was able to contact her [facility] Chronic nonintractable headache 07/31/2022 Assessment & [...] -Most recent MRI 11/18/23 - Seen by [facility] orthopedist on 10/05/23 received [...] -Most recent MRI 11/18/23 - Seen by [facility] orthopedist on 10/05/23 received [...] Assessment & Plan (05/25/2024 12:42 PM EDT): [facility] provider: -Current medications: Adderall XR 15 mg daily -Previous medications: Adderall XR different dose, Vyvanse but was discontinued -Continue [facility] Assessment & Plan (09/20/2023 6:20 PM EST): [facility] provider: -Current medications: Adderall XR 15 mg daily -Previous medications: Adderall XR different dose, Vyvanse but was discontinued -Continue S Assessment & Plan (02/03/2023 12:03 PM EDT): [facility] provider: [facility] -Current medications: Adderall XR 15 mg daily -Previous medications: Adderall XR different dose, Vyvanse but was discontinued -Continue S --Pt was considering about switching Adderall to Strattera. Assessment & Plan (07/31/2022 3:25 PM EST): [facility] provider: [facility] -Current medications: Adderall XR 15 mg daily [...] during next medical appointment. Patient provided with [facility] contact information and [facility] help line. History of sexually transmitted disease [...] with sinus CT - will refer to diversity specialist for further evaluation Assessment & Plan [...] 4:32 PM EST): -Pt is followed by [facility] provider, psychiatrist, and therapist - Current [...] safety today Obesity 12/17/2012 Assessment & Plan (10/14/2024 12:53 PM EST): Did not tolerate higher dose of Zepbound due to GI side effects. Hold Zepbound this week until she has regular BMs Will restart Zepbound 2.5 mg/week in one week. Continue 2.5 mg for 1 or 2 months and FU with PCP to adjust medication if tolerated. Recommended to decrease soda and sugary beverage consumption, increase protein intake with meals (at least 1 portion of protein with each meal) to assist with satiety, increase dietary fiber. Recommended at least 150 min/week of moderate intensity exercise. Assessment & Plan (10/02/2024 4:12 PM EST): - previously enrolled in [facility] - initially planned for laparoscopic sleeve gastrectomy, but patient elected non-surgical weight loss without [facility] - currently on GLP1RA. Will continue current dose. Assessment & Plan (05/25/2024 12:42 PM EDT): - previously enrolled in [facility] - initially planned for laparoscopic sleeve gastrectomy, but patient elected non-surgical weight loss without [facility] management clinic [...] 11:18 AM EDT): - previously enrolled in [facility] - initially planned for laparoscopic sleeve gastrectomy, but patient elected non-surgical weight loss without [facility] management clinic [...] 6:17 PM EDT): - previously enrolled in [facility] - initially planned for laparoscopic sleeve gastrectomy, but patient elected non-surgical weight loss without [facility] management clinic - She has tried GLP-1 [...] 6:19 PM EST): - previously enrolled in [facility] management [facility] - initially planned for laparoscopic sleeve gastrectomy, but patient elected non-surgical weight loss without [facility] management clinic - 05/21/23 total cholesterol 191; triglyceride 106; HDL 40; LDL 130 - 05/21/23 A1C 5.5% - continue working on lifestyle modifications - appreciate her curiosity and knowledge in naturopathic medicine and intention to improve her health Assessment & Plan (05/24/2023 10:46 AM EDT): - enrolled in [facility] management clinic - plan for laparoscopic sleeve gastrectomy - continue working on lifestyle modifications - appreciate her curiosity and knowledge in naturopathic medicine and intention to improve her health Assessment & Plan (02/03/2023 12:01 PM EDT): - enrolled in [facility] management [facility] - plan for laparoscopic sleeve gastrectomy - [...] alcohol. FU STI test results. FU with [facility] sp cervical bx. Unprotected sexual intercourse 05/20/2023 [...] Patient will fu with her counselor at [facility] STI testing done/ordered. Patient didn't want to file for a protective order with the police at this time, but I told her she can if she feels threatened by his presence at all, she can also reach out to her counselor or our STI testing site [place]. Breast pain, left 10/29/2022 09/20/2023 Assessment & Plan (10/29/2022 11:26 AM EDT): Will order mammogram for evaluation Acute severe exacerbation of moderate persistent asthma 07/21/2022 07/31/2022 Encounters Date Type Department Care Team Description 10/25/[address] [place] [address] Damaris Ramos MD Durable Medical Equipment 10/24/2024 Telephone [facility] [address] [place] [address] Damaris Ramos MD 10/24/[address] [place] [address] Damaris Ramos MD Durable Medical Equipment 10/24/[address] [address] Damaris Ramos MD Nurse Triage 10/14/2024 11:15 AM EST Office Visit [facility] [place] [facility] [place] [address] Fior Doran MD Cyclical vomiting with nausea (Primary Dx); Class 3 severe obesity due to excess calories with serious comorbidity and body mass index (BMI) of 40.0 to 44.9 in adult ([facility]) 10/14/2024 Travel 10/13/[address] [address] Damaris Ramos MD Chart prep 10/13/2024 Telephone [facility] [address] [place] [address] Damaris Ramos MD Nurse Triage 09/28/2024 9:00 AM EST Office Visit [facility] [place] [address] Damaris Ramos MD Elevated BP without diagnosis [...] (BMI) of 40.0 to 44.9 in adult ([facility]); MARGARITA (obstructive sleep apnea); Nausea; Irritable bowel syndrome, unspecified type; Gastroesophageal reflux disease, unspecified whether esophagitis present; Mood disorder ([facility]); Recurrent major depressive episodes, moderate ([facility]); Bipolar affective disorder, currently depressed, moderate ([facility]); Seasonal allergic rhinitis, unspecified trigger; Acute recurrent sinusitis, unspecified location; Cervical dysplasia; Lesion of left eyelid 09/28/2024 Refill [facility] [address] [place] [address] Damaris Ramos MD Class 3 severe obesity due to excess calories with serious comorbidity and body mass index (BMI) of 40.0 to 44.9 in adult ([facility]) 09/28/2024 Travel 09/23/2024 Telephone [facility] [address] [place] [address] Rubia Cruz MA chart prep from Last 3 Months Immunizations Name Administration [...] Sign Reading Time Taken Comments Blood Pressure 121/84 10/14/2024 11:19 AM EST Pulse 74 10/14/2024 11:19 AM EST Temperature 36.3 ??C (97.4 ??F) 10/14/2024 11:[address] Respiratory Rate 16 10/14/2024 11:19 AM EST Oxygen Saturation 99% 10/14/2024 11:19 AM EST Inhaled Oxygen Concentration - - Weight 89.4 kg (197 lb) 10/14/2024 11:19 AM EST Height 149.9 cm (4' 11 ) 10/14/2024 11:19 AM EST Body Mass Index 39.79 10/14/2024 11:19 AM EST Plan of Treatment Health Maintenance Due Date Last Done Comments Family Planning (PISQ) 2001 COVID-19 Vaccine ( season) 2024 02/27/2021 Influenza Vaccine (#1) 2024 , 07/02/2020, 07/14/2018, Additional history exists Depression Monitoring 11/23/2024 05/25/2024, 024 Alcohol/Substance Use Screening 05/25/2025 05/25/2024 Depression Screening 05/25/2025 05/25/2024, 05/25/20 24 Cervical Cancer Screening 08/15/2025 HPV/Cotest 08/15/2025 02/02/2023, 01/08, 11/22/2020, Additional history exists Pap Smear 08/15/2025 07/20/2024, 01/09, 01/21/2022, Additional history exists Diabetes: Hemoglobin A1C 09/28/2025 025, 02/25/2024, 05/21/2023, Additional history exists SDOH Screening 09/28/2025 09/28/2024 Tobacco Screening 10/14/2025 10/14/2024 Lipid Panel 09/28/2029 09/28/2024, 02/07, 05/21/2023, Additional [...] Routine 09/28/2024 9:51 AM EST Abdominal swelling COLPOSCOPY Routine 08/15/2024 12:00 AM EST PAP [...] Vitamin D 25-OH Total 33.6 >30 ng/mL [facility] Comment:Health Based Referen ce Values*< 20 ng/mL [id number] ng/mL Insufficient> 30 ng/mL Sufficient*Jackie YUEN. N [...] MD LAB BLOOD ORDERABLES Final Resul t [facility] [address] [place] [phone] * TSH with Reflex to Free T4 (09/28/2024 9:51 AM EST) TSH reflex Free T4 0.76 0.32 - 4.0 uIU/mL [facility] Blood 09/28/2024 9:51 AM EST 09/28/2024 11:10 AM EST Damaris Ramos MD LAB BLOOD ORDERABLES Final Resul t Performing Organization Address [facility] Co de Phone Number [facility] [address] [place] [phone] * (ABNORMAL) Lipid Panel with Reflex to Direct LDL (09/28/2024 9:51 AM EST) Triglycerides 129 <150 mg/dL [facility] Comment:Desirable Triglyceri de: less than 150 mg/dLBorderline High Triglyceride 150-199 mg/dLHigh Triglyceride: 200-499 mg/dLVery High Triglyceride: greater than or equal to 5OO mg/dL Cholesterol 172 <200 mg/dL [facility] Comment:Desirable Cholestero l: less than 200 mg/dLBorderline High Cholesterol: 200-239 mg/dLHigh Cholesterol: greater than 239 mg/dL LDL Cholesterol Calculated 109(H) <100 mg/dL [facility] Comment:Desirable LDL: less than 100 mg/dLNear Optimal/Above Optimal LDL: 110- 129 mg/dLBorderline High LDL: 130-159 mg/dLHigh LDL: 160-189 mg/dLVery High LDL: greater than or equal to 190 mg/dL HDL Cholesterol 38(L) >40 mg/dL [facility] Comment:Desirable HDL: great er than 40 mg/dL Note: This HDL assay may give artificially low results in patients with liver disease. Blood 09/28/2024 9:51 AM EST 09/28/2024 11:10 AM EST us Damaris Ramos MD LAB BLOOD ORDERABLES Final Resul t [facility] [address] [place] [phone] * (ABNORMAL) CBC auto differential (09/28/2024 9:51 AM EST) White Blood Count 9.6 4.8 - 10.8 X10*3/uL [facility] Red Blood Count 4.96 4.20 - 5.50 X10*6/uL [facility] Hemoglobin 15.1 12.0 - 16.0 g/dl [facility] Hematocrit 44.6 37.0 - 47.0 % [facility] Mean Corpuscular Volume 89.9 80.0 - 98.0 fL [facility] Mean Corpuscular Hemoglobin 30.4 27.0 - 33.0 pg [facility] Mean Corpuscular HGB Conc 33.9 31.0 - 35.0 g/dl [facility] Red Cell Distribution Width 12.5 11.0 - 16.0 % [facility] Platelet Count 428(H) 160 - 400 X10*3/uL [facility] Mean Platelet Volume 9.9 9.4 - 12.3 fL [facility] Neutrophils Percent Auto 59.0 45 - 73 % [facility] Imm Gran Pct Auto 0.5(H) 0.0 - 0.4 % [facility] Lymphocytes Percent Auto 29.5 20 - 40 % [facility] Monocytes Percent Auto 8.6 2 - 11 % [facility] Eosinophils Percent Auto 1.9 0 - 4 % [facility] Basophils Percent Auto 0.5 0 - 2 % [facility] NRBC Pct Auto 0.0 0.0 - 0.2 /100WBC [facility] Neutrophils Absolute Auto 5.6 2.0 - 8.3 x10*3/uL [facility] Imm Gran Abs Auto 0.05(H) 0.00 - 0.03 X10*3/uL [facility] Lymphocytes Absolute Auto 2.8 1.2 - 4.9 X10*3/uL [facility] Monocytes Absolute Auto 0.8 0.1 - 1.2 X10*3/uL [facility] Eosinophils Absolute Auto 0.2 0.0 - 0.4 X10*3/uL [facility] Basophils Absolute Auto 0.1 0.0 - 0.2 X10*3/uL [facility] NRBC Abs Auto 0.000 0.0 - 0.012 X10*3/uL [facility] Blood Venous blood specimen / Unknown 09/28/2024 9:51 AM EST 09/28/2024 11:10 AM EST us Damaris Ramos MD LAB BLOOD ORDERABLES Final Resul t Performing Organization Address City/[facility]/ZIP Co de Phone Number [facility] [address] [place] [phone] * Sed Rate by Modified [place] (09/28/2024 9:51 AM EST) Erythrocyte Sedimentation Rate 10 0 - 20 MM/HR [facility] Comment:Patients with polycy themia and many hemoglobin abnormalitiesmay have depressed sed rates whereas patients with anemiamay have elevated sed rates. Blood Venous blood specimen / Unknown 09/28/2024 9:51 AM EST 09/28/2024 11:10 AM EST us Damaris Ramos MD LAB BLOOD ORDERABLES Final Resul t Performing Organization Address City/[facility]/ZIP Co de Phone Number [facility] [address] [place] [phone] * (ABNORMAL) C-reactive Protein (09/28/2024 9:51 AM EST) C Reactive Protein 0.99(H) < or = 0.50 mg/dL [facility] Blood Venous blood specimen / Unknown 09/28/2024 9:51 AM EST 09/28/2024 11:10 AM EST Damaris Ramos MD LAB BLOOD ORDERABLES Final Resul t Performing Organization Address City/State/[facility] Co de Phone Number [facility] [address] [place] [phone] [phone] * Hemoglobin A1c (09/28/2024 9:51 AM EST) Hemoglobin A1c 5.3 <6.0 % [facility] Comment:Hemoglobin A1C Refer ence Range Adults: 4.8 - 6.0 % Non diabetic: < 6.0 % Goal: < 7.0 %Additional Action Suggested: > 8.0 %Note: Hemoglobin A1c results are invalid for patients with abnormal amounts of HbF. Blood transfusions may impact the HbA1c concentration in the patient sample. Estimated Average Glucose 105 mg/dL [facility] Comment:eAG = Estimated ave rage glucose which is %A1C expressed asaverage glucose, using the formula of the Z0J-NtzgwlzWljposg Glucose study (ADAG), Diabetes Care, Vol.31,#8,Mar. 2007 Blood Venous blood specimen / Unknown 09/28/2024 9:51 AM EST 09/28/2024 11:10 AM EST us Damaris Ramos MD LAB BLOOD ORDERABLES Final Resul t Performing Organization Address [facility] de Phone Number [facility] [address] [place] [phone] * (ABNORMAL) Comprehensive Metabolic Panel (09/28/2024 9:51 AM EST) Sodium 138 135 - 145 mmol/L [facility] Potassium 4.2 3.3 - 5.1 mmol/L [facility] Chloride 107 96 - 108 mmol/L [facility] Carbon Dioxide 25 22 - 29 mmol/L [facility] Anion Gap 10(L) 12 - 20 [facility] Urea Nitrogen (BUN) 11 9 - 16 mg/dL [facility] Creatinine, Serum 0.70 0.5 - 1.4 mg/dL [facility] Estimated Glomerular Filt Rate >60 [facility] Comment:Chronic Kidney Disea se: Estimated GFR < 60 mL/min/1.84m4Fclrdw Kidney Disease: Estimated GFR < 15 mL/min/1.73m2 Glucose 90 60 - 115 mg/dL [facility] Calcium 9.1 8.4 - 10.2 mg/dL [facility] Bilirubin, Total 0.3 0.0 - 1.0 mg/dL [facility] [facility] Aspartate Amino Transferase 23 5 - 31 U/L [facility] Alanine Aminotransferase 40(H) 0 - 31 U/L [facility] Total Protein 7.9 6.5 - 8.0 g/dL [facility] Albumin Level 4.3 3.5 - 5.0 g/dL [facility] Alkaline Phosphatase 88 39 - 117 U/L [facility] Blood Venous blood specimen / Unknown 09/28/2024 9:51 AM EST 09/28/2024 11:10 AM EST Damaris Ramos MD LAB BLOOD ORDERABLES Final Resul t [facility] [address] [place] [phone] * Colposcopy (08/15/2024 12:00 AM EST) Nuvia Provider IN CLINIC/BEDSIDE ORDERAB LES Edited Result - Final * Pap Smear (07/20/2024 1:47 PM EST) 07/20/2024 1:47 PM EST 07/21/2024 9:00 AM EST Narrative [facility] - 07/27/2024 11:19 AM EST ----- ------- Name: Inostroza,Jexcenia ? Age/Sex: 39/F ? : 1985 Unit#: [id number] ?? Attend Dr: Giacomo Ugarte MD ?Re07/20/24 ?Status: DEP REF ? Location: HO.LNP ?Disch: ? ----- ------- SPEC : [id number] ?RECD: 07/21/24 ? STATUS: ??SOUT ? REQ NUM: [id number] ? RENEE: 07/20/24 ? SUBM DR: Giacomo [...] Copies To: ?? Damaris Ramos MD ?? [facility] ?? [address] ?? [place] [address] ?? [phone] ?? Giacomo Ugarte MD ?? [facility] ?? [address] ?? [place] [address] ?? [phone] ----- ------- Signed (signature on file) Adonay Cr MD 07/27/24 [id number] ? ----- ------- ? END OF REPORT ? us Generic External Data Provider LAB CYTOLOGY ORDE RABLES Final Result Performing Organization Address [facility]/ZIP Co de Phone Number [facility] [address] [place] [phone] * Hepatitis C Antibody with Reflex to HCV, RNA, Quantitative, Real-Time PCR (02/25/2024 10:16 AM EDT) Hepatitis C Antibody Nonreactive Nonreactive [facility] Comment:Antibodies to HCV no t detected; does not exclude early acuteHCV infection. Blood Venous blood specimen / Unknown 02/25/2024 10:16 AM EDT 02/25/2024 11:13 AM EDT Damaris Ramos MD LAB BLOOD ORDERABLES Final Resul t Performing Organization Address [facility] Co de Phone Number [facility] [address] [place] [phone] * HIV-1/2 Antigen and Antibodies, Fourth [...] below the limit ofdetection of this assay.[employer] HIV Ag/Ab Combo assay result andsupplemental assay results should be interpreted inconjunction with the patient's clinical presentation,history and other laboratory results. If the results areinconsistent with clinical evidence, additional testing issuggested to confirm the result. Blood Venous blood specimen / Unknown 02/25/2024 10:16 AM EDT 02/25/2024 11:13 AM EDT Damaris Ramos MD LAB BLOOD ORDERABLES Final Resul t [facility] [address] [place] [address] [phone] * (ABNORMAL) Th[facility] Imaging Pap and HPV DNA reflex HPV 16,18 (02/02/2023 10:58 AM EDT) Clinical Information: None given [facility] LMP: NONE GIVEN [facility] Prev. PAP: NONE GIVEN [facility] Prev. BX: NONE GIVEN [facility] SOURCE: None given [facility] Statement Of Adequacy: [facility] [employer] Comment: Satisfactory for evaluation. Endocervical/transformation zone component present. General Categorization: Cytology Results: Epithelial Cell Abnormality(A) [facility] Interpretation/ Result: Atypical Squamous Cells of Undetermined Significance (ASC-US)(A) [facility] COMMENT: This Pap test has been evaluated with computer assisted technology. [employer] Cytotechnologis t: [facility] Comment: KN, CT(ASCP) CT screening location: [address] ??[address] PATHOLOGIST: [facility] Comment: Bernarda Sales D.O. Board Certified in Anatomic, Clinical and Cytopathology (electronic signature) Consulting Pathologist [facility] [address] [place] [phone] (Always Message) [employer] Comment: EXPLANATORY NOTE: The Pap is a [...] DNA, High Risk, Cervical Detected(A) NOT DETECTED AF83/Lewis [place] mir[place]ont[place] Comment: Detected One or more High Risk HPV types (16,18,31,33, 35,39,45,51,52,56,58,59,66,68) was detected. Methodology: Real Time PCR ? Pap Vial 02/02/2023 10:5 8 AM EDT 02/03/2023 9:02 AM EDT Damaris Ramos MD LAB CYTOLOGY ORDERABLES Final Re sult [facility] [address] [facility] [facility], [place] [address] AF83 [facility] [address] [place] [address] [facility] [address] [place] [address] from Last 3 Months or Most Recently Relevant to Health Maintenance Insurance [facility] Care Teams Senior Sales Representative Relationship Specialty Start Date End Date Damaris Ramos MD [address] [place] [phone] PCP - General Family Medicine 08/10/18
== END 2024-11-24 10:24 | disposition home or self-care (01) ==
LOC: HO.CT 10:23
PROVIDERS: PCP Family Medicine; Visit Provider Family Medicine
DX: J30.2 Other seasonal allergic rhinitis (principal); J01.91 Acute recurrent sinusitis, unspecified
CPT/HCPCS: 70486

== ENCOUNTER → 2024-11-24 10:25 | Outpatient (BNV) | payer OTHER, SELFPAY | PROVIDERS: PCP Family Medicine; Visit Provider Specialist | DX: J01.91 Acute recurrent sinusitis, unspecified (principal) | CPT/HCPCS: 70486 ==

== ENCOUNTER 2025-01-04 11:26 | Outpatient (REF) | payer OTHER, SELFPAY ==
--- OUTSIDE RECORDS SUMMARY | 2025-01-04 12:20 | XMS_ITS | Encounter Summary ---
Author Organization [facility] Address [address] [place] [address] [address] [place] [address] Care Team Providers Care Brand Coordinator Name Role Phone Damaris Ramos MD Primary Care Provider [phone] Encounter Details Date Type Department Care Team (Latest Contact Info) Description 01/04/2025 Travel Social History Tobacco Use Types Packs/Day [...] documented as of this encounter Care Teams Brand Coordinator Relationship Specialty Start Date End Date Damaris Ramos MD [address] [place] [address] PCP - General Family Medicine 08/10/18 documented as of this encounter
[2025-01-04 13:38] LABS: Estimated Average Glucose 111 mg/dL; Hemoglobin A1C 142.0907 umol/L; Hemoglobin A1c % 5.5 % (<6.0); Total Hemoglobin (HGBA1C) 3845.2454 umol/L
[2025-01-04 13:46] LABS: Alanine Aminotransferase 22 U/L (0-31); Albumin Level 4.5 g/dL (3.5-5.0); Alkaline Phosphatase 66 U/L (39-117); Anion Gap 10 (12-20); Aspartate Amino Transferase 18 U/L (5-31); Bilirubin Direct 0.2 mg/dL (0.0-0.5); Bilirubin Total 0.4 mg/dL (0.0-1.0); Blood Urea Nitrogen 8 mg/dL (9-16); Calcium 9.1 mg/dL (8.4-10.2); Carbon Dioxide 26 mmol/L (22-29); Chloride 105 mmol/L (96-108); Estimated Glomerular Filt Rate > 60; Glucose Random 112 mg/dL (60-115); Potassium 4.2 mmol/L (3.3-5.1); Sodium 137 mmol/L (135-145); Total Protein 7.6 g/dL (6.5-8.0)
[2025-01-04 13:58] LABS: HBS Num1 150.05 mIU/mL (0-7.99); HBsAGNum1 0.39 S/CO (0.00-0.99); Hepatitis B Core Antibody Nonreactive (Nonreactive); Hepatitis B Surface Antigen Negative (Negative); ~HepC Num1 0.16 S/CO (0.00-0.79); ~Hepatitis B Surface Antibody REACTIVE (Nonreactive); ~Hepatitis C Antibody Nonreactive (Nonreactive)
== END 2025-01-04 11:27 | disposition home or self-care (01) ==
LOC: HO.HHCL 11:26
PROVIDERS: Visit Provider Family Medicine
DX: R74.01 Elevation of levels of liver transaminase levels (principal); R73.03 Prediabetes
CPT/HCPCS: 36415; 80048; 80076; 83036; 86704; 86706; 86803; 87340

== ENCOUNTER 2025-03-13 10:45 | Outpatient (AMB) | payer OTHER, SELFPAY ==
--- NOTE | 2025-03-13 10:49 | A.OFFVIS_ITS ---
Vital Signs 03/13/25 10:57 Height 4 ft 11 in Weight 191 lb BMI 38.6 Intake Visit Reasons: OV- Left knee pain/ arthritis, h/o meniscus tear Intake Note: Taylor a 38 year old female who presents today for a follow up on left knee pain, last injection on 12/04/23. Patient reports injection did not really provide her with relief. She continues to have discomfort. Today she complains of left shoulder pain, stating this is causing her more discomfort today. Allergies amoxicillin (Amoxicillin) Allergy (Mild, Verified 03/13/25 10:57) ITCHING diphenhydramine (From Benadryl) Allergy (Mild, Verified 03/13/25 10:57) ITCHING folic acid (From Vitamin) Allergy (Mild, Verified 03/13/25 10:57) RASH iron (From Vitamin) Allergy (Mild, Verified 03/13/25 10:57) RASH acetaminophen (From Percocet) Allergy (Unknown, Verified 03/13/25 10:57) ITCHING penicillin V Allergy (Unknown, Verified 03/13/25 10:57) Hives Penicillins Allergy (Unknown, Verified 03/13/25 10:57) ITCHING Amoxicillin Allergy (Unknown, Uncoded 03/13/25 10:57) hives From Percocet Allergy (Unknown, Uncoded 03/13/25 10:57) ITCHING Penicillin Allergy (Unknown, Uncoded 03/13/25 10:57) hives Medication List - Last Reconciled 03/13/25 by Eric Saucedo PA-C albuterol sulfate 90 mcg/actuation 2 puffs inhalation Q6H PRN cholecalciferol (vitamin D3) 125 mcg PO DAILY dextroamphetamine-amphetamine 15 mg (Adderall) 15 mg PO DAILY hydroxyzine HCl 50 mg PO BEDTIME ibuprofen 800 mg PO Q8H PRN levonorgestrel (Mirena) intrauterine loratadine 10 mg PO DAILY melatonin 5 mg PO BEDTIME montelukast 10 mg PO DAILY omeprazole 20 mg PO DAILY oxcarbazepine 300 mg PO ONCE HPI HPI OV- Left knee pain/ arthritis, h/o meniscus tear: Details: 39-year-old female presents today for left shoulder pain. She states her left knee is feeling better. She is concerned with the left shoulder as she is unable to perform daily activities without pain. She also has pain when she is sleeping at night. She has been physical therapy. No other treatment to date. [facility] Medical History Cervical high risk HPV (human papillomavirus) test positive Asthma Headaches due to old head injury Insomnia Depression Bipolar 1 disorder GERD (gastroesophageal reflux disease) DJD (degenerative joint disease) ADHD Sleep apnea treated with continuous positive airway pressure (CPAP) Morbid obesity Surgical History (Reviewed 03/13/25 @ 10:57 by Caryn Carlisle [facility]) Hx of breast reduction, elective Hx of section Hx of cholecystectomy Family History Mother Hypertension Diabetes Heart attack Father Hypertension Brother No problems noted. Sister No problems noted. Son ADHD Daughter No problems noted. 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 She has full range of motion in all planes. She has a positive cross-body abduction. Positive [place]. Neurovascularly intact. Office Procedures AMB Joint Injection/Aspiration Joint Injection/Aspiration Primary Site: left shoulder Prep: site was prepped using aseptic technique, ethochloride spray was applied and injection warnings given Injected: 80 mg of, DepoMedrol, with 8 mL of, 1% plain lidocaine and in the subcromial space Approach Used: posterolateral Procedure: The patient tolerated the procedure well and there was some relief with the local anesthesia Coding 07394 - Glenohumeral/Tronchanteric Bursa/Intraarticular Procedure code (CPT) selection complete Results Reviewed Results Reviewed: XR shoulder LT min 2V IMPRESSION: Small focus of calcific density adjacent to the greater tuberosity. This could reflect calcific tendinitis/tendinosis. Assessment & Plan Assessment & Plan (1) Calcific tendonitis of left shoulder: Code(s): M75.32 - Calcific tendinitis of left shoulder Category: Medical Plan: We discussed options today which include physical therapy. I did place an order today and she will contact them when she returns from vacation. We also discussed the benefits of steroid injection which was performed today. Patient tolerated left shoulder steroid injection well. She will continue to increase activities as tolerated and if symptoms persist or worsen over the next 8-12 weeks she will contact our office otherwise follow up as needed. Coding Level of Care Code Est Pt Level 3 (20071) Complex EM visit Add On G2211 Diagnoses Calcific tendonitis of left shoulder M75.32 CPT Codes Coding - Joint 7: 31717 - Glenohumeral/Tronchanteric Bursa/Intraarticular ([id number])
[2025-03-13 10:57] VITALS: BMI 38.6
--- OUTSIDE RECORDS SUMMARY | 2025-03-13 11:40 | XMS_ITS | Encounter Summary ---
Author Organization [facility] Address [address] [place] [address] [address] [place] [address] Care Team Providers Care Odd Job Laborer Name Role Phone Damaris Ramos MD Primary Care Provider [phone] Reason for Visit * Reason Comments Med Refill Encounter Details Date Type Department Care Team ([facility] st Contact Info) Description 12/28/2024 Refill [facility] [address] [place], [place] [phone] Damaris Ramos MD [address] [place], [place] [phone] Gastroesophageal reflux disease, unspecified whether esophagitis present Social History Tobacco Use Types Packs/Day Years [...] as of this encounter Plan of Treatment Upcoming Encounters Date Type Department Care Team (Late st Contact Info) Description 04/04/2025 11:15 AM EDT Office Visit [facility] [address] [place] [address] Damaris Ramos MD [address] [place] [address] documented as of this encounter Visit Diagnoses Diagnosis Gastroesophageal reflux disease, unspecified whether esophagitis present documented in this encounter Additional Health Concerns Assessment Noted Time PHQ-9 Depression Total Score: 18 024 12:02 PM EDT documented as of this encounter Care Teams Odd Job Laborer Relationship Specialty Start Date End Date Damaris Ramos MD [address] [place] [phone] PCP - General Family Medicine 08/10/18 documented as of this encounter
--- OUTSIDE RECORDS SUMMARY | 2025-03-13 11:40 | XMS_ITS | Clinical Summary ---
Author Organization [facility] Address [address] [place] [address] Phone Care Team Providers Care English Drawer Name Role Phone Physician, Pcp Unknown Primary [...] 6 (six) hours if needed. 4 Active fluticasone propionate (FLONASE) 50 mcg/actuation nasal [...] reflux disease 10/29/2022 ADHD 07/31/2022 Bipolar disorder (CMS/HCC V24, CMS/HCC V28) 07/11 Kidney stone 07/31/2022 MARGARITA (obstructive sleep apnea) 07/31/2022 Prediabetes 07/31/2022 Recurrent major depressive e pisodes, moderate ([facility] V24, [facility] V28) 07/21/2022 Vitamin D deficiency 01/24/2016 Allergic rhinitis 12/17/2012 Asthma 12/17/2012 Mood disorder ([facility] V24) 12/17/2012 Obesity 12/17/2012 Surgical History Surgery Date Site/Laterality Comments CHOLECYSTECTOMY [...] 72 10/12/2024 8:33 AM EST Temperature 35.8 C (96.5 F) 10/12/2024 8:33 AM EST Respiratory Rate 12 10/12/2024 8:33 AM EST Oxygen Saturation 100% 10/12/2024 8:33 AM EST Inhaled Oxygen Concentration - - Weight 90.3 kg (199 lb) 10/11/2024 8:04 AM EST Height 150 cm (4' 11.06 ) 10/11/2024 8:04 AM EST Body Mass Index 40.12 10/11/2024 8:04 AM EST Plan of Treatment Health Maintenance Due Date Last Done Comments Cholesterol Screening (Lipid Panel) 07/12/2022 Medicare Annual Wellness Visit 07/12/2022 Social Influencers of Health Screening 07/12/2022 COVID-19 Vaccine ( season) 2024 02/27/2021 Depression Screening 08/10/2024 Influenza Vaccine (#1) 2025 3, 07/02/2020, 07/14/2018, Additional history exists Cervical Cancer Screening: Pap Smear 07/20/2027 07/20/2024 DTaP,Tdap,and Td Vaccines (3 - Td or Tdap) 12/06/2031 12/05/2021, 09/03/2011 Hepatitis B Vaccines Completed 07/02/2020, 07/14/2018, 07/27/2017, Additional history exists Pneumococcal Vaccine: Pediatrics (0 to 5 Years) and At-Risk Patients (6 to 49 Years) Completed 02/02/2023, 03/01/2014 HIV Screening Completed [...] on patient's age to complete this topic Insurance [facility] Member Subscriber Plan / Payer (Ef fective 2023-Present) Name:Sylwiageorgie Memokanu Relation to Subscriber:Self Name:JohneunMemo jacquesmiletalib Payer ID:[id number] Group ID:[id number] Type:Not on file Address: [facility] [address] [address] [facility] MEDICARE Member Subscriber Plan / Payer (Ef fective 2023-Present) Name:Taylor Martinez Relation to Subscriber:Self Name:Taylor Martinez Payer ID:[id number] Group ID:Not on file Type:Not on file Address: [facility] [address] [address] Advance Directives * Full Code - Default [...] currently active code status orders. Care Teams English Drawer Relationship Specialty Start Date End Date Physician, Pcp Unknown PCP - General 10/11/24
--- OUTSIDE RECORDS SUMMARY | 2025-03-13 11:40 | XMS_ITS | Clinical Summary ---
Author Organization [facility] Address [address] [phone] Phone Care Team Providers Care Linter Tender Name Role Phone Pcp, Unknown Primary Care Provider Unavailabl e Social History Tobacco Use Types Packs/Day Years Used Date Smoking Tobacco: Never Assessed Education Answer Date Recorded Are you interested in more education? Not on yue e 03/04/2023 Are you concerned about learning? Not on file 03/04/2023 No 03/04/2023 No 03/04/2023 Digital Access Answer Date Recorded No 03/04/2023 No 03/04/2023 Reliable internet access at home? Not on file 03/04/2023 Device with a working camera? Not on file Comments Unknown Sex and Gender Information Value Date Recorded Sex Assigned at Not on file Legal Sex Female 10:27 PM EDT Gender Identity Not on file Sexual Orientation Not on file Plan of Treatment Health Maintenance Due Date Last Done Comments DEPRESSION SCREENING 1998 SMOKING Hx and SMOKELESS TOBACCO SCREENING 1999 HEPATITIS C SCREENING 2004 HIV ONE-TIME SCREENING (18-6 5 YEARS) 2004 PAP SMEAR 2007 COVID-19 VACCINE (2 - 2023-2 5 season) 2024 02/27/2021 Adult Td,Tdap Booster 12/06/2031 12/05/2021 , 09/03/2011 PNEUMOCOCCAL VACCINES (0-49 years) Aged Out 02/02/2023, 03/01/2014 No longer eligible based on patient's age to complete this topic HEPATITIS A VACCINES Aged Out No long er eligible based on patient's age to complete this topic HIB VACCINES Aged Out No longer eligi ble based on patient's age to complete this topic MENINGOCOCCAL VACCINES (ACWY) Aged Out No longer eligible based on patient's age to complete this topic MENINGOCOCCAL VACCINES (B) Aged Out N o longer eligible based on patient's age to complete this topic Medical Devices Not on file Insurance [facility] MEDICARE REPLACEMENT [facility] MEDICARE REPLACEMENT [facility] MEDICARE REPLACEMENT [facility] MEDICARE REPLACEMENT [facility] MEDICARE REPLACEMENT [place] [address] [place] [address] MEDICARE REPLACEMENT Care Teams Linter Tender Relationship Specialty Start Date End Date Pcp, Unknown PCP - General 03/09/23 Additional Source Comments The information contained in this document represents components of the legal health record. It is not the complete legal health record.[facility]
== END 2025-03-13 11:55 | disposition home or self-care (01) ==
LOC: HO.HOS 10:46
PROVIDERS: PCP Family Medicine; Visit Provider Physician Assistant
DX: M75.32 Calcific tendinitis of left shoulder (principal)
CPT/HCPCS: 20610; 99213

== ENCOUNTER → 2025-03-13 10:45 | Outpatient (BNVA) | payer OTHER, SELFPAY | PROVIDERS: PCP Family Medicine; Visit Provider Physician Assistant | DX: M25.512 Pain in left shoulder (principal); M75.32 Calcific tendinitis of left shoulder | CPT/HCPCS: 20610; 99212; J1010; J2003 ==

== ENCOUNTER 2025-06-27 08:47 | Outpatient (REF) | payer OTHER, SELFPAY ==
--- NOTE | 2025-06-27 08:49 | EMG_ITS ---
Chief complaint: Numbness and tingling in left arm Reason for referral: R20.0 Anesthesia of skin , R20.2 Paresthesia of skin Referred by: April Aleman Procedure done: NCS and EMG of left upper extremity Left median and ulnar motor studies were performed. Left median and ulnar mixed sensory, median and lateral antecubital brachial sensory and radial sensory studies were performed an EMG needle examination was performed. Findings: No significant abnormality noted on this study. Impression: This is an unremarkable study with no evidence of entrapment neuropathy or a proximal lesion affecting left upper extremity [place] [address] [facility]
== END 2025-06-27 08:48 | disposition home or self-care (01) ==
LOC: HO.NEURO 08:47
PROVIDERS: PCP Family Medicine; Visit Provider Registered Nurse
DX: R20.0 Anesthesia of skin (principal); R20.2 Paresthesia of skin
CPT/HCPCS: 95886; 95910

== ENCOUNTER → 2025-06-27 08:49 | Outpatient (BNV) | payer OTHER, SELFPAY | PROVIDERS: PCP Family Medicine; Visit Provider Psychiatry & Neurology Neurology | DX: R20.0 Anesthesia of skin (principal); R20.2 Paresthesia of skin | CPT/HCPCS: 95886; 95910 ==

== ENCOUNTER 2025-07-14 08:37 | Outpatient (AMB) | payer OTHER, SELFPAY ==
--- NOTE | 2025-07-14 08:42 | MHC.OFFVIS ---
Intake Visit Reasons: OV-Left knee pain/Swelling Intake Note: Taylor is a 40 year old female who presents today for a follow up with complaints of left knee pain. She was last seen for her left knee on 12/04/23, placed in a reaction knee brace and referred to physical therapy. She was to follow up as needed. Today patient reports that her pain has been getting worse. Complaints of swelling in her knee making her knee feel tight. She also complains of now feeling pain in her right knee. States she has attended physical therapy in the past and it has not helped. Finds ibuprofen does not really help, icing helps the most. Denies injury. Allergies amoxicillin (Amoxicillin) Allergy (Mild, Verified 07/14/25 08:54) ITCHING diphenhydramine (From Benadryl) Allergy (Mild, Verified 07/14/25 08:54) ITCHING folic acid (From Vitamin) Allergy (Mild, Verified 07/14/25 08:54) RASH iron (From Vitamin) Allergy (Mild, Verified 07/14/25 08:54) RASH acetaminophen (From Percocet) Allergy (Unknown, Verified 07/14/25 08:54) ITCHING penicillin V Allergy (Unknown, Verified 07/14/25 08:54) Hives Penicillins Allergy (Unknown, Verified 07/14/25 08:54) ITCHING Amoxicillin Allergy (Unknown, Uncoded 07/14/25 08:54) hives From Percocet Allergy (Unknown, Uncoded 07/14/25 08:54) ITCHING Penicillin Allergy (Unknown, Uncoded 07/14/25 08:54) hives HPI HPI OV-Left knee pain/Swelling: Details: 40-year-old female returns to the office today for left knee pain. I had seen her in 2023 for her left knee and she was given a steroid injection which she states was minimally helpful. She states she has done physical therapy and continues to work out but has ongoing knee pain which is worse with deep bending and squatting. [facility] Medical History Cervical high risk HPV (human papillomavirus) test positive Asthma Headaches due to old head injury Insomnia Depression Bipolar 1 disorder GERD (gastroesophageal reflux disease) DJD (degenerative joint disease) ADHD Sleep apnea treated with continuous positive airway pressure (CPAP) Morbid obesity Surgical History Hx of breast reduction, elective Hx of section Hx of cholecystectomy Family History Mother Hypertension Diabetes Heart attack Father Hypertension Brother No problems noted. Sister No problems noted. Son ADHD Daughter No problems noted. 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 Female Reproductive History Menstrual Age of Menarche: 14 Review of Systems Const All systems reviewed & are unremarkable except as noted in HPI and below Physical Exam Const General: cooperative, healthy appearing, no acute distress, well developed and alert Orientation/consciousness: patient oriented x3 HEENT Head: Yes normal to inspection, Yes normocephalic and Yes atraumatic Eyes General: appearance normal, both eyes and all related structures Resp Effort & Inspection: normal respiratory effort and able to speak in complete sentences Cardio Rate: regular rate Peripheral pulses: Peripheral pulses 2+ throughout GI Palpation (GI): Soft to palpation Skin Lesions: no lesions Rashes: no rashes Neuro General: patient oriented x3 Extrem Other: Left knee: Skin intact, no erythema or joint effusion. Lateral retropatellar tenderness present. Full ROM with crepitus. Negative Al?s. No ligamentous laxity. NVI. Office Procedures AMB Joint Injection/Aspiration Joint Injection/Aspiration Primary Site: Left Knee Prep: site was prepped using aseptic technique, ethochloride spray was applied and injection warnings given Injected: 40 mg of, Decadron, with 3 mL of, 1% plain Lidocaine, 0.25% Bupivacaine and in the joint Approach Used: anterolateral Procedure: The patient tolerated the procedure well and there was some relief with the local anesthesia Coding 76056 - Glenohumeral/Tronchanteric Bursa/Intraarticular Procedure code (CPT) selection complete Assessment & Plan Assessment & Plan (1) Patellofemoral arthritis of left knee: Code(s): M17.12 - Unilateral primary osteoarthritis, left knee Category: Medical Plan: We discussed options today, which include steroid injection. The patient did consent to move forward with the injection, which was tolerated well.?We will also get her set up for gel injections. I recommended rest, ice and elevation and OTC antiinflammatories prn for discomfort. If symptoms persist over the next 6-8 weeks, they will contact our office, otherwise, prn Coding Level of Care Code Est Pt Level 3 (14509) Complex visit Add On G2211 Diagnoses Patellofemoral arthritis of left knee M17.12 CPT Codes Coding - Joint 7: 84892 - Glenohumeral/Tronchanteric Bursa/Intraarticular ([id number])
== END 2025-07-14 09:32 | disposition home or self-care (01) ==
LOC: HO.HOS 08:38
PROVIDERS: PCP Family Medicine; Visit Provider Physician Assistant
DX: M17.12 Unilateral primary osteoarthritis, left knee (principal)
CPT/HCPCS: 20610; 99213

== ENCOUNTER → 2025-07-14 08:37 | Outpatient (BNVA) | payer OTHER, SELFPAY | PROVIDERS: PCP Family Medicine; Visit Provider Physician Assistant | DX: M17.12 Unilateral primary osteoarthritis, left knee (principal); Z79.52 Long term (current) use of systemic steroids | CPT/HCPCS: 20610; 99212; J0665; J1100; J2003 ==

== ENCOUNTER 2025-07-26 08:52 | Outpatient (REF) | payer OTHER, SELFPAY ==
[2025-07-26 14:54] LABS: Anion Gap 13 (12-20); Blood Urea Nitrogen 13 mg/dL (9-16); Calcium 9.5 mg/dL (8.4-10.2); Carbon Dioxide 25 mmol/L (22-29); Chloride 103 mmol/L (96-108); Estimated Glomerular Filt Rate > 60; Potassium 3.9 mmol/L (3.3-5.1); Sodium 137 mmol/L (135-145)
[2025-07-27 01:39] LABS: Bacterial Vaginosis PCR NEGATIVE (Negative); Candida Group PCR NOT DETECTED (Not Detect); Candida glab krusei PCR NOT DETECTED (Not Detect); Trichomonas vaginalis PCR NOT DETECTED (Not Detect)
[2025-07-27 02:10] LABS: CT PCR NOT DETECTED (Not Detect.); NG PCR NOT DETECTED (Not Detect.)
[2025-07-27 04:26] LABS: HIV Num 1 0.06 S/CO (0.00-0.99); ~HepC Num1 0.12 S/CO (0.00-0.79); ~Hepatitis C Antibody Nonreactive (Nonreactive)
[2025-07-27 04:56] LABS: Syphilis Screen Nonreactive (Nonreactive)
[2025-07-27 13:33] LABS: HBsAGNum1 0.24 S/CO (0.00-0.99); Hepatitis B Surface Antigen Negative (Negative)
== END 2025-07-26 08:53 | disposition home or self-care (01) ==
LOC: HO.LNP 08:52
PROVIDERS: PCP Family Medicine; Visit Provider Advanced Practice Midwife
DX: Z01.419 Encounter for gynecological examination (general) (routine) without abnormal findings (principal); Z11.59 Encounter for screening for other viral diseases; Z11.4 Encounter for screening for human immunodeficiency virus [HIV]; Z20.2 Contact with and (suspected) exposure to infections with a predominantly sexual mode of transmission; Z12.39 Encounter for other screening for malignant neoplasm of breast; N87.0 Mild cervical dysplasia; I10 Essential (primary) hypertension; R73.03 Prediabetes; Z71.3 Dietary counseling and surveillance; Z68.41 Body mass index [BMI] 40.0-44.9, adult; Z97.5 Presence of (intrauterine) contraceptive device
CPT/HCPCS: 80048; 81515; 83036; 86780; 86803; 87340; 87389; 87491; 87591; 87626; 88175

== ENCOUNTER 2025-07-26 08:52 | Outpatient (AMB) | payer OTHER, SELFPAY ==
--- OUTSIDE RECORDS SUMMARY | 2025-07-23 03:05 | XMS_ITS | Encounter Summary ---
Author Organization [facility] Address [address] [place] [address] Care Team Providers Care Proposal Writer Name Role Phone Physician, No Pcp Primary Care Provider Unavaila ble Reason for Visit * Reason Comments Foreign Body in Vagina Encounter Details Date Type Department Care Team (Late st Contact Info) Description 07/23/2025 3:05 AM EST - 07/23/2025 3:56 AM EST Emergency [facility] [address] [place] [phone] Christin Newton MD [address] [place] [address] Foreign body of vagina, initial encounter (Primary Dx) Discharge Disposition: Home or Self Care Social History Tobacco Use Types Packs/Day Years Used Date Smoking Tobacco: Former Smokeless Tobacco: Never Alcohol Use Standard Drinks/Week Comments No 0 (1 standard drink = 0.6 oz pur e alcohol) Interpersonal Safety Answer Date Record ed Physical Abuse Unrecognized value 10/11/2024 Verbal Abuse Unrecognized value 10/11/2024 Comments No Sex and Gender Information Value Date Recorded Sex Assigned at Not on file Legal Sex Female 8:16 PM EST Gender Identity Not on file Sexual Orientation Not on file documented as of this encounter Last Filed Vital Signs Vital Sign Reading Time Taken Comments Blood Pressure 118/70 07/23/2025 1:10 AM EST Pulse 84 07/23/2025 1:10 AM EST Temperature 36.3 C (97.3 F) 07/23/2025 1:10 AM EST Respiratory Rate - - Oxygen Saturation 100% 07/23/2025 1:10 AM EST Inhaled Oxygen Concentration - - Weight 93 kg (205 lb) 07/23/2025 1:10 AM EST Height 149.9 cm (4' 11 ) 07/23/2025 1:10 AM EST Body Mass Index 41.4 07/23/2025 1:10 AM EST documented in this encounter Functional Status * Are you deaf or do you have serious difficulty hearing? Answer Date of Assessment Author No 05/08/2025 10:49 PM EDLia Awan RN * Are you blind or do you have serious difficulty seeing, even when wearing glasses? Answer Date of Assessment Author No 05/08/2025 10:49 PM EDT Lia Portillo RN * Do you have serious difficulty walking or climbing stairs? Answer Date of Assessment Author No 05/08/2025 10:49 PM EDT Lia Portillo RN * Do you have serious difficulty dressing or bathing? Answer Date of Assessment Author No 05/08/2025 10:49 PM Lia Kemp RN * Because of a physical, mental, or emotional condition, do you have serious difficulty doing errandsalone such as visiting the doctor? Answer Date of Assessment Author No 05/08/2025 10:49 PM Lia Kemp RN * Calculated C-SSRS Risk Score (Lifetime/Recent) Answer Date of Assessment Author No Risk Indicated 07/23/2025 1:10 AM Sloane Fields RN * [place] Suicide Severity Rating Scale (Screener/Recent Self-Report) Question Answer Date of Assessment Author 1. Wish to be (Past 1 Month) No 025 1:10 AM Sloane Fields RN 2. Non-Specific Active Suici jann Thoughts (Past 1 Month) No 07/23/2025 1:10 AM Marbin Fields RN 6. Suicidal Behavior (Lifetime) No 1:10 AM Sloane Fields RN documented as of this encounter Mental Status * Because of a physical, mental, or emotional condition, do you have serious difficulty concentrating, remembering, or making decisions? (5 years old or older) Answer Entry Date Author No 05/08/2025 10:49 PM Lia Kemp RN documented in this encounter Discharge Instructions * Discharge Instructions* VIKAS Fuentes - 07/23/2025 3:31 AM EST You are seen for foreign body in your vagina. Please monitor yourself if you develop fevers, discharge from the vagina, feel unwell or fatigue return to the emergency department for reevaluation otherwise be seen by your primary care provider and [employer] in the next 7 to 10 days. * Attachments The following attachments cannot be sent through Care Everywhere. * Foreign Body in the Vagina (Kazakh) documented in this encounter Medications at Time of Discharge acetaminophen (TYLENOL) 500 mg tablet Take 2 tablets (1,000 mg total) by mouth every 6 hours as needed. 09/30/2023 albuterol 2.5 mg /3 mL (0.083 %) nebulizer solution Take 3 mL (2.5 mg total) by nebulization every 6 (six) hours if needed. 09/20/2023 fluticasone propionate (FLONASE) 50 mcg/actuation nasal spray Administer 2 sprays into each nostril daily. 09/28/2024 Gas-X Extra Strength 125 mg capsule Take 1 capsule (125 mg total) by mouth 4 times daily as needed. 11/27/2023 Zepbound 2.5 mg/0.5 mL injection Inject 0.5 mL (2.5 mg total) under the skin every 7 (seven) days. thursday05/31/2024 documented as of this encounter Discharge Disposition Disposition Code Departure Means Destination Comment s Home or Self Care documented in this encounter Progress Notes * Sloane Liu RN - 07/23/2025 1:08 AM EST Pt reports she had intercourse with her partner and the condom is now stuck in her vagina. Unable to get it out herself. * VIKAS Fuentes - 07/23/2025 1:07 AM ESTAssociated Order(s): Foreign Body Removal - Orifice HPI Chief Complaint Patient presents with Foreign Body in Vagina Patient 40-year-old female past medical history of asthma presenting to the emergency department after sexual intercourse with condom stuck in vagina unable to retrieve with attempts at home by herself. Patient without abdominal pain nausea vomiting diarrhea fevers chills. No urinary symptoms. No discharge from the vagina History provided by: Patient historic interpreter used: No Casimiro Coma Scale Score: 15 Patient History Medical History[1] Surgical History[2] Family History[3] Social History Tobacco Use Smoking status: Former Smokeless tobacco: Never Substance Use Topics Alcohol use: No Drug use: Yes Types: Marijuana/Cannabis Review of Systems Review of Systems All other systems reviewed and are negative. Physical Exam ED Triage Vitals [07/23/25 0110] Temp Heart Rate Resp BP 36.3 ??C (97.3 ??F) 84 -- 118/70 SpO2 Temp Source Heart Rate Source Patient Position 100 % Oral Monitor Sitting BP Location FiO2 (%) Left arm -- Physical Exam Vitals and nursing note reviewed. Constitutional: General: She is not in acute distress. Appearance: Normal appearance. She is normal weight. She is not toxic-appearing or diaphoretic. HENT: Head: Normocephalic and atraumatic. Nose: Nose normal. Mouth/Throat: Mouth: Mucous membranes are moist. Pharynx: No oropharyngeal exudate or posterior oropharyngeal erythema. Eyes: General: No scleral icterus. Extraocular Movements: Extraocular movements intact. Conjunctiva/sclera: Conjunctivae normal. Cardiovascular: Rate and Rhythm: Normal rate and regular rhythm. Pulses: Normal pulses. Heart sounds: Normal heart sounds. Pulmonary: Effort: Pulmonary effort is normal. Breath sounds: Normal breath sounds. Abdominal: Palpations: Abdomen is soft. Tenderness: There is no abdominal tenderness. There is no right CVA tenderness, left CVA tenderness, guarding or rebound. Genitourinary: General: Normal vulva. Comments: Manhole Builder exam with RN, speculum inserted into the vagina, foreign body identified as condom, ring forceps used, removed without difficulty. Condom intact, no foreign body on inspection with speculum and during removal of speculum Musculoskeletal: General: Normal range of motion. Cervical back: Normal range of motion and neck supple. Skin: General: Skin is warm and dry. Capillary Refill: Capillary refill takes less than 2 seconds. Neurological: General: No focal deficit present. Mental Status: She is alert. Cranial Nerves: No cranial nerve deficit. Motor: No weakness. Gait: Gait normal. ED Course & MDM Clinical Impressions as of 07/23/25332 Foreign body of vagina, initial encounter Medical Decision Making Differential diagnosis foreign body sensation foreign body, low suspicion for toxic syndrome Foreign body removed intact see procedure note. Further emergent workup not clinically indicated given absence of systemic symptoms. Foreign Body Removal - Orifice Date/Time: 07/23/2025 3:33 AM Performed by: IVKAS Fuentes Authorized by: Christin Newton MD Consent: Consent obtained: Verbal Consent given by: Patient Risks, benefits, and alternatives were discussed: yes Risks discussed: Bleeding, damage to surrounding structures, infection, incomplete removal and pain Alternatives discussed: No treatment [place] protocol: Patient identity confirmed: Verbally with patient Location: Location: Vagina Pre-procedure details: Imaging: None Sedation: Sedation type: None Anesthesia: Topical anesthetic: None Procedure details: Localization method: Direct visualization Removal mechanism: Ring forceps Procedure complexity: Simple Foreign bodies recovered: 1 Description: Condom Intact foreign body removal: yes Post-procedure details: Confirmation: No additional foreign bodies on visualization Procedure completion: Tolerated well, no immediate complications [1] Past Medical History: Diagnosis Date Anxiety and depression DX:Anxiety and depression Asthma Seasonal allergies DX:Seasonal allergies [2] Past Surgical History: Procedure Laterality Date SECTION 2003 PROCEDURE: HISTORICAL DELIVERY CHOLECYSTECTOMY 2003 PROCEDURE: HISTORICAL CHOLECYSTECTOMY [3] Family History Problem Relation Name Age of Onset Diabetes Mother hypertension; CVD VIKAS Fuentes 07/23/25332 Cosigned by hCristin Newton MD at 07/23/2025 10:03 AM EST Associated attestation - Christin Newton MD - 07/23/2025 10:03 AM EST I was available for consult in real time on shift and if asked my input in care is as outlined by the documentation below by me. If not documented, then I did not participate in the care of this patient and have reviewed the chart as written. Christin Newton MD documented in this encounter Plan of Treatment Not on file documented as of this encounter Procedures Procedure Name Priority Date/Time Associated Diagnosis Comments ED FOREIGN BODY REMOVAL - ORIFICE Routine 07/23/2025 3:33 AM EST documented in this encounter Results * Foreign Body Removal - Orifice (07/23/2025 3:33 AM EST) Christin Zayas MD - 07/23/2025 3:33 AM EST Christin Newton MD 07/23/2025 10:03 AM Foreign Body Removal - Orifice Date/Time: 07/23/2025 3:33 AM Performed by: VIKAS Fuentes Authorized by: Christin Newton MD Consent: Consent obtained: Verbal Consent given by: Patient Risks, benefits, and alternatives were discussed: yes Risks discussed: Bleeding, damage to surrounding structures, infection, incomplete removal and pain Alternatives discussed: No treatment [place] protocol: Patient identity confirmed: Verbally with patient Location: Location: Vagina Pre-procedure details: Imaging: None Sedation: Sedation type: None Anesthesia: Topical anesthetic: None Procedure details: Localization method: Direct visualization Removal mechanism: Ring forceps Procedure complexity: Simple Foreign bodies recovered: 1 Description: Condom Intact foreign body removal: yes Post-procedure details: Confirmation: No additional foreign bodies on visualization Procedure completion: Tolerated well, no immediate complications us Christin Newton MD IN CLINIC/BEDSIDE ORDERABLES F inal Result documented in this encounter Visit Diagnoses Diagnosis Foreign body of vagina, initial encounter- Primary documented in this encounter Care Teams Proposal Writer Relationship Specialty Start Date End Date Physician, No Pcp PCP - General 05/08/25 documented as of this encounter
--- OUTSIDE RECORDS SUMMARY | 2025-07-25 17:20 | XMS_ITS | Encounter Summary ---
Author Organization [employer] Address [address] [address] [place] [address] Care Team Providers Care Cripple Cutter Name Role Phone Damaris Ramos MD Primary Care Provider [phone] Encounter Details Date Type Department Care Team (Late st Contact Info) Description 07/25/2025 5:20 PM EST Office Visit [facility] [address] [place] [address] ArauzCollin Irving MD [address] [place] [address] Sinus congestion Social History Tobacco Use Types Packs/Day Years Used Date Smoking Tobacco: Former Cigarettes Passive Smoke Exposure: Past Smokeless Tobacco: Never Alcohol Use Standard Drinks/Week Comments Never 0 (1 standard drink = 0.6 oz pur e alcohol) Alcohol Answer Date Recorded Frequency of Alcohol Consumption Not on file 05/25/2024 Average Number of Drinks Not on file 024 Frequency of Binge Drinking Not on file 05/10 Score 0 05/25/2024 Depression Answer Date Recorded Patient Health Questionnaire-9 Score 13 04/26/2025 Patient Health Questionnaire-9 Score 13 04/26/2025 Last PHQ-9: Questionnaire Data Not on file 0 04/26/2025 Housing Stability Answer Date Recorded What is [...] Answer Date Recorded Patient Health Questionnaire-2 Score 3 04/26/2025 Internet Access Answer Date Recorded Internet Access [...] Sign Reading Time Taken Comments Blood Pressure 149/100 07/25/2025 4:59 PM EST Pulse 74 07/25/2025 4:59 PM EST Temperature 36.2 C (97.1 F) 07/25/2025 4:59 PM EST Respiratory Rate 18 07/25/2025 4:59 PM EST Oxygen Saturation 98% 07/25/2025 4:59 PM EST Inhaled Oxygen Concentration - - Weight 94.8 kg (209 lb) 07/25/2025 4:59 PM EST Height 149.9 cm (4' 11 ) 07/25/2025 4:59 PM EST Body Mass Index 42.21 07/25/2025 4:59 PM EST documented in this encounter Progress Notes * Collin Seay MD - 07/25/2025 5:20 PM EST Subjective Patient ID: Taylor Martinez is a 40 y.o. female who presents for No chief complaint on file.. Sinusitis This is a new problem. There has been no fever. The pain is mild. Associated symptoms include congestion, headaches and sinus pressure. Pertinent negatives include no shortness of breath. Review of Systems HENT: Positive for congestion and sinus pressure. Respiratory: Negative for shortness of breath. Neurological: Positive for headaches. Objective Physical Exam Constitutional: Appearance: Normal appearance. Cardiovascular: Rate and Rhythm: Normal rate. Heart sounds: No murmur heard. Pulmonary: Effort: Pulmonary effort is normal. No respiratory distress. Breath sounds: No stridor. No wheezing or rhonchi. Neurological: General: No focal deficit present. Mental Status: She is alert and oriented to person, place, and time. Psychiatric: Mood and Affect: Mood normal. Behavior: Behavior normal. Assessment/Plan Problem List Items Addressed This Visit None Visit Diagnoses Sinus congestion Will start on doxycycline, stay well hydrated, call back if not improving Relevant Orders POCT Rapid Covid-19 BinaxNOW (Completed) POCT Rapid Influenza A ARIZMENDI ID NOW (Completed) POCT Rapid Influenza B ARIZMENDI ID NOW (Completed) documented in this encounter Plan of Treatment Not on file documented as of this encounter Procedures Procedure Name Priority Date/Time Associated Diagnosis Comments POCT INFLUENZA B (ID NOW RAPID MOLECULAR) Routine 07/25/2025 5:15 PM EST Sinus congestion POCT INFLUENZA A (ID NOW RAPID MOLECULAR) Routine 07/25/2025 5:15 PM EST Sinus congestion POCT RAPID COVID ANTIGEN Routine 07/25/2025 5:11 PM EST Sinus congestion documented in this encounter Results * POCT Rapid Influenza B ARIZMENDI ID NOW (07/25/2025 5:15 PM EST) Influenza B Negative Negative, Indeterminate [facility] QC Media Lot # [id number] [facility] Lot# Expiration Date 026 [facility] Swab 07/25/2025 5:15 PM EST us Collin Seay MD POINT OF CARE TEST ENTER/EDIT ORDERABLES Final Result [facility] [address] [place] [phone] * POCT Rapid Influenza A ARIZMENDI ID NOW (07/25/2025 5:15 PM EST) Influenza A Negative Negative, Indeterminate [facility] QC Media Lot # [id number] [facility] Lot# Expiration Date 11,026 [facility] Swab 07/25/2025 5:15 PM EST Collin Seay MD POINT OF CARE TEST ENTER/EDIT ORDERABLES Final Result [facility] [address] [place] [phone] * POCT Rapid Covid-19 BinaxNOW (07/25/2025 5:11 PM EST) Rapid COVID Ag Negative QC Media Lot # [id number] Lot# Expiration Date Swab 07/25/2025 5:11 PM EST Collin Seay MD POINT OF CARE TEST ENTER/EDIT ORDERABLES Final Result documented in this encounter Visit Diagnoses Diagnosis Sinus congestion Other diseases of nasal cavity and sinuses documented in this encounter Additional Health Concerns Assessment Noted Time PHQ-9 Depression Total Score: 13 04/26/ 025 10:42 AM EDT documented as of this encounter Care Teams Cripple Cutter Relationship Specialty Start Date End Date Damaris Ramos MD [address] [place] [phone] PCP - General Family Medicine 08/10/18 documented as of this encounter
--- NOTE | 2025-07-26 08:54 | A.OFFVIS_ITS ---
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: No Manager Wastewater: Manager Wastewater offered & declined Accompanied by: Self / Same As Patient Allergies amoxicillin (Amoxicillin) Allergy (Mild, Verified 07/26/25 09:14) ITCHING diphenhydramine (From Benadryl) Allergy (Mild, Verified 07/26/25 09:14) ITCHING folic acid (From Vitamin) Allergy (Mild, Verified 07/26/25 09:14) RASH iron (From Vitamin) Allergy (Mild, Verified 07/26/25 09:14) RASH acetaminophen (From Percocet) Allergy (Unknown, Verified 07/26/25 09:14) ITCHING penicillin V Allergy (Unknown, Verified 07/26/25 09:14) Hives Penicillins Allergy (Unknown, Verified 07/26/25 09:14) ITCHING Amoxicillin Allergy (Unknown, Uncoded 07/14/25 08:54) hives From Percocet Allergy (Unknown, Uncoded 07/14/25 08:54) ITCHING Penicillin Allergy (Unknown, Uncoded 07/14/25 08:54) hives Is last menstrual period known: No Post menopausal: No Patient : No HPI Comments Details: Pt is informed of [place] vidhi for clinical documentation and agrees to its use during the visit The patient is a 40 year old female presenting for her annual gynecological examination and sexually transmitted disease (STD) testing. She requests STD testing due to an incident 2 weeks ago where a condom became stuck inside her during intercourse. She denies any current vaginal symptoms but reports feeling paranoid about potential exposure. reports this is a known partner, but they do not have a steady relationship Her gynecological history is significant for a Mirena IUD, initially placed in 2007 and subsequently replaced, with which she experiences amenorrhea. She has a history of intermittent abnormal Pap smears due to HPV, and has undergone a cervical biopsy in the past. She has had two children, both delivered via C- section. 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 She is lactose intolerant but consumes lactose-free milk. She had a breast reduction in the past. The patient's family history is notable for her mother who at age 42 from a heart attack, and her father who has hypertension, diabetes, and HIV. Her brother is from a drug overdose. An aunt had breast cancer in her 40s and later from complications of AIDS. Socially, she lives with her dog. She denies alcohol or cigarette use but smokes marijuana for medical purposes at night to help with sleep. She is in a non- committed, on-and-off relationship and states she always uses condoms. She denies any domestic violence. [facility] Medical History (Updated 07/26/25 @ 11:07 by Nuha Peraza CNM) Cervical high risk HPV (human papillomavirus) test positive Asthma Headaches due to old head injury Insomnia Depression Bipolar 1 disorder GERD (gastroesophageal reflux disease) DJD (degenerative joint disease) ADHD Sleep apnea treated with continuous positive airway pressure (CPAP) Morbid obesity Surgical History Hx of breast reduction, elective Hx of section Hx of cholecystectomy Family History Mother Hypertension Diabetes Heart attack Father Hypertension Diabetes HIV (human immunodeficiency virus infection) Brother No problems noted. Sister No problems noted. Son Age: 21 ADHD Daughter Age: 17 No problems noted. 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 Female Reproductive History Menstrual Age of Menarche: 14 control method: progestin IUCD (Mirena ) Date of last pap smear: 07/20/24 (EMETERIO 1, +HPV ) History of abnormal pap smear: Yes Review of Systems Const Reports no additional complaints Eyes Reports no additional complaints ENT Reports no additional complaints Card Reports no additional complaints Resp Reports no additional complaints GI Reports no additional complaints Reports as per HPI Skin/Breast Reports system reviewed and no additional complaints, except as documented Physical Exam Vital Signs: Last Vital Signs BP 130/88 07/26/25 09:15 BMI result Body Mass Index 42.4 Const General: cooperative, healthy appearing and no acute distress Orientation/consciousness: patient oriented x3 HEENT Head: Yes normal to inspection and Yes normocephalic Ears: external ears normal General nose exam: No nasal discharge present Neck Neck: Yes normal visual inspection Chest Other: No skin changes, peau d orange, or nipple discharge noted; + bilat breast reduction scars noted Breast/axilla inspection: normal inspection of the breasts, normal inspection of the axillae and Other Breast/axilla palpation: normal palpation of the breasts, normal palpation of the axillae and no axillary lymphadenopathy Resp Effort & Inspection: normal respiratory effort and able to speak in complete sentences GI Inspection: No distended Palpation (GI): Soft to palpation, nontender and no masses Percussion: Yes normal to percussion Rectal Exam - Female: External hemorrhoid(s) present External Female Exam: normal external appearance and normal appearance of the urethra Speculum Exam - Vagina: normal appearance of the vagina and normal vaginal discharge Speculum Exam - Cervix: normal appearance of the cervix (IUD strings visible) and normal palpation (neg CMT) Bimanual exam- vagina & uterus: normal bimanual exam, normal palpation (neg CMT), uterine mobility normal and non-tender Bimanual Exam- Adnexa, other: no masses and No adnexal tenderness Skin General skin exam: no rashes or lesions noted Neuro General: patient oriented x3 and moves all extremities Extrem General: Yes full ROM Psych Speech and movement: Normal speech and movement present Affect: normal affect Attitude: cooperative Thought process: Normal thought process present Assessment & Plan Assessment & Plan (1) Dysplasia of cervix, low grade (EMETERIO 1): Code(s): N87.0 - Mild cervical dysplasia Category: Medical (2) Well woman exam with routine gynecological exam: Code(s): Z01.419 - Encounter for gynecological examination (general) (routine) without abnormal findings Plan: During the visit, the following areas of concern were addressed: Regular exercise Healthy lifestyle STD strategies to avoid exposure Smoking cessation Domestic violence Health Maintenance and Screening -Reviewed ASCCP guidelines for Paps and yearly (bi-yearly ) pelvic exam. -Reviewed and encouraged diet and exercise for cardiovascular and bone health -Reviewed breast self-awareness. Importance of yearly mammogram after age 40 (earlier if first-degree relative with breast cancer at a younger age ) Discuss use of 3 times per week weight-bearing exercise, vitamin D3 and servings of dietary calcium daily for bone health. -continue to follow with PCP for general medical care, immunizations. Family and personal history of cancer reviewed. Genetic screening- not indicated The patient has BMI:42 Approaches towards continued weight loss are discussed including burning more calories than one takes in by frequent, small meals, portion control, avoiding eating before bedtime, regular exercise with an emphasis on duration rather than intensity, strength training exercise. RTO one year or sooner chaparro Peraza CNM Note about provider documentation : If you or the patient named in this chart and are reviewing your medical notes, please note that medical documentation is often written with abbreviations and medical terminology, and directed for other providers who may be involved in your care as well. Documentation is critical to record what has happened, what tests were ordered, and so they are interpreted with the resulting diagnoses. These notes have been made available for patient review but not specifically written for the patient. Important health information is always given to my patients in clinical instructions. Please review your after visit summary and our contact our clinical staff if you have any questions. (3) Screening for breast cancer: Code(s): Z12.39 - Encounter for other screening for malignant neoplasm of breast Qualifiers: Breast cancer screening modality: non-mammogram Qualified Code(s): Z12.39 - Encounter for other screening for malignant neoplasm of breast (4) Screening for malignant neoplasm of cervix: Code(s): Z12.4 - Encounter for screening for malignant neoplasm of cervix (5) Encounter for screening examination for sexually transmitted disease: Code(s): Z11.3 - Encounter for screening for infections with a predominantly sexual mode of transmission (6) IUD (intrauterine device) in place: Code(s): Z97.5 - Presence of (intrauterine) contraceptive device Plan 1. Annual Gynecological Examination and Health Maintenance The patient presents for a routine annual exam. A breast and pelvic exam were performed today. The patient is due for her first screening mammogram next year at age 41, which is recommended given her family history of breast cancer. She i s encouraged to continue efforts with diet and exercise. 2. Screening for Sexually Transmitted Infections Testing was requested by the patient due to a condom mishap 2weeks prior. Plan includes blood work for HIV, Hep C and syphilis, as well as vaginal swabs for gonorrhea, chlamydia, bacterial vaginosis, and yeast. 3. History of Abnormal Papanicolaou Smear The patient has a history of fluctuating abnormal Pap smears with HPV . A Pap smear was collected today for follow-up. If it remains abnormal, she will be referred back to physician for further management. 4. Contraception Management The patient has a Mirena IUD in place, and strings were visualized on exam, confirming proper placement. The date of her last IUD placement is not in the current system; a nurse will check the old records to determine when it is due for replacement, and the patient will be notified. 5. Gastroesophageal Reflux Disease (GERD) and Irritable Bowel Syndrome (IBS) The patient reports managing GERD with daily omeprazole and IBS through dietary modifications. Continue current management. Orders: Orders Hepatitis B Surface Antigen Today Z20.2 - Contact with and (suspected) exposure to infections with a predominantly sexual mode of transmission Syphilis Screen Today Z20.2 - Contact with and (suspected) exposure to infections with a predominantly sexual mode of transmission Bacterial Vaginosis Panel Today Z20.2 - Contact with and (suspected) exposure to infections with a predominantly sexual mode of transmission Pap Smear Today N87.0 - Mild cervical dysplasia, Z01.419 - Encounter for gynecological examination (general) (routine) without abnormal findings, Z12.4 - Encounter for screening for malignant neoplasm of cervix CT NG by PCR Vag/Cerv Today Z01.419 - Encounter for gynecological examination (general) (routine) without abnormal findings, Z11.3 - Encounter for screening for infections with a predominantly sexual mode of transmission Hepatitis C Antibody Today Z20.2 - Contact with and (suspected) exposure to infections with a predominantly sexual mode of transmission HIV Ab/Ag Today Z20.2 - Contact with and (suspected) exposure to infections with a predominantly sexual mode of transmission Coding Level of Care Code Est Pt Prev Care [id number]) Diagnoses Dysplasia of cervix, low grade (EMETERIO 1) N87.0 Well woman exam with routine gynecological exam Z01.419 Encounter for breast cancer screening using non-mammogram modality Z12.39 Breast cancer screening modality: non-mammogram Screening for malignant neoplasm of cervix Z12.4 Encounter for screening examination for sexually transmitted disease Z11.3 IUD (intrauterine device) in place Z97.5
[2025-07-26 09:15] VITALS: BP 130/88; BMI 42.4
--- OUTSIDE RECORDS SUMMARY | 2025-07-26 09:24 | XMS_ITS | Encounter Summary ---
Author Organization [employer] Address [address] [place] [address] [address] [place] [address] Care Team Providers Care Connection Worker Name Role Phone Damaris Ramos MD Primary Care Provider [phone] Reason for Referral * Consultation (Routine) - Closed Specialty Diagnoses / Procedures Referred By Jennifer walsh Referred To Contact Orthopaedic Surgery Diagnoses Chronic pain of left knee Acute medial meniscus tear of left knee, initial encounter Damaris Ramos MD [address] [place] [address] Phone: tel: fax: [facility] [address] [place] [address] [address] [place] [address] Phone: tel: fax: Referral ID Status Reason Start Date Expiration Date V isits Requested Visits Authorized [id number] Closed Specialty Services Required 11/19/2023 11/18/2024 1 1 Scheduling Instructions MRI is done and is in Epic under imaging. Encounter Details Date Type Department Care Team (Late st Contact Info) Description 11/19/2023 Orders Only [facility] [address] [place], [place] [phone] Damaris Ramos MD [address] [place] [address] Chronic pain of left knee [...] EDT) CT PCR NOT DETECTED Not Detect. [facility] Comment:A not detected test result [...] psychologicalconsequences. NG PCR NOT DETECTED Not Detect. [facility] Comment:A not detected test result [...] AM EDT 02/25/2024 1:02 PM EDT Narrative [facility] - 02/25/2024 3:42 PM EDT Urine us Damaris Ramos MD LAB MICROBIOLOGY - GENERAL ORDER YAMILET Final Result [facility] [address] [place] [phone] * Vitamin B12/Folate, Serum Panel (02/25/2024 10:16 AM EDT) Vitamin B12 640 200 - 900 pg/mL [facility] Comment:NORMAL 200-900 PG/ML INDETERMINATE 160-199 PG/ML DEFICIENT < 160 PG/ML Folate 7.2 > or = 4.0 ng/mL [facility] Comment:Reference Values:> o r = 4.0 ng/mL< 4.0 ng/mL suggests folate deficiency Methotrexate, aminopterin and folinic acid(leucovorin) are chemotherapeutic agents whose molecularstructures are similar to folate; therefore, the Architectfolate assay cannot be used for patients using these drugs. 02/25/2024 10:1 6 AM EDT 02/25/2024 11:15 AM EDT Damaris Ramos MD LAB BLOOD ORDERABLES Final Resul t Performing Organization Address [facility] de Phone Number [facility] [address] [place] [phone] * Hepatitis A Antibody, Total (02/25/2024 10:16 AM EDT) Hepatitis A Antibody IgG Nonreactive Nonreactive [facility] Blood Venous blood specimen / Unknown 02/25/2024 10:16 AM EDT 02/25/2024 11:15 AM EDT Damaris Ramos MD LAB BLOOD ORDERABLES Final Resul t Performing Organization Address [facility] Co de Phone Number [facility] [address] [place] [phone] * Hepatitis B surface antigen, EIA (02/25/2024 10:16 AM EDT) Hepatitis B Surface Ag Negative Negative [facility] Blood Venous blood specimen / Unknown 02/25/2024 10:16 AM EDT 02/25/2024 11:13 AM EDT Damaris Ramos MD LAB BLOOD ORDERABLES Final Resul t Performing Organization Address [facility] Co de Phone Number [facility] [address] [place] [phone] * HIV-1/2 Antigen and Antibodies, Fourth Generation, with Reflexes (02/25/2024 10:16 AM EDT) HIV AB/AG Nonreactive Nonreactive [facility] Comment:HIV-1 p24 Ag and/or HIV-1/HIV-2 Ab not detected.A test result that is nonreactive does not exclude thepossibility of exposure to or infection with HIV-1 and/orHIV-2. Nonreactive results in this assay for individualswith prior exposure to HIV-1 and/or HIV-2 may be due toantigen and antibody levels that are below the limit ofdetection of this assay.The [employer] HIV Ag/Ab Combo assay result andsupplemental assay results should be interpreted inconjunction with the patient's clinical presentation,history and other laboratory results. If the results areinconsistent with clinical evidence, additional testing issuggested to confirm the result. Blood Venous blood specimen / Unknown 02/25/2024 10:16 AM EDT 02/25/2024 11:13 AM EDT us Damaris Ramos MD LAB BLOOD ORDERABLES Final Resul t Performing Organization Address [facility] Co de Phone Number [facility] [address] [place] [phone] * Hepatitis B Core Antibody, Total (02/25/2024 10:16 AM EDT) Hepatitis B Core Antibody Nonreactive Nonreactive [facility] Blood Venous blood specimen / Unknown 02/25/2024 10:16 AM EDT 02/25/2024 11:13 AM EDT Damaris Ramos MD LAB BLOOD ORDERABLES Final Resul t Performing Organization Address [facility] Co de Phone Number [facility] [address] [place] [phone] * Hepatitis B Surface Antibody, Qualitative (02/25/2024 10:16 AM EDT) ~Hepatitis B Surface Antibody REACTIVE Nonreactive [facility] Comment:REACTIVE: > 11.99 mI U/mL Blood Venous blood specimen / Unknown 02/25/2024 10:16 AM EDT 02/25/2024 11:13 AM EDT us Damaris Ramos MD LAB BLOOD ORDERABLES Final Resul t Performing Organization Address [facility]/ZIP Co de Phone Number [facility] [address] [place] [phone] * Hepatitis C Antibody with Reflex to HCV, RNA, Quantitative, Real-Time PCR (02/25/2024 10:16 AM EDT) [facility] Hepatitis C Antibody Nonreactive Nonreactive [facility] Comment:Antibodies to HCV no t detected; does not exclude early acuteHCV infection. Blood Venous blood specimen / Unknown 02/25/2024 10:16 AM EDT 02/25/2024 11:13 AM EDT us Damaris Ramos MD LAB BLOOD ORDERABLES Final Resul t Performing Organization Address [facility]/ZIP Co de Phone Number [facility] [address] [place] [phone] * Syphilis Screen (02/25/2024 10:16 AM EDT) [facility] Syphilis Screen Nonreactive Nonreactive [facility] Blood 02/25/2024 10:1 6 AM EDT 02/25/2024 11:15 AM EDT us Damaris Ramos MD LAB BLOOD ORDERABLES Final Resul t Performing Organization Address City/[facility]/ZIP Co de Phone Number [facility] [address] [place] [phone] * Comprehensive Metabolic Panel (02/25/2024 10:16 AM EDT) Pathologist [facility] Sodium 138 135 - 145 mmol/L [facility] Potassium 3.9 3.3 - 5.1 mmol/L [facility] Chloride 105 96 - 108 mmol/L [facility] Carbon Dioxide 24 22 - 29 mmol/L [facility] Anion Gap 13 12 - 20 [facility] Urea Nitrogen (BUN) 11 9 - 16 mg/dL [facility] Creatinine, Serum 0.75 0.5 - 1.4 mg/dL [facility] Estimated Glomerular Filt Rate >60 [facility] Comment:NOTE: For -Am erican individuals, multiply the result by 1.210.Chronic Kidney Disease: Estimated GFR < 60 mL/min/1.35g9Vjxxpk Kidney Disease: Estimated GFR < 15 mL/min/1.73m2 Glucose 102 60 - 115 mg/dL [facility] Calcium 9.2 8.4 - 10.2 mg/dL [facility] Bilirubin, Total 0.5 0.0 - 1.0 mg/dL [facility] Aspartate Amino Transferase 16 5 - 31 U/L [facility] Alanine Aminotransferase 26 0 - 31 U/L [facility] Total Protein 7.5 6.5 - 8.0 g/dL [facility] Albumin Level 4.4 3.5 - 5.0 g/dL [facility] Alkaline Phosphatase 70 39 - 117 U/L [facility] Blood Venous blood specimen / Unknown 02/25/2024 10:16 AM EDT 02/25/2024 11:13 AM EDT us Damaris Ramos MD LAB BLOOD ORDERABLES Final Resul t [facility] [address] [place] [phone] * (ABNORMAL) CBC auto differential (02/25/2024 10:16 AM EDT) White Blood Count 8.0 4.8 - 10.8 X10*3/uL [facility] Red Blood Count 4.29 4.20 - 5.50 X10*6/uL [facility] Hemoglobin 14.5 12.0 - 16.0 g/dl [facility] Hematocrit 40.2 37.0 - 47.0 % [facility] Mean Corpuscular Volume 93.7 80.0 - 98.0 fL [facility] Mean Corpuscular Hemoglobin 33.8(H) 27.0 - 33.0 pg [facility] Mean Corpuscular HGB Conc 36.1(H) 31.0 - 35.0 g/dl [facility] Red Cell Distribution Width 12.6 11.0 - 16.0 % [facility] Platelet Count 382 160 - 400 X10*3/uL [facility] Mean Platelet Volume 9.8 9.4 - 12.3 fL [facility] Neutrophils Percent Auto 67.5 45 - 73 % [facility] Imm Gran Pct Auto 0.9(H) 0.0 - 0.4 % [facility] Lymphocytes Percent Auto 21.9 20 - 40 % [facility] Monocytes Percent Auto 8.3 2 - 11 % [facility] Eosinophils Percent Auto 0.8 0 - 4 % [facility] Basophils Percent Auto 0.6 0 - 2 % [facility] NRBC Pct Auto 0.0 0.0 - 0.2 /100WBC [facility] Neutrophils Absolute Auto 5.4 2.0 - 8.3 x10*3/uL [facility] Imm Gran Abs Auto 0.07(H) 0.00 - 0.03 X10*3/uL [facility] Lymphocytes Absolute Auto 1.8 1.2 - 4.9 X10*3/uL [facility] Monocytes Absolute Auto 0.7 0.1 - 1.2 X10*3/uL [facility] Eosinophils Absolute Auto 0.1 0.0 - 0.4 X10*3/uL [facility] Basophils Absolute Auto 0.1 0.0 - 0.2 X10*3/uL [facility] NRBC Abs Auto 0.000 0.0 - 0.012 X10*3/uL [facility] Blood Venous blood specimen / Unknown 02/25/2024 10:16 AM EDT 02/25/2024 11:15 AM EDT us Damaris Rmaos MD LAB BLOOD ORDERABLES Final Resul t Performing Organization Address City/State/[facility] Co de Phone Number [facility] [address] [place] [phone] * XR CERVICAL SPINE 3V (12/14/2023 11:00 AM EDT) Anatomical Region Laterality Modality Abdomen Radiographic Danielle ging 12/14/2023 11:0 0 AM EDT Narrative 12/21/2023 10:43 AM EDT [address] [address] XRay Report Signed Patient: Taylor Martinez MR#: [id number] : 1985 Acct:[id number] Age/Sex: 38 / F ADM Date: 12/14/23 Loc: HO.HHCX Attending Dr: Damaris Ramos MD Ordering Physician: Damaris Ramos MD Date of Service: 12/14/23 Procedure(s): XR cervical spine 3V Accession Number(s): [id number] cc: Damaris Ramos MD EXAMINATION: XR CERVICAL [...] in OV> 12/21/23 1039 DD/ 1100 TD/TT: Informatics Consultant: Procedure Note Donotuseinterpreter, Image - 12/21/2023 [facility] [address] [place] [address] XRay Report Signed Patient: Taylor MartinezMR#: [id number] : 1985Acct:[id number] Age/Sex: 38 / FADM Date: 12/14/23 Loc: [facility] Attending Dr: Damaris Ramos MD Ordering Physician: Damaris Ramos MD Date of Service: 12/14/23 Procedure(s): XR cervical spine 3V Accession Number(s): [id number] cc: Damaris Ramos MD EXAMINATION: XR CERVICAL [...] in OV> 12/21/23 1039 DD/ 1100 TD/TT: Informatics Consultant: Damaris Ramos MD IMG XR PROCEDURES Final Result * XR Shoulder 2+ Views Left (12/14/2023 11:00 AM EDT) Anatomical Region Laterality Modality Upper Extremities, Shoulder Left Radi ographic Imaging 12/14/2023 11:0 0 AM EDT Narrative 12/19/2023 9:18 AM EDT [facility] [address] [place] [address] XRay Report Signed Patient: Taylor Martinez MR#: [id number] : 1985 Acct:[id number] Age/Sex: 38 / F ADM Date: 12/14/23 Loc: [facility] Attending Dr: Damaris Ramos MD Ordering Physician: Damaris Ramos MD Date of Service: 12/14/23 Procedure(s): XR shoulder LT min 2V Accession Number(s): [id number] cc: Damaris Ramos MD EXAMINATION: XR SHOULDER, [...] By: <Electronically signed by Harman Howe MD in OV> 12/19/23 0913 DD/ 1100 TD/TT: Informatics Consultant: WG Procedure Note Donotuseinterpreter, Image - 12/19/[address] [address] XRay Report Signed Patient: Taylor Martinez#: [id number] : 1985Acct:[id number] Age/Sex: 38 / FADM Date: 12/14/23 Loc: HO.HHCX Attending Dr: Damaris Ramos MD Ordering Physician: Damaris Ramos MD Date of Service: 12/14/23 Procedure(s): XR shoulder LT min 2V Accession Number(s): [id number] cc: Damaris Ramos MD EXAMINATION: XR SHOULDER, [...] MD inOV> 12/19/23 0913 DD/ 1100 TD/TT: Informatics Consultant: WG Damaris Ramos MD IMG XR PROCEDURES [...] documented as of this encounter Care Teams Connection Worker Relationship Specialty Start Date End Date Damaris Ramos MD [address] [place] [phone] PCP - General Family Medicine 08/10/18 documented as of this encounter
--- OUTSIDE RECORDS SUMMARY | 2025-07-26 09:24 | XMS_ITS | Continuity of Care Document ---
Author Name [employer] Address [address] [place] [address] Organization Unknown Address [address] [place] [address] Medications No known medications Problems No known problems
--- OUTSIDE RECORDS SUMMARY | 2025-07-26 09:24 | XMS_ITS | Continuity of Care Document ---
Author Name [employer] Address [address] [place] [id number] Organization Unknown Address [address] [place] [address] Medications No known medications Problems No known problems
--- OUTSIDE RECORDS SUMMARY | 2025-07-26 09:24 | XMS_ITS | Clinical Summary ---
Author Organization [facility] Address [address] [phone] Phone Care Team Providers Care Dye Reel Operator Helper Name Role Phone Pcp, Unknown Primary Care [...] HEPATITIS C SCREENING 2004 HIV ONE-TIME SCREENING (18-65 YEARS) 2004 PAP SMEAR 2007 INFLUENZA VACCINE (#1) 2025 , 07/14/2018, 07/27/2017, Additional history exists COVID-19 VACCINE ( season) 2025 02/27/2021 Adult Td,Tdap Booster 12/06/2031 12/05/2021, 012 PNEUMOCOCCAL VACCINES (0-49 years) Aged Out 02/02/2023, 03/01/2014 No longer eligibl e based on patient's age to complete this [...] topic Medical Devices Not on file Insurance [facility] MEDICARE REPLACEMENT [facility] MEDICARE REPLACEMENT [facility] MEDICARE [facility]PLACEMENT [facility] MEDICARE REPLACEMENT [facility] MEDICARE REPLACEMENT [facility] MEDICARE REPLACEMENT Care Teams Dye Reel Operator Helper Relationship Specialty Start Date End Date Pcp, Unknown PCP - General 03/09/23 Additional Source Comments The information contained in this document represents components of the legal health record. It is not the complete legal health record.[facility]
--- OUTSIDE RECORDS SUMMARY | 2025-07-26 09:24 | XMS_ITS | Encounter Summary ---
Author Organization [employer] Address [address] [place] [address] [address] [place] [address] Care Team Providers Care Basin Tender Name Role Phone Damaris Ramos MD Primary Care Provider [phone] Reason for Visit * Reason Onset Date Comments Durable Medical Equipment 10/24/2024 Encounter Details Date Type Department Care Team ([facility] st Contact Info) Description 10/24/2024 Telephone [facility] [address], [place] [phone] Damaris Ramos MD [address] [place], [place] [phone] Durable Medical Equipment Social History Tobacco Use [...] EDT Request for CPAP received from [facility] channel marketing coordinator; forwarded to provider for review on [...] enough Air at night. Contact pt at [phone] documented in this encounter Plan of Treatment Not on file documented as of this encounter Visit Diagnoses Not on filedocumented in this encounter Additional Health Concerns Assessment Noted Time PHQ-9 Depression Total Score: 18 024 12:02 PM EDT documented as of this encounter Care Teams Basin Tender Relationship Specialty Start Date End Date Damaris Ramos MD [address] [place] [phone] PCP - General Family Medicine 1/1/19 documented as of this encounter
--- OUTSIDE RECORDS SUMMARY | 2025-07-26 09:24 | XMS_ITS | Encounter Summary ---
Author Organization [facility] Address [address] [place] [address] Encounters * CPT with Medical [facility] at [facility] on 2025-03-09 { reasonForRequest : sinus infection , patientReports : Cough, fever greater than 2 days ; History of asthma, increased use of inhaler; Cough; Shortness of breath with exertion , denies :[ Increased work of breathing/labored with or withoutfever , Unable to speak in full sentences without distress , Discoloration of skin -cyanosis , Needs to sleep sitting up, can t catch breath , Shortness of breath in setting of confusion , Lower extremity swelling , COPD , COVID Exposure , Sputum increase , Pain with inspiration ], chiefComplaints : Common Cold , pmh : COPD/Asthma, Osteoarthritis , allergies : Penicillins, Diphenhydramine, Amoxicillin , otherAllergies :null,&quo t;painAssessment : , visitOutcome : , additionalComments": 39 y.o female complains of Common Cold\n\nSinus congestion for 2 weeks\nMinimal mucus \nHas been taking: flonase and PO certizine per PCP - nothing is helping \nFrontal headache getting worse \nDenies fever \nDyspnea on exertion\nIntermittent dry cough\nGeneralized malaise \nNo recent sick contact\n\nI provided information on the mobile health provider response time and advised the patient and/or caregiver to monitor reported signs and symptoms. I discussed the warning signs of when to seek emergency care. } [facility] visit for female pt concerned about possible sinus infection. Pt reports 2 week history of sinus pain and pressure with green to clear discharge reported. Pt presents appearing well in no obvious distress. V/S taken as listed. Lung sounds clear bilaterally. Pt swabbed for flu and covid and found to be negative. No sinus tenderness noted. [facility] who prescribed doxycycline with first dose given on scene. Confirmed med rights prior to administration. Reviewed red flags for ED. Pt advised of risks associated with medication. Pt education provided. Report completed by Marcus Izaguirre EMT-P IV_(FLUIDS_AND/OR_MEDICATION), MEDICATION_IM, POC_BLOODWORK Written by Medical [facility] on 2025-03-09
--- OUTSIDE RECORDS SUMMARY | 2025-07-26 09:24 | XMS_ITS | Clinical Summary ---
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 01/08/20 23 Active Melatonin 3 MG capsule Take 1 or 2 capsules 3 hours before your desired bedtime as needed 90 capsule 3 05/21/20 23 Active mometasone (Elocon) 0.1 % ointment Apply [...] at bedtime. 90 tablet 3 12/14/19 24 Active Blood [place] [facility] [place] daily 1 each 02/25/20 24 Active tiZANidine (Zanaflex) 4 MG capsule Take 1 capsule (4 mg) by mouth 3 times daily. 90 capsule 11 05/04/20 24 Active ibuprofen 800 MG tabletIndications: Chronic nonintractable [...] food 90 tablet 3 09/28/19 25 Active ondansetron ODT (Zofran-ODT) 4 MG disintegrating tabletIndications: Nausea Take 1 tablet (4 mg) by mouth every 8 (eight) hours if needed for nausea or vomiting. 30 tablet 1 10/02/19 25 Active senna-docusate sodium (Senokot-S) 8.6-50 MG tablet Take 1 tablet by mouth Once per day. 30 tablet 10/15/19 25 026 Active Zepbound 2.5 MG/0.5ML solution auto-injector ADMINISTER 2.5 MG UNDER THE SKIN 1 TIME EVERY WEEK 2 mL 1 12/06/19 25 Active calcitriol (Rocaltrol) 0.5 MCG capsule TAKE 1 CAPSULE(0.5 MCG) BY MOUTH IN THE MORNING 90 capsule 3 12/08/19 25 Active pantoprazole (Protonix) 40 MG EC tabletIndications: Gastroesophageal reflux disease, unspecified whether esophagitis present Take 1 tablet (40 mg) by mouth 2 times daily. Do not crush, chew, or split. 180 tablet 01/05/20 Active fluticasone (Flonase Allergy Relief) 50 MCG/ACT nasal spray Administer 2 sprays into each nostril Once per day. In each nostril 16 g 01/05/20 25 Active albuterol (2.5 MG/3ML) 0.083% nebulizer solutionIndication s:Mild intermittent asthma without complication inhale 3 milliliter (2.5MG) by nebulization route every 4-6 hours as needed for difficulty breathing, up to 4 times/day as needed 75 mL 01/05/20 Active albuterol (Ventolin HFA) 108 (90 Base) MCG/ACT inhaler Inhale 2 puffs every 6 (six) hours if needed for wheezing. 18 g 01/05/20 Active loratadine (Claritin) 10 MG tablet Take 1 tablet (10 mg) by mouth Once per day. 90 tablet 01/05/20 Active montelukast (Singulair) 10 MG tablet Take 1 tablet (10 mg) by mouth in the evening. 90 tablet 01/05/20 25 Active Jyosdxd-Bypvoml-Zf thyl Theodore 1.2-5.7-6.3 % patch Apply to affected area once or twice daily 40 patch 11 01/16/20 25 Active scopolamine (Transderm-Scop) 1 MG/3DAYS patch 72 hourIndications:Mo tion sickness, initial encounter Place 1 patch on the skin every 3rd (third) day. 4 patch 03/01/20 25 Active chlorthalidone (Hygroton) 25 MG tablet Take 0.5 tablets (12.5 mg) by mouth Once per day. 45 tablet 04/04/20 25 026 Active cholestyramine (Questran) 4 g packet Take 1 packet by mouth with meal, up to three times daily, as needed 90 packet 04/04/20 25 Active doxycycline (Vibra-Tabs) 100 MG tablet Take 1 tablet (100 mg) by mouth 2 times daily for 7 days. Take with a full glass of water and do not lie down for at least 30 minutes after. 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 Advised regarding proper hydration, cut down on THC and will lower Zepbound dose. FU with PCP in 3 months. Hypertension 02/25/2024 Assessment & Plan (04/11/2025 1:01 PM EDT): -Goal BP< 130/80 per ACC/AHA guideline (Treatment threshold >=140/90) -BP elevated consecutively -Continue working on lifestyle modifications -Recommended self-monitoring BP -Start chlorthalidone 12.5 mg daily -Previously Dx MARGARITA. Sleep study in 2021 recommended CPAP. Most recent study on 12/10/24 recommends lifestyle modification, weight loss, rather than CPAP -Follow up for BP check in 3 weeks. If SBP > 130 at home, and/or > 140 in clinic, increase chlorthalidone to 25 mg daily. Assessment & Plan (01/15/2025 6:09 AM EDT): -Goal BP < 140/90 per JNC-8 and < 130/80 per ACC/AHA guideline (Treatment threshold >=140/90) -BP elevated borderline today, second measurement was normal -Continue working on lifestyle modifications -Recommended self-monitoring BP. -Previously Dx MARGARITA. Sleep study in 2021 recommended CPAP. Most recent study on 12/10/24 recommends lifestyle modification, weight loss, rather than CPAP Assessment & Plan (09/28/2024 8:35 AM EST): [...] (irritable bowel syndrome) 12/14/2023 Assessment & Plan (01/15/2025 6:16 AM EDT): - Following with [facility] - 07/15/24 EGD/colonoscopy: Normal / internal and external hemorrhoids. - Recommended low FODMAP diet. Prescribed simethicone prn. Assessment & Plan (10/02/2024 4:11 PM EST): - Following with [facility] - 07/15/24 EGD/colonoscopy: Normal / internal and external hemorrhoids. - Recommended low FODMAP diet. Prescribed simethicone prn. Assessment & Plan (12/14/2023 12:00 PM EDT): - Evaluated by GI on 11/27/23. - Recommended low FODMAP diet. Prescribed simethicone prn. - ? Functional dyspepsia. Discussed about herb supplements. Left shoulder pain 12/14/2023 Assessment & Plan (04/04/2025 10:50 PM EDT): - XR on 12/14/23 showed calcific tendinitis - recommended to follow-up with orthopedist - Continue judicious use of APAP and NSAID prn. Assessment & Plan (01/15/2025 6:25 AM EDT): - XR on 12/14/23 showed calcific tendinitis - recommended to follow-up with orthopedist - Continue judicious use of APAP and NSAID prn. Assessment & Plan (02/25/2024 11:16 AM EDT): - XR on 12/14/23 showed calcific tendinitis - recommended to follow-up with orthopedist - Continue APAP prn. Assessment & Plan (12/14/2023 12:03 PM EDT): - Evaluate with x-ray. - Continue APAP prn. Neck pain 12/14/2023 Assessment & Plan (04/26/2025 3:39 PM EDT): - Pt has already completed physical therapy. Currently engaged with care specialist and massage. - Previously referred to Orthopedist by PCP - Continue judicious use of NSAID and APAP prn - Continue symptomatic management with topical analgesics - rec consideration of Arnica Cream as she prefers more natural options Assessment & Plan (01/15/2025 6:24 AM EDT): - Pt has already completed physical therapy. - Patient was referred to orthopedist. 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 Assessment & Plan (10/02/2024 4:11 PM EST): [...] (obstructive sleep apnea) 07/31/2022 Assessment & Plan (01/15/2025 6:28 AM EDT): - Sleep Study on 06/21/22 MARGARITA and Periodic Limb Movement disorder - Sleep study on 12/10/24 showed no significant respiratory sleep disorder - Encouraged to continue working on lifestyle modification - Patient is currently using GLP1-RA Assessment & Plan (10/02/2024 4:06 PM EST): [...] Assessment & Plan (05/24/2023 10:39 AM EDT): Sleep Study on 06/21/22 MARGARITA and Periodic Limb Movement disorder Keep follow-up appt as scheduled She has been trying without CPAP since she has lost weight; she states she disliked CPAP due to its discomfort Encouraged to continue working on lifestyle modification and repeat sleep study if needed Assessment & Plan (02/03/2023 11:58 AM EDT): Sleep Study on 06/21/22 MARGARITA and Periodic Limb Movement disorder Keep follow-up appt as scheduled and start CPAP as prescribed Adherent to CPAP Machine, has dry mouth and throat occasionally Consider repeating sleep study once she has bariatric surgery to assess the need for CPAP Assessment & Plan (10/29/2022 11:26 AM EDT): Sleep Study on 06/21/22 MARGARITA and Periodic Limb Movement disorder Keep follow-up appt as scheduled and start CPAP as prescribed Adherent to CPAP Machine, has dry mouth and throat occasionally Assessment & Plan (07/31/2022 3:01 PM EST): Sleep Study on 06/21/22 MARGARITA and Periodic Limb Movement disorder Keep follow-up appt as scheduled and start [...] back pain Prediabetes 07/31/2022 Assessment & Plan (04/11/2025 1:03 PM EDT): -05/29/21 A1C 6.0% - 09/28/24 A1c 5.3% - 01/04/25 A1c 5.5% -family Hx DM -continue working on lifestyle modifications -q6-12mo screening due to risk factors -pt was taking liraglutide for weight loss, but self-discontinued due to intolerance - patient has tried semaglutide and tirzepatide. She was having GI side effects from GLP1RA, but wanted to continue at lower dose. She decided not to continue GLP1RA -pt has a great interest in health and naturopathic medicine; encouraged to continue her curiosity and self-care. Assessment & Plan (01/15/2025 6:12 AM EDT): -05/29/21 A1C 6.0% - 09/28/24 A1c 5.3% - 01/04/25 A1c 5.5% -family Hx DM -continue working on lifestyle modifications -q6-12mo screening due to risk factors -pt was taking liraglutide for weight loss, but self-discontinued due to intolerance - patient has tried semaglutide and tirzepatide. She is having GI side effects from GLP1RA, but wishes to continue at lower dose. Continue 2.5 mg weekly with caution. -pt has a great interest in health and naturopathic medicine; encouraged to continue her curiosity and self-care. Assessment & Plan (09/28/2024 5:08 PM EST): [...] intolerance Bipolar disorder 07/31/2022 Assessment & Plan (04/26/2025 3:40 PM EDT): - No acute mental health concerns today - Encouraged continuation of gym exercise and engagement in meaningful activities for mental health support. Assessment & Plan (01/15/2025 6:23 AM EDT): -Pt is followed by [facility] provider, psychiatrist, and therapist -Previously tried medications: Escitalopram; lamotrigine; oxcarbazepine; hydroxyzine; trazodone; Valproic acid, zolpidem -Continue treatment plan per [facility] provider, questionable adherence to medications -She was able to contact her safety today Assessment & Plan (10/02/2024 4:13 PM EST): -Pt is followed by [facility] provider, psychiatrist, and therapist -Current medications: Escitalopram; lamotrigine; oxcarbazepine; hydroxyzine; trazodone - questionable adherence -Previous medications: Valproic acid, zolpidem -Continue current medication and current treatment plan per [facility] provider -She was able to contact her safety today Assessment & Plan (05/25/2024 12:41 PM EDT): -Pt is followed by [facility] provider, psychiatrist, and therapist -Current medications: Escitalopram; lamotrigine; oxcarbazepine; hydroxyzine; trazodone - questionable adherence -Previous medications: Valproic acid, zolpidem -Continue current medication and current treatment plan per [facility] provider -She was able to contact her safety today Assessment & Plan (09/20/2023 6:21 PM EST): -Pt is followed by [facility] provider, psychiatrist, and therapist -Current medications: Escitalopram; lamotrigine; oxcarbazepine; hydroxyzine; trazodone - questionable adherence -Previous medications: Valproic acid, zolpidem -Continue current medication and current treatment plan per [facility] provider -She was able to contact her safety today Assessment & Plan (02/03/2023 12:04 PM EDT): -Pt is followed by [facility] provider, psychiatrist, and therapist at [place] -Current medications: Escitalopram; lamotrigine; oxcarbazepine; hydroxyzine; trazodone -Previous medications: Valproic acid, zolpidem -Continue current medication and current treatment plan per [facility] provider -She was able to contact her [facility] today Assessment & Plan (10/29/2022 11:25 AM EDT): -Pt is followed by [facility] provider, psychiatrist, and therapist at [place] -Current medications: Escitalopram; lamotrigine; oxcarbazepine; hydroxyzine; and zolpidem -Previous medications: Valproic acid -Continue current medication and current treatment plan per [facility] provider -She was able to contact her [facility] today Assessment & Plan (07/31/2022 3:24 PM EST): -Pt is followed by [facility] provider, psychiatrist, and therapist at [place] -Current medications: Escitalopram; lamotrigine; oxcarbazepine; hydroxyzine; and zolpidem -Previous medications: Valproic acid -Continue current medication and current treatment plan per [facility] provider -She was able to contact her [facility] today Chronic nonintractable headache 07/31/2022 Assessment & Plan (01/15/2025 6:26 AM EDT): - Multi-factorial: sinus, tension, sleep disturbance - MRI on 07/29/22 normal - Previously diagnosed with MARGARITA and prescribed CPAP; patient lost weight and was sleeping better without CPAP. Most recent sleep study in December 2024 did not recommend CPAP use - Improve sleep hygiene - s/p PT for neck pain - stress reduction - currently on GLP1RA for MARGARITA and weight loss - optimize treatment for allergic rhinitis. Will evaluate for sinusitis - consider neuro referral for evaluation for intracranial hypertension - judicious use of ibuprofen and acetaminophen prn Assessment & Plan (10/02/2024 4:22 PM EST): [...] Assessment & Plan (05/24/2023 10:40 AM EDT): MRI on 07/29/22 normal Improve sleep hygiene PT for neck pain Recommended acupuncture Optimize Tx MARGARITA, currently working on weight loss Assessment & Plan (10/29/2022 11:26 AM EDT): MRI on 07/29/22, result pending Improve sleep hygiene PT for neck pain Recommended acupuncture Optimize Tx MARGARITA Assessment & Plan (07/31/2022 3:08 PM EST): MRI on 07/29/22, result pending Improve sleep hygiene PT for neck pain Recommended acupuncture Optimize Tx MARGARITA Chronic pain of left [...] -Most recent MRI 11/18/23 - Seen by [facility] [place] on 10/05/23 received steroid injection. Follow [...] -Most recent MRI 11/18/23 - Seen by [facility] orthopedist on 10/05/23 received steroid injection. Follow [...] her 07/31/2022 ADHD 07/31/2022 Assessment & Plan (04/11/2025 1:07 PM EDT): - [facility] provider: - No longer on stimulant -Previous medications: Adderall XR, Vyvanse but was discontinued - Continue [facility] Assessment & Plan (01/15/2025 6:21 AM EDT): - [facility] provider: - No longer on stimjlant -Previous medications: Adderall XR, Vyvanse but was discontinued - Continue [facility] Assessment & Plan (05/25/2024 12:42 PM EDT): [facility] provider: -Current medications: Adderall XR 15 mg daily -Previous medications: Adderall XR different dose, Vyvanse but was discontinued -Continue [facility] Assessment & Plan (09/20/2023 6:20 PM EST): [facility] provider: -Current medications: Adderall XR 15 mg daily -Previous medications: Adderall XR different dose, Vyvanse but was discontinued -Continue [facility] Assessment & Plan (02/03/2023 12:03 PM EDT): [facility] provider: [place] -Current medications: Adderall XR 15 mg daily -Previous medications: Adderall XR different dose, Vyvanse but was discontinued -Continue S --Pt was considering about switching Adderall to Strattera. Assessment & Plan (07/31/2022 3:25 PM EST): [facility] provider: [facility] -Current medications: Adderall XR 15 mg daily -Previous medications: Adderall XR different dose, Vyvanse but was discontinued -Continue S --Pt was considering about switching Adderall to Strattera. Recurrent major depressive episodes, moderate (C MS/HCC) 07/21/2022 Assessment & Plan (05/10/2024 9:19 AM EDT): [...] during next medical appointment. Patient provided with [facility] contact information and [facility] help line. History of sexually transmitted disease 07/21/20 Family history of diabetes mellitus type II 01/09 Vitamin D deficiency 01/24/2016 Assessment & Plan (01/04/2025 11:13 AM EDT): - continue vitamin D 3000 units daily as prescribed Assessment & Plan (10/02/2024 4:11 PM EST): - continue vitamin D 3000 units daily as prescribed Assessment & Plan (05/24/2023 10:43 AM EDT): - continue vitamin D 3000 units daily as prescribed Assessment & Plan (02/03/2023 12:02 PM EDT): - continue vitamin D 3000 units daily as prescribed History of psychiatric disorder 12/21/2014 Allergic rhinitis 12/17/2012 Assessment & Plan (01/15/2025 6:10 AM EDT): - sinus CT on 11/25/24 did not show significant obstruction - referred to commercial credit specialist; upcoming appointment. Assessment & Plan (10/02/2024 4:15 PM EST): - will evaluate with sinus CT - will refer to commercial credit specialist for further evaluation Assessment & Plan (10/29/2022 11:01 AM EDT): Pt requested refill on her Cetirizine. -will Rx Cetirizine to pharmacy Asthma 12/17/2012 Assessment & Plan (04/11/2025 1:09 PM EDT): - previously on fluticasone ICS, but has not been adherent - change fluticasone to another ICS for SMART in near future - continue montelukast for both asthma and allergy - continue albuterol HFA and neb prn; pt prefers neb when pt is at home because it seems to be more effective Assessment & Plan (01/05/2025 8:42 PM EDT): - previously on fluticasone ICS, but has not been adherent - change fluticasone to another ICS in near future - continue montelukast for both asthma and allergy - continue albuterol HFA and neb prn; pt prefers neb when pt is at home because it seems to be more effective Assessment & Plan (09/28/2024 8:35 AM EST): [...] effective Mood disorder 12/17/2012 Assessment & Plan (04/11/2025 1:06 PM EDT): -Pt is followed by [facility] provider, psychiatrist, and therapist - Current Dx: [...] supplements -She was able to contact her [facility] today Assessment & Plan (01/15/2025 6:18 AM EDT): -Pt is followed by [facility] provider, psychiatrist, and therapist - Current Dx: [...] supplements -She was able to contact her [facility] today Assessment & Plan (10/02/2024 4:32 PM EST): -Pt is followed by [facility] provider, psychiatrist, and therapist - Current Dx: [...] supplements -She was able to contact her [facility] today Obesity 12/17/2012 Assessment & Plan (04/11/2025 1:05 PM EDT): - previously enrolled in [facility] - initially planned for laparoscopic sleeve gastrectomy, but patient elected non-surgical weight loss without [facility] - Pt had intolerance to higher dose of tirzepatide, 5 mg weekly, and still had side effect with 2.5 mg. Patient chose to achieve healthy lifestyle, rather than weight loss. -Continue working on lifestyle modification. Patient is knowledgeable in nutrition. Patient is currently going to the gym and increasing physical activity. Assessment & Plan (01/15/2025 6:15 AM EDT): - previously enrolled in [facility] - initially planned for laparoscopic sleeve gastrectomy, but patient elected non-surgical weight loss without [facility] - currently on GLP1RA, tirzepatide (Zepbound). Patient had intolerance to higher dose of tirzepatide, 5 mg weekly. Currently taking 2.5 mg weekly. Continue with caution -Continue working on lifestyle modification. Patient is knowledgeable in nutrition. Patient is currently going to the gym and increasing physical activity. Assessment & Plan (10/14/2024 12:53 PM EST): [...] 4:12 PM EST): - previously enrolled in [facility] - initially planned for laparoscopic sleeve gastrectomy, but patient elected non-surgical weight loss without [facility] - currently on GLP1RA. Will continue current dose. Assessment & Plan (05/25/2024 12:42 PM EDT): - previously enrolled in [facility] - initially planned for laparoscopic sleeve gastrectomy, but patient elected non-surgical weight loss without [facility] - She has tried [...] 11:18 AM EDT): - previously enrolled in [facility] - initially planned for laparoscopic sleeve gastrectomy, but patient elected non-surgical weight loss without [facility] - She has tried [...] 6:17 PM EDT): - previously enrolled in [facility] - initially planned for laparoscopic sleeve gastrectomy, but patient elected non-surgical weight loss without [facility] - She has tried [...] 6:19 PM EST): - previously enrolled in [facility] - initially planned for laparoscopic sleeve gastrectomy, but patient elected non-surgical weight loss without [facility] - 05/21/23 total cholesterol 191; triglyceride 106; HDL 40; LDL 130 - 05/21/23 A1C 5.5% - continue working on lifestyle modifications - appreciate her curiosity and knowledge in naturopathic medicine and intention to improve her health Assessment & Plan (05/24/2023 10:46 AM EDT): - enrolled in [facility] - plan for laparoscopic sleeve gastrectomy - continue working on lifestyle modifications - appreciate her curiosity and knowledge in naturopathic medicine and intention to improve her health Assessment & Plan (02/03/2023 12:01 PM EDT): - enrolled in [facility] - plan for laparoscopic [...] alcohol. FU STI test results. 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 Unprotected sexual intercourse 05/20/2023 [...] Patient will fu with her counselor at [facility] STI testing done/ordered. Patient didn't want [...] Encounters Date Type Department Care Team Description 07/25/2025 5:20 PM EST Office Visit [facility] [address] [address] Collin Short MD Sinus congestion 07/25/2025 Travel 07/25/[address] [address] Damaris Ramos MD Nurse Triage 06/28/[address] [address] Patti Walters, RN Results 06/13/[address] [address] Damaris aRmos MD No Show 06/12/2025 Telephone [facility] [address] [address] Lauren Edge [place] 06/06/2025 Orders Only [address] [address] Damaris Ramos MD Chronic post-traumatic headache, not intractable (Primary Dx) 05/12/[address] [address] Damaris Ramos MD 05/10/[address] [address] Damaris Ramos MD Appointment Request 05/09/2025 Telephone [facility] [address] [place] [address] Damaris Ramos MD 05/08/2025 Travel 04/26/2025 10:15 AM EDT Office Visit [facility] [address] [place] [address] Phalen, April, GEAR FINISHER Numbness and tingling in left arm (Primary Dx); Neck pain; Bipolar affective disorder, currently depressed, moderate (CMS/HCC); Hip flexor tightness, left 04/26/2025 Travel from Last 3 Months Immunizations Immunization Administration Dates Next Due Hep B, adult [...] Never Tobacco Cessation:Counseling Given: Not Answered Alcohol Use Standard Drinks/Week Comments Never 0 [...] your housing situation today? I have yessenia sing 09/28/[address] you li [...] Mass Index 42.21 07/25/2025 4:59 PM EST Plan of Treatment Health Maintenance Due Date Last Done Comments Family Planning (PISQ) 2001 HPV Vaccines (1 - 3-dose series) 2001 COVID-19 Vaccine (2 - season) 2025 02/27/2021 Influenza Vaccine (#1) 2025 , 07/02/2020, 07/14/2018, Additional history exists Cervical Cancer Screening 08/15/2025 HPV/Cotest 08/15/2025 02/02/2023, 01/08, 11/22/2020, Additional history exists Pap Smear 08/15/2025 07/20/2024, 01/09, 01/21/2022, Additional history exists SDOH Screening 09/28/2025 09/28/2024 Depression Monitoring 10/24/2025 04/26/2025, 025 Diabetes: Hemoglobin A1C 01/04/2026 025, 09/28/2024, 02/25/2024, Additional history exists Disability Screening 01/04/2026 01/04/2025 Alcohol/Substance Use Screening 04/26/2026 04/26/2025 Tobacco Screening 07/25/2026 07/25/2025 Lipid Panel 09/28/2029 09/28/2024, 02/07, 05/21/2023, Additional history exists DTaP/Tdap/Td Vaccines (3 - Td or Tdap) 12/06/2031 12/05/2021, 09/03/2011 Zoster Vaccines (1 of 2) 2036 RSV Patients and Patients Aged 60 years or older (1 - 1-dose 75+ series) 2061 Hepatitis B Vaccines Completed 07/02/2020, 07/14/2018, 07/27/2017, Additional history exists Pneumococcal Vaccine: Pediatrics (0 to 5 Years) and At-Risk Patients (6 to 49) Years Completed 02/02/2023, 03/01/2014 HIV Screening Completed 02/25/2024, 05/10, 02/02/2023, Additional history exists Colposcopy Discontinued 08/15/2024, 05/14/2023 Hepatitis C Screening Completed 01/04/2025 , 02/25/2024, 05/21/2023, Additional history exists HIB Vaccines Aged Out No longer eligi [...] Routine 07/25/2025 5:11 PM EST Sinus congestion HEPATITIS C AB W/REFL TO HCV RNA, QN, PCR Routine 01/04/2025 11:28 AM EDT Transaminitis HEMOGLOBIN A1C Routine 01/04/2025 11:28 AM EDT Prediabetes LIPID PANEL WITH REFLEX TO DIRECT LDL Routine 09/28/2024 9:51 AM EST Elevated BP without diagnosis of hypertension COLPOSCOPY Routine 08/15/2024 12:00 AM EST PAP SMEAR Routine 07/20/2024 1:47 PM EST HIV 1/2 ANTIGEN/ANTIBODY, FOURTH GENERATION W/RFL Routine 02/25/2024 10:16 AM EDT Routine screening for STI (sexually transmitted infection) THINPREP IMAGING PAP AND HPV DNA REFLEX HPV 16,18 Routine 02/02/2023 10:58 AM EDT Encounter for well woman exam with routine gynecological exam from Last 3 Months or Most Recently Relevant to Health Maintenance Results * POCT Rapid Influenza B ARIZMENDI ID NOW (07/25/2025 5:15 PM EST) [facility] Influenza B Negative Negative, Indeterminate [facility] QC Media Lot # [id number] [facility] Lot# Expiration Date [facility] Swab 07/25/2025 5:15 PM EST Collin Seay MD POINT OF CARE TEST ENTER/EDIT ORDERABLES Final Result Performing Organization Address [facility]/ZIP Co de Phone Number [facility] [address] [place] [phone] * POCT Rapid Influenza A ARIZMENDI ID NOW (07/25/2025 5:15 PM EST) [facility] Influenza A Negative Negative, Indeterminate [facility] QC Media Lot # [id number] [facility] Lot# Expiration Date [facility] Swab 07/25/2025 5:15 PM EST Collin Seay MD POINT OF CARE TEST ENTER/EDIT ORDERABLES Final Result Performing Organization Address [facility] de Phone Number [facility] [address] [place] [phone] * POCT Rapid Covid-19 BinaxNOW (07/25/2025 5:11 PM EST) [facility] Rapid COVID Ag Negative QC Media Lot # [id number] Lot# Expiration Date Swab 07/25/2025 5:11 PM EST Collin Seay MD POINT OF CARE TEST ENTER/EDIT ORDERABLES Final Result * Hepatitis C Antibody with Reflex to HCV, RNA, Quantitative, Real-Time PCR (01/04/2025 11:28 AM EDT) [facility] Hepatitis C Antibody Nonreactive Nonreactive [facility] Comment:Antibodies to HCV no t detected; does not exclude early acuteHCV infection. Blood Venous blood specimen / Unknown 01/04/2025 11:28 AM EDT 01/04/2025 1:15 PM EDT Damaris Ramos MD LAB BLOOD ORDERABLES Final Resul t Performing Organization Address [facility] Co de Phone Number [facility] [address] [place] [phone] * Hemoglobin A1c (01/04/2025 11:28 AM EDT) Hemoglobin A1c 5.5 <6.0 % [facility] Comment:Hemoglobin A1C Refer ence Range Adults: 4.8 - 6.0 % Non diabetic: < 6.0 % Goal: < 7.0 %Additional Action Suggested: > 8.0 %Note: Hemoglobin A1c results are invalid for patients with abnormal amounts of HbF. Blood transfusions may impact the HbA1c concentration in the patient sample. Estimated Average Glucose 111 mg/dL [facility] Comment:eAG = Estimated ave rage glucose which is %A1C expressed asaverage glucose, using the formula of the B2W-XwvyczeBqfeybv Glucose study (ADAG), Diabetes Care, Vol.31,#8,Mar. 2007 Blood Venous blood specimen / Unknown 01/04/2025 11:28 AM EDT 01/04/2025 1:17 PM EDT Damaris Ramos MD LAB BLOOD ORDERABLES Final Resul t Performing Organization Address [facility] Co de Phone Number [facility] [address] [place] [phone] * (ABNORMAL) Lipid Panel with Reflex to Direct LDL (09/28/2024 9:51 AM EST) Triglycerides 129 <150 mg/dL [facility] Comment:Desirable Triglyceri de: less than 150 mg/dLBorderline High Triglyceride 150-199 mg/dLHigh Triglyceride: 200-499 mg/dLVery High Triglyceride: greater than or equal to 5OO mg/dL Cholesterol 172 <200 mg/dL [facility] Comment:Desirable Cholestero l: less than 200 mg/dLBorderline High Cholesterol: 200-239 mg/dLHigh Cholesterol: greater than 239 mg/dL LDL Cholesterol Calculated 109(H) <100 mg/dL [facility] Comment:Desirable LDL: less than 100 mg/dLNear Optimal/Above Optimal LDL: 110- 129 mg/dLBorderline High LDL: 130-159 mg/dLHigh LDL: 160-189 mg/dLVery High LDL: greater than or equal to 190 mg/dL HDL Cholesterol 38(L) >40 mg/dL [facility] Comment:Desirable HDL: great er than 40 mg/dL Note: This HDL assay may give artificially low results in patients with liver disease. Blood 09/28/2024 9:51 AM EST 09/28/2024 11:10 AM EST Damaris Ramos MD LAB BLOOD ORDERABLES Final Resul t [facility] [address] [place] [phone] * Colposcopy (08/15/2024 12:00 AM EST) Historical Provider IN CLINIC/BEDSIDE ORDERAB LES Edited Result - Final * Pap Smear (07/20/2024 1:47 PM EST) 07/20/2024 1:47 PM EST 07/21/2024 9:00 AM EST Narrative [facility] - 07/27/2024 11:19 AM EST ----- ------- Name: Taylor Martinez Age/Sex: 39/F : 1985 Unit#: [id number] Attend Dr: Giacomo Ugarte MD Re07/20/24 Status: DEP REF Location: [facility] Disch: ----- ------- SPEC : [id number] RECD: 07/21/24 STATUS: LEILA RODRIGUEZ NUM: [id number] RENEE: 07/20/24-[address] [facility] [address]: Giacomo Ugarte MD ENTERED: 07/21/24 SP TYPE: Pap Smr OTHR DR: Damaris Ramos MD ORDERED: Pap Smear, PAP path review Interpretation ABNORMAL PAP TEST. Satisfactory for evaluation, with mildly dysplastic squamous cells / HPV cytopathic change (EMETERIO 1; low grade squamous intraepithelial lesion). No endocervical cells seen. HPV High Risk: Positive HPV Genotyping 16: Negative HPV Genotyping 18: Negative Clinical Information LMP: Anders Previous PAP test: 02/02/2023, ASCUS, HPV + Other history: Atypical squamous cells of undetermined significance on cytologic smear of cervix (ASC-US), cervical high risk human papillomavirus (HPV) DNA test positive Material Received ThinPrep-Cervical Copies To: Damaris Ramos MD [address] [address] Giacomo Ugarte MD [facility] [place], [place] [phone] ----- ------- Signed (signature on file) Adonay Cr MD 07/27/24 1119 ----- ------- END OF REPORT us Generic External Data Provider LAB CYTOLOGY MILLER ORTEGASAUL Final Result Performing Organization Address City/[facility]/ZIP Co de Phone Number [facility] [address] [place] [phone] * HIV-1/2 Antigen and Antibodies, Fourth Generation, with Reflexes (02/25/2024 10:16 AM EDT) [facility] HIV AB/AG Nonreactive Nonreactive [facility] Comment:HIV-1 p24 Ag and/or HIV-1/HIV-2 Ab not detected.A test result that is nonreactive does not exclude thepossibility of exposure to or infection with HIV-1 and/orHIV-2. Nonreactive results in this assay for individualswith prior exposure to HIV-1 and/or HIV-2 may be due toantigen and antibody levels that are below the limit ofdetection of this assay.[employer] HIV Ag/Ab Combo assay result andsupplemental assay results should be interpreted inconjunction with the patient's clinical presentation,history and other laboratory results. If the results areinconsistent with clinical evidence, additional testing issuggested to confirm the result. Blood Venous blood specimen / Unknown 02/25/2024 10:16 AM EDT 02/25/2024 11:13 AM EDT us Damaris Ramos MD LAB BLOOD ORDERABLES Final Resul t [facility] [address] [place] [phone] * (ABNORMAL) ThinPrep Imaging Pap and HPV DNA reflex HPV 16,18 (02/02/2023 10:58 AM EDT) Clinical Information: None given [facility] LMP: NONE GIVEN [facility] Prev. PAP: NONE GIVEN [facility] [place] [facility] Prev. BX: NONE GIVEN [facility] SOURCE: None given [facility] [employer] Statement Of Adequacy: [facility] [employer] Comment: Satisfactory for evaluation. Endocervical/transformation zone component present. General Categorization: Cytology Results: Epithelial Cell Abnormality(A) [facility] Interpretation/ Result: Atypical Squamous Cells of Undetermined Significance (ASC-US)(A) [facility] Comment: This Pap test has been evaluated with computer assisted technology. [facility] Cytotechnologis t: [facility] [place] [facility] Comment: KN, CT(ASCP) CT screening location: [place] [address] PATHOLOGIST: [facility] [place] [employer] - teamwork across global officesnico Comment: Bernarda Sales D.O. Board Certified in Anatomic, Clinical and Cytopathology (electronic signature) Consulting Pathologist [facility] [address] [place] [phone] (Always Message) [facility] [employer] Comment: EXPLANATORY NOTE: The Pap is a [...] DNA, High Risk, Cervical Detected(A) NOT DETECTED [facility] Comment: Detected One or more High Risk HPV types (16,18,31,33, 35,39,45,51,52,56,58,59,66,68) was detected. Methodology: Real Time PCR Pap Vial 02/02/2023 10:5 8 AM EDT 02/03/2023 9:02 AM EDT Damaris Ramos MD LAB CYTOLOGY ORDERABLES Final Re sult [facility] [address], [place] [address] [facility] [address] [place] [phone] [facility] [address] [place] [phone] from Last 3 Months or Most Recently Relevant to Health Maintenance Insurance [facility] < 65 [place] [id number] Care Teams Railroad Firer/Fireman Relationship Specialty Start Date End Date Damaris Ramos MD [address] [place] [address] [phone] PCP - General Family Medicine 08/10/18
--- OUTSIDE RECORDS SUMMARY | 2025-07-26 09:24 | XMS_ITS | Encounter Summary ---
Author Organization [employer] Address [address] [place] [address] 7 [place] [address] Care Team Providers Care Fast Food Fry Cook Name Role Phone Damaris Ramos MD Primary Care Provider [phone] Reason for Visit * Reason Comments Med Refill Encounter Details Date Type Department Care Team ([facility] st Contact Info) Description 12/28/2024 Refill [facility] [address] [place], [place] [phone] Damaris Ramos MD [address] [place], [place] [phone] Gastroesophageal reflux disease, unspecified whether esophagitis present [...] documented as of this encounter Care Teams Fast Food Fry Cook Relationship Specialty Start Date End Date Damaris Ramos MD [address] [place] [address] PCP - General Family Medicine 08/10/18 documented as of this encounter
--- OUTSIDE RECORDS SUMMARY | 2025-07-26 09:24 | XMS_ITS | Encounter Summary ---
Author Organization [employer] Address [address] [place] [address] 7 [place] [address] Care Team Providers Care Distribution Specialist Name Role Phone Damaris Ramos MD Primary Care Provider [phone] Encounter Details Date Type Department Care Team (Latest Contact Info) Description 07/25/2025 Travel Social History Tobacco Use Types Packs/Day [...] t he electric, gas, oil or water [employer] threatened to shut off services in your [...] Noted Time PHQ-9 Depression Total Score: 13 025 10:42 AM EDT documented as of this encounter Care Teams Distribution Specialist Relationship Specialty Start Date End Date Damaris Ramos MD [address] [place] [phone] PCP - General Family Medicine 08/10/18 documented as of this encounter
--- OUTSIDE RECORDS SUMMARY | 2025-07-26 09:24 | XMS_ITS | Encounter Summary ---
Author Organization [employer] Address [address] [place] [address] 7 [place] [address] Care Team Providers Care Professional Athlete Name Role Phone Damaris Ramos MD Primary Care Provider [phone] Reason for Visit * Reason Onset Date Comments Nurse Triage 07/25/2025 Encounter Details Date Type Department Care Team ([facility] Contact Info) Description 07/25/2025 Telephone [facility] [address] [place], [place] [phone] Damaris Ramos MD [address] [place], [place] [phone] Nurse Triage Social History Tobacco Use Types Packs/Day [...] your housing situation today? I have yessenia owen 09/28/[address] you li [...] encounter Miscellaneous Notes * Telephone Encounter - Elle Patel RN - 07/25/2025 3:22 PM EST TC placed to patient. Patient c/o sinus symptoms such are facial pressure, stuffy nose x 1 day. Patient reported s HX of sinus infections and is usually prescribed antibiotics. RN advised patient to go to the [facility] for further evaluation. This RN informed patient of the Days and hours of operation for the Walk in Center. Patient verbalized understanding. Protocol Used: Sinus Pain or Congestion (Adult) Protocol-Based Disposition: Go to Office or Video Visit Now Video visit offer not recorded Positive Triage Questions: * Severe sinus pain (e.g., excruciating) * Using nasal washes and pain medicine > 24 hours and sinus pain (lower forehead, cheekbone, or eye) persists * Patient wants to be seen * Sinus congestion as part of a cold, present < 10 days * All higher-acuity triage questions were negative. Care Advice Discussed: * Reassurance and Education - Colds and Sinus Congestion * For a Runny Nose - Blow Your Nose * Nasal Washes for a Stuffy Nose * Nasal Washes - Edrk-Ry-Ytjj Instructions * How to Make Saline (Salt Water) Nasal Wash * Hydration * Expected Course * Reasons To Call Back - Severe pain lasts over 2 hours after pain medicine - Sinus pain lasts over 1 day after using nasal washes - Sinus congestion (fullness) lasts over 10 days - Fever lasts over 3 days - You become worse * Telephone Encounter - Diego Martinez - 07/25/2025 2:37 PM EST Symptom: Sinus Symptoms Outcome: Schedule an appointment to be seen within 24 hours Reason: Caller denied all higher acuity questions The caller accepted this outcome. Contact pt at [phone] documented in this encounter Plan of Treatment Not on file documented as of this encounter Visit Diagnoses Not on filedocumented in this encounter Additional Health Concerns Assessment Noted Time PHQ-9 Depression Total Score: 13 025 10:42 AM EDT documented as of this encounter Care Teams Professional Athlete Relationship Specialty Start Date End Date Damaris Ramos MD [address] [place] [phone] PCP - General Family Medicine 08/10/18 documented as of this encounter
--- OUTSIDE RECORDS SUMMARY | 2025-07-26 09:24 | XMS_ITS | Encounter Summary ---
Author Organization [employer] Address [address] [place] [address] 7 [place] [address] Care Team Providers Care Manager Ent Name Role Phone Damaris Ramos MD Primary Care Provider Reason for Visit * Reason Comments Med Refill Encounter Details Date Type Department Care Team ([facility] st Contact Info) Description 06/09/2024 Refill [facility] [address] [place], [place] [phone] Damaris Ramos MD [address] [place], [place] [phone] Class 3 severe obesity due to excess [...] (BMI) of 40.0 to 44.9 in adult (HCC) documented in this encounter Additional Health Concerns Assessment Noted Time PHQ-9 Depression Total Score: 18 024 12:02 PM EDT documented as of this encounter Care Teams Manager Ent Relationship Specialty Start Date End Date Damaris Ramos MD [address] [place] [address] PCP - General Family Medicine 08/10/18 documented as of this encounter
--- OUTSIDE RECORDS SUMMARY | 2025-07-26 09:24 | XMS_ITS | Encounter Summary ---
Author Organization [employer] Address [address] [facility] 7t [place] [address] Care Team Providers Care Data Collection Associate Name Role Phone Damaris Ramos MD Primary Care Provider [phone] Reason for Referral * Consultation (Urgent) - Closed Specialty Diagnoses / Procedures Referred By Jennifer walsh Referred To Contact Gastroenterology Diagnoses Diarrhea, unspecified type Abdominal pain, unspecified abdominal location Damaris Ramos MD [address] [place] [address] Phone: tel: fax: [facility] [address] [facility] 3rd [address] [place], [place] Phone: tel: fax: Referral ID Status Reason Start Date Expiration Date V isits Requested Visits Authorized [id number] Closed Specialty Services Required 09/30/2023 09/29/2024 1 1 Scheduling Instructions Patient would like to see any provider in [place], not [facility]. Encounter Details Date Type Department Care Team (Late st Contact Info) Description 09/30/2023 Orders Only [facility] [address] [place] [address] Damaris Ramos MD [address] [place] [address] Diarrhea, unspecified type (Primary Dx); Abdominal pain, unspecified abdominal location Social History Tobacco Use Types Packs/Day Years Used Date Smoking Tobacco: Former Cigarettes Passive Smoke Exposure: Past Smokeless Tobacco: Never Depression Answer Date Recorded Patient Health Questionnaire-9 Score 0 05/21/2023 Housing Stability Answer Date Recorded What is your housing situation today? I have yessenia sing 09/15/[address] you li [...] documented as of this encounter Care Teams Data Collection Associate Relationship Specialty Start Date End Date Damaris Ramos MD [address] [place] [address] PCP - General Family Medicine 08/10/18 documented as of this encounter
--- OUTSIDE RECORDS SUMMARY | 2025-07-26 09:24 | XMS_ITS | Clinical Summary ---
Author Organization [facility] Address [address] [place] [address] Phone Care Team Providers Care Time Study Observer Name Role Phone Physician, No Pcp Primary Care Provider Unavaila ble Allergies Active Allergy Reactions Criticality Noted Date [...] reflux disease 10/29/2022 ADHD 07/31/2022 Bipolar disorder 07/31/2022 Kidney stone 07/31/2022 MARGARITA (obstructive sleep apnea) 07/31/2022 Prediabetes 07/31/2022 Recurrent major depressive episodes, moderate Vitamin D deficiency 01/24/2016 Allergic rhinitis 12/17/2012 Asthma 12/17/2012 Mood disorder 12/17/2012 Obesity 12/17/2012 Encounters Date Type Department Care Team Description 07/23/2025 3:05 AM EST - 07/23/2025 3:56 AM EST Emergency [facility] [address] [place] [address] Christin Newton MD Foreign body of vagina, initial encounter (Primary Dx) Discharge Disposition: Home or Self Care 05/29/2025 6:39 PM EDT - 05/29/2025 11:59 PM EDT Hospital Encounter [facility] [address] [place] [address] Headache Discharge Disposition: Home or Self Care 05/08/2025 10:49 PM EDT - 05/09/2025 12:38 AM EDT Emergency [facility] [address] [place] [id number] Post concussion syndrome (Primary Dx) Discharge Disposition: Home or Self Care from Last 3 Months Surgical History Surgery Date Site/Laterality Comments CHOLECYSTECTOMY 2003 PROCEDURE: HISTORICAL CHOLECYSTECTOMY SECTION 2003 PROCEDURE: HISTORICAL DELIVERY Medical History Medical History Date Comments Anxiety and depression DX:Anxiet y and depression Seasonal allergies DX:Seasonal a llergies Asthma Family History Medical History Relation Name Comments [...] on file Sexual Orientation Not on file Last Filed Vital Signs Vital Sign Reading Time Taken Comments Blood Pressure 118/70 07/23/2025 1:10 AM EST Pulse 84 07/23/2025 1:10 AM EST Temperature 36.3 C (97.3 F) 07/23/2025 1:10 AM EST Respiratory Rate 16 05/08/2025 10:40 PM EDT Oxygen Saturation 100% 07/23/2025 1:10 AM EST Inhaled Oxygen Concentration - - Weight 93 kg (205 lb) 07/23/2025 1:10 AM EST Height 149.9 cm (4' 11 ) 07/23/2025 1:10 AM EST Body Mass Index 41.4 07/23/2025 1:10 AM EST Plan of Treatment Health Maintenance Due Date Last Done Comments HPV Vaccines (1 - 3-dose SCDM series) 2013 Cholesterol Screening (Lipid Panel) 07/12/2022 Medicare Annual Wellness Visit 07/12/2022 Social Influencers of Health Screening 07/12/2022 Depression Screening 08/10/2024 COVID-19 Vaccine ( season) 2025 02/27/2021 Influenza Vaccine (#1) 2025 , 07/02/2020, 07/14/2018, Additional history exists Hypertension/CHF/CAD Annual BMP Blood Test 05/08/2026 05/08/2025, 10/12/2024, 10/11/2024, Additional history exists Cervical Cancer Screening: Pap Smear 07/20/2027 07/20/2024 DTaP,Tdap,and Td Vaccines (3 - Td or Tdap) 12/06/2031 12/05/2021, 09/03/2011 RSV Immunization Adult Patients (1 - 1-dose 75+ series) 2061 Hepatitis B Vaccines Completed 07/02/2020, 07/14/2018, 07/27/2017, Additional history exists Pneumococcal Vaccine: Pediatrics (0 to 5 Years) and At-Risk Patients (6 to 49 Years) Completed 02/02/2023, 03/01/2014 HIV Screening Completed 02/25/2024 Hepatitis C Screening Completed 01/04/2025, 024 HIB Vaccines Aged Out No longer eligi [...] - ORIFICE Routine 07/23/2025 3:33 AM EST MR BRAIN WO CONTRAST Routine 05/29/2025 7:[address] HEAD WO CONTRAST STAT 05/08/2025 1 1:44 PM EDT CBC WITH AUTO DIFFERENTIAL STAT 05/08/2025 10:55 PM EDT CBC AND DIFFERENTIAL STAT 05/08/2025 10:55 PM EDT MAGNESIUM STAT 05/08/2025 10:55 PM EDT HCG, SERUM, QUALITATIVE STAT 05/08/2025 10:55 PM EDT COMPREHENSIVE METABOLIC PANEL STAT 05/08/2025 10:55 PM EDT from Last 3 Months Results * Foreign Body Removal - Orifice [...] removal and pain Alternatives discussed: No treatment [place] protocol: Patient identity confirmed: Verbally with patient [...] MD IN CLINIC/BEDSIDE ORDERABLES F inal Result * MR Brain wo Contrast (05/29/2025 7:37 PM EDT) Anatomical Region Laterality Modality Head and Neck Magnetic Resonan ce 06/01/2025 4:30 PM EDT Impressions 06/01/2025 4:55 PM EDT Normal MRI appearance of the brain. Chronic mucosal thickening in the paranasal sinuses. -------- FINAL REPORT -------- Dictated By: Stepan Kumar Dictated Date: 06/01/2025 16:30 ET Assigned Physician: Stepan Kumar Reviewed and Electronically Signed By: Stepan Kumar Signed Date: 06/01/2025 16:55 ET Workstation ID: [id number] Transcribed By: Self Edit Transcribed Date: 06/01/2025 16:30 ET Narrative 06/01/2025 4:55 PM EDT PROCEDURE: Noncontrast MRI of the brain. HISTORY: has. COMPARISON: TECHNIQUE: Multiplanar multisequence MRI of the brain without intravenous contrast administration. FINDINGS: BRAIN: No diffusion abnormality. No mass or extra-axial fluid collection. No hydrocephalus. The major intracranial flow voids are preserved. Age commensurate ventricles and sulci. ORBITS: Normal. SINUSES/MASTOIDS: Mild mucosal thickening in the left frontoethmoidal recess. Patchy moderate mucosal thickening throughout the ethmoid air cells. Mild mucosal thickening in the inferior maxillary antra, right greater than left. Mild mucosal thickening in the sphenoids. CALVARIUM: Normal. OTHER: The visualized skull base soft tissues are normal. Procedure Note Stepan Kumar MD - 06/01/2025 PROCEDURE: Noncontrast MRI of the brain. HISTORY: has. COMPARISON: TECHNIQUE: Multiplanar multisequence MRI of the brain without intravenouscontrast administration. FINDINGS: BRAIN: No diffusion abnormality. No mass or extra-axial fluid collection.No hydrocephalus. The major intracranial flow voids are preserved. Agecommensurate ventricles and sulci. ORBITS: Normal. SINUSES/MASTOIDS: Mild mucosal thickening in the left frontoethmoidalrecess. Patchy moderate mucosal thickening throughout the ethmoid aircells. Mild mucosal thickening in the inferior maxillary antra, rightgreater than left. Mild mucosal thickening in the sphenoids. CALVARIUM: Normal. OTHER: The visualized skull base soft tissues are normal. IMPRESSION: Normal MRI appearance of the brain. Chronic mucosal thickening in the paranasal sinuses. -------- FINAL REPORT -------- Dictated By: Stepan Kumar Dictated Date: 06/01/2025 16:30 ET Assigned Physician: Stepan Kumar Reviewed and Electronically Signed By: Stepan Kumar Signed Date: 06/01/2025 16:55 ET Workstation ID: [id number] Transcribed By: Self Edit Transcribed Date: 06/01/2025 16:30 ET Damaris Ramos MD IMG MRI PROCEDURES Final Result * CT Head wo Contrast (05/08/2025 11:44 PM EDT) Anatomical Region Laterality Modality Head and Neck Computed Tomogra phy 05/09/2025 12:1 7 AM EDT Impressions 05/09/2025 12:17 AM EDT No acute intracranial findings. This document has been electronically signed by: Joaquim Juarez MD on 05/09/2025 00:17:43 Narrative 05/09/2025 12:17 AM EDT INDICATION: OTHER CT Head WO Contrast COMPARISON: None provided FINDINGS: Detail limited by artifacts. No acute intracranial hemorrhage. No evidence of acute infarction. No mass-effect or midline shift. No hydrocephalus. Small fluid in the sphenoid sinus in the ethmoid air cells. The mastoid air cells are clear. The visible orbits are normal. No acute fracture. Unremarkable soft tissues. Procedure Note Joaquim Juarez MD - 05/09/2025 INDICATION: OTHER CT Head WO Contrast COMPARISON: None provided FINDINGS: Detail limited by artifacts. No acute intracranial hemorrhage. No evidence of acute infarction. No mass-effect or midline shift. No hydrocephalus. Small fluid in the sphenoid sinus in the ethmoid air cells. The mastoid air cells are clear. The visible orbits are normal. No acute fracture. Unremarkable soft tissues. IMPRESSION: No acute intracranial findings. This document has been electronically signed by: Joaquim Juarez MD on 05/09/2025 00:17:[address] PROCEDURES Final Result * (ABNORMAL) CBC auto differential (05/08/2025 10:55 PM EDT) [facility] WBC 8.9 4.8 - 10.8 K/mcL LAB [facility] RBC 4.50 3.80 - 4.80 M/mcL LAB HEMETOLOGY METHOD 05/08/2025 11:[address] [facility] Hemoglobin 13.8 11.5 - 16.0 g/dL LAB HEMETOLOGY METHOD 05/08/2025 11:[address] [facility] Hematocrit 41.2 35.0 - 47.0 % LAB HEMETOLOGY METHOD 05/08/2025 11:[address] [facility] MCV 91.8 79.0 - 98.0 FL LAB HEMETOLOGY METHOD 05/08/2025 11:[address] [facility] MCH 30.7 27.0 - 32.0 pcg LAB HEMETOLOGY METHOD 05/08/2025 11:[address] [facility] MCHC 33.5 32.0 - 37.0 g/dL LAB HEMETOLOGY METHOD 05/08/2025 11:[address] [facility] RDW 12.8 11.0 - 15.0 % LAB HEMETOLOGY METHOD 05/08/2025 11:[address] [facility] Platelets 373 130 - 400 K/mcL LAB HEMETOLOGY METHOD 05/08/2025 11:[address] [facility] MPV 9.5 7.0 - 11.0 FL LAB HEMETOLOGY METHOD 05/08/2025 11:[address] [facility] NRBC 0.0 <1.0 % LAB HEMETOLOGY METHOD 05/08/2025 11:[address] [facility] NRBC Absolute 0.00 <0.10 K/mcL LAB HEMETOLOGY METHOD 05/08/2025 11:[address] [facility] Neutrophils Relative 56.8 % LAB HEMETOLOGY METHOD 05/08/2025 11:[address] [facility] Lymphocytes Relative 31.1 % LAB HEMETOLOGY METHOD 05/08/2025 11:[address] [facility] Monocytes Relative 9.5 % LAB HEMETOLOGY METHOD 05/08/2025 11:[address] [facility] Eosinophils Relative 1.4 % LAB HEMETOLOGY METHOD 05/08/2025 11:[address] [facility] Basophils Relative 0.7 % LAB HEMETOLOGY METHOD 05/08/2025 11:[address] [facility] Immature Granulocytes Relative 0.5 % LAB HEMETOLOGY METHOD 05/08/2025 11:[address] [facility] Neutrophils Absolute 5.06 1.50 - 7.00 K/mcL LAB HEMETOLOGY METHOD 05/08/2025 11:[address] [facility] Lymphocytes Absolute 2.76 1.00 - 5.00 K/mcL LAB HEMETOLOGY METHOD 05/08/2025 11:[address] [facility] Monocytes Absolute 0.84 0.20 - 1.00 K/mcL LAB HEMETOLOGY METHOD 05/08/2025 11:[address] [facility] Eosinophils Absolute 0.12 0.00 - 0.50 K/mcL LAB HEMETOLOGY METHOD 05/08/2025 11:09 PM EDT [facility] Basophils Absolute 0.06 0.00 - 0.20 K/[facility] LAB HEMETOLOGY METHOD 05/08/2025 11:09 PM EDT [facility] Immature Granulocytes Absolute 0.04(H) 0.00 - 0.03 K/[facility] LAB HEMETOLOGY METHOD 05/08/2025 11:09 PM EDT [facility] Blood Venous blood specimen / Unknown Venipuncture / Unknown 05/08/2025 10:55 PM EDT 05/08/2025 11:05 PM EDT [facility] LAB BLOOD ORDERABLES Fin al Result Performing Organization Address City/[facility]/ZIP Co de Phone Number [facility] [address] [place] [address], [place] [phone] * hCG Qualitative (05/08/2025 10:55 PM EDT) hCG Qual Negative Negative 05/08/2025 11:22 PM EDT [facility] Blood Venous blood specimen / Unknown Venipuncture / Unknown 05/08/2025 10:55 PM EDT 05/08/2025 11:05 PM EDT [facility] LAB BLOOD ORDERABLES Fin al Result [facility] [address] [place] [address], [place] [phone] * Magnesium (05/08/2025 10:55 PM EDT) Magnesium 2.0 1.9 - 2.6 mg/dL LAB CHEMISTRY METHOD 05/08/2025 11:27 PM EDT [facility] Blood Venous blood specimen / Unknown Venipuncture / Unknown 05/08/2025 10:55 PM EDT 05/08/2025 11:05 PM EDT [facility] LAB BLOOD ORDERABLES Fin al Result [facility] [address] [place] [address], [place] [phone] * (ABNORMAL) Comprehensive Metabolic Panel (CMP) (05/08/2025 10:55 PM EDT) Sodium 137 133 - 145 mmol/L LAB CHEMISTRY METHOD 05/08/2025 11:[address] [facility] Potassium 3.8 3.5 - 5.5 mmol/L LAB CHEMISTRY METHOD 05/08/2025 11:[address] [facility] Chloride 105 96 - 110 mmol/L LAB CHEMISTRY METHOD 05/08/2025 11:[address] [facility] CO2 25 21 - 32 mmol/L LAB CHEMISTRY METHOD 05/08/2025 11:[address] [facility] Anion Gap 7 3 - 11 LAB CHEMISTRY METHOD 05/08/2025 11:[address] [facility] Glucose 105(H) 70 - 100 mg/dL LAB CHEMISTRY METHOD 05/08/2025 11:[address] [facility] BUN 9 5 - 25 mg/dL LAB CHEMISTRY METHOD 05/08/2025 11:[address] [facility] Creatinine 0.62 0.50 - 1.10 mg/dL LAB CHEMISTRY METHOD 05/08/2025 11:[address] [facility] eGFR 116 >=60 mL/min/1. 73m2 LAB CHEMISTRY METHOD 05/08/2025 11:[address] [facility] Comment:Calculation based on the Chronic Kidney Disease Epidemiology Collaboration (CKD-EPI) equation refit without adjustment for race. BUN/Creatinine Ratio 14.5 LAB CHEMISTRY METHOD 05/08/2025 11:[address] [facility] Calcium 9.2 8.5 - 10.5 mg/dL LAB CHEMISTRY METHOD 05/08/2025 11:28 PM EDT [facility] AST (SGOT) 17 10 - 42 unit/L LAB CHEMISTRY METHOD 05/08/2025 11:28 PM EDT [facility] ALT (SGPT) 32 10 - 60 unit/L LAB CHEMISTRY METHOD 05/08/2025 11:28 PM EDT [facility] Alkaline Phosphatase 85 42 - 121 unit/L LAB CHEMISTRY METHOD 05/08/2025 11:28 PM EDT [facility] Total Protein 7.1 6.0 - 8.0 g/dL LAB CHEMISTRY METHOD 05/08/2025 11:28 PM EDT [facility] Albumin 3.8 3.2 - 5.0 g/dL LAB CHEMISTRY METHOD 05/08/2025 11:28 PM EDT [facility] Total Bilirubin 0.2 0.0 - 1.4 mg/dL LAB CHEMISTRY METHOD 05/08/2025 11:28 PM EDT [facility] Blood Venous blood specimen / Unknown Venipuncture / Unknown 05/08/2025 10:55 PM EDT 05/08/2025 11:05 PM EDT us [facility] LAB BLOOD ORDERABLES Fin al Result [facility] [address] [place] [address], from Last 3 Months Insurance [employer] MED[employer] Member Subscriber Plan / Payer (Ef fective 2023-Present) Name:MARIELY TRIANA Relation to Subscriber:Self Name:Mariely Triana Payer ID:[id number] Group ID:[id number] Type:Not on file Address: [address] [place] [id number] Advance Directives * Full Code - Default (Latest Code Status on File) Date Activated Date Inactivated Comments 10/11/2024 2:09 PM 10/12/2024 11:39 AM This is orde r is used when code status has not been discussed with the patient, or code status is otherwise unknown/unconfirmed To update the patient's code status, place a code status order. Do not modify or discontinue any currently active code status orders. Care Teams Time Study Observer Relationship Specialty Start Date End Date Physician, No Pcp PCP - General 05/08/25
--- OUTSIDE RECORDS SUMMARY | 2025-07-26 09:24 | XMS_ITS | Encounter Summary ---
Author Organization [employer] Address [address] [place] [address] 7 [place] [address] Care Team Providers Care Actuarial Assistant Name Role Phone Damaris Ramos MD Primary Care Provider [phone] Reason for Referral * Medications - Closed Specialty Diagnoses / Procedures Referred By Jennifer walsh Referred To Contact Diagnoses Motion sickness, initial encounter Damaris Ramos MD [address] [place] [address] Phone: tel: fax: Referral ID Status Reason Start Date Expiration Date Visits Re quested Visits Authorized [id number] Closed 1 1 Encounter Details Date Type Department Care Team (Late st Contact Info) Description 03/01/2025 Orders Only [facility] [address] [place] [address] Damaris Ramos MD [address] [place], [place] [phone] Motion sickness, initial encounter (Primary Dx) Social History Tobacco Use Types Packs/Day Years [...] as of this encounter Visit Diagnoses Diagnosis Motion sickness, initial encounter- Primary documented in this encounter Additional Health Concerns Assessment Noted Time PHQ-9 Depression Total Score: 18 024 12:02 PM EDT documented as of this encounter Care Teams Actuarial Assistant Relationship Specialty Start Date End Date Damaris Ramos MD [address] [place] [address] PCP - General Family Medicine 08/10/18 documented as of this encounter
--- OUTSIDE RECORDS SUMMARY | 2025-07-26 09:24 | XMS_ITS | Encounter Summary ---
Author Organization [employer] Address [address] [place] [address] 7 [place] [address] Care Team Providers Care Assistant Store Manager Trainee Name Role Phone Damaris Ramos MD Primary Care Provider [phone] Reason for Referral * Consultation (Routine) - Closed Specialty Diagnoses / Procedures Referred By Jennifer walsh Referred To Contact Orthopaedic Surgery Diagnoses Chronic left shoulder pain Neck pain Damaris Ramos MD [address] [place] [address] Phone: tel: fax: [facility] [address] [place] [address] [address] [place] [address] Phone: tel: fax: Referral ID Status Reason Start Date Expiration Date V isits Requested Visits Authorized [id number] Closed Specialty Services Required 12/24/2023 12/23/2024 1 1 Encounter Details Date Type Department Care Team (Late st Contact Info) Description 12/24/2023 Orders Only [facility] MED[facility]INE [address] [place], [place] [phone] Damaris Ramos MD [address] [place], [place] [phone] Chronic left shoulder pain (Primary Dx); Neck [...] documented as of this encounter Care Teams Assistant Store Manager Trainee Relationship Specialty Start Date End Date Damaris Ramos MD [address] [place] [address] PCP - General Family Medicine 08/10/18 documented as of this encounter
--- OUTSIDE RECORDS SUMMARY | 2025-07-26 09:24 | XMS_ITS | Encounter Summary ---
Author Organization [employer] Address [address] [place] [address] 7 [place] [address] Care Team Providers Care Group Counselor Name Role Phone Damaris Ramos MD Primary Care Provider [phone] Reason for Visit * Reason Comments Med Refill Encounter Details Date Type Department Care Team ([facility] st Contact Info) Description 06/16/2024 Refill [facility]INE [address] [place], [place] [phone] Damaris Ramos MD [address] [place], [place] [phone] Class 3 severe obesity due to excess [...] documented as of this encounter Care Teams Group Counselor Relationship Specialty Start Date End Date Damaris Ramos MD [address] [place] [address] PCP - General Family Medicine 08/10/18 documented as of this encounter
--- OUTSIDE RECORDS SUMMARY | 2025-07-26 09:25 | XMS_ITS | Encounter Summary ---
Author Organization [employer] Address [address] [place] [address] [address] [place] [address] Care Team Providers Care Shoelace Tipping Machine Operator Name Role Phone Damaris Ramos MD Primary Care Provider [phone] Encounter Details Date Type Department Care Team (Late st Contact Info) Description 06/06/2025 Orders Only [facility] MEDICINE [address] [place], [place] [phone] aDmaris Ramos MD [address] [place], [place] [phone] Chronic post-traumatic headache, not intractable (Primary Dx) Social History Tobacco Use Types [...] of this encounter Visit Diagnoses Diagnosis Chronic post-traumatic headache, not intractable- Primary documented in this encounter Additional Health Concerns Assessment Noted Time PHQ-9 Depression Total Score: 13 025 10:42 AM EDT documented as of this encounter Care Teams Shoelace Tipping Machine Operator Relationship Specialty Start Date End Date Damaris Ramos MD [address] [place] [address] PCP - General Family Medicine 08/10/18 documented as of this encounter
== END 2025-07-26 11:08 | disposition home or self-care (01) ==
LOC: HO.HWSM 08:52
PROVIDERS: PCP Family Medicine; Visit Provider Advanced Practice Midwife
DX: Z01.419 Encounter for gynecological examination (general) (routine) without abnormal findings (principal); N87.0 Mild cervical dysplasia; Z12.39 Encounter for other screening for malignant neoplasm of breast; Z12.4 Encounter for screening for malignant neoplasm of cervix; Z11.3 Encounter for screening for infections with a predominantly sexual mode of transmission; Z97.5 Presence of (intrauterine) contraceptive device
CPT/HCPCS: 99395; 99459

== ENCOUNTER 2025-08-09 08:49 | Outpatient (AMB) | payer OTHER, SELFPAY ==
--- OUTSIDE RECORDS SUMMARY | 2025-08-09 08:54 | XMS_ITS | Encounter Summary ---
Author Organization [employer] Address [address] [place] [address] [address] [place] [address] Care Team Providers Care State Editor Name Role Phone Damaris Ramos MD Primary Care Provider [phone] Reason for Visit * Reason Comments Med Refill Encounter Details Date Type Department Care Team ([facility] st Contact Info) Description 12/28/2024 Refill [facility] MEDICINE [address] [place], [place] [phone] Damaris Ramos MD [address] [place], [place] [phone] Gastroesophageal reflux disease, unspecified whether esophagitis present [...] documented as of this encounter Care Teams State Editor Relationship Specialty Start Date End Date Damaris Ramos MD [address] [place] [address] PCP - General Family Medicine 08/10/18 documented as of this encounter
--- OUTSIDE RECORDS SUMMARY | 2025-08-09 08:54 | XMS_ITS | Encounter Summary ---
Author Organization [employer] Address [address] [place] [address] [address] [place] [address] Care Team Providers Care Shoe Treer Name Role Phone Damaris Ramos MD Primary Care Provider [phone] Reason for Visit * Reason Comments Med Refill Encounter Details Date Type Department Care Team ([facility] st Contact Info) Description 06/09/2024 Refill [facility] MEDICINE [address] [place], [place] [phone] Damaris Ramos MD [address] [place], [place] [phone] Class 3 severe obesity due to excess [...] documented as of this encounter Care Teams Shoe Treer Relationship Specialty Start Date End Date Damaris Ramos MD [address] [place] [address] PCP - General Family Medicine 08/10/18 documented as of this encounter
--- OUTSIDE RECORDS SUMMARY | 2025-08-09 08:54 | XMS_ITS | Clinical Summary ---
Author Organization [employer] Address [address] [place] [address] [address] [place] [address] Care Team Providers Care Monitoring Analyst Name Role Phone Damaris Ramos MD Primary Care Provider [phone] Allergies Active Allergy Reactions Criticality Noted Date [...] ULTRA 2) w/Device kit USE DIRECTED Active hydrOXYzine HCl (Atarax) 50 MG tablet Take 50 mg by mouth 3 times daily. Active Melatonin 3 MG capsule Take 1 or 2 capsules 3 hours before your desired bedtime as needed 90 capsule 3 023 Active mometasone (Elocon) 0.1 % ointment Apply thin layer after before bedtime 45 g 024 Active acetaminophen (Tylenol) 500 MG tablet Take [...] mouth at bedtime. 90 tablet 3 024 Active Blood Pressure Monitor misc Check BP daily 1 each 024 Active tiZANidine (Zanaflex) 4 MG capsule Take 1 capsule (4 mg) by mouth 3 times daily. 90 capsule 11 024 Active ibuprofen 800 MG tabletIndications :Chronic nonintractable [...] With food 90 tablet 3 025 Active ondansetron ODT (Zofran-ODT) 4 MG disintegrating tabletIndications :Nausea Take 1 tablet (4 mg) by mouth every 8 (eight) hours if needed for nausea or vomiting. 30 tablet 1 025 Active senna-docusate sodium (Senokot-S) 8.6-50 MG tablet Take 1 tablet by mouth Once per day. 30 tablet 025 2025 Active Zepbound 2.5 MG/0.5ML solution auto-injector ADMINISTER 2.5 MG UNDER THE SKIN 1 TIME EVERY WEEK 2 mL 025 Active calcitriol (Rocaltrol) 0.5 MCG capsule TAKE 1 CAPSULE(0.5 MCG) BY MOUTH IN THE MORNING 90 capsule 3 025 Active pantoprazole (Protonix) 40 MG EC tabletIndications :Gastroesophageal reflux disease, unspecified whether esophagitis present Take 1 tablet (40 mg) by mouth 2 times daily. Do not crush, chew, or split. 180 tablet 2025 Active fluticasone (Flonase Allergy Relief) 50 MCG/ACT nasal spray Administer 2 sprays into each nostril Once per day. In each nostril 16 g Active albuterol (2.5 MG/3ML) 0.083% nebulizer solutionIndicatio ns:Mild intermittent asthma without complication inhale 3 milliliter (2.5MG) by nebulization route every 4-6 hours as needed for difficulty breathing, up to 4 times/day as needed 75 mL Active albuterol (Ventolin HFA) 108 (90 Base) MCG/ACT inhaler Inhale 2 puffs every 6 (six) hours if needed for wheezing. 18 g 2025 Active loratadine (Claritin) 10 MG tablet Take 1 tablet (10 mg) by mouth Once per day. 90 tablet Active montelukast (Singulair) 10 MG tablet Take 1 tablet (10 mg) by mouth in the evening. 90 tablet Active Hxrerpv-Fbpikxi-U ethyl Theodore 1.2-5.7-6.3 % patch Apply to affected area once or twice daily 40 patch Active scopolamine (Transderm-Scop) 1 MG/3DAYS patch 72 hourIndications:M otion sickness, initial encounter Place 1 patch on the skin every 3rd (third) day. 4 patch Active chlorthalidone (Hygroton) 25 MG tablet Take 0.5 tablets (12.5 mg) by mouth Once per day. 45 tablet 2025 Active cholestyramine (Questran) 4 g packet Take 1 packet by mouth with meal, up to three times daily, as needed 90 packet Active meloxicam (Mobic) 7.5 MG tablet Take 1 tablet by mouth twice daily as needed for pain. 60 tablet 025 Active meloxicam (Mobic) 7.5 MG tablet Take 1 tablet (7.5 mg) by mouth 2 times daily. 60 tablet 11 024 2024 Discontinued doxycycline (Vibra-Tabs) 100 MG tablet Take 1 tablet (100 mg) by mouth 2 times daily for 7 days. Take with a full glass of water and do not lie down for at least 30 minutes after. 14 tablet 025 2024 Active Problems Problem Noted Date Diagnosed Date [...] (01/15/2025 6:16 AM EDT): - Following with [facility] - 07/15/24 EGD/colonoscopy: Normal / internal and external hemorrhoids. - Recommended low FODMAP diet. Prescribed simethicone prn. Assessment & Plan (10/02/2024 4:11 PM EST): - Following with [facility] - 07/15/24 EGD/colonoscopy: Normal / [...] already completed physical therapy. Currently engaged with women's health care nurse practitioner and massage. 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: [facility] - PAP on 02/02/23 ASCUS with [...] (10/29/2022 11:11 AM EDT): Upcoming appointment with Structural Analysis Engineer on 11/07/22 Chronic bilateral back pain 10/29/2022 [...] 6:23 AM EDT): -Pt is followed by [facility] provider, psychiatrist, and therapist -Previously tried medications: Escitalopram; lamotrigine; oxcarbazepine; hydroxyzine; trazodone; Valproic acid, zolpidem -Continue treatment plan per [facility] provider, questionable adherence to medications -She was able to contact her safety today Assessment & Plan (10/02/2024 4:13 PM EST): -Pt is followed by [facility] provider, psychiatrist, and therapist -Current medications: Escitalopram; lamotrigine; oxcarbazepine; hydroxyzine; trazodone - questionable adherence -Previous medications: Valproic acid, zolpidem -Continue current medication and current treatment plan per [facility] provider -She was able to contact her safety today Assessment & Plan (05/25/2024 12:41 PM EDT): -Pt is followed by [facility] provider, psychiatrist, and therapist -Current medications: Escitalopram; lamotrigine; oxcarbazepine; hydroxyzine; trazodone - questionable adherence -Previous medications: Valproic acid, zolpidem -Continue current medication and current treatment plan per [facility] provider -She was able to contact her safety today Assessment & Plan (09/20/2023 6:21 PM EST): -Pt is followed by [facility] provider, psychiatrist, and therapist -Current medications: Escitalopram; lamotrigine; oxcarbazepine; hydroxyzine; trazodone - questionable adherence -Previous medications: Valproic acid, zolpidem -Continue current medication and current treatment plan per [facility] provider -She was able to contact her safety today Assessment & Plan (02/03/2023 12:04 PM EDT): -Pt is followed by [facility] provider, psychiatrist, and therapist at [place] -Current medications: Escitalopram; lamotrigine; oxcarbazepine; hydroxyzine; trazodone -Previous medications: Valproic acid, zolpidem -Continue current medication and current treatment plan per [facility] provider -She was able to contact her safety today Assessment & Plan (10/29/2022 11:25 AM EDT): -Pt is followed by [facility] provider, psychiatrist, and therapist at [place] -Current medications: Escitalopram; lamotrigine; oxcarbazepine; hydroxyzine; and zolpidem -Previous medications: Valproic acid -Continue current medication and current treatment plan per [facility] provider -She was able to contact her safety today Assessment & Plan (07/31/2022 3:24 PM EST): -Pt is followed by [facility] provider, psychiatrist, and therapist at [place] -Current medications: Escitalopram; lamotrigine; oxcarbazepine; hydroxyzine; and zolpidem -Previous medications: Valproic acid -Continue current medication and current treatment plan per [facility] provider -She was able to contact [...] -Most recent MRI 11/18/23 - Seen by [facility] orthopedist on 10/05/23 received [...] -Most recent MRI 11/18/23 - Seen by [facility] orthopedist on 10/05/23 received [...] & Plan (04/11/2025 1:07 PM EDT): - S provider: - No longer on stimulant -Previous medications: Adderall XR, Vyvanse but was discontinued - Continue S Assessment & Plan (01/15/2025 6:21 AM EDT): - S provider: - No longer on stimjlant -Previous medications: Adderall XR, Vyvanse but was discontinued - Continue S Assessment & Plan (05/25/2024 12:42 PM EDT): S provider: -Current medications: Adderall XR 15 mg daily -Previous medications: Adderall XR different dose, Vyvanse but was discontinued -Continue S Assessment & Plan (09/20/2023 6:20 PM EST): [facility] provider: -Current medications: Adderall XR 15 mg daily -Previous medications: Adderall XR different dose, Vyvanse but was discontinued -Continue S Assessment & Plan (02/03/2023 12:03 PM EDT): S provider: [place] -Current medications: Adderall XR 15 mg daily -Previous medications: Adderall XR different dose, Vyvanse but was discontinued -Continue [facility] --Pt was considering about switching Adderall to Strattera. Assessment & Plan (07/31/2022 3:25 PM EST): S provider: [place] -Current medications: Adderall XR 15 mg daily [...] during next medical appointment. Patient provided with [facility] contact information and [facility] help line. History of sexually transmitted disease 07/21/20 22 Family history of diabetes mellitus type II [...] not show significant obstruction - referred to regulatory affairs specialist; upcoming appointment. Assessment & Plan (10/02/2024 4:15 PM EST): - will evaluate with sinus CT - will refer to regulatory affairs specialist for further evaluation Assessment & Plan [...] 1:06 PM EDT): -Pt is followed by [facility] provider, psychiatrist, and therapist - Current [...] contact her safety today Assessment & Plan (01/15/2025 6:18 AM EDT): -Pt is followed by [facility] provider, psychiatrist, and therapist - Current [...] her safety today Assessment & Plan (10/02/2024 4:32 PM EST): -Pt is followed by [facility] provider, psychiatrist, and therapist - Current [...] safety today Obesity 12/17/2012 Assessment & Plan (04/11/2025 1:05 PM EDT): - previously enrolled in [facility] - initially planned for laparoscopic sleeve gastrectomy, but patient elected non-surgical weight loss without [facility] - Pt had intolerance [...] 6:15 AM EDT): - previously enrolled in [facility] - initially planned for laparoscopic sleeve gastrectomy, but patient elected non-surgical weight loss without [facility] management clinic - currently on GLP1RA, [...] 4:12 PM EST): - previously enrolled in [facility] - initially planned for laparoscopic sleeve gastrectomy, but patient elected non-surgical weight loss without [facility] management clinic - currently on GLP1RA. Will continue current dose. Assessment & Plan (05/25/2024 12:42 PM EDT): - previously enrolled in [facility] management clinic - initially planned for laparoscopic sleeve gastrectomy, but patient elected non-surgical weight loss without [facility] management clinic - [...] 11:18 AM EDT): - previously enrolled in [facility] - initially planned for laparoscopic sleeve gastrectomy, but patient elected non-surgical weight loss without [facility] management clinic - [...] 6:17 PM EDT): - previously enrolled in [facility] management clinic - initially planned for laparoscopic sleeve gastrectomy, but patient elected non-surgical weight loss without [facility] management clinic - [...] 6:19 PM EST): - previously enrolled in [facility] management [facility] - initially planned for laparoscopic sleeve gastrectomy, but patient elected non-surgical weight loss without [facility] management clinic - 05/21/23 total cholesterol 191; triglyceride 106; HDL 40; LDL 130 - 05/21/23 A1C 5.5% - continue working on lifestyle modifications - appreciate her curiosity and knowledge in naturopathic medicine and intention to improve her health Assessment & Plan (05/24/2023 10:46 AM EDT): - enrolled in [facility] management clinic - plan for laparoscopic sleeve gastrectomy - continue working on lifestyle modifications - appreciate her curiosity and knowledge in naturopathic medicine and intention to improve her health Assessment & Plan (02/03/2023 12:01 PM EDT): - enrolled in [facility] management clinic - [...] alcohol. FU STI test results. FU with MANUFACTURER AGENT sp cervical bx. Unprotected sexual intercourse 05/20/2023 [...] Patient will fu with her counselor at [facility] STI testing done/ordered. Patient didn't want [...] Encounters Date Type Department Care Team Description 07/27/2025 Results Follow-Up [facility] [address] [place] [phone] Damaris Ramos MD Bacterial Vaginosis, Chlamydia/N. Gonorrhoeae RNA, TMA, Urogenitial, Hepatitis C Ab, Additional followed-up results: 5 07/27/2025 Orders Only [address] [address] Damaris Ramos MD Seasonal allergic rhinitis, unspecified trigger (Primary Dx); Recurrent sinusitis 07/27/[address] [address] Damaris Ramos MD Call Back Request 07/26/2025 Orders Only GENERIC EXTERNAL DATA DEPARTMENT Provider, Generic External Data 07/26/2025 Refill [facility] [address] [address] Flavia Wilks MD 07/25/2025 5:20 PM EST Office Visit [facility] [address] [address] Collin Short MD Sinus congestion 07/25/2025 Travel 07/25/2025 Telephone [facility] [address] [place] [phone] Damaris Ramos MD Nurse Triage 06/28/[address] [address] Patti Walters, RN Results 06/13/[address] [address] Damaris Ramos MD No Show 06/12/2025 Telephone [facility] [address] [place] [phone] Lauren Edge MA 06/06/2025 Orders Only [facility] [address] [place] [phone] Damaris Ramos MD Chronic post-traumatic headache, not intractable (Primary Dx) 05/12/[address] [address] Damaris Ramos MD 05/10/[address] [address] Damaris Ramos MD Appointment Request 05/09/[address] [address] Damaris Ramos MD from Last 3 Months Immunizations Immunization Administration [...] (1 - 3-dose series) 2001 COVID-19 Vaccine ( season) 2025 02/27/2021 Influenza Vaccine (#1) 2025 , 07/02/2020, 07/14/2018, Additional history exists Colposcopy 07/27/2025 08/15/2024, 05/14/2023 SDOH Screening 09/28/2025 09/28/2024 Depression Monitoring 10/24/2025 04/26/2025, 025 Disability Screening 01/04/2026 01/04/2025 Alcohol/Substance Use Screening 04/26/2026 04/26/2025 Tobacco Screening 07/25/2026 07/25/2025 Cervical Cancer Screening 07/26/2026 Diabetes: Hemoglobin A1C 07/26/2026 025, 01/04/2025, 09/28/2024, Additional history exists HPV/Cotest 07/26/2026 07/26/2025, 01/09, 01/21/2022, Additional history exists Pap Smear 07/26/2026 07/26/2025, 07/10, 02/02/2023, Additional history exists Lipid Panel 09/28/2029 09/28/2024, 02/07, 05/21/2023, Additional [...] Years Completed 02/02/2023, 03/01/2014 HIV Screening Completed 07/26/2025, 02/07, 05/21/2023, Additional history exists Hepatitis C Screening Completed 07/26/2025 , 01/04/2025, 02/25/2024, Additional history exists HIB Vaccines Aged Out [...] Date/Time Associated Diagnosis Comments AMB REFERRAL TO ENT Urgent 07/27/2025 Recurrent sinusitis HEPATITIS B SURFACE ANTIGEN, EIA Routine 07/26/2025 10:11 AM EST SYPHILIS SCREEN Routine 07/26/2025 10:11 AM EST HIV 1/2 ANTIGEN/ANTIBODY, FOURTH GENERATION W/RFL Routine 07/26/2025 10:11 AM EST HEPATITIS C ANTIBODY Routine 07/26/2025 10:11 AM EST HEMOGLOBIN A1C Routine 07/26/2025 10:11 AM EST Prediabetes BASIC METABOLIC PANEL Routine 07/26/2025 10:11 AM EST Hypertension, unspecified type PAP SMEAR Routine 07/26/2025 9:31 AM EST HPV DNA, LOW/HIGH RISK Routine 07/26/2025 9:31 AM EST CHLAMYDIA/N. GONORRHOEAE RNA, TMA, UROGENITAL Routine 07/26/2025 12:00 AM EST BACTERIAL VAGINOSIS PANEL Routine 07/26/2025 12:00 AM EST POCT INFLUENZA B (ID NOW RAPID MOLECULAR) Routine 07/25/2025 5:15 PM EST Sinus congestion POCT INFLUENZA A (ID NOW RAPID MOLECULAR) Routine 07/25/2025 5:15 PM EST Sinus congestion POCT RAPID COVID ANTIGEN Routine 07/25/2025 5:11 PM EST Sinus congestion LIPID PANEL WITH REFLEX TO DIRECT LDL Routine 09/28/2024 9:51 AM EST Elevated BP without diagnosis of hypertension COLPOSCOPY Routine 08/15/2024 12:00 AM EST from Last 3 Months or Most Recently Relevant to Health Maintenance Results * Referral to ENT (07/27/2025) us Damaris Ramos MD OUTPATIENT REFERRAL ORDERABLES F inal Result * Syphilis Screen (07/26/2025 10:11 AM EST) Syphilis Screen Nonreactive Nonreactive [facility] 07/26/2025 10:1 1 AM EST 07/26/2025 2:25 PM EST us Generic External Data Provider LAB BLOOD ORDERAB LES Final Result [facility] [address] [place] [phone] * Hepatitis C Ab (07/26/2025 10:11 AM EST) Hepatitis C Antibody Nonreactive Nonreactive [facility] Comment:Antibodies to HCV no t detected; does not exclude early acuteHCV infection. 07/26/2025 10:1 1 AM EST 07/26/2025 2:22 PM EST Generic External Data Provider LAB BLOOD ORDERAB LES Final Result Performing Organization Address City/[facility]/ZIP Co de Phone Number [facility] [address] [place] [phone] * Hepatitis B surface antigen, EIA (07/26/2025 10:11 AM EST) Hepatitis B Surface Ag Negative Negative [facility] 07/26/2025 10:1 1 AM EST 07/26/2025 2:22 PM EST Generic External Data Provider LAB BLOOD ORDERAB LES Final Result Performing Organization Address City/[facility]/ZIP Co de Phone Number [facility] [address] [place] [phone] * HIV-1/2 Antigen and Antibodies, Fourth Generation, with Reflexes (07/26/2025 10:11 AM EST) HIV AB/AG Nonreactive Nonreactive [facility] Comment:HIV-1 p24 Ag and/or HIV-1/HIV-2 Ab not detected.A test result that is nonreactive does not exclude thepossibility of exposure to or infection with HIV-1 and/orHIV-2. Nonreactive results in this assay for individualswith prior exposure to HIV-1 and/or HIV-2 may be due toantigen and antibody levels that are below the limit ofdetection of this assay.The [employer] HIV Ag/Ab Combo assay result andsupplemental assay results should be interpreted inconjunction with the patient's clinical presentation,history and other laboratory results. If the results areinconsistent with clinical evidence, additional testing issuggested to confirm the result. 07/26/2025 10:1 1 AM EST 07/26/2025 2:22 PM EST us Generic External Data Provider LAB BLOOD ORDERAB LES Final Result Performing Organization Address [facility] Co de Phone Number [facility] [address] [place] [phone] * Hemoglobin A1c (07/26/2025 10:11 AM EST) Hemoglobin A1c 6.0 <6.0 % [facility] Comment:Hemoglobin A1C Refer ence Range Adults: 4.8 - 6.0 % Non diabetic: < 6.0 % Goal: < 7.0 %Additional Action Suggested: > 8.0 %Note: Hemoglobin A1c results are invalid for patients with abnormal amounts of HbF. Blood transfusions may impact the HbA1c concentration in the patient sample. Estimated Average Glucose 126 mg/dL [facility] Comment:eAG = Estimated ave rage glucose which is %A1C expressed asaverage glucose, using the formula of the X5X-LzqnbouTxyuclv Glucose study (ADAG), Diabetes Care, Vol.31,#8,Mar. 2007 Blood Venous blood specimen / Unknown 07/26/2025 10:11 AM EST 07/26/2025 11:27 AM EST us Damaris Ramos MD LAB BLOOD ORDERABLES Final Resul t Performing Organization Address City/[facility] Co de Phone Number [facility] [address] [place] [phone] * Basic Metabolic Panel (07/26/2025 10:11 AM EST) Sodium 137 135 - 145 mmol/L [facility] Potassium 3.9 3.3 - 5.1 mmol/L [facility] Chloride 103 96 - 108 mmol/L [facility] Carbon Dioxide 25 22 - 29 mmol/L [facility] Anion Gap 13 12 - 20 [facility] Urea Nitrogen (BUN) 13 9 - 16 mg/dL [facility] Creatinine, Serum 0.67 0.5 - 1.4 mg/dL [facility] Estimated Glomerular Filt Rate >60 [facility] Comment:Chronic Kidney Disea se: Estimated GFR < 60 mL/min/1.39p7Ebsrlb Kidney Disease: Estimated GFR < 15 mL/min/1.73m2 Glucose 112 60 - 115 mg/dL [facility] Calcium 9.5 8.4 - 10.2 mg/dL [facility] Blood Venous blood specimen / Unknown 07/26/2025 10:11 AM EST 07/26/2025 2:25 PM EST us Damaris Ramos MD LAB BLOOD ORDERABLES Final Resul t [facility] [address] [place] [phone] * (ABNORMAL) HPV DNA, Low/High Risk (07/26/2025 9:31 AM EST) HPV High Risk Positive(A) Negative [facility] HPV Genotype 16 Negative Negative [facility] HPV Genotype 18 Negative Negative [facility] Comment:HPV testing performe d at [facility] (CLIA#[id number]), [address] [place] [address].Testing for HPV was performed using the [employer] 6800system. The presence of HPV in the female genital tract isassociated with a number of diseases, including cervicalcarcinoma. The HPV DNA high risk pool tests for HPV 31, 33,35, 39, 45, 51, 52, 56, 58, 59, 66 and 68. The testing forHPV 16 and 18 genotypes has also been performed. A positiveresult indicates detection of nucleic acid sequences fromone or more subtypes, whereas a negative result indicatessuch sequences were not detected. 07/26/2025 9:31 AM EST 07/27/2025 9:03 AM EST us Generic External Data Provider LAB BLOOD ORDERAB LES Final Result [facility] [address] [place] [phone] * Pap Smear (07/26/2025 9:31 AM EST) 07/26/2025 9:31 AM EST 07/27/2025 9:03 AM EST Narrative [facility] - 07/31/2025 5:53 PM EST ----- ------- Name: Taylor Martinez Age/Sex: 40/F : 1985 Unit#: [id number] Attend Dr: Nuha Peraza CNM Re07/26/25 Status: [facility] REF Location: [facility] Disch: ----- ------- SPEC : [id number] RECD: 07/27/25 STATUS: LEILA RODRIGUEZ NUM: [id number] RENEE: 07/26/[address]: Nuha Peraza CNM ENTERED: 07/27/25 SP TYPE: Pap Smr OTHR DR: Damaris Ramos MD ORDERED: Pap Smear, PAP path review Interpretation General Category: Epithelial cell abnormality. Adequacy: Endocervical component present. Interpretation: Atypical squamous cells of undetermined significance. HPV High Risk other: Positive HPV Genotyping 16: Negative HPV Genotyping 18: Negative Clinical Information LMP:Unknown date Previous PAP test:08/02 PAP LSIL, HPV+, colpo: EMETERIO 1 Material Received ThinPrep-Cervical PAP Disclaimer As of June 01, 2024, the technical services to include automated prescreening performed by the ThinPrep Imaging System, PAP screening and HPV testing will be performed at [facility] (CLIA #[id number]), [address] [place] [address]. Testing for HPV was performed using the [employer] coRank0 system. The presence of HPV in the female genital tract is associated with a number of diseases, including cervical carcinoma. The HPV DNA high risk pool tests for HPV 31, 33, 35, 39, 45, 51, 52, 56, 58, 59, 66 and 68. The testing for HPV 16 and 18 genotypes has also been performed. A positive result indicates detection of nucleic acid sequences from one or more subtypes, whereas a negative result indicates such sequences were not detected. All professional services are performed by [facility] ([address] [place] [address]; ; CLIA #[id number]). The PAP Test is a screening procedure with the inherent possibility of both false negative and false positive results. Results should be interpreted in the context of historic and current clinical findings. Reliability of the PAP Test is enhanced by performing the test on a regular repetitive basis. CONTINUED ON NEXT PAGE ----- ------- Name: Taylor Martinez Age/Sex: 40/F : 1985 Unit#: [id number] Attend Dr: Nuha Peraza CNM Re07/26/25 Status: DEP REF Location: HO.LNP Disch: ----- ------- SPEC : [id number] RECD: 07/27/25 STATUS: LEILA RODRIGUEZ NUM: [id number] RENEE: 07/26/25 [facility] DR: Nuha Peraza CNM ENTERED: 07/27/25 SP TYPE: Pap Smr OTHR DR: Damaris Ramos MD ORDERED: Pap Smear, PAP path review Copies To: Nuha Peraza CNM [facility] [address] [place] [phone] [email or web address] Damaris Ramos MD [address] [address] ----- ------- Signed (signature on file) Neha Krishnamurthy MD 07/31/25 1753 ----- ------- END OF REPORT Generic External Data Provider LAB CYTOLOGY ORDE RABLES Final Result Performing Organization Address [facility] Co de Phone Number [facility] [address] [place] [phone] [phone] * Bacterial Vaginosis (07/26/2025 12:00 AM EST) TRICHOMONAS VAGINALIS DETECTION BY PCR NOT DETECTED Not Detect [facility] BACTERIAL VAGINOSIS DETECTION BY PCR NEGATIVE Negative [facility] Comment:The BV organism targ ets of the Xpert Xpress MVP test can becommensal in women; Xpert Xpress MVP positive results forbacterial vaginosis should be considered in conjunction withother clinical and patient information to determine thedisease status. Organisms that are not detected by the XpertXpress MVP test have also been reported to be associatedwith BV and aerobic vaginitis.The Xpert Xpress MVP test performance has not been evaluatedin patients under the age of 14. ELIZABETH GROUP DETECTION BY PCR NOT DETECTED Not Detect [facility] Elizabeth glab krusei PCR NOT DETECTED Not Detect [facility] 07/26/2025 07/26/2025 Generic External Data Provider LAB MICROBIOLOGY - GENERAL ORDERABLES Final Result Performing Organization Address [facility] Co de Phone Number [facility] [address] [place] [phone] * Chlamydia/N. Gonorrhoeae RNA, TMA, Urogenitial (07/26/2025 12:00 AM EST) CT PCR NOT DETECTED Not Detect. [facility] Comment:A not detected test result [...] psychologicalconsequences. NG PCR NOT DETECTED Not Detect. [facility] Comment:A not detected test result [...] lead to adverse medical, social or psychologicalconsequences. 07/26/2025 07/26/2025 us Generic External Data Provider LAB MICROBIOLOGY - GENERAL ORDERABLES Final Result Performing Organization Address [facility]/ZIP Co de Phone Number [facility] [address] [place] [phone] * POCT Rapid Influenza B ARIZMENDI ID NOW (07/25/2025 5:15 PM EST) Influenza B Negative Negative, Indeterminate [facility] QC Media Lot # [id number] [facility] Lot# Expiration Date [facility] Swab 07/25/2025 5:15 PM EST us Collin Seay MD POINT OF CARE TEST ENTER/EDIT ORDERABLES Final Result Performing Organization Address [facility]/ZIP Co de Phone Number [facility] [address] [place] [phone] * POCT Rapid Influenza A ARIZMENDI ID NOW (07/25/2025 5:15 PM EST) Pathologist [facility] Influenza A Negative Negative, Indeterminate [facility] QC Media Lot # [id number] [facility] Lot# Expiration Date [facility] Swab 07/25/2025 5:15 PM EST Collin Seay MD POINT OF CARE TEST ENTER/EDIT ORDERABLES Final Result [facility] [address] [place] [phone] * POCT Rapid Covid-19 BinaxNOW (07/25/2025 5:11 PM EST) [facility] Rapid COVID Ag Negative QC Media Lot # [id number] Lot# Expiration Date Swab 07/25/2025 5:11 PM EST Collin Seay MD POINT OF CARE TEST ENTER/EDIT ORDERABLES Final Result * (ABNORMAL) Lipid Panel with Reflex to Direct LDL (09/28/2024 9:51 AM EST) [facility] Triglycerides 129 <150 mg/dL [facility] Comment:Desirable Triglyceri de: less than 150 mg/dLBorderline High Triglyceride 150-199 mg/dLHigh Triglyceride: 200-499 mg/dLVery High Triglyceride: greater than or equal to 5OO mg/dL Cholesterol 172 <200 mg/dL [facility] Comment:Desirable Cholestero l: less than 200 mg/dLBorderline High Cholesterol: 200-239 mg/dLHigh Cholesterol: greater than 239 mg/dL LDL Cholesterol Calculated 109(H) <100 mg/dL [facility] Comment:Desirable LDL: less than 100 mg/dLNear Optimal/Above Optimal LDL: 110- 129 mg/dLBorderline High LDL: 130-159 mg/dLHigh LDL: 160-189 mg/dLVery High LDL: greater than or equal to 190 mg/dL HDL Cholesterol 38(L) >40 mg/dL [facility] Comment:Desirable HDL: great er than 40 mg/dL Note: This HDL assay may give artificially low results in patients with liver disease. Blood 09/28/2024 9:51 AM EST 09/28/2024 11:10 AM EST us Damaris Ramos MD LAB BLOOD ORDERABLES Final Resul t [facility] [address] [place] [phone] [phone] * Colposcopy (08/15/2024 12:00 AM EST) us Historical Provider MD IN CLINIC/BEDSIDE ORDERAB LES Edited Result - Final from Last 3 Months or Most Recently Relevant to Health Maintenance Insurance [facility] < 65 [place] [id number] Care Teams Monitoring Analyst Relationship Specialty Start Date End Date Damaris Ramos MD [address] [place] [phone] PCP - General Family Medicine 08/10/18
--- OUTSIDE RECORDS SUMMARY | 2025-08-09 08:54 | XMS_ITS | Encounter Summary ---
Author Organization [employer] Address [address] [place] [address] 7[address] [place] [address] Care Team Providers Care Tomato Pulper Operator Name Role Phone Damaris Ramos MD Primary Care Provider Reason for Referral * Consultation (Routine) - Closed Specialty Diagnoses / Procedures Referred By Jennifer walsh Referred To Contact Orthopaedic Surgery Diagnoses Chronic pain of left knee Acute medial meniscus tear of left knee, initial encounter Damaris Ramos MD [address] [place] [address] Phone: tel: fax: [facility] [address] [place] [address] [address] [place] [address] Phone: tel: fax: Referral ID Status Reason Start Date Expiration Date V isits Requested Visits Authorized [id number] Closed Specialty Services Required 11/19/2023 11/18/2024 1 1 Scheduling Instructions MRI is done and is in Epic under imaging. Encounter Details Date Type Department Care Team (Late st Contact Info) Description 11/19/2023 Orders Only [facility] [address] [place], [place] [phone] Damaris Ramos MD [address] [place] [address] Chronic pain of left knee [...] EDT) CT PCR NOT DETECTED Not Detect. [facility] Comment:A not detected test result [...] psychologicalconsequences. NG PCR NOT DETECTED Not Detect. [facility] Comment:A not detected test result [...] AM EDT 02/25/2024 1:02 PM EDT Narrative [facility] - 02/25/2024 3:42 PM EDT Urine us Damaris Ramos MD LAB MICROBIOLOGY - GENERAL ORDER YAMILET Final Result [facility] [address] [place] [phone] [phone] * Vitamin B12/Folate, Serum Panel (02/25/2024 10:16 AM EDT) Vitamin B12 640 200 - 900 pg/mL [facility] Comment:NORMAL 200-900 PG/ML INDETERMINATE 160-199 PG/ML DEFICIENT < 160 PG/ML Folate 7.2 > or = 4.0 ng/mL [facility] Comment:Reference Values:> o r = 4.0 ng/mL< 4.0 ng/mL suggests folate deficiency Methotrexate, aminopterin and folinic acid(leucovorin) are chemotherapeutic agents whose molecularstructures are similar to folate; therefore, the Architectfolate assay cannot be used for patients using these drugs. 02/25/2024 10:1 6 AM EDT 02/25/2024 11:15 AM EDT Damaris Ramos MD LAB BLOOD ORDERABLES Final Resul t Performing Organization Address [facility] de Phone Number [facility] [address] [place] [phone] * Hepatitis A Antibody, Total (02/25/2024 10:16 AM EDT) Hepatitis A Antibody IgG Nonreactive Nonreactive [facility] Blood Venous blood specimen / Unknown 02/25/2024 10:16 AM EDT 02/25/2024 11:15 AM EDT Damaris Ramos MD LAB BLOOD ORDERABLES Final Resul t Performing Organization Address [facility] Co de Phone Number [facility] [address] [place] [phone] * Hepatitis B surface antigen, EIA (02/25/2024 10:16 AM EDT) Hepatitis B Surface Ag Negative Negative [facility] Blood Venous blood specimen / Unknown 02/25/2024 10:16 AM EDT 02/25/2024 11:13 AM EDT Damaris Ramos MD LAB BLOOD ORDERABLES Final Resul t Performing Organization Address [facility] Co de Phone Number [facility] [address] [place] [phone] * HIV-1/2 Antigen and Antibodies, Fourth Generation, with Reflexes (02/25/2024 10:16 AM EDT) HIV AB/AG Nonreactive Nonreactive [facility] Comment:HIV-1 p24 Ag and/or HIV-1/HIV-2 Ab not detected.A test result that is nonreactive does not exclude thepossibility of exposure to or infection with HIV-1 and/orHIV-2. Nonreactive results in this assay for individualswith prior exposure to HIV-1 and/or HIV-2 may be due toantigen and antibody levels that are below the limit ofdetection of this assay.The [employer] HIV Ag/Ab Combo assay result andsupplemental assay results should be interpreted inconjunction with the patient's clinical presentation,history and other laboratory results. If the results areinconsistent with clinical evidence, additional testing issuggested to confirm the result. Blood Venous blood specimen / Unknown 02/25/2024 10:16 AM EDT 02/25/2024 11:13 AM EDT us Damaris Ramos MD LAB BLOOD ORDERABLES Final Resul t Performing Organization Address [facility] Co de Phone Number [facility] [address] [place] [phone] * Hepatitis B Core Antibody, Total (02/25/2024 10:16 AM EDT) Hepatitis B Core Antibody Nonreactive Nonreactive [facility] Blood Venous blood specimen / Unknown 02/25/2024 10:16 AM EDT 02/25/2024 11:13 AM EDT Damaris Ramos MD LAB BLOOD ORDERABLES Final Resul t Performing Organization Address [facility] Co de Phone Number [facility] [address] [place] [phone] * Hepatitis B Surface Antibody, Qualitative (02/25/2024 10:16 AM EDT) ~Hepatitis B Surface Antibody REACTIVE Nonreactive [facility] Comment:REACTIVE: > 11.99 mI U/mL Blood Venous blood specimen / Unknown 02/25/2024 10:16 AM EDT 02/25/2024 11:13 AM EDT us Damaris Ramos MD LAB BLOOD ORDERABLES Final Resul t Performing Organization Address [facility]/ZIP Co de Phone Number [facility] [address] [place] [phone] * Hepatitis C Antibody with Reflex to HCV, RNA, Quantitative, Real-Time PCR (02/25/2024 10:16 AM EDT) [facility] Hepatitis C Antibody Nonreactive Nonreactive [facility] Comment:Antibodies to HCV no t detected; does not exclude early acuteHCV infection. Blood Venous blood specimen / Unknown 02/25/2024 10:16 AM EDT 02/25/2024 11:13 AM EDT us Damaris Ramos MD LAB BLOOD ORDERABLES Final Resul t Performing Organization Address [facility]/ZIP Co de Phone Number [facility] [address] [place] [phone] * Syphilis Screen (02/25/2024 10:16 AM EDT) [facility] Syphilis Screen Nonreactive Nonreactive [facility] Blood 02/25/2024 10:1 6 AM EDT 02/25/2024 11:15 AM EDT us Damaris Ramos MD LAB BLOOD ORDERABLES Final Resul t Performing Organization Address City/[facility]/ZIP Co de Phone Number [facility] [address] [place] [phone] * Comprehensive Metabolic Panel (02/25/2024 10:16 AM EDT) Pathologist [facility] Sodium 138 135 - 145 mmol/L [facility] Potassium 3.9 3.3 - 5.1 mmol/L [facility] Chloride 105 96 - 108 mmol/L [facility] Carbon Dioxide 24 22 - 29 mmol/L [facility] Anion Gap 13 12 - 20 [facility] Urea Nitrogen (BUN) 11 9 - 16 mg/dL [facility] Creatinine, Serum 0.75 0.5 - 1.4 mg/dL [facility] Estimated Glomerular Filt Rate >60 [facility] Comment:NOTE: For -Am erican individuals, multiply the result by 1.210.Chronic Kidney Disease: Estimated GFR < 60 mL/min/1.70y3Gnbilt Kidney Disease: Estimated GFR < 15 mL/min/1.73m2 Glucose 102 60 - 115 mg/dL [facility] Calcium 9.2 8.4 - 10.2 mg/dL [facility] Bilirubin, Total 0.5 0.0 - 1.0 mg/dL [facility] Aspartate Amino Transferase 16 5 - 31 U/L [facility] Alanine Aminotransferase 26 0 - 31 U/L [facility] Total Protein 7.5 6.5 - 8.0 g/dL [facility] Albumin Level 4.4 3.5 - 5.0 g/dL [facility] Alkaline Phosphatase 70 39 - 117 U/L [facility] Blood Venous blood specimen / Unknown 02/25/2024 10:16 AM EDT 02/25/2024 11:13 AM EDT us Damaris Ramos MD LAB BLOOD ORDERABLES Final Resul t [facility] [address] [place] [phone] * (ABNORMAL) CBC auto differential (02/25/2024 10:16 AM EDT) White Blood Count 8.0 4.8 - 10.8 X10*3/uL [facility] Red Blood Count 4.29 4.20 - 5.50 X10*6/uL [facility] Hemoglobin 14.5 12.0 - 16.0 g/dl [facility] Hematocrit 40.2 37.0 - 47.0 % [facility] Mean Corpuscular Volume 93.7 80.0 - 98.0 fL [facility] Mean Corpuscular Hemoglobin 33.8(H) 27.0 - 33.0 pg [facility] Mean Corpuscular HGB Conc 36.1(H) 31.0 - 35.0 g/dl [facility] Red Cell Distribution Width 12.6 11.0 - 16.0 % [facility] Platelet Count 382 160 - 400 X10*3/uL [facility] Mean Platelet Volume 9.8 9.4 - 12.3 fL [facility] Neutrophils Percent Auto 67.5 45 - 73 % [facility] Imm Gran Pct Auto 0.9(H) 0.0 - 0.4 % [facility] Lymphocytes Percent Auto 21.9 20 - 40 % [facility] Monocytes Percent Auto 8.3 2 - 11 % [facility] Eosinophils Percent Auto 0.8 0 - 4 % [facility] Basophils Percent Auto 0.6 0 - 2 % [facility] NRBC Pct Auto 0.0 0.0 - 0.2 /100WBC [facility] Neutrophils Absolute Auto 5.4 2.0 - 8.3 x10*3/uL [facility] Imm Gran Abs Auto 0.07(H) 0.00 - 0.03 X10*3/uL [facility] Lymphocytes Absolute Auto 1.8 1.2 - 4.9 X10*3/uL [facility] Monocytes Absolute Auto 0.7 0.1 - 1.2 X10*3/uL [facility] Eosinophils Absolute Auto 0.1 0.0 - 0.4 X10*3/uL [facility] Basophils Absolute Auto 0.1 0.0 - 0.2 X10*3/uL [facility] NRBC Abs Auto 0.000 0.0 - 0.012 X10*3/uL [facility] Blood Venous blood specimen / Unknown 02/25/2024 10:16 AM EDT 02/25/2024 11:15 AM EDT us Damaris Ramos MD LAB BLOOD ORDERABLES Final Resul t Performing Organization Address City/State/[facility] Co de Phone Number [facility] [address] [place] [phone] * XR CERVICAL SPINE 3V (12/14/2023 11:00 AM EDT) Anatomical Region Laterality Modality Abdomen Radiographic Danielle ging 12/14/2023 11:0 0 AM EDT Narrative 12/21/2023 10:43 AM EDT [address] [address] XRay Report Signed Patient: Taylor Martinez MR#: [id number] : 1985 Acct:[id number] Age/Sex: 38 / F ADM Date: 12/14/23 Loc: HO.HHCX Attending Dr: Damaris Ramos MD Ordering Physician: Damaris Ramos MD Date of Service: 12/14/23 Procedure(s): XR cervical spine 3V Accession Number(s): [id number] cc: Damaris Ramos MD EXAMINATION: XR CERVICAL [...] in OV> 12/21/23 1039 DD/ 1100 TD/TT: Import/Export Freight Forwarder: Procedure Note Donotuseinterpreter, Image - 12/21/2023 [facility] [address] [place] [address] XRay Report Signed Patient: Taylor MartinezMR#: [id number] : 1985Acct:[id number] Age/Sex: 38 / FADM Date: 12/14/23 Loc: B[facility]AR[facility] Attending Dr: Damaris Ramos MD Ordering Physician: Damaris Ramos MD Date of Service: 12/14/23 Procedure(s): XR cervical spine 3V Accession Number(s): [id number] cc: Damaris Ramos MD EXAMINATION: XR CERVICAL [...] in OV> 12/21/23 1039 DD/ 1100 TD/TT: Import/Export Freight Forwarder: Damaris Ramos MD IMG XR PROCEDURES Final Result * XR Shoulder 2+ Views Left (12/14/2023 11:00 AM EDT) Anatomical Region Laterality Modality Upper Extremities, Shoulder Left Radi ographic Imaging 12/14/2023 11:0 0 AM EDT Narrative 12/19/2023 9:18 AM EDT [facility] [address] [place] [address] XRay Report Signed Patient: Taylor Martinez MR#: [id number] : 1985 Acct:[id number] Age/Sex: 38 / F ADM Date: 12/14/23 Loc: B[facility]AR[facility] Attending Dr: Damaris Ramos MD Ordering Physician: Damaris Ramos MD Date of Service: 12/14/23 Procedure(s): XR shoulder LT min 2V Accession Number(s): [id number] cc: Damaris Ramos MD EXAMINATION: XR SHOULDER, [...] in OV> 12/19/23 0913 DD/ 1100 TD/TT: Import/Export Freight Forwarder: WG Procedure Note Donotuseinterpreter, Image - 12/19/[address] [address] XRay Report Signed Patient: Taylor Martinez#: [id number] : 1985Acct:[id number] Age/Sex: 38 / FADM Date: 12/14/23 Loc: HO.HHCX Attending Dr: Damaris Ramos MD Ordering Physician: Damaris Ramos MD Date of Service: 12/14/23 Procedure(s): XR shoulder LT min 2V Accession Number(s): [id number] cc: Damaris Ramos MD EXAMINATION: XR SHOULDER, [...] MD inOV> 12/19/23 0913 DD/ 1100 TD/TT: Import/Export Freight Forwarder: WG Damaris Ramos MD IMG XR PROCEDURES [...] documented as of this encounter Care Teams Tomato Pulper Operator Relationship Specialty Start Date End Date Damaris Ramos MD [address] [place] [phone] PCP - General Family Medicine 08/10/18 documented as of this encounter
--- OUTSIDE RECORDS SUMMARY | 2025-08-09 08:54 | XMS_ITS | Encounter Summary ---
Author Organization [employer] Address [address] [place] [address] [address] [place] [address] Care Team Providers Care Paper Rewinder Name Role Phone Damaris Ramos MD Primary Care Provider [phone] Reason for Visit * Reason Comments Med Refill Encounter Details Date Type Department Care Team ([facility] st Contact Info) Description 06/16/2024 Refill [facility] [address] [place], [place] [phone] Damaris Ramos MD [address] [place], [place] [phone] Class 3 severe obesity due to excess [...] documented as of this encounter Care Teams Paper Rewinder Relationship Specialty Start Date End Date Damaris Ramos MD [address] [place] [address] PCP - General Family Medicine 08/10/18 documented as of this encounter
--- OUTSIDE RECORDS SUMMARY | 2025-08-09 08:54 | XMS_ITS | Encounter Summary ---
Author Organization [employer] Address [address] [facility] [address] [place] [address] Care Team Providers Care Bean Picker Machine Operator Name Role Phone Damaris Ramos MD Primary Care Provider [phone] Reason for Referral * Consultation (Urgent) - Closed Specialty Diagnoses / Procedures Referred By Jennifer walsh Referred To Contact Gastroenterology Diagnoses Diarrhea, unspecified type Abdominal pain, unspecified abdominal location Damaris Ramos MD [address] [place] [address] Phone: tel: fax: [facility] [address] [facility] 3rd [address] [place], [place] Phone: tel: fax: Referral ID Status Reason Start Date Expiration Date V isits Requested Visits Authorized [id number] Closed Specialty Services Required 09/30/2023 09/29/2024 1 1 Scheduling Instructions Patient would like to see any provider in [place], not [facility]. Encounter Details Date Type Department Care Team (Late st Contact Info) Description 09/30/2023 Orders Only [facility] [address] [place] [address] Damaris Ramos MD [address] [place] [address] Diarrhea, unspecified type (Primary Dx); [...] documented as of this encounter Care Teams Bean Picker Machine Operator Relationship Specialty Start Date End Date Damaris Ramos MD [address] [place] [address] PCP - General Family Medicine 08/10/18 documented as of this encounter
--- OUTSIDE RECORDS SUMMARY | 2025-08-09 08:54 | XMS_ITS | Data Portability ---
Author Organization [facility], [facility] Address [address] [place] [address] Care Team Providers Care Road Design Draftsperson Name Role Phone Unavailable Referring Provider HIM CCA OTHER Assessment Encounter Date Assessment Date Assessment LastModified by Organization Details LastModified Time 08/20/2024 08/20/2024 As noted, we germaine e called to see this patient regarding CONCERNS FOR SINUSITIS. Evaluation in the field was performed by my public health colleague, as noted above, I provided real-time [...] evaluation and physical exam done by the public health. The patient does have tenderness to the [...] We discussed the need to seek care urgently/emergentl y in the setting of any new or worsening serious symptoms, particularly fever, headache confusion. [email or web address] Not available 08/20/2024 10:53:08 03/09/2025 03/09/2025 Ms. Martinez is a 39 yo F with asthma who is calling today about sinus congestion. Per patient and medic, has had sinus congestion for 2 weeks. Minimal mucus . Has been taking: flonase and PO certizine per PCP - but reports nothing is helping. Frontal headache getting worse No fever. Endorsing some FISHER and a dry cough with generalized malaise. No known sick contacts. Given the patient's duration of sx, presenting exam and failure of seasonal allergy tx of cetirizine and other OTC meds/prescribed rx, consider acute sinusitis tx. Was having initially greenish sinus discharge, now more clear. COVID/flu negative with medic. Allergies reviewed and has PCN allergies. I provided real -time medical direction via phone for this encounter, and was available for additional phone based assistance as needed. I have reviewed and agree with the Assessment and Plan as documented by the Supervisor Wet End. We discussed the diagnostic uncertainty of home visits and the risk associated with this. In this case the patient and I felt this to be an acceptable and reasonable amount of risk given the benefit of avoiding an ED visit. The patient given the opportunity to ask questions. Follow up with primary care was recommended, as needed. Advised if develops CP/severe SOB/turning blue/uncontrolled n/v/d or black/bloody emesis or stool/ AMS/ syncope/ high fever unresponsive to APAP to call 911- verbalized understanding of instruction. [email or web address] Not available 03/09/2025 17:15:19 06/27/2025 06/27/2025 Ms. Martinez is a 40 yo F with asthma and who is calling today with cold like sx. Per patient and medic, patient with cold symptoms for 4 days. Patient reports productive cough with green phlegm, nasal and chest congestion, body aches and sore throat. No tobacco use history. She denies shortness of breath, +pleuritic chest/rib pain from coughing. Subjective fever and chills. Denies headache or dizziness. No nausea or vomiting, +diarrhea yesterday. Has been trying inhaler and Alkazeltzer. Given the patient's presenting sx, sounds most c/w viral syndrome. Even with the duration of sx and vitals. Reassuring. Lungs are clear and but with the persistence of sx, non improvement and green congestion, considered sinusitis and brewing PNA. Allergies reviewed. Reasonable to start on azithromycin. 500mg azithromycin given with medic, rx prescribed. COVID/flu tests with medic are negative. I provided real -time medical direction via phone for this encounter, and was available for additional phone based assistance as needed. I have reviewed and agree with the Assessment and Plan as documented by the Supervisor Wet End. We discussed the diagnostic uncertainty of home visits and the risk associated with this. In this case the patient and I felt this to be an acceptable and reasonable amount of risk given the benefit of avoiding an ED visit. The patient given the opportunity to ask questions. Follow up with primary care was recommended, as needed. Advised if develops CP/severe SOB/turning blue/uncontrolled n/v/d or black/bloody emesis or stool/ AMS/ syncope/ high fever unresponsive to APAP to call 911- verbalized understanding of instruction. [email or web address] Not available 06/27/2025 17:40:58 07/27/2025 07/27/2025 As noted, we wer e called to see this patient regarding concerns of intolerance to doxycycline wants different antibiotic. Evaluation in the field was performed by my public health colleague, as noted above, I provided real-time direction and supervision for this visit. The evaluation revealed The patient is a 40 year old female with a past medical history of. COPD/Asthma, Osteoarthritis Who presents with sinus congestion. Her symptoms started around two to three days ago. She was started on doxycycline for presumed sinusitis. Three days ago. Patients having nausea and vomiting. She was also prescribed Zofran. It's not really helping. She liked her antibiotic changed. Patient does have a history of COPD. She is not in any respiratory distress. She is allergic to penicillins. Prescriptions have only been for a couple of days. We will hold off on doing a fluoroquinolone drug at this time period. I will go ahead and prescribe her Zithromax. She tolerated this in the past. I will also prescribe her some Flonase. Red flags were discussed with the patient on when to seek ER treatment. Impression: Acute URI, possible sinusitis Plan: 1) stop doxy, start azithromycin, flonase 2) covid and flu negative Primary care, consider ___ Disposition: stay at home We discussed the diagnostic uncertainty of home visits and the risk associated with this. In this case, the patient and I felt this to be an acceptable and reasonable amount of risk given the benefit of avoiding an ED visit. We discussed the need to seek care urgently/emergentl y in the setting of any new or worsening serious symptoms, particularly Chest pain, shortness of breath, abdominal pain, dizziness, fever, chills, generalized weakness. [email or web address] Not available 07/27/2025 15:20:22 Plan of Treatment Reminders Order Date Submit Date Provider Last Modified By Organization Details Last Modified Time Details Appointments None recorded. Lab rapid flu (A+B) 2024 025 [facility], [address] [place] [address], [id number] 5 15:45:57 rapid SARS CoV 2 Ag, QL IA, respiratory specimen [address], [id number] 5 15:46:30 rapid flu (A+B) 2024 025 [facility], [address] [place] [address], [id number] 5 17:57:40 rapid SARS CoV 2 Ag, QL IA, respiratory specimen 2024 025 [facility], [address] [place] [address], [id number] 5 17:57:40 rapid SARS CoV 2 Ag, QL IA, respiratory specimen [address], [address] [place] [address], [id number] 5 17:15:48 rapid flu (A+B) [address], [address] [place] [address], [id number] 5 17:15:48 rapid SARS CoV 2 Ag, QL IA, respiratory specimen 2024 025 [email or web address] 7 [facility], [address] [place] [address], [id number] 5 10:45:52 rapid flu (A+B) 2024 [place] [address] 7 [facility], [address] [place] [address], [id number] 5 10:45:58 Referral None recorded. Procedures None recorded. Surgeries None recorded. Imaging None recorded. Medication Orders azithromyci n 500 mg tablet 2024 025 [facility], [address] [place], [place], [id number], 14:48:53 azithromyci n 250 mg tablet 2024 [place] [facility], [address] [place], [id number], 5 14:49:56 Flonase Sensimist 27.5 mcg/actuati on nasal spray,suspe nsion 2024 025 [place] [facility], [address], [place], [id number], 5 14:50:21 azithromyci n 250 mg tablet 2024 025 [facility], [address] [place], [id number], 5 17:41:16 azithromyci n 500 mg tablet 2024 025 [place] [facility] #03861, [address], [id number], 5 05:01:24 doxycycline hyclate 100 mg tablet 2024 025 [facility], [address] [place], [place], [id number], 5 16:47:08 doxycycline hyclate 100 mg capsule 2024 025 [facility] #39348, [address] [place], [place], [id number], 5 05:01:26 doxycycline hyclate 100 mg capsule 2024 025 [facility] #22512, [address] [place], [place], [id number], 5 05:01:26 Flonase Sensimist 27.5 mcg/actuati on nasal spray,suspe nsion 2024 025 [facility], [address] [place], [place], [id number], 5 10:44:02 doxycycline hyclate 100 mg tablet 2024 025 [email or web address] 7 [facility]74463, [address] [place], [place], [id number], 5 10:44:24 Patient TargetsNo targets recorded. Patient InstructionsNo instructions recorded. Reason for Referral None Reported. Results Created Date Observation Date Name Description Value Unit Range Abnormal Flag Note LastModifiedBy Organization Detail LastModifiedTime 03/09/2003/09/2025 rapid flu (A+B) Flu negati ve Not Available [facility] [address], [phone] 03/09/2025 17:15:27 03/09/2003/09/2025 rapid SARS CoV 2 Ag, QL IA, respi rator y speci men rapid SARS CoV 2 Ag, QL IA, respiratory specimen negati ve Not Available [facility] [address], [address] 03/09/2025 17:15:23 Result Notes None recorded. Medical Equipment None Reported. Allergies Allergen ID Allergen Name Allergen Category Reaction Reaction Severity Criticality Documentation Date Start Date Code Code System Note Provider Name and Address Organization Details Recorded Time 12091 amoxicill in medicatio n Not available Not available Not available 08/20/2024 723 RxNorm Not Available [facility] 5 08:12:56 27659 diphenhyd ramine hydrochlo ride medicatio n itching Not available Not available 06/27/20252024 1362 RxNorm Not Available [employer] - prod 5 17:56:25 90857 penicilli n G Not available itching Not available Not available 06/27/20252024 7980 RxNorm Not Available [facility] 5 17:56:25 oxycodone medicatio n itching Not available Not available 06/27/20252021 7804 RxNorm Not Available [facility] 5 17:56:33 81733 acetamino phen / oxycodone medicatio n Not available Not available Not available 07/27/2025 57198 3 RxNorm Not Available [facility] 5 15:00:20 7121 Product containin g penicilli n (product) medicatio n Not available Not available Not available 06/07/2024 32256 8001 SNOMED Not Available [facility] production 4 03:35:07 7122 diphenhyd ramine medicatio n Not available Not available Not available 06/07/2024 3498 RxNorm Not Available [facility] - production 4 03:35:07 Medications Name Sig Start Date Stop Date Status Note LastModified by Organization Details LastModified Time multivitami n tablet TAKE 1 TABLET BY MOUTH EVERY MORNING WITH FOOD active Not Available Not Available No t Available prednisone 10 mg tablet TAKE 2 TABLETS BY MOUTH DAILY WITH FOOD FOR 5 DAYS active Not Available Not Available No t Available doxycycline hyclate 100 mg capsule Take 1 capsule twice a day by oral route for 7 days, for for 7 days. 07/31/ 2025 08/14 /2025 completed Not Available Not Available Not Available albuterol sulfate 2.5 mg/3 mL (0.083 %) solution for nebulizatio n USE 1 VIAL VIA NEBULIZER EVERY 4 TO 6 HOURS NEEDED FOR DIFFICULT Y BREATHING . DO NOT USE MORE THAN FOUR TIMES DAILY active Not Available Not Available No t Available loperamide 2 mg capsule active Not Available Not Available Not Available trazodone 50 mg tablet TAKE 1 TABLET BY MOUTH AT BEDTIME active Not Available Not Available No t Available cetirizine 10 mg tablet TAKE 1 TABLET BY MOUTH ONCE TO TWICE DAILY. TO REPLACE LARATADIN E. STOP 5 DAYS BEFORE ALLERGY TESTING. active Not Available Not Available No t Available azithromyci n 250 mg tablet Take 1 tablet every day by oral route, for 4 days. 2024 active Not Available Not Available Not Avai lable ibuprofen 800 mg tablet active Not Available [...] Not Available Not Available No t Available metronidazo le 500 mg tablet active Not Available Not Available Not Available hydroxyzine HCl 50 mg tablet TAKE 1 TABLET BY MOUTH THREE TIMES DAILY active Not Available Not Available No t Available melatonin 3 mg tablet TAKE 1-2 TABLETS BY MOUTH 3 HOURS BEFORE YOUR DESIRED BEDTIME NEEDED active Not Available Not Available No t Available peg-electro lyte solution 420 gram oral solution MIX AND DRINK DIRECTED active Not Available Not Available No t Available acetaminoph en 500 mg tablet TAKE 2 TABLETS BY MOUTH EVERY 6 HOURS NEEDED FOR MODERATE PAIN OR FEVER FOR UP TO 25 DOSES active Not Available Not Available No t Available meloxicam 7.5 mg tablet active Not Available Not Available Not Available famotidine 20 mg tablet active Not Available Not Available Not Available dextroamphe tamine-amph etamine ER 20 mg 24hr capsule,ext end release TAKE 1 CAPSULE BY MOUTH EVERY MORNING active Not Available Not Available No t Available pantoprazol e 40 mg tablet,steffany yed release TAKE 1 TABLET BY MOUTH TWICE DAILY FOR 8 WEEKS active Not Available Not Available No t Available calcitriol 0.5 mcg capsule active Not Available Not Available Not Available omeprazole 20 mg capsule,del ayed release TAKE 1 CAPSULE BY MOUTH EVERY DAY BEFORE A MEAL active Not Available Not Available No t Available oxcarbazepi ne 600 mg tablet TAKE 1 TABLET BY [...] Not Available Not Available No t Available scopolamine 1 mg over 3 days transdermal patch APPLY 1 PATCH TOPICALLY TO THE SKIN EVERY 72 HOURS active Not Available Not Available No t Available albuterol sulfate HFA 90 mcg/actuati on aerosol inhaler INHALE 2 PUFFS EVERY 6 HOURS NEEDED FOR WHEEZING active Not Available Not Available No t Available fluticasone propionate 50 mcg/actuati on nasal spray,suspe nsion SHAKE LIQUID AND USE 1 TO 2 SPRAYS IN EACH NOSTRIL TWICE DAILY active Not Available Not Available No t Available cholecalcif jalen (vitamin D3) 125 mcg (5,000 unit) capsule TAKE ONE CAPSULE BY MOUTH DAILY active Not Available Not Available No t Available loratadine 10 mg tablet TAKE 1 TABLET BY MOUTH DAILY active Not Available Not Available No t Available neomycin 3.5 mg/g-polymy rhonda B 10,000 unit/g-dexa meth 0.1 % eye oint APPLY SMALL AMOUNT IN LEFT EYE TWICE DAILY active Not Available Not Available No t Available dextroamphe tamine-amph etamine ER 15 mg 24hr capsule,ext end release TAKE 1 CAPSULE BY MOUTH EVERY MORNING active Not Available Not Available No t Available azithromyci n 500 mg tablet Take 1 tablet every day by oral route for 2 days. 07/06 completed Not Available Not Available Not Available cyclobenzap rine 5 mg tablet TAKE 1 TO 2 TABLETS BY MOUTH EVERY NIGHT NEEDED FOR MUSCLE SPASM active Not Available Not Available No t Available tizanidine 4 mg capsule active Not Available Not Available Not Available quetiapine 50 mg tablet TAKE 1 TABLET BY MOUTH EVERY NIGHT AT BEDTIME NEEDED active Not Available Not Available No t Available melatonin 5 mg tablet TAKE ONE TABLET BY MOUTH EVERY NIGHT AT BEDTIME active Not Available Not Available No t Available blood pressure test kit-large cuff USE TO CHECK BLOOD PRESSURE EVERY DAY DIRECTED active Not Available Not Available No t Available Stimulant Laxative Plus 8.6 mg-50 mg tablet TAKE 1 TABLET BY MOUTH DAILY active Not Available Not Available No t Available Flonase Sensimist 27.5 mcg/actuati on nasal spray,suspe nsion Take 1 spray every day by nasal route. 2024 active Not Available Not Available Not Avai lable Ariane COVID-19 Ag Self Test kit TEST DIRECTED TODAY active Not Available Not Available No t Available Zepbound 5 mg/0.5 mL subcutaneou s pen injector ADMINISTE R 5 MG UNDER THE SKIN 1 TIME EVERY WEEK active Not Available Not Available No t Available Zepbound 2.5 mg/0.5 mL subcutaneou s pen injector ADMINISTE R 2.5 MG UNDER THE SKIN 1 TIME EVERY WEEK active Not Available Not Available No t Available Vitals Date Recorded Heart rate Body weight Body temperature Respiratory rate Body height Oxygen saturation Systolic And Diastolic Provider Name and Address Organization Details Last Updated DateTime 5 61 /min 84140.4 g 98.2 [degF] 16 /min 149.86 cm 100 % 140/82 mm[Hg] Not Available [facility] 5 10:39:23 Date Recorded Respiratory rate Body temperature Oxygen saturation Heart rate Systolic And Diastolic Provider Name and Address Organization Details Last Updated DateTime 5 16 /min 97.5 [degF] 97 % 89 /min 135/87 mm[Hg] Not Available [facility] 5 13:02:29 Date Recorded Respiratory rate Oxygen saturation Body height Body weight Heart rate Body temperature Systolic And Diastolic Provider Name and Address Organization Details Last Updated DateTime 5 16 /min 96 % 149.86 cm 31122.4 8 g 77 /min 97.9 [degF] 142/92 mm[Hg] Not Available [facility] 5 16:47:10 Date Recorded Body height Oxygen saturation Body temperature Body weight Respiratory rate Heart rate Systolic And Diastolic Provider Name and Address Organization Details Last Updated DateTime 5 157.48 cm 97 % 98 [degF] 80997.6 g 14 /min 64 /min 150/92 mm[Hg] Not Available [facility] - production 17:33:54 Date Recorded Respiratory rate Body temperature Heart rate Oxygen saturation Systolic And Diastolic Provider Name and Address Organization Details Last Updated DateTime 5 16 /min 97.8 [degF] 98 /min 99 % 148/90 mm[Hg] Not Available [facility] - production 14:45:03 Social History None recorded. Functional Status None recorded. Mental Status None recorded. Family History Nothing Reported. Medical History No medical history recorded. Gynecological HistoryNo gynecological history recorded. Obstetrics History GPAL:G 0 P 0 0 0 0 Past Encounters Encounter ID Performer Location Encounter Start Date Encounter Closed Date Diagnosis/Indication Diagnosis SNOMED-CT Code Diagnosis ICD10 Code Diagnosis IMO Codes Diagnosis Note [id number] Esperanza Tao MD [facility] [address] [place] [phone] 06/05/2023 15:40:33 06/08/2023 12:42:59 Upper respiratory infection 63079785 J06.9 [id number] Michael Hirsch MD [facility] [address] [place] [phone] 07/22/2023 12:36:33 08/04/2023 10:29:40 Urinary symptoms [id number] R39.9 [id number] [facility] [address] [place] [phone] 08/20/2024 10:39:20 08/20/2024 17:55:46 Acute bacterial sinusitis 70417855 J01.90 [id number] Katherine [facility]udio [facility] [address] [place] [phone] 09/04/2024 13:02:25 09/04/2024 15:24:37 Cough 93432311 R05.9 As noted, we were called to see this patient regarding concerns of sinus congestion . Evaluation in the field was performed by my public health colleague, as noted above, I provided real-time direction and supervisio n for this visit. The evaluation revealed 39 yo woman with 1 month of sinus congestion , cough and frontal headache. She received antibiotic s earlier this month without relief.She has started using oxymetolaz one a few days ago. 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 [id number] JARED BOLAÑOS MD [address] [phone] 03/09/2025 16:42:43 03/10/2025 15:44:06 Acute frontal sinusitis [id number] J01.10 [id number] JARED BOLAÑOS MD [address] [phone] 06/27/2025 17:33:51 06/27/2025 18:09:53 Productive cough [id number] R05.8 [id number] KELLY URIBE MD [address] [phone] 07/27/2025 14:44:58 07/28/2025 19:17:08 Upper respiratory infection 30247557 J06.9 [id number] Health Concerns Section Related Observation LastModified by Organization Detai ls LastModified Time None Recorded Concern Status LastModified by Organization Details LastModified Time None Recorded Advance Directives Directive None Recorded Payers Insurance Date Sequence Insurance Name Policy Number Policy Marks Covered Member ID Marks Member ID Guarantor Name 07/27/2025 1 [facility] - DOS ON OR AFTER 2022 - DUAL ELIGIBLE - NURSING HOME OPTIONS AND ONE CARE (MEDICARE REPLACEMENT/AD VANTAGE - HMO) Taylor Martinez [id number] Taylor Martinez Notes Date Note Type Note Provider Name and Address Organization Details Recorded Time 5 text/html ROS as noted in the HPI CRC Nurse Triage Notes (April Abdalla - [...] s/s and seek emergency treatment if needed. Supervisor Wet End Organization Information for Ivonne Cotton Business Legal Name: [employer]. Address: [address] [place] [address], Oncology Physician: Aakash Taylor MD CLIA No.: [id number] Supervisor Wet End POC Test Results from Ivonne Cotton Rapid influenza antigen (10:34:20) Flu: - Rapid COVID antigen (10:34:21) COVID: - ......................... ......................... ......................... ......................... ......................... ................ Supervisor Wet End Note From Yury Ivonne: LARISSA makes pt contact when she opens the door to the building. She is dressed to go out and she says she was just leaving to go get some soup. She has a general well-appearance and is not in acute distress. She is walking and talking normally, however, her voice has a nasal quality indicative of congestion. Pt leads LARISSA inside her clean and well-kept apartment and [...] She consents to evaluation and treatment today. [facility] obtains pt consent and uploads. Vital signs are gathered and pt is assessed. Pt has face pain w/ tapping over maxillary area under her nose. No other pain is elicited w/ palpation. Lung sounds are clear and remaining physical assessment is unremarkable. Pt requests COVID/flu swab and both tests are negative. [facility] contacts [facility] and discuses the above. [facility] orders [facility] to administer 100mg doxycycline PO and calls prescription in to pt's pharmacy for TID course. Pt thanks [facility] for coming. [facility] is clear. Report completed by GINA Cotton [id number]. [facility] [place] Orders: rapid SARS CoV 2 Ag, QL IA, respiratory specimen: Performed rapid flu (A+B): Performed [facility] Medication Orders: doxycycline hyclate 100 mg tablet: Administered ......................... ......................... ......................... ......................... ......................... ................ [facility] Consulted: Kelly Uribe ......................... ......................... ......................... ......................... ......................... ................ Disposition: Fulfilled KELLY URIBE MD [address] [facility],[address], [place], [address], [place] - JOSE MIGUEL HERMOSILLO 08/20/2024 11:26:53 5 text/html HPI: Ear hurts stuffy nose headache been going on for weeks ......................... ......................... ......................... ......................... ......................... ................ [facility] Nurse Triage Notes (Jose Miramontes - BRITTANY): Patient Reports: History of asthma, increased use of inhaler; Sputum increase ; CoughDenies: Increased work of breathing/labored with or without fever Unable to speak in full sentences without distress Discoloration of skin -cyanosis Needs to sleep sitting up, can t catch breath Shortness of breath in setting of confusion Cough, fever greater than 2 days COPD Shortness of breath with exertion Pain with inspiration Chief Complaints: Common cold symptomsPMH: COPD/AsthmaPMH Reviewed at 09/04/2024 - 10:17Allergies Reviewed at 09/04/2024 - 10:17Comments: Stippler verified the Pt.'s name//address and phone number. Education provided on the response time and the Pt. was advised to monitor reported s/s and seek emergency treatment if needed.09/04/24 -@ 3138 - Outreach call to the pt to obtain additional information - Voice mail left for call back - JUAN RAMON Pt reports feeling unwell with a cough/cold and congestion - Ear pain - Headache - Denies sore throat and fever - Denies SOB - Follow up visit requested - [facility] and s/s are not [...] period patient is requesting treatment for sinusitis. ......................... ......................... ......................... ......................... ......................... ................ Supervisor Wet End Note From Derek Bucio: This 39-year-old female [...] questions and is agreeable to this plan. ......................... ......................... ......................... ......................... ......................... ................ [facility] Consulted: Katherine Zamudio ......................... ......................... ......................... ......................... ......................... ................ Disposition: Fulfilled Katherine Zamudio MD [address] [place] [address],[facility], [place], [address], [employer] 09/04/2024 14:56:30 5 text/html ROS as noted in the [facility] Nurse Triage Notes (Nelda Loyd): Reason For Request: sinus infection Patient Reports: Cough, fever greater than 2 days ; History of asthma, increased use of inhaler; Cough; Shortness of breath with exertionDenies: Increased work of breathing/labored with or without fever Unable to speak in full sentences without distress Discoloration of skin -cyanosis Needs to sleep sitting up, can t catch breath Shortness of breath in setting of confusion Lower extremity swelling COPD COVID Exposure Sputum increase Pain with inspiration Chief Complaints: Common ColdPMH: COPD/Asthma, OsteoarthritisPMH Reviewed at 03/09/2025:47Allergies Reviewed at 03/09/2025:47Comments: 39 y.o female complains of Common Cold Sinus congestion for 2 weeksMinimal mucusHas been taking: flonase and PO certizine per PCP - nothing is helpingFrontal headache getting worseDenies feverDyspnea on exertionIntermittent dry coughGeneralized malaiseNo recent sick contact I provided information on the mobile health provider response time and advised the patient and/or caregiver to monitor reported signs and symptoms. I discussed the warning signs of when to seek emergency care. Supervisor Wet End Organization Information for Edison Neves [employer] Legal Name: [facility] [employer] Address: [address] [place] [address], [place] [address], Oncology Physician: Rufino Graham MD CLIA No.: [id number] Supervisor Wet End POC Test Results from Edison Neves Rapid COVID antigen (16:48:27) COVID: - Rapid influenza antigen (16:48:28) Flu: - ......................... ......................... ......................... ......................... ......................... ................ Supervisor Wet End Note From Edison Neves: instED visit for female pt concerned about possible sinus infection. Pt reports 2 week history of sinus pain and pressure with green to clear discharge reported. Pt presents appearing well in no obvious distress. V/S taken as listed. Lung sounds clear bilaterally. Pt swabbed for flu and covid and found to be negative. No sinus tenderness noted. Consulted with [facility] [place] Bolaños who prescribed doxycycline with first dose given on scene. Confirmed med rights prior to administration. Reviewed red flags for ED. Pt advised of risks associated with medication. Pt education provided. Report completed by Marcus Izaguirre EMT-P [facility] Medication Orders: doxycycline hyclate 100 mg tablet: Administered ......................... ......................... ......................... ......................... ......................... ................ [facility] Consulted: Jared Bolaños ......................... ......................... ......................... ......................... ......................... ................ Disposition: Fulfilled JARED BOLAÑOS MD [address] [place] [address],[address], [place], [address], [employer] 03/09/2025 17:16:07 5 text/html ROS as noted in the [facility] CRC Nurse Triage Notes (Georgina Hawk): Reason For Request: sore throat/body aches/congestionDenies: Increased work of breathing/labored with or without fever Unable to speak in full sentences without distress Discoloration of skin -cyanosis Needs to sleep sitting up, can t catch breath Shortness of breath in setting of confusion Chief Complaints: Common ColdPMH: COPD/Asthma, OsteoarthritisPMH Reviewed at 06/27/2025 - 08:49 (ET)Allergies Reviewed at 06/27/2025 - 08:49 (ET)Comments: 40 y.o female complains of Common Cold Patient calling in to place a referralPatient with cold syptoms for 4 daysPatient reports productive cough with green phlegm, nasal and chest congestion, body aches and sore throatShe denies shortness of breath, +pleuritic chest/rib pain from coughingShe think she may have had a fever yesterday, no chillsDenies headache or dizzinessNo nausea or vomiting, +diarrhea yesterdayShe has used her inhalerShe has taken Alkazeltzer Harvey would like to be evaluated I provided information on the mobile health provider response time and advised the patient and/or caregiver to monitor reported signs and symptoms. I discussed the warning signs of when to seek emergency care. Supervisor Wet End Organization Information for Edison Neves Legal Name: [facility] TransportationAddress: [address] [facility], [place] [address], [facility] Centercal Director: Rufino Graham [facility] No.: [id number] Supervisor Wet End POC Test Results from Edison Neves Rapid COVID antigen (16:53:09)COVID: - Rapid influenza antigen (16:53:10)Flu: - ......................... ......................... ......................... ......................... ......................... ................ Supervisor Wet End Note From Edison Neves: Patient alert and oriented complaints of nasal congestion, sore throat, frequent productive, cough with green sputum bodyaches and headache. Patient reports first symptom was nasal congestion times three days ago. Patient denies difficulty breathing, nausea, vomiting, diarrhea, weakness, dizziness, or any other pain or complaint. Patient reports daily use of albuterol MDI has been helping. Patient pink warm dry lung sounds clear negative increased work breathing positive full sentences abdomen soft, nontender extremities unremarkable. No edema noted. Throat appears normal. Medication and test administered as ordered without complication using five rights. Red flags patient education discussed. Supportive care discussed at length. Patient demonstrates understanding of care and plan. ......................... ......................... ......................... ......................... ......................... ................ [facility] Consulted: Jared Bolaños ......................... ......................... ......................... ......................... ......................... ................ Disposition: Brady BOLAÑOS MD [address] [place] [address],[facility], [place], [address], [employer] 06/27/2025 17:47:59 5 text/html ROS as noted in the [facility] Nurse Triage Notes (Abbey Lacey): Reason For Request: Sinus Infection, - Feels Sick, feels hot and cold.Denies: Increased work of breathing/labored with or without fever Unable to speak in full sentences without distress Discoloration of skin -cyanosis Needs to sleep sitting up, can t catch breath Shortness of breath in setting of confusion Cough, fever greater than 2 days Sputum increase Cough Shortness of breath with exertion Chief Complaints: Common ColdPMH: COPD/Asthma, OsteoarthritisPMH Reviewed at 07/27/2025 - 10:57 (ET)Allergies Reviewed at 07/27/2025 - 10:57 (ET)Comments: 40 y.o female for the common coldShe feels that the symptoms started 2-3 days ago.She went to her PCP and was put on doxy and is making her sick.She has having nausea , no vomiting. She had loose stool as well. She took the med with food, She has a head aches, She also has no fever but feels hot with chills.She does not have a cough or shortness of breath. She does have asthma I provided information on the mobile health provider response time and advised the patient and/or caregiver to monitor reported signs and symptoms. I discussed the warning signs of when to seek emergency care. Supervisor Wet End Organization Information for Stuart Chavez Debbie [employer] Legal Name: [employer] A ddress: [address] [place] [address], Medical Director: Aakash Taylor [facility] No.: [id number] Supervisor Wet End POC Test Results from Scott Stuart - MARY ELLEN Rapid COVID antigen (14:34:58)COVID: -Attachments uploaded as part of this test result can be found under Documents section. Rapid influenza antigen (14:34:59)Flu: -Attachments uploaded as part of this test result can be found under Documents section. ......................... ......................... ......................... ......................... ......................... ................ Supervisor Wet End Note From Stuart Chavez: Dispatched to above address for nausea malaise cold symptoms. On arrival patient 40 y/o F, met SC8 at the door, walking unassisted with normal gait, AOX4, airway patent, speaking in full sentences, good color, in no apparent distress. Patient reports she has been having recurrent sinus infections, has an appointment scheduled with [facility], was seen by PCP 4 days ago and prescribed Doxycycline, has been feeling sick since starting it, saw PCP again yesterday and was prescribed Zofran which she has been taking with minimal relief. Patients vital signs checked. Secondary assessment, pupils PERRL, airway patent, no JVD, trachea midline, equal chest rise and fall, lungs clear all lindsey, abdomen soft non tender, no signs of trauma, good radial pulse, skin pink warm and dry. Covid-19 and Flu test preformed, both negative, results uploaded. [facility] contacted, spoke with Dr. Uribe, advised of patient complaints, exam findings and test results. [facility] will change ABX therapy, ordered first does 500mg Zithromax PO, all will prescribe Flonase for patient. Patient agrees with this plan. Patient advised of red flags, home care and need for follow up. Patient has no additional questions or concerns at this time. SC8 clear. EOR. [facility] Lab Orders: rapid flu (A+B): Performed rapid SARS CoV 2 Ag, QL IA, respiratory specimen: Performed [facility] Medication Orders: azithromycin 500 mg tablet: Administered ......................... ......................... ......................... ......................... ......................... ................ [facility] Consulted: Kelly Uribe ......................... ......................... ......................... ......................... ......................... ................ Disposition: Fulfilled KELLY URIBE MD [address] [facility],[address], [place], [address], [employer] 07/27/2025 15:20:39 OBGyn Episode No OBEpisode recorded.
--- OUTSIDE RECORDS SUMMARY | 2025-08-09 08:54 | XMS_ITS | Encounter Summary ---
Author Organization [facility] Address [address] [place] [address] Encounters * CPT with Medical [facility] at [facility] on 2025-07-27 { reasonForRequest : Sinus Infection, - Feels Sick, feels hot and cold. , patientReports : , denies :[ Increased work of breathing/labored with or without fever , Unable to speak in full sentences without distress , Dis coloration of skin -cyanosis , Needs to sleep sitting up, can t catch breath ,"Shortness of breath in setting of confusion , Cough, fever greater than 2 days ,"Sputum increase , Cough , Shortness of breath with exertion ], chiefComplaints : Common Cold , pmh : COPD/Asthma, Osteoarthritis ,"allergies : Penicillins, Diphenhydramine, Amoxicillin , otherAllergies&quot ;:null, painAssessment : , visitOutcome : , additionalComments : 40 y.o female for the common cold \nSdawit feels that the symptoms started 2-3 days ago. \Shameka went to her PCP and was put on doxy and is making her sick. \Shameka has having nausea ,no vomiting. She had loose stool as well. She took the med with food, She has a head aches, She also has no fever but feels hot with chills. \Shameka does not have a cough or shortness of breath. She does have asthma \n\nI provided information on the mobile health provider response time and advised the patient and/or caregiver to monitor reported signs and symptoms. I discussed the warning signs of when to seek emergency care. } Dispatched to above address for nausea malaise cold symptoms. On arrival patient 40 y/o F, met SC8 at the door, walking unassisted with normal gait, AOX4, airway patent, speaking in full sentences, good color, in no apparent distress. Patient reports she has been having recurrent sinus infections, has an appointment scheduled with [facility], was seen by PCP 4 days ago [...] Flu test preformed, both negative, results uploaded. [facility] contacted, spoke with Dr. Uribe, advised of patient complaints, exam findings and test results. C will change ABX therapy, ordered first does 500mg Zithromax PO, all will prescribe Flonase for patient. Patient agrees with this plan. Patient advisedof red flags, home care and need for follow up. Patient has no additional questions or concerns at this time. SC8 clear. EOR. IV_(FLUIDS_AND/OR_MEDICATION), MEDICATION_IM, POC_BLOODWORK Written by Medical instED on 2025-07-27
--- OUTSIDE RECORDS SUMMARY | 2025-08-09 08:54 | XMS_ITS | Clinical Summary ---
Author Organization [facility] Address [address] [place] [address] Phone Care Team Providers Care Residential Designer Name Role Phone Physician, No Pcp Primary [...] EST - 07/23/2025 3:56 AM EST Emergency [facility] Emergency [address] [place] [address] Christin Newton MD Foreign body of vagina, initial encounter (Primary Dx) Discharge Disposition: Home or Self Care 05/29/2025 6:39 PM EDT - 05/29/2025 11:59 PM EDT Hospital Encounter [facility] MRI [address] [place] [address] Headache Discharge Disposition: Home or Self Care 05/08/2025 10:49 PM EDT - 05/09/2025 12:38 AM EDT Emergency [facility] Emergency [address] [place] [id number] Post concussion syndrome (Primary Dx) Discharge Disposition: [...] CONTRAST Routine 05/29/2025 7:37 PM EDT Headache COMPREHENSIVE METABOLIC PANEL STAT 05/08/2025 10:55 PM EDT from Last 3 Months or Most Recently Relevant to Health Maintenance Results * Foreign Body Removal - Orifice [...] removal and pain Alternatives discussed: No treatment Follansbee protocol: Patient identity confirmed: Verbally with patient [...] Signed Date: 06/01/2025 16:55 ET Workstation ID: [id number] Transcribed By: Self Edit Transcribed Date: 06/01/2025 [...] Signed Date: 06/01/2025 16:55 ET Workstation ID: [id number] Transcribed By: Self Edit Transcribed Date: 06/01/2025 16:30 ET Damaris Ramos MD [facility] MRI PROCEDURES Final Result * (ABNORMAL) Comprehensive Metabolic Panel (CMP) (05/08/2025 10:55 PM EDT) Sodium 137 133 - 145 mmol/L LAB CHEMISTRY METHOD 05/08/2025 11:28 PM [facility] Potassium 3.8 3.5 - 5.5 mmol/L LAB CHEMISTRY METHOD 05/08/2025 11:28 PM [facility] Chloride 105 96 - 110 mmol/L LAB CHEMISTRY METHOD 05/08/2025 11:28 PM [facility] CO2 25 21 - 32 mmol/L LAB CHEMISTRY METHOD 05/08/2025 11:28 PM [facility] Anion Gap 7 3 - 11 LAB CHEMISTRY METHOD 05/08/2025 11:28 PM [facility] Glucose 105(H) 70 - 100 mg/dL LAB CHEMISTRY METHOD 05/08/2025 11:28 PM [facility] BUN 9 5 - 25 mg/dL LAB CHEMISTRY METHOD 05/08/2025 11:28 PM [facility] Creatinine 0.62 0.50 - 1.10 mg/dL LAB CHEMISTRY METHOD 05/08/2025 11:28 PM [facility] eGFR 116 >=60 mL/min/1. 73m2 LAB CHEMISTRY METHOD 05/08/2025 11:28 PM [facility] Comment:Calculation based on the Chronic Kidney Disease Epidemiology Collaboration (CKD-EPI) equation refit without adjustment for race. BUN/Creatinine Ratio 14.5 LAB CHEMISTRY METHOD 05/08/2025 11:28 PM EDT [facility] Calcium 9.2 8.5 - 10.5 mg/dL LAB CHEMISTRY METHOD 05/08/2025 11:28 PM [facility] AST (SGOT) 17 10 - 42 unit/L LAB CHEMISTRY METHOD 05/08/2025 11:28 PM [facility] ALT (SGPT) 32 10 - 60 unit/L LAB CHEMISTRY METHOD 05/08/2025 11:28 PM [facility] Alkaline Phosphatase 85 42 - 121 unit/L LAB CHEMISTRY METHOD 05/08/2025 11:28 PM [facility] Total Protein 7.1 6.0 - 8.0 g/dL LAB CHEMISTRY METHOD 05/08/2025 11:28 PM [facility] Albumin 3.8 3.2 - 5.0 g/dL LAB CHEMISTRY METHOD 05/08/2025 11:28 PM [facility] Total Bilirubin 0.2 0.0 - 1.4 mg/dL LAB CHEMISTRY METHOD 05/08/2025 11:28 PM [facility] Blood Venous blood specimen / Unknown Venipuncture / Unknown 05/08/2025 10:55 PM EDT 05/08/2025 11:05 PM EDT Ynes BEAN LAB BLOOD ORDERABLES Fin al Result [facility] [address] [place] [address], from Last 3 Months or Most Recently Relevant to Health Maintenance Insurance [facility] MEDICARE Member Subscriber Plan / Payer (Ef fective 2023-Present) Name:MARIELY TRIANA Relation to Subscriber:Self Name:Mariely Triana Payer ID:[id number] Group ID:[id number] Type:Not on file Address: [place] [address] [place] [address] Advance Directives * Full Code - Default [...] currently active code status orders. Care Teams Residential Designer Relationship Specialty Start Date End Date Physician, No Pcp PCP - General 05/08/25
--- OUTSIDE RECORDS SUMMARY | 2025-08-09 08:54 | XMS_ITS | Encounter Summary ---
Author Organization [employer] Address [address] [place] [address] 7 [place] [address] Care Team Providers Care Lead Dental Assistant Name Role Phone Damaris Ramos MD Primary Care Provider [phone] Reason for Referral * Consultation (Routine) - Closed Specialty Diagnoses / Procedures Referred By Jennifer walsh Referred To Contact Orthopaedic Surgery Diagnoses Chronic left shoulder pain Neck pain Damaris Ramos MD [address] [place] [address] Phone: tel: fax: [facility] [address] [place] [address] [address] [place] [address] Phone: tel: fax: Referral ID Status Reason Start Date Expiration Date V isits Requested Visits Authorized [id number] Closed Specialty Services Required 12/24/2023 12/23/2024 1 1 Encounter Details Date Type Department Care Team (Late st Contact Info) Description 12/24/2023 Orders Only [facility] MEDICINE [address] [place], [place] [phone] Damaris Ramos MD [address] [place], [place] [phone] Chronic left shoulder pain (Primary Dx); Neck [...] documented as of this encounter Care Teams Lead Dental Assistant Relationship Specialty Start Date End Date Damaris Ramos MD [address] [place] [address] PCP - General Family Medicine 08/10/18 documented as of this encounter
--- OUTSIDE RECORDS SUMMARY | 2025-08-09 08:55 | XMS_ITS | Encounter Summary ---
Author Organization [employer] Address [address] [address] 7 [place] [address] Care Team Providers Care Granite Polisher Machine Name Role Phone Damaris Ramos MD Primary Care Provider [phone] Reason for Referral * Medications - Closed Specialty Diagnoses / Procedures Referred By Jennifer walsh Referred To Contact Diagnoses Motion sickness, initial encounter Damaris Ramos MD [address] [place] [address] Phone: tel: fax: Referral ID Status Reason Start Date Expiration Date Visits Re quested Visits Authorized [id number] Closed 1 1 Encounter Details Date Type Department Care Team (Late st Contact Info) Description 03/01/2025 Orders Only [facility] MEDICINE [address] [place] [address] Damaris Ramos MD [address] [place], [place] [phone] Motion sickness, initial encounter (Primary Dx) Social [...] documented as of this encounter Care Teams Granite Polisher Machine Relationship Specialty Start Date End Date Damaris Ramos MD [address] [place] [address] PCP - General Family Medicine 08/10/18 documented as of this encounter
--- OUTSIDE RECORDS SUMMARY | 2025-08-09 08:55 | XMS_ITS | Continuity of Care Document ---
Author Name [facility], Medical Address [address] [place] [id number] Organization Unknown Address [address] [place] [address] Medications No known medications Problems No known problems
--- OUTSIDE RECORDS SUMMARY | 2025-08-09 08:55 | XMS_ITS | Clinical Summary ---
Author Organization [facility] Address [address] [place] [phone] Phone Care Team Providers Care Filler Blender Name Role Phone Pcp, Unknown Primary Care [...] topic Medical Devices Not on file Insurance [facility] MEDICARE REPLACEMENT [facility] MEDICARE REPLACEMENT [facility] MEDICARE REPLACEMENT [facility] MEDICARE REPLACEMENT [facility] MEDICARE REPLACEMENT [facility] MED[employer] REPLACEMENT Care Teams Filler Blender Relationship Specialty Start Date End Date Pcp, Unknown PCP - General 03/09/23 Additional Source Comments The information contained in this document represents components of the legal health record. It is not the complete legal health record.[facility]
--- OUTSIDE RECORDS SUMMARY | 2025-08-09 08:55 | XMS_ITS | Encounter Summary ---
Author Organization [employer] Address [address] [place] [address] [address] [place] [address] Care Team Providers Care Television Agent Name Role Phone Damairs Ramos MD Primary Care Provider [phone] Encounter Details Date Type Department Care Team (Late st Contact Info) Description 07/27/2025 Results Follow-Up [facility] [address] [place] [address] Damaris Ramos MD [address] [place] [address] Bacterial Vaginosis, Chlamydia/N. 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 Thank you. documented in this encounter Plan of Treatment Not on file documented as of this encounter Visit Diagnoses Not on filedocumented in this encounter Additional Health Concerns Assessment Noted Time PHQ-9 Depression Total Score: 13 025 10:42 AM EDT documented as of this encounter Care Teams Television Agent Relationship Specialty Start Date End Date Damaris Ramos MD [address] [place] [address] PCP - General Family Medicine 08/10/18 documented as of this encounter
--- OUTSIDE RECORDS SUMMARY | 2025-08-09 08:55 | XMS_ITS | Encounter Summary ---
Author Organization [employer] Address [address] [place] [address] 7 [place] [address] Care Team Providers Care Ld Teacher Name Role Phone Damaris Ramos MD Primary Care Provider Reason for Visit * Reason Onset Date Comments Call Back Request 07/27/2025 Encounter Details Date Type Department Care Team ([facility] Contact Info) Description 07/27/2025 Telephone [facility] MEDICINE [address], [place] [phone] Damaris Ramos MD [address] [place], [place] [phone] Call Back Request Social History Tobacco Use Types Packs/Day Years [...] encounter Miscellaneous Notes * Telephone Encounter - Patti Walters RN - 07/27/2025 11:53 AM EST Telephone call returned to pt regarding below message. Pt crying from the beginning of the phone call to the end. Pt reports she is frustrated because she keeps getting sinus infections. Only one Dxdhere was 07/25 in [facility]. Previously has had 3 Dxd by [facility]. Pt crying stating has a headache and nowis having reaction to Doxy. Very nauseous, can't eat. Informed she previously took doxy Rxd by [facility] without reaction. I would recommend she eats before taking doxy. Pt loudly crying on the phone stating is tired of being sick. Pt states already called [facility] and they are coming today to check on her. She states has zofran at home but hasn't taken it. Will take pill now. Requesting PCP refer to ENT for repeat sinus infections. * Telephone Encounter - Christen Snyder - 07/27/2025 11:20 AM EST Tc from pt stating that antibiotics given to her for nasal infection is making her really sick . She is requesting to speak with provider or be referred for a referral . She also says this is taking a toll on her mental health as the nasal infection keep reoccurring Contact pt at [phone] documented in this encounter Plan of Treatment Not on file documented as of this encounter Visit Diagnoses Not on filedocumented in this encounter Additional Health Concerns Assessment Noted Time PHQ-9 Depression Total Score: 13 025 10:42 AM EDT documented as of this encounter Care Teams Ld Teacher Relationship Specialty Start Date End Date Damaris Ramos MD [address] [place] [address] PCP - General Family Medicine 08/10/18 documented as of this encounter
--- OUTSIDE RECORDS SUMMARY | 2025-08-09 08:55 | XMS_ITS | Continuity of Care Document ---
Author Organization [employer], [facility] Address [address] [place] [address] Care Team Providers Care Manager Harbor Name Role Phone Unavailable Referring Provider [phone] HIM CCA OTHER Assessment Encounter Date Assessment Date Assessment LastModified by Organization Details LastModified Time 06/27/2025 06/27/2025 Ms. Martinez is a 40 [...] Assessment and Plan as documented by the Jewish Thought Professor. We discussed the diagnostic uncertainty of home visits and the risk associated with this. In this case the patient and I felt this to be an acceptable and reasonable amount of risk given the benefit of avoiding an ED visit. The patient given the opportunity to ask questions. Follow up with primary care was recommended, as needed. Advised if develops CP/severe SOB/turning blue/uncontrolle d n/v/d or black/bloody emesis or stool/ AMS/ syncope/ high fever unresponsive to APAP to call 911- verbalized understanding of instruction. [email or web address] Not available 06/27/2025 17:40:58 Plan of Treatment Reminders Order Date Submit Date Provider Last Modified By Organization Details Last Modified Time Details Appointments None recorded. Lab rapid flu (A+B) 2024 025 [facility], [address] [place] [address], [id number] 17:57:40 rapid SARS CoV 2 Ag, QL IA, respiratory specimen 2024 025 [facility], [address] [place] [address], [id number] 17:57:40 Referral None recorded. Procedures None recorded. Surgeries None recorded. Imaging None recorded. Medication Orders azithromyci n 250 mg tablet 2024 025 [facility] i9 [facility] #[id number], [address], [place], [phone], 17:41:16 azithromyci n 500 mg tablet 2024 025 [facility] #[id number], [address], [place], [phone], 05:01:24 Patient TargetsNo targets recorded. Patient InstructionsNo instructions [...] Name and Address Organization Details Recorded Time 72118 amoxicill in medicatio n Not available Not available Not available 08/20/2024 723 RxNorm Not Available [employer] - production 08:12:56 29388 diphenhyd ramine hydrochlo ride medicatio n itching Not available Not available 06/27/20252024 1362 RxNorm Not Available [employer] - prod 5 17:56:25 97769 penicilli n G Not available itching Not available Not available 06/27/20252024 7980 RxNorm Not Available [employer] - prod 5 17:56:25 19134 oxycodone medicatio n itching Not available Not available 06/27/20252021 7804 RxNorm Not Available [facility] [employer] 5 17:56:33 70742 acetamino phen / oxycodone medicatio n Not available Not available Not available 07/27/2025 97846 3 RxNorm Not Available Location [employer] 5 15:00:20 7121 Product containin g penicilli n (product) medicatio n Not available Not available Not available 06/07/2024 62654 8001 SNOMED Not Available [employer] - production 4 03:35:07 7122 diphenhyd ramine medicatio n Not available Not available Not available 06/07/2024 3498 RxNorm Not Available [employer] - production 4 03:35:07 Medications Name Sig [...] for 7 days, for for 7 days. 03/23 completed Not Available Not Available Not Available [...] 2024 active Not Available Not Available Not Geetha Thakkar COVID-19 Ag Self Test kit TEST DIRECTED [...] Available No t Available Vitals Date Recorded Body height Oxygen saturation Body temperature Body weight Respiratory rate Heart rate Systolic And Diastolic Provider Name and Address Organization Details Last Updated DateTime 5 157.48 cm 97 % 98 [degF] 11367.6 g 14 /min 64 /min 150/92 mm[Hg] Not Available [employer] - production 17:33:54 Social History None recorded. Functional Status None recorded. Mental Status None recorded. Family History Nothing Reported. Medical History No medical history recorded. Gynecological HistoryNo gynecological history recorded. Obstetrics History GPAL:G 0 P 0 0 0 0 Past Encounters Encounter ID Performer Location Encounter Start Date Encounter Closed Date Diagnosis/Indication Diagnosis SNOMED-CT Code Diagnosis ICD10 Code Diagnosis IMO Codes Diagnosis Note [id number] NAHEED WEAVER MD [facility] ED Medical [address] [address] 06/27/2025 17:33:51 06/27/2025 18:09:53 Productive cough 38552717 R05.8 [id number] Health Concerns Section Related Observation LastModified by Organization Detai ls LastModified Time None Recorded Concern Status LastModified by Organization Details LastModified Time None Recorded Payers Encounter Date Sequence Insurance Name Policy Number Policy Mraks Covered Member ID Marks Member ID Guarantor Name 06/27/2025 1 [facility] - DOS ON OR AFTER 2022 - DUAL ELIGIBLE - JAIL OPTIONS AND ONE CARE (MEDICARE REPLACEMENT/AD VANTAGE - HMO) Taylor Martinez [id number] Taylor Martinez Notes Date Note Type Note Provider Name and Address Organization Details Recorded Time 06/27/2025 text/html ROS as noted in the HPI CRC Nurse Triage Notes (Georgina Hawk): Reason For Request: sore throat/body aches/congestionDenies : Increased work of breathing/labored with or without fever Unable to speak in full sentences without distress Discoloration of skin -cyanosis Needs to sleep sitting up, can t catch breath Shortness of breath in setting of confusion Chief Complaints: Common ColdPMH: COPD/Asthma, OsteoarthritisPMH Reviewed at 06/27/2025 - 08:49 (ET)Allergies Reviewed at 06/27/2025:49 (ET)Comments: 40 y.o female complains of Common [...] has used her inhalerShe has taken Alkazeltzer plusShe would like to be evaluated I provided information on the mobile health provider response time and advised the patient and/or caregiver to monitor reported signs and symptoms. I discussed the warning signs of when to seek emergency care. Jewish Thought Professor Organization Information for Edison Neves Debbie Mcmahan Legal Name: [facility] TransportationAddress: [address] [place] [address], [place] rivas [address], Medical Director: Rufino Graham [facility] No.: [id number] Jewish Thought Professor POC Test Results from Edison Neves MARY ELLEN Rapid COVID antigen (16:53:09)COVID: - Rapid influenza antigen (16:53:10)Flu: - ...................... ...................... ...................... ...................... ...................... ...................... ......... Jewish Thought Professor Note From Edison Neves: Patient alert and [...] Patient demonstrates understanding of care and plan. ...................... ...................... ...................... ...................... ...................... ...................... ......... [facility] Consulted: Naheed Weaver ...................... ...................... ...................... ...................... ...................... ...................... ......... Disposition: Fulfilled NAHEED WEAVER MD [address] [facility],[address], [place], [address], [employer] 06/27/2025 17:47:59 OBGyn Episode No OBEpisode recorded.
--- OUTSIDE RECORDS SUMMARY | 2025-08-09 08:55 | XMS_ITS | Continuity of Care Document ---
Author Organization [facility], [facility] Address [address] [place] [address] Care Team Providers Care Instrument Repair Specialist Name Role Phone Unavailable Referring Provider HIM CCA OTHER Assessment Encounter Date Assessment Date Assessment LastModified by Organization Details LastModified Time 07/27/2025 07/27/2025 As noted, we wer e called to see this patient regarding concerns of intolerance to doxycycline wants different antibiotic. Evaluation in the field was performed by my sex offender treatment professional colleague, as noted above, I provided real-time [...] abdominal pain, dizziness, fever, chills, generalized weakness. [email or web address] Not available 07/27/2025 15:20:22 Plan of Treatment Reminders Order Date Submit Date Provider Last Modified By Organization Details Last Modified Time Details Appointments None recorded. Lab rapid flu (A+B) 2024 [facility], [address] [place] [address], [id number] 15:45:57 rapid SARS CoV 2 Ag, QL IA, respiratory specimen 2024 [facility], [address] [place] [address], [id number] 15:46:30 Referral None recorded. Procedures None recorded. Surgeries None recorded. Imaging None recorded. Medication Orders azithromyci n 500 mg tablet 2024 [email or web address] [facility] #[id number], [address], [place], [phone], 14:48:53 azithromyci n 250 mg tablet 2024 025 [facility] #[id number], [address], [place], [phone], 5 14:49:56 Flonase Sensimist 27.5 mcg/actuati on nasal spray,suspe nsion 2024 025 [facility] #[id number], [address], [place], [phone], 5 14:50:21 Patient TargetsNo targets recorded. Patient InstructionsNo instructions [...] Name and Address Organization Details Recorded Time 15422 amoxicill in medicatio n Not available Not available Not available 08/20/2024 723 RxNorm Not Available [facility] 5 08:12:56 03077 diphenhyd ramine hydrochlo ride medicatio n itching Not available Not available 06/27/20252024 1362 RxNorm Not Available [employer] - prod 5 17:56:25 95399 penicilli n G Not available itching Not available Not available 06/27/20252024 7980 RxNorm Not Available [employer] - prod 5 17:56:25 oxycodone medicatio n itching Not available Not available 06/27/20252021 7804 RxNorm Not Available [employer] - prod 5 17:56:33 26870 acetamino phen / oxycodone medicatio n Not available Not available Not available 07/27/2025 88485 3 RxNorm Not Available [employer] - prod 5 15:00:20 7121 Product containin g penicilli n (product) medicatio n Not available Not available Not available 06/07/2024 45530 8001 SNOMED Not Available [facility] production 4 03:35:07 7122 diphenhyd ramine medicatio n Not available Not available Not available 06/07/2024 3498 RxNorm Not Available [facility] 4 03:35:07 Medications Name Sig Start Date [...] active Not Available Not Available Not Avai suni Thakkar COVID-19 Ag Self Test kit TEST [...] Vitals Date Recorded Respiratory rate Body temperature Heart rate Oxygen saturation Systolic And Diastolic Provider Name and Address Organization Details Last Updated DateTime 16 /min 97.8 [degF] 98 /min 99 [...] ICD10 Code Diagnosis IMO Codes Diagnosis Note [id number] JARED WEAVER [facility] [address] [address] 06/27/2025 17:33:51 06/27/2025 18:09:53 Productive cough 20110950 R05.8 [id number] KELLY PÉREZ MD [facility] ED Medical [address] [address] 07/27/2025 14:44:58 07/28/2025 19:17:08 Upper respiratory infection 55816737 J06.9 [id number] Health Concerns Section Related Observation LastModified by Organization Detai ls LastModified Time None Recorded Concern Status LastModified by Organization Details LastModified Time None Recorded Payers Encounter Date Sequence Insurance Name Policy Number Policy Marks Covered Member ID Marks Member ID Guarantor Name 07/27/2025 1 [facility] - DOS ON OR AFTER 2022 - DUAL ELIGIBLE - [employer]CI OPTIONS AND ONE CARE (MEDICARE REPLACEMENT/AD VANTAGE - HMO) Taylor Martinez [id number] aTylor Martinez Notes Date Note Type Note Provider Name and Address Organization Details Recorded Time 07/27/2025 text/html ROS as noted in the HPI [...] signs of when to seek emergency care. Registered Nurse Teacher Organization Information for Stuart Chavez Martir Legal Name: [employer] A ddress: [address] [facility] [place], [place] [address], USMedical Director: [facility] No[facility] [id number] Registered Nurse Teacher POC Test Results from Stuart Chavez MARY ELLEN Rapid COVID antigen (14:34:58)COVID: -Attachments uploaded as part of this test result can be found under Documents section. Rapid influenza antigen (14:34:59)Flu: -Attachments uploaded as part of this test result can be found under Documents section. ...................... ...................... ...................... ...................... ...................... ...................... ......... Registered Nurse Teacher Note From Stuart Chavez: Dispatched to above address for nausea malaise cold symptoms. On arrival patient 40 y/o F, met SC8 at the door, walking unassisted with normal gait, AOX4, airway patent, speaking in full sentences, good color, in no apparent distress. Patient reports she has been having recurrent sinus infections, has an appointment scheduled with [facility], was seen by PCP 4 days ago [...] Flu test preformed, both negative, results uploaded. [facility] contacted, spoke with Dr. Pérez, advised of patient complaints, exam findings and test results. [facility] will change ABX therapy, ordered first does 500mg Zithromax PO, all will prescribe Flonase for patient. Patient agrees with this plan. Patient advised of red flags, home care and need for follow up. Patient has no additional questions or concerns at this time. SC8 clear. EOR. [facility] Lab Orders: rapid flu (A+B): Performed rapid SARS CoV 2 Ag, QL IA, respiratory specimen: Performed [facility] Medication Orders: azithromycin 500 mg tablet: Administered ...................... ...................... ...................... ...................... ...................... ...................... ......... [facility] Consulted: Kelly Pérez ...................... ...................... ...................... ...................... ...................... ...................... ......... Disposition: Fulfilled KELLY PÉREZ MD [address] [facility],[address], [place], [address], [employer], [employer] 07/27/2025 15:20:39 OBGyn Episode No OBEpisode recorded.
--- OUTSIDE RECORDS SUMMARY | 2025-08-09 08:55 | XMS_ITS | Encounter Summary ---
Author Organization [employer] Address [address] [place] [address] [address] [place] [address] Care Team Providers Care Contract Negotiation Specialist Name Role Phone Damaris Ramos MD Primary Care Provider [phone] Encounter Details Date Type Department Care Team (Late st Contact Info) Description 06/06/2025 Orders Only [facility] MEDICINE [address] [place], [place] [phone] Damaris Ramos MD [address] [place], [place] [phone] Chronic post-traumatic headache, not intractable (Primary Dx) [...] documented as of this encounter Care Teams Contract Negotiation Specialist Relationship Specialty Start Date End Date Damaris Ramos MD [address] [place] [address] PCP - General Family Medicine 08/10/18 documented as of this encounter
--- OUTSIDE RECORDS SUMMARY | 2025-08-09 08:55 | XMS_ITS | Encounter Summary ---
Author Organization [employer] Address [address] [place] [address] [address] [place] [address] Care Team Providers Care Surgical Aides Teacher Name Role Phone Damaris Ramos MD Primary Care Provider [phone] Reason for Visit * Reason Onset Date Comments Durable Medical Equipment 10/24/2024 Encounter Details Date Type Department Care Team ([facility] st Contact Info) Description 10/24/2024 Telephone [facility] MEDICINE [address] [place], [place] [phone] Damaris Ramos MD [address] [place], [place] [phone] Durable Medical Equipment Social History Tobacco Use [...] AM EDT Request for CPAP received from [facility] career development coordinator/teacher; forwarded to provider for review on separate [...] enough Air at night. Contact pt at [phone] documented in this encounter Plan of Treatment Not on file documented as of this encounter Visit Diagnoses Not on filedocumented in this encounter Additional Health Concerns Assessment Noted Time PHQ-9 Depression Total Score: 18 024 12:02 PM EDT documented as of this encounter Care Teams Surgical Aides Teacher Relationship Specialty Start Date End Date Damaris Ramos MD [address] [place] [address] PCP - General Family Medicine 1/1/19 documented as of this encounter
--- NOTE | 2025-08-09 08:57 | MHC.OFFVIS ---
Intake Visit Reasons: INJ- LT knee Durolane injection Intake Note: Taylor is a 40 year old female who presents today for a left knee Durolane injection. Allergies amoxicillin (Amoxicillin) Allergy (Mild, Verified 08/09/25 09:02) ITCHING diphenhydramine (From Benadryl) Allergy (Mild, Verified 08/09/25 09:02) ITCHING folic acid (From Vitamin) Allergy (Mild, Verified 08/09/25 09:02) RASH iron (From Vitamin) Allergy (Mild, Verified 08/09/25 09:02) RASH acetaminophen (From Percocet) Allergy (Unknown, Verified 08/09/25 09:02) ITCHING penicillin V Allergy (Unknown, Verified 08/09/25 09:02) Hives Penicillins Allergy (Unknown, Verified 08/09/25 09:02) ITCHING Amoxicillin Allergy (Unknown, Uncoded 08/09/25 09:02) hives From Percocet Allergy (Unknown, Uncoded 08/09/25 09:02) ITCHING Penicillin Allergy (Unknown, Uncoded 08/09/25 09:02) hives HPI HPI INJ- LT knee Durolane injection: Details: 40 year old female who presents today for a left knee Durolane injection. [facility] Medical History (Updated 08/01/25 @ 07:58 by Nuha Peraza CNM) Cervical high risk HPV (human papillomavirus) test positive Asthma Headaches due to old head injury Insomnia Depression Bipolar 1 disorder GERD (gastroesophageal reflux disease) DJD (degenerative joint disease) ADHD Sleep apnea treated with continuous positive airway pressure (CPAP) Morbid obesity Surgical History Hx of breast reduction, elective Hx of section Hx of cholecystectomy Family History Mother Hypertension Diabetes Heart attack Father Hypertension Diabetes HIV (human immunodeficiency virus infection) Brother No problems noted. Sister No problems noted. Son Age: 21 ADHD Daughter Age: 17 No problems noted. 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 Female Reproductive History Menstrual Age of Menarche: 14 Review of Systems Const All systems reviewed & are unremarkable except as noted in HPI and below Physical Exam Const General: cooperative, healthy appearing, no acute distress, well developed and alert Orientation/consciousness: patient oriented x3 HEENT Head: Yes normal to inspection, Yes normocephalic and Yes atraumatic Eyes General: appearance normal, both eyes and all related structures Resp Effort & Inspection: normal respiratory effort and able to speak in complete sentences Cardio Rate: regular rate Peripheral pulses: Peripheral pulses 2+ throughout GI Palpation (GI): Soft to palpation Skin Lesions: no lesions Rashes: no rashes Neuro General: patient oriented x3 Extrem Other: Left knee: Skin intact, no erythema or joint effusion. Lateral retropatellar tenderness present. Full ROM with crepitus. Negative Al?s. No ligamentous laxity. NVI. Office Procedures AMB Joint Injection/Aspiration Joint Injection/Aspiration Primary Site: Left Knee Prep: site was prepped using aseptic technique, ethochloride spray was applied and injection warnings given Injected: Durolane Approach Used: anterolateral Procedure: The patient tolerated the procedure well Coding 86850 - Glenohumeral/Tronchanteric Bursa/Intraarticular Procedure code (CPT) selection complete Assessment & Plan Assessment & Plan (1) Patellofemoral arthritis of left knee: Code(s): M17.12 - Unilateral primary osteoarthritis, left knee Category: Medical Plan: . The patient did consent to move forward with the left knee durolane injection, which was tolerated well.? I recommended rest, ice and elevation and OTC antiinflammatories prn for discomfort. If symptoms persist over the next 6-8 weeks, they will contact our office, otherwise, prn Coding Level of Care Code Procedure Only Diagnoses Patellofemoral arthritis of left knee M17.12 CPT Codes Coding - Joint 7: 73261 - Glenohumeral/Tronchanteric Bursa/Intraarticular ([id number])
== END 2025-08-09 09:22 | disposition home or self-care (01) ==
LOC: HO.HOS 08:49
PROVIDERS: PCP Family Medicine; Visit Provider Physician Assistant
DX: M17.12 Unilateral primary osteoarthritis, left knee (principal)
CPT/HCPCS: 20610

== ENCOUNTER → 2025-08-09 08:49 | Outpatient (BNVA) | payer OTHER, SELFPAY | PROVIDERS: PCP Family Medicine; Visit Provider Physician Assistant | DX: M17.12 Unilateral primary osteoarthritis, left knee (principal) | CPT/HCPCS: 20610; J7318 ==